=== PATIENT | female | born 1945 | race Caucasian/White ===

== ENCOUNTER → 2017-03-04 | Outpatient (CLI) | payer MEDICARE ==
--- NOTE | 2017-03-05 10:55 | MM ---
Reason for exam: screening (asymptomatic). Last mammogram was performed 15 years and 6 months ago. History: Patient is postmenopausal and history of endometrial cancer. Excisional biopsy of the left breast. Took estrogen for 20 years. Physical Findings: A clinical breast exam by your physician is recommended on an annual basis and results should be correlated with mammographic findings. MG 3D Screening Mammo W/Cad Bilateral CC and MLO view(s) were taken. Prior study comparison: February 03, 2015, mammogram, performed at [facility]. May 26, 2013, mammogram, performed at [facility]. The breast tissue is heterogeneously dense. This may lower the sensitivity of mammography. There is chronic nodularity bilaterally. There is no dominant lesion. No significant changes when compared with prior studies. ASSESSMENT: Benign, BI-RAD 2 RECOMMENDATION: Routine screening mammogram of both breasts in 1 year.
--- NOTE | 2017-03-05 13:28 | BD ---
EXAMINATION TYPE: MG DEXA axial skeleton. DATE OF EXAM: 03/04/2017 COMPARISON: NONE CLINICAL HISTORY: 71-year-old female osteoporosis Height: 60 IN Weight: 147 LBS FRAX RISK QUESTIONS: Alcohol (3 or more units per day): NO Family History (Parent hip fracture): NO Glucocorticoids (More than 3mos): NO (Ex: prednisone, prednisolone, methylprednisolone, dexamethasone, and hydrocortisone). History of Fracture in Adulthood: NO Secondary Osteoporosis: 1. Type 1 Diabetes: NO 2. Hyperthyroidism: NO 3. Menopause before 45: YES AGE 36 4. Malnutrition: NO 5. Chronic liver disease: NO Rheumatoid Arthritis: NO Current Tobacco Use: NO RISK FACTORS HISTORY OF: Active: YES Diet low in dairy products/other sources of calcium: YES Postmenopausal woman: AGE 36 Take estrogen and/or progesterone medications: NOT NOW How long: AGE 35 - 40 MEDICATIONS: Osteoporosis Medications: YES Which medication: Fosamax How Lon YEARS Additional Medications: FOSAMAX, VIT D, HCTZ, AMLODIPINE, ASPIRIN 81MG, MULTI VIT, Additional History: CERVICAL CANCER EXAM MEASUREMENTS: Bone mineral densitometry was performed using the [employer] System. Bone mineral density as measured about the Lumbar spine is: ----- L1-L4(G/cm2): 1.176 T Score Values are as follows: ----- L2: -1.3 ----- L3: 0.0 ----- L4: 1.3 ----- L1-L4: 0.0 Bone mineral density BASELINE Bone mineral density about the R hip (g/cm2): 0.735 Bone mineral density about the L hip (g/cm2): 0.807 T Score values are as follows: -----R Neck: -2.2 -----L Neck: -1.7 -----R Total: -1.5 -----L Total: -0.8 Bone mineral density BASELINE IMPRESSION: Osteopenia (T Score between -2.5 and -1 as noted by T score values There is slightly increased risk of fracture and the patient may be considered for treatment. Re-Screen 2-5 years. NOTE: T-SCORE=SD OF THE YOUNG ADULT MEAN.
== END ==
LOC: RADMAMWWP 12:20
PROVIDERS: ATTEND Family Medicine
DX: Z12.31 Encounter for screening mammogram for malignant neoplasm of breast (principal); M85.80 Other specified disorders of bone density and structure, unspecified site
CPT/HCPCS: 77080; 77063; G0202

== ENCOUNTER 2017-07-08 13:41 | Inpatient (IN) | payer MEDICARE ==
[2017-07-08] MEDS ORDERED: SODIUM CHLORIDE 0.9% 1,000 ML IV STA (14:04)
[2017-07-08] MEDS ORDERED: SODIUM CHLORIDE 0.9% 500 ML IV STA (14:04)
[2017-07-08] MEDS ORDERED: RX INFO: IV CONTRAST WAS GIVEN 1 EACH MISC MISCELLANE PRN (14:04)
--- NOTE | 2017-07-08 14:10 | ED ---
General Adult HPI - General Chief complaint: Shortness of Breath Stated complaint: Swollen leg,SOB,rash Time Seen by Provider: 07/08/17 13:58 Source: patient, RN notes reviewed, old records reviewed Mode of arrival: wheelchair Limitations: no limitations - History of Present Illness Initial comments: This is a 71-year-old female the ER for evaluation of shortness of breath, lower Shorty edema. Patient history positive CA. Patient sent in by family doctor for evaluation regarding possible PE versus DVT. Patient has no chest pain or shortness of breath, - Related Data Home Medications Medication Instructions Recorded Confirmed Aspirin 81 mg PO HS 09/07/13 07/08/17 Lisinopril-Hctz 10-12.5 mg 1 tab PO BID 09/07/13 07/08/17 [Zestoretic 10-12.5] amLODIPine [Norvasc] 10 mg PO HS 09/07/13 07/08/17 Cholecalciferol [Vitamin D3] 5,000 unit PO DAILY 07/08/17 07/08/17 Multivitamins, Thera [Multivitamin 1 tab PO DAILY 07/08/17 07/08/17 (formulary)] Allergies Allergy/AdvReac Type Severity Reaction Status Date / Time adhesive Allergy Rash/Hives Verified 07/08/17 14:31 amoxicillin trihydrate Allergy Rash/Hives Verified 07/08/17 14:31 [From Trimox] triamcinolone Allergy Swelling Verified 07/08/17 14:31 Review of Systems ROS Statement: Those systems with pertinent positive or pertinent negative responses have been documented in the HPI. ROS Other: All systems not noted in ROS Statement are negative. Past Medical History Past Medical History: Hypertension, Skin Disorder, Thyroid Disorder Additional Past Medical History / Comment(s): posy menopausal, thyroid nodule, History of Any Multi-Drug Resistant Organisms: None Reported Past Surgical History: Breast Surgery, Hysterectomy Additional Past Surgical History / Comment(s): Thyroid biopsy,exploratory abdominal surgery to remove ovarian pre-cancerous mass. berry procedure Past Anesthesia/Blood Transfusion Reactions: No Reported Reaction Past Psychological History: No Psychological Hx Reported Smoking Status: Never smoker Past Alcohol Use History: None Reported Past Drug Use History: None Reported - Past Family History Father Family Medical History: Cancer Additional Family Medical History / Comment(s): kidney ca General Exam Limitations: no limitations General appearance: alert, in no apparent distress Head exam: Present: atraumatic, normocephalic, normal inspection Eye exam: Present: normal appearance, PERRL, EOMI. Absent: scleral icterus, conjunctival injection, periorbital swelling ENT exam: Present: normal exam, mucous membranes moist Neck exam: Present: normal inspection. Absent: tenderness, meningismus, lymphadenopathy Respiratory exam: Present: normal lung sounds bilaterally. Absent: respiratory distress, wheezes, rales, rhonchi, stridor Cardiovascular Exam: Present: regular rate, normal rhythm, normal heart sounds. Absent: systolic murmur, diastolic murmur, rubs, gallop, clicks GI/Abdominal exam: Present: soft, normal bowel sounds. Absent: distended, tenderness, guarding, rebound, rigid Extremities exam: Present: normal inspection, full ROM, normal capillary refill. Absent: tenderness, pedal edema, joint swelling, calf tenderness Back exam: Present: normal inspection Neurological exam: Present: alert, oriented X3, CN II-XII intact Psychiatric exam: Present: normal affect, normal mood Skin exam: Present: warm, dry, intact, normal color. Absent: rash Course Vital Signs 07/08/17 07/08/17 13:45 15:05 Temperature 98.0 F Pulse Rate 120 H 122 H Respiratory 18 20 Rate Blood Pressure 136/74 124/76 O2 Sat by Pulse 96 97 Oximetry - Reevaluation(s) Reevaluation #1: 07/08/17 16:02 Patient was tachycardia, positive troponin secondary to PE EKG Findings - EKG Comments: EKG Findings:: EKG shows sinus tachycardia rate 105, HI 160, QRS 80, QTC 459 Medical Decision Making - Medical Decision Making 71 female the ER for evaluation, positive occasional shortness of breath or chest pain, positive PE, patient positive troponin. Patient will be admitted for further evaluation and monitoring, anticoagulation - Lab Data Result diagrams: 07/08/17 14:00 07/08/17 14:00 Lab Results 07/08/17 07/08/17 07/08/17 Range/Units 14:00 14:00 14:00 WBC 15.5 H (3.8-10.6) k/uL RBC 4.72 (3.80-5.40) m/uL Hgb 13.8 (11.4-16.0) gm/dL Hct 41.4 (34.0-46.0) % MCV 87.6 (80.0-100.0) fL MCH 29.3 (25.0-35.0) pg MCHC 33.4 (31.0-37.0) g/dL RDW 12.8 (11.5-15.5) % Plt Count 325 (150-450) k/uL Neutrophils % 83 % Lymphocytes % 13 % Monocytes % 2 % Eosinophils % 0 % Basophils % 0 % Neutrophils # 12.8 H (1.3-7.7) k/uL Lymphocytes # 2.1 (1.0-4.8) k/uL Monocytes # 0.4 (0-1.0) k/uL Eosinophils # 0.1 (0-0.7) k/uL Basophils # 0.1 (0-0.2) k/uL PT (9.0-12.0) sec INR (<1.2) APTT (22.0-30.0) sec D-Dimer (<0.60) mg/L FEU Sodium 140 (137-145) mmol/L Potassium 3.8 (3.5-5.1) mmol/L Chloride 101 (98-107) mmol/L Carbon Dioxide 25 (22-30) mmol/L Anion Gap 14 mmol/L BUN 19 H (7-17) mg/dL Creatinine 0.92 (0.52-1.04) mg/dL Est GFR (CKD-EPI)AfAm 73 (>60 ml/min/1.73 sqM) Est GFR (CKD-EPI)NonAf 64 (>60 ml/min/1.73 sqM) Glucose 124 H (74-99) mg/dL Calcium 10.7 H (8.4-10.2) mg/dL Magnesium 1.7 (1.6-2.3) mg/dL Total Bilirubin 0.4 (0.2-1.3) mg/dL AST 22 (14-36) U/L ALT 29 (9-52) U/L Alkaline Phosphatase 97 (38-126) U/L Total Creatine Kinase 60 (30-135) U/L CK-MB (CK-2) 2.9 H* (0.0-2.4) ng/mL CK-MB (CK-2) Rel Index 4.8 Troponin I 0.357 H* (0.000-0.034) ng/mL Total Protein 7.9 (6.3-8.2) g/dL Albumin 4.5 (3.5-5.0) g/dL 07/08/17 Range/Units 14:00 WBC (3.8-10.6) k/uL RBC (3.80-5.40) m/uL Hgb (11.4-16.0) gm/dL Hct (34.0-46.0) % MCV (80.0-100.0) fL MCH (25.0-35.0) pg MCHC (31.0-37.0) g/dL RDW (11.5-15.5) % Plt Count (150-450) k/uL Neutrophils % % Lymphocytes % % Monocytes % % Eosinophils % % Basophils % % Neutrophils # (1.3-7.7) k/uL Lymphocytes # (1.0-4.8) k/uL Monocytes # (0-1.0) k/uL Eosinophils # (0-0.7) k/uL Basophils # (0-0.2) k/uL PT 10.1 (9.0-12.0) sec INR 1.0 (<1.2) APTT 24.3 (22.0-30.0) sec D-Dimer 3.84 H (<0.60) mg/L FEU Sodium (137-145) mmol/L Potassium (3.5-5.1) mmol/L Chloride (98-107) mmol/L Carbon Dioxide (22-30) mmol/L Anion Gap mmol/L BUN (7-17) mg/dL Creatinine (0.52-1.04) mg/dL Est GFR (CKD-EPI)AfAm (>60 ml/min/1.73 sqM) Est GFR (CKD-EPI)NonAf (>60 ml/min/1.73 sqM) Glucose (74-99) mg/dL Calcium (8.4-10.2) mg/dL Magnesium (1.6-2.3) mg/dL Total Bilirubin (0.2-1.3) mg/dL AST (14-36) U/L ALT (9-52) U/L Alkaline Phosphatase (38-126) U/L Total Creatine Kinase (30-135) U/L CK-MB (CK-2) (0.0-2.4) ng/mL CK-MB (CK-2) Rel Index Troponin I (0.000-0.034) ng/mL Total Protein (6.3-8.2) g/dL Albumin (3.5-5.0) g/dL - Radiology Data Radiology results: report reviewed (Of some negative for DVT, CT positive for PE ), image reviewed Disposition Clinical Impression: Pulmonary embolism Disposition: ADMITTED IP TO THIS [facility] Condition: Serious Referrals: Davi Ricardo DO [Primary Care Provider] - 1-2 days
[2017-07-08 14:28] LABS: Basophils # (A) 0.1 k/uL (0-0.2); Basophils % (A) 0 %; Eosinophils # (A) 0.1 k/uL (0-0.7); Eosinophils % (A) 0 %; HCT 41.4 % (34.0-46.0); HGB 13.8 gm/dL (11.4-16.0); Lymphocytes # (A) 2.1 k/uL (1.0-4.8); Lymphocytes % (A) 13 %; MCH 29.3 pg (25.0-35.0); MCHC 33.4 g/dL (31.0-37.0); MCV 87.6 fL (80.0-100.0); Mean Platelet Volume 7.4; Monocytes # (A) 0.4 k/uL (0-1.0); Monocytes % (A) 2 %; Neutrophils # (A) 12.8 k/uL (1.3-7.7); Neutrophils % (A) 83 %; Platelet Count 325 k/uL (150-450); RBC 4.72 m/uL (3.80-5.40); RDW 12.8 % (11.5-15.5); WBC 15.5 k/uL (3.8-10.6)
[2017-07-08 14:39] LABS: Albumin 4.5 g/dL (3.5-5.0); Calcium 10.7 mg/dL (8.4-10.2); Magnesium 1.7 mg/dL (1.6-2.3); Potassium 3.8 mmol/L (3.5-5.1); Total Bilirubin 0.4 mg/dL (0.2-1.3); Total Protein 7.9 g/dL (6.3-8.2)
[2017-07-08 14:45] LABS: D-Dimer 3.84 mg/L FEU (<0.60); Partial Thromboplastin Time 24.3 sec (22.0-30.0); Prothrombin Time 10.1 sec (9.0-12.0)
[2017-07-08 15:16] LABS: Creatine Kinase MB 2.9 ng/mL (0.0-2.4); Troponin I 0.357 ng/mL (0.000-0.034)
--- NOTE | 2017-07-08 15:20 | US ---
EXAMINATION TYPE: US venous doppler duplex LE BI DATE OF EXAM: 07/08/2017 2:55 PM COMPARISON: NONE CLINICAL HISTORY: 71-year-old female with Pain. SIDE PERFORMED: bilateral TECHNIQUE: The lower extremity deep venous system is examined utilizing real time linear array sonog joss with graded compression, doppler sonography and color-flow sonography. FINDINGS: VESSELS IMAGED: External Iliac Vein (EIV) Common Femoral Vein Deep Femoral Vein Greater Saphenous Vein * Femoral Vein Popliteal Vein Small Saphenous Vein * Proximal Calf Veins (* superficial vessels) Right Leg: Negative for DVT Left Leg: Negative for DVT IMPRESSION: No evidence for DVT within the bilateral lower extremities imaged from the groin to the upper calves.
--- NOTE | 2017-07-08 15:49 | CT ---
EXAMINATION TYPE: CT angio chest DATE OF EXAM: 07/08/2017 3:35 PM COMPARISON: NONE HISTORY: Swelling right leg and shortness of breath CT DLP: 241.3 mGycm Automated exposure control for dose reduction was used. CONTRAST: CTA scan of the thorax is performed with IV Contrast, patient injected with 100 mL of Isovue 370, pul monary embolism protocol. . FINDINGS: LUNGS: There are groundglass changes noted bilaterally which may been the basis of alveolitis. No siz able pneumothorax. No pleural effusion. At the right lung base axial image 82 there is a 2 mm subpleu ral nodule which is too small to characterize. MEDIASTINUM: There are bilateral acute pulmonary embolism involving the distal main right and left pu lmonary arteries as well as secondary and tertiary branches compatible sizable bilateral pulmonary em bolism. Heart is enlarged and there is mild prominence of the right ventricle. No pericardial effusio n. Correlate for right ventricular strain. Aorta of normal caliber. Report called to emergency room physician. OTHER: Hypertrophic and degenerative change of the spine. Small hiatal hernia noted. Chronic appeari ng deformity of the lateral margin of a single right-sided rib suggest remote trauma. Heterogeneous p attern of the lower margin of the left thyroid. This likely represents a lower pole left thyroid nodu le which is been reported by previous ultrasound. IMPRESSION: 1. Bilateral distal main pulmonary arterial acute pulmonary embolism with involvement of the secondar y and tertiary branches bilaterally. 2. Nonspecific groundglass changes bilaterally could been the basis of an alveolitis or pneumonitis. No large area of consolidation identified.
[2017-07-08] MEDS ORDERED: HEPARIN SODIUM,PORCINE 10,000 UNIT/ML 1 ML VIAL IV ONE (15:55)
[2017-07-08] MEDS ORDERED: HEPARIN SODIUM,PORCINE 5,000 UNIT/ML 1 ML VIAL IV PRN (15:55)
[2017-07-08] MEDS ORDERED: NITROGLYCERIN SL TABS 0.4 MG TAB SUBLINGUAL PRN (16:13)
[2017-07-08] MEDS ORDERED: MORPHINE SULF 5MG/10ML VL IV PRN (16:13)
[2017-07-08] MEDS: HEPARIN SOD,PORK IN 0.45% NACL 25,000 UNIT in 0.45% NACL 1 500ML.BAG IV SCH (16:27)
[2017-07-08] MEDS ORDERED: MAGNESIUM HYDROXIDE 2,400 MG/10 ML CUP PO PRN (18:24)
[2017-07-08] MEDS ORDERED: LACTULOSE 20 GM/30 ML CUP PO PRN (18:24)
[2017-07-08] MEDS ORDERED: MELATONIN 3 MG TABLET PO PRN (18:24)
[2017-07-08] MEDS ORDERED: LORazepam 0.5 MG TAB PO PRN (18:24)
[2017-07-08] MEDS ORDERED: NALOXONE 0.4 MG/ML 1 ML VIAL IV PRN (18:24)
[2017-07-08] MEDS ORDERED: CALCIUM CARBONATE 500 MG CHEWABLE PO PRN (18:24)
[2017-07-08] MEDS ORDERED: ONDANSETRON 4 MG/2 ML VIAL IVP PRN (18:24)
[2017-07-08 22:10] LABS: Creatine Kinase MB 2.5 ng/mL (0.0-2.4); Troponin I 0.325 ng/mL (0.000-0.034)
[2017-07-08] MEDS: SODIUM CHLORIDE 0.9% 1,000 ML IV SCH (23:36)
[2017-07-08] MEDS: ASPIRIN 81 MG PO SCH (23:36)
[2017-07-08] MEDS: LISINOPRIL-HCTZ 10-12.5 MG 1 EACH TAB PO SCH (23:36)
[2017-07-08] MEDS: amLODIPine 10 MG TAB PO SCH (23:37)
[2017-07-09 02:51] LABS: Creatine Kinase MB 1.9 ng/mL (0.0-2.4)
[2017-07-09 02:54] LABS: Troponin I 0.239 ng/mL (0.000-0.034)
[2017-07-09] MEDS: SODIUM CHLORIDE 0.9% 1,000 ML IV SCH ×2 (06:05→11:48)
[2017-07-09 06:36] LABS: Basophils % (A) 0 %; Eosinophils # (A) 0.3 k/uL (0-0.7); Eosinophils % (A) 3 %; HCT 35.3 % (34.0-46.0); HGB 11.8 gm/dL (11.4-16.0); Lymphocytes # (A) 2.4 k/uL (1.0-4.8); Lymphocytes % (A) 24 %; MCH 29.8 pg (25.0-35.0); MCHC 33.4 g/dL (31.0-37.0); MCV 89.1 fL (80.0-100.0); Mean Platelet Volume 7.4; Monocytes # (A) 0.3 k/uL (0-1.0); Monocytes % (A) 3 %; Neutrophils % (A) 70 %; Platelet Count 275 k/uL (150-450); RBC 3.97 m/uL (3.80-5.40); RDW 12.8 % (11.5-15.5); WBC 10.1 k/uL (3.8-10.6)
[2017-07-09 06:50] LABS: Potassium 3.7 mmol/L (3.5-5.1)
[2017-07-09] MEDS: LISINOPRIL-HCTZ 10-12.5 MG 1 EACH TAB PO SCH ×2 (07:57→19:48)
[2017-07-09] MEDS ORDERED: ASPIRIN 325 MG TAB PO SCH (09:00)
--- NOTE | 2017-07-09 11:34 | ECHOF ---
Referral Reason:pe MEASUREMENTS -------- HEIGHT: 154.9 cm WEIGHT: 66.2 kg BP: 124/76 RVIDd: 3.6 cm (< 3.3) IVSd: 1.0 cm (0.6 - 1.1) LVIDd: 3.7 cm (3.9 - 5.3) LVPWd: 1.1 cm (0.6 - 1.1) IVSs: 1.4 cm LVIDs: 2.7 cm LVPWs: 1.4 cm LAESV Index (A-L): 11.16 ml/m Ao Diam: 3.1 cm (2.0 - 3.7) AV Cusp: 1.5 cm (1.5 - 2.6) LA Diam: 2.8 cm (2.7 - 3.8) EPSS: 0.5 cm RAP: 10.00 mmHg RVSP: 56.16 mmHg MV EF SLOPE: 70.91 mm/s (70 - 150) MV EXCURSION: 1.53 cm (> 18.000) FINDINGS -------- Resting tachycardia (HR>100bpm). This was a technically adequate study. The left ventricular size is normal. Left ventricular wall thickness is normal. Overall left vent ricular systolic function is normal with, an EF between 55 - 60 %. The right ventricle is mild to moderately enlarged. The right ventricular septal wall is flattened in systole which is consistent with right ventricular pressure overload. Normal LA size by volume 22+/-6 ml/m2. RA appears enlarged. Aortic valve is trileaflet and is mildly thickened. There is no evidence of aortic regurgitation. There is no evidence of aortic stenosis. The mitral valve leaflets are mildly thickened. Mild mitral annular calcification present. There is trace to mild mitral regurgitation. Mild tricuspid regurgitation present. There is moderate pulmonary hypertension. The right ventric ular systolic pressure, as measured by Doppler, is 56.16mmHg. The pulmonic valve was not well visualized. The aortic root size is normal. Normal inferior vena cava with less than 50% inspiratory collapse consistent with estimated right atr ial pressure of 15 mmHg. There is no pericardial effusion. CONCLUSIONS -------- 1. Resting tachycardia (HR>100bpm). 2. This was a technically adequate study. 3. The left ventricular size is normal. 4. Left ventricular wall thickness is normal. 5. Overall left ventricular systolic function is normal with, an EF between 55 - 60 %. 6. The right ventricle is mild to moderately enlarged. 7. The right ventricular septal wall is flattened in systole which is consistent with right ventricu lar pressure overload. 8. Normal LA size by volume 22+/-6 ml/m2. 9. RA appears enlarged. 10. Aortic valve is trileaflet and is mildly thickened. 11. The mitral valve leaflets are mildly thickened. 12. Mild mitral annular calcification present. 13. There is trace to mild mitral regurgitation. 14. Mild tricuspid regurgitation present. 15. There is moderate pulmonary hypertension. 16. The right ventricular systolic pressure, as measured by Doppler, is 56.16mmHg. 17. The pulmonic valve was not well visualized. 18. The aortic root size is normal. 19. Normal inferior vena cava with less than 50% inspiratory collapse consistent with estimated right atrial pressure of 15 mmHg. 20. There is no pericardial effusion. [employer] ASSOCIATE: Roshan Madrigal RDCS
[2017-07-09] MEDS: MULTIVITAMINS, THERA 1 EACH TAB PO SCH (11:48)
[2017-07-09] MEDS ORDERED: MORPHINE ORAL SOLN 10 MG/5 ML CUP PO PRN (12:54)
--- NOTE | 2017-07-09 14:38 | HP ---
HISTORY AND PHYSICAL DATE OF ADMISSION: 07/08/17. PRESENT COMPLAINT: Short of breath. HISTORY OF PRESENTING COMPLAINT: This is a very pleasant, 71-year-old patient of Dr. Ricardo. Chronic stable medical conditions include GERD, hypertension, thyroid nodule, diverticulitis, osteoarthritis, gout. The patient has had some swelling right lower extremity for about 2 months and for 1 week the swelling increased. The patient has also had a rash on the right lower extremity. The patient also noticed for a week she was become increasingly short of breath. No cough. No phlegm. No fever. Patient decided to come in to come in. The patient has some pain in the joints. The patient also had a troponin leak. Denies any precordial pressure, chest CTA ruled out PE. The patient denies any cardiac history. REVIEW OF SYSTEMS: CONSTITUTIONAL: Tired. HEENT: None. RESPIRATORY: As above. CARDIOVASCULAR: No chest pain. GASTROINTESTINAL: Heartburn. GENITOURINARY: None. MUSCULOSKELETAL: Pain in different joints. DERMATOLOGICAL: The patient has a rash on the lower extremities. PSYCHIATRY: None. PAST MEDICAL HISTORY: GERD, hypertension, thyroid nodule, diverticulitis, osteoarthritis, gout. PAST SURGICAL HISTORY: Breast surgery, hysterectomy, thyroid surgery. Patient had ovarian precancer that was removed by Mohs procedure. SOCIAL HISTORY: No smoking. No alcohol. . FAMILY HISTORY: Kidney cancer. HOME MEDICATIONS: 1. Norvasc 10 mg p.o. q.h.s. 2. Multivitamin 1 tab p.o. daily. 3. Zestoretic 01/17.5 one tab p.o. b.i.d. 4. Vitamin D3 5000 units p.o. daily. 5. Aspirin 81 mg p.o. q.h.s. ALLERGIES: ADHESIVES, AMOXICILLIN, . EXAMINATION: Temperature 98.2, pulse 91, respiratory 18, blood pressure 108/59, pulse 95% on 2 L. GENERAL APPEARANCE: Sitting up, comfortable. EYES: Pupils equal. Conjunctivae normal. HEENT: External nose and ears normal. Oral cavity normal. NECK: JVD not raised. Mass not palpable. RESPIRATORY: Effort normal, lungs fair entry. CARDIOVASCULAR: First and second sounds normal. No edema. ABDOMEN: Soft, nontender. Liver and spleen not palpable. LYMPHATIC: No lymph nodes palpable in neck or axillae. PSYCHIATRY: Alert and oriented x3. Mood and affect normal. NEUROLOGICAL: Pupils equal. Cranial nerves grossly intact. Power and sensation grossly intact. DERMATOLOGICAL: Patient has got a rash, somewhat macular, slightly crusty. Minimal tenderness located to the anterior laws. INVESTIGATIONS: White count 15.5, hemoglobin 13.8, increased neutrophils. Potassium 3.8, BUN 19, creatinine 0.92, troponin 0.35, 0.032, 0.239. LDL 66. ProBNP 285. EKG shows poor R- wave progression. Nonspecific T-wave changes in V1 to V5. Chest CTA shows bilateral acute pulmonary embolism involving the distal main right and left pulmonary artery. 2D echo shows right ventricle [id number] enlarged, including right ventricular pressure overload. ASSESSMENT: 1. Acute bilateral pulmonary embolism with right ventricular pressure overload. 2. Gastroesophageal reflux disease. 3. Essential hypertension. 4. Primary osteoarthritis of multiple joints, bilateral. 5. IV heparin monitoring. 6. Troponin leak from right ventricular strain. PLAN: Patient's home medications were resumed. Consultation to Cardiology and Pulmonary was made. Also consultation made to Pulmonary. Care was discussed with the patient. MMODL / BUCKN: [id number] /
[2017-07-09] MEDS: HEPARIN SOD,PORK IN 0.45% NACL 25,000 UNIT in 0.45% NACL 1 500ML.BAG IV SCH (15:56)
--- NOTE | 2017-07-09 16:52 | P.CNPUL ---
History of Present Illness Consult date: 07/09/17 Reason for consult: pulmonary embolism Chief complaint: Shortness of breath History of present illness: This is a 71-year-old female with history of hypertension, remote history of possible ovarian cancer, previous surgery. Also had previous history of thyroid nodule with negative thyroid biopsy. Patient came into the hospital with 1 week history of shortness of breath. No cough, no wheezing, no chest pain, no fever, no chills, no hemoptysis. CT angiogram of the chest showed bilateral pulmonary emboli. Patient was also noted to have elevated d-dimer, negative venous Doppler of lower extremities. Admitted, started on heparin, and this consult was initiated. Patient denies any previous history of thromboembolic disease, no family history of hypercoagulable state or thromboembolic disease. Denies any headaches, no blurred vision no dizziness no chest pain no nausea no vomiting no abdominal pain no melena no hematemesis no dysuria and no frequency no urgency. Review of Systems 14 point review of systems were obtained, please refer to pertinent positives as per HPI otherwise remaining systems are negative. Past Medical History Past Medical History: Cancer, GERD/Reflux, Hypertension, Pneumonia, Skin Disorder, Thyroid Disorder Additional Past Medical History / Comment(s): post menopausal, thyroid nodule, recieved the shingeles vaccine 2014.skin cancer, diverticulosis, arthiritsfeet/ lt ankle, rt knee.gouit, past migaraines, upper bridge, rash rt lower ext. History of Any Multi-Drug Resistant Organisms: None Reported Past Surgical History: Breast Surgery, Hysterectomy Additional Past Surgical History / Comment(s): Thyroid biopsy,exploratory abdominal surgery to remove ovarian pre-cancerous mass. "mohs procedure", colonsocpy, breast bx 1987 Past Anesthesia/Blood Transfusion Reactions: Motion Sickness Additional Past Anesthesia/Blood Transfusion Reaction / Comment(s): clausterphobia Smoking Status: Never smoker - Past Family History Mother Additional Family Medical History / Comment(s): scleraderma Father Family Medical History: Cancer Additional Family Medical History / Comment(s): kidney ca Medications and Allergies Home Medications Medication Instructions Recorded Confirmed Type Aspirin 81 mg PO HS 09/07/13 07/08/17 History Lisinopril-Hctz 10-12.5 mg 1 tab PO BID 09/07/13 07/08/17 History [Zestoretic 10-12.5] amLODIPine [Norvasc] 10 mg PO HS 09/07/13 07/08/17 History Cholecalciferol [Vitamin D3] 5,000 unit PO DAILY 07/08/17 07/08/17 History Multivitamins, Thera [Multivitamin 1 tab PO DAILY 07/08/17 07/08/17 History (formulary)] Allergies Allergy/AdvReac Type Severity Reaction Status Date / Time adhesive Allergy Rash/Hives Verified 07/08/17 14:31 amoxicillin trihydrate Allergy Rash/Hives Verified 07/08/17 14:31 [From Trimox] triamcinolone Allergy Swelling Verified 07/08/17 14:31 Physical Exam Vitals: Vital Signs Temp Pulse Pulse Resp BP BP Pulse Ox 07/09/17 16:05 94 L 07/09/17 15:58 99.7 F H 90 18 131/64 94 L 07/09/17 11:47 98.2 F 91 18 118/59 95 07/09/17 07:50 98.9 F 85 18 129/59 94 L 07/09/17 04:00 97 F L 86 18 129/70 95 07/09/17 00:00 90 18 130/68 95 07/08/17 20:00 98.6 F 95 14 112/56 93 L 07/08/17 18:00 97.9 F 112 H 18 129/73 95 07/08/17 17:00 115 H 20 130/68 97 Intake and Output 07/09/17 07/09/17 07/09/17 06:59 14:59 22:59 Intake Total 708.964 5218.524 978.993 Output Total 800 Balance -345.287 6671.524 978.993 Intake: IV 21 Heparin Sod,Pork in 0.45% 21 NaCl 25,000 unit In 0.45 % NaCl 1 500ml.bag @ 18 UNITS/KG/HR 23.84 mls/hr IV .[id number] [facility] Rx#: [id number] Intake, IV Titration 166.483 975.524 957.993 Amount Heparin Sod,Pork in 0.45% 166.483 175.524 157.993 NaCl 25,000 unit In 0.45 % NaCl 1 500ml.bag @ 18 UNITS/KG/HR 23.84 mls/hr IV .[id number] [facility] Rx#: [id number] Sodium Chloride 0.9% 1, 800 800 000 ml @ 100 mls/hr IV . Q10H [facility] Rx#:[id number] Oral 480 Output: Urine 800 Other: Voiding Method Bedpan Bedpan # Voids 1 2 3 Weight 68 kg Physical Exam: Revealed a 71-year-old female in no form of respiratory distress. Head: Atraumatic, normocephalic. Eyes: PERRLA, EOMI, no icterus. HEENT: Moist mucous membranes. [Neck is supple.] [No neck masses.] [No thyromegaly.] [No JVD.] Chest: [Clear throughout, no crackles, no rhonchi, no wheezes.] Cardiac Exam: [Normal S1 and S2, no S3 gallop, no murmur.] Abdomen: [Soft, nontender, no megaly, no rebound, no guarding, normal bowel sounds.] Extremities: [No clubbing, no edema, no cyanosis.] Neurological Exam: [No focal neurologic deficit.] Psychiatric: Normal mood affect and mental status examination. Lymphatics: No lymphadenopathy. Musculoskeletal: No deformities, normal range of motion. Results - Laboratory Findings CBC and BMP: 07/09/17 05:23 07/09/17 05:23 PT/INR, D-dimer PT 10.1 sec (9.0-12.0) 07/08/17 14:00 INR 1.0 (<1.2) 07/08/17 14:00 D-Dimer 3.84 mg/L FEU (<0.60) H 07/08/17 14:00 Abnormal lab findings: Abnormal Labs 07/08/17 07/08/17 07/08/17 14:00 14:00 14:00 WBC 15.5 H Neutrophils # 12.8 H APTT D-Dimer BUN 19 H Glucose 124 H Calcium 10.7 H CK-MB (CK-2) 2.9 H* Troponin I 0.357 H* 07/08/17 07/08/17 07/08/17 14:00 21:02 21:02 WBC Neutrophils # APTT 79.5 H D-Dimer 3.84 H BUN Glucose Calcium CK-MB (CK-2) 2.5 H* Troponin I 0.325 H* 07/09/17 07/09/17 02:08 05:23 WBC Neutrophils # APTT 48.5 H D-Dimer BUN Glucose Calcium CK-MB (CK-2) Troponin I 0.239 H* - Diagnostic Findings CT scan - chest: image reviewed (Bilateral pulmonary emboli was noted.) Assessment and Plan Assessment: Impression: 1 Acute pulmonary embolism, unprovoked, quite extensive noted on the CT angiogram of the chest. But no hemodynamic instability. 2 relatively normal echocardiogram except for right ventricular wall flattening in systole consistent with right ventricular pressure overload. However at this point not severe enough to justify thrombolytic therapy. 3 history of benign essential hypertension 4 history of thyroid nodule and history of precancerous ovarian mass. Recommendation: I fully agree with heparin at this point, patient will eventually need workup for hypercoagulable state and that could be done on outpatient basis. Granted, considering the pulmonary embolism is unprovoked, patient will likely need to be on anticoagulation therapy for lifetime. We'll continue to follow. Discussed her condition with her and her family members at bedside. Time with Patient: Greater than 30
[2017-07-09] MEDS: CLOBETASOL PROP 0.05% CR 15GM TOPICAL SCH (17:18)
[2017-07-09] MEDS: amLODIPine 10 MG TAB PO SCH (19:48)
[2017-07-09] MEDS: ASPIRIN 81 MG PO SCH (19:49)
[2017-07-10] MEDS: SODIUM CHLORIDE 0.9% 1,000 ML IV SCH ×3 (02:47→19:12)
[2017-07-10] MEDS: CLOBETASOL PROP 0.05% CR 15GM TOPICAL SCH ×3 (02:47→21:04)
[2017-07-10 06:35] LABS: Basophils # (A) 0.1 k/uL (0-0.2); Basophils % (A) 1 %; Eosinophils # (A) 0.5 k/uL (0-0.7); Eosinophils % (A) 4 %; HGB 11.6 gm/dL (11.4-16.0); Lymphocytes # (A) 2.8 k/uL (1.0-4.8); Lymphocytes % (A) 28 %; MCH 29.7 pg (25.0-35.0); MCV 89.9 fL (80.0-100.0); Mean Platelet Volume 7.7; Monocytes # (A) 0.3 k/uL (0-1.0); Monocytes % (A) 3 %; Neutrophils # (A) 6.5 k/uL (1.3-7.7); Neutrophils % (A) 63 %; Platelet Count 253 k/uL (150-450); RDW 12.9 % (11.5-15.5); WBC 10.3 k/uL (3.8-10.6)
[2017-07-10 06:46] LABS: Calcium 9.1 mg/dL (8.4-10.2); Potassium 3.9 mmol/L (3.5-5.1)
[2017-07-10] MEDS: LISINOPRIL-HCTZ 10-12.5 MG 1 EACH TAB PO SCH ×2 (09:50→21:04)
[2017-07-10] MEDS: MULTIVITAMINS, THERA 1 EACH TAB PO SCH (12:12)
[2017-07-10] MEDS: HEPARIN SOD,PORK IN 0.45% NACL 25,000 UNIT in 0.45% NACL 1 500ML.BAG IV SCH (13:33)
--- NOTE | 2017-07-10 15:50 | P.PN ---
Subjective Progress Note Date: 07/10/17 Principal diagnosis: Bilateral pulmonary emboli. This is a 71-year-old female with history of hypertension, remote history of possible ovarian cancer, previous surgery. Also had previous history of thyroid nodule with negative thyroid biopsy. Patient came into the hospital with 1 week history of shortness of breath. No cough, no wheezing, no chest pain, no fever, no chills, no hemoptysis. CT angiogram of the chest showed bilateral pulmonary emboli. Patient was also noted to have elevated d-dimer, negative venous Doppler of lower extremities. Admitted, started on heparin, and this consult was initiated. Patient denies any previous history of thromboembolic disease, no family history of hypercoagulable state or thromboembolic disease. Denies any headaches, no blurred vision no dizziness no chest pain no nausea no vomiting no abdominal pain no melena no hematemesis no dysuria and no frequency no urgency. The patient is seen again today 07/10/2017 in follow-up on the selective care unit. She is awake and alert in no acute distress. She is resting quite comfortably in bed. She denies any worsening shortness of breath, cough or congestion. No chills or night sweats. No hemoptysis. No chest pain or palpitations. She is maintaining good O2 saturations in the upper 90s on 2 L/m per nasal cannula. She's been afebrile. Hemodynamically stable. White count 10.3. Hemoglobin 11.6. Platelet count 253. Creatinine 0.80. She remains on a heparin drip. Objective - Vital Signs Vital signs: Vital Signs Temp 97.8 F 07/10/17 12:00 Pulse 81 07/10/17 12:00 Resp 14 07/10/17 12:00 BP 130/60 07/10/17 12:00 Pulse Ox 96 07/10/17 12:00 Intake & Output 07/09/17 07/10/17 07/10/17 18:59 06:59 18:59 Intake Total 2674.517 990.4 827.862 Output Total 400 500 Balance 2674.517 590.4 327.862 Weight 67.6 kg Intake: IV 21 190.4 Heparin Sod,Pork in 0.45% 21 190.4 NaCl 25,000 unit In 0.45 % NaCl 1 500ml.bag @ 18 UNITS/KG/HR 23.84 mls/hr IV .[id number] [facility] Rx#: [id number] Intake, IV Titration 1933.517 800 467.862 Amount Heparin Sod,Pork in 0.45% 333.517 467.862 NaCl 25,000 unit In 0.45 % NaCl 1 500ml.bag @ 18 UNITS/KG/HR 23.84 mls/hr IV .[id number] [facility] Rx#: [id number] Sodium Chloride 0.9% 1, 1600 800 000 ml @ 100 mls/hr IV . Q10H [facility] Rx#:[id number] Oral 720 360 Output: Urine 400 500 Other: Voiding Method Bedpan Bedpan Bedpan # Voids 3 2 # Bowel Movements 1 - Exam GENERAL EXAM: Alert, active, comfortable in no apparent distress. HEAD: Normocephalic. EYES: Normal reaction of pupils, equal size. NOSE: Clear with pink turbinates. THROAT: No erythema or exudates. NECK: No masses, no JVD. CHEST: No chest wall deformity. LUNGS: Equal air entry with no crackles, wheeze, rhonchi or dullness. CVS: S1 and S2 normal with no audible murmur, regular rhythm. ABDOMEN: No hepatosplenomegaly, normal bowel sounds, no guarding or rigidity. SPINE: No scoliosis or deformity SKIN: No rashes CENTRAL NERVOUS SYSTEM: No focal deficits, tone is normal in all 4 extremities. EXTREMITIES: There is no peripheral edema. No clubbing, no cyanosis. Peripheral pulses are intact. - Labs CBC & Chem 7: 07/10/17 05:28 07/10/17 05:28 Labs: Abnormal Lab Results - Last 24 Hours (Table) 07/10/17 07/10/17 Range/Units 05:28 05:28 APTT 43.9 H (22.0-30.0) sec Chloride 109 H (98-107) mmol/L Assessment and Plan Assessment: Impression: 1 Acute pulmonary embolism, unprovoked, quite extensive noted on the CT angiogram of the chest. But no hemodynamic instability. 2 relatively normal echocardiogram except for right ventricular wall flattening in systole consistent with right ventricular pressure overload. However at this point not severe enough to justify thrombolytic therapy. 3 history of benign essential hypertension 4 history of thyroid nodule and history of precancerous ovarian mass. Recommendation: The patient was seen and evaluated by Dr. Oconnor. We'll continue the heparin drip for now. Determine which oral anticoagulant her insurance will cover. She would benefit from an outpatient workup regarding a possible hypercoagulable state as the PE appears to be unprovoked. She'll most likely need lifelong anticoagulation. Will increase her activity as tolerated. We'll continue to follow and make further recommendations based on her clinical status. I, the cosigning physician, performed a history & physical examination of the patient. Lungs sounds are clear. Maintaining good O2 saturations in the 90s on 2 L/m per nasal cannula. I discussed the assessment and plan of care with my nurse practitioner, Jo Ahumada. I attest to the above note as dictated by her.
--- NOTE | 2017-07-10 20:18 | PN ---
PROGRESS NOTE DATE OF SERVICE: 07/10/2017. PRESENTING COMPLAINT: Short of breath. INTERVAL HISTORY: This patient presented with bilateral pulmonary embolism, unprovoked; on IV heparin. Breathing is a shade better. Did tolerate some diet. Swelling in the right leg has gone down, she states. REVIEW OF SYSTEMS: Done for constitutional, cardiovascular, GI, pulmonary; relevant findings as above. CURRENT MEDICATIONS: Current medications include IV heparin. PHYSICAL EXAMINATION: Temperature 97.8, pulse 81, respiration 14, blood pressure 130/60, pulse ox 96% on 2 L. GENERAL APPEARANCE: Sitting on bed, more comfortable. EYES: Pupils equal. Conjunctivae normal. HEENT: External appearance of nose and ears normal. Oral cavity normal. NECK: JVD not raised. Mass not palpable. RESPIRATORY: Effort normal. Lungs are clear. CARDIOVASCULAR: First and second sounds normal. No edema. ABDOMEN: Soft, nontender. Liver and spleen not palpable. PSYCHIATRY: Alert and oriented x3. Mood and affect normal. INVESTIGATION: White count 10.3, potassium 3.9. ASSESSMENT: 1. Acute bilateral pulmonary embolism with right ventricular strain. 2. Gastroesophageal reflux disease. 3. Essential hypertension. 4. Primary osteoarthritis in multiple joints, bilateral. 5. IV heparin monitoring. 6. Troponin leak from right ventricular strain. PLAN: Continue with the IV heparin at least until tomorrow morning. Patient does feel a bit better. Did talk with him. Follow with Pulmonary. MMODL / IJN: [id number] /
[2017-07-10] MEDS: amLODIPine 10 MG TAB PO SCH (21:04)
[2017-07-10] MEDS: ASPIRIN 81 MG PO SCH (21:04)
[2017-07-11 03:58] LABS: Basophils % (A) 0 %; Eosinophils # (A) 0.4 k/uL (0-0.7); Eosinophils % (A) 4 %; HCT 35.5 % (34.0-46.0); HGB 11.7 gm/dL (11.4-16.0); Lymphocytes % (A) 27 %; MCH 29.9 pg (25.0-35.0); MCV 90.8 fL (80.0-100.0); Mean Platelet Volume 8.1; Monocytes # (A) 0.4 k/uL (0-1.0); Monocytes % (A) 3 %; Neutrophils # (A) 7.2 k/uL (1.3-7.7); Neutrophils % (A) 65 %; Platelet Count 270 k/uL (150-450); RBC 3.91 m/uL (3.80-5.40); WBC 11.1 k/uL (3.8-10.6)
[2017-07-11] MEDS: SODIUM CHLORIDE 0.9% 1,000 ML IV SCH ×2 (04:51→15:57)
[2017-07-11 05:01] LABS: Calcium 9.5 mg/dL (8.4-10.2)
[2017-07-11 05:08] LABS: Potassium 4.7 mmol/L (3.5-5.1)
[2017-07-11] MEDS: HEPARIN SOD,PORK IN 0.45% NACL 25,000 UNIT in 0.45% NACL 1 500ML.BAG IV SCH (06:29)
[2017-07-11] MEDS: LISINOPRIL-HCTZ 10-12.5 MG 1 EACH TAB PO SCH ×2 (07:49→21:22)
[2017-07-11] MEDS: MULTIVITAMINS, THERA 1 EACH TAB PO SCH (07:49)
[2017-07-11] MEDS: CLOBETASOL PROP 0.05% CR 15GM TOPICAL SCH ×2 (07:49→21:23)
--- NOTE | 2017-07-11 13:40 | P.PN ---
Subjective Progress Note Date: 07/11/17 Principal diagnosis: Bilateral pulmonary emboli. This is a 71-year-old female with history of hypertension, remote history of possible ovarian cancer, previous surgery. Also had previous history of thyroid nodule with negative thyroid biopsy. Patient came into the hospital with 1 week history of shortness of breath. No cough, no wheezing, no chest pain, no fever, no chills, no hemoptysis. CT angiogram of the chest showed bilateral pulmonary emboli. Patient was also noted to have elevated d-dimer, negative venous Doppler of lower extremities. Admitted, started on heparin, and this consult was initiated. Patient denies any previous history of thromboembolic disease, no family history of hypercoagulable state or thromboembolic disease. Denies any headaches, no blurred vision no dizziness no chest pain no nausea no vomiting no abdominal pain no melena no hematemesis no dysuria and no frequency no urgency. The patient is seen again today 07/10/2017 in follow-up on the selective care unit. She is awake and alert in no acute distress. She is resting quite comfortably in bed. She denies any worsening shortness of breath, cough or congestion. No chills or night sweats. No hemoptysis. No chest pain or palpitations. She is maintaining good O2 saturations in the upper 90s on 2 L/m per nasal cannula. She's been afebrile. Hemodynamically stable. White count 10.3. Hemoglobin 11.6. Platelet count 253. Creatinine 0.80. She remains on a heparin drip. The patient is seen again today 07/11/2017 in follow-up on the selective care unit. She is awake and alert in no acute distress. She is breathing easier today as compared to yesterday. No worsening shortness of breath, cough or congestion. No hemoptysis. He is currently maintaining good O2 saturations in the upper 90s on room air. She's been afebrile. Hemodynamically stable. White count 11.1. Hemoglobin 11.7. Creatinine 0.80. She remains on heparin drip. Objective - Vital Signs Vital signs: Vital Signs Temp 97.8 F 07/11/17 12:00 Pulse 73 07/11/17 12:00 Resp 18 07/11/17 12:00 BP 136/65 07/11/17 12:00 Pulse Ox 97 07/11/17 12:00 Intake & Output 07/10/17 07/11/17 07/11/17 18:59 06:59 18:59 Intake Total 1007.862 796.027 240 Output Total 500 Balance 507.862 796.027 240 Weight 67.9 kg Intake: IV 24 Heparin Sod,Pork in 0.45% 24 NaCl 25,000 unit In 0.45 % NaCl 1 500ml.bag @ 18 UNITS/KG/HR 23.84 mls/hr IV .[id number] [facility] Rx#: [id number] Intake, IV Titration 467.862 532.027 Amount Heparin Sod,Pork in 0.45% 467.862 432.027 NaCl 25,000 unit In 0.45 % NaCl 1 500ml.bag @ 18 UNITS/KG/HR 23.84 mls/hr IV .[id number] [facility] Rx#: [id number] Sodium Chloride 0.9% 1, 100 000 ml @ 100 mls/hr IV . Q10H [facility] Rx#:[id number] Oral 540 240 240 Output: Urine 500 Other: Voiding Method Bedpan Bedside Commode Bedside Commode # Voids 4 1 # Bowel Movements 1 1 1 - Exam GENERAL EXAM: Alert, active, comfortable in no apparent distress. HEAD: Normocephalic. EYES: Normal reaction of pupils, equal size. NOSE: Clear with pink turbinates. THROAT: No erythema or exudates. NECK: No masses, no JVD. CHEST: No chest wall deformity. LUNGS: Equal air entry with no crackles, wheeze, rhonchi or dullness. CVS: S1 and S2 normal with no audible murmur, regular rhythm. ABDOMEN: No hepatosplenomegaly, normal bowel sounds, no guarding or rigidity. SPINE: No scoliosis or deformity SKIN: No rashes CENTRAL NERVOUS SYSTEM: No focal deficits, tone is normal in all 4 extremities. EXTREMITIES: There is no peripheral edema. No clubbing, no cyanosis. Peripheral pulses are intact. - Labs CBC & Chem 7: 07/11/17 02:40 07/11/17 02:40 Labs: Abnormal Lab Results - Last 24 Hours (Table) 07/10/17 07/11/17 07/11/17 Range/Units 17:19 02:40 02:40 WBC 11.1 H (3.8-10.6) k/uL APTT 44.1 H (22.0-30.0) sec Chloride 108 H (98-107) mmol/L /08/23 Range/Units 02:40 WBC (3.8-10.6) k/uL APTT 53.7 H (22.0-30.0) sec Chloride (98-107) mmol/L Assessment and Plan Assessment: Impression: 1 Acute pulmonary embolism, unprovoked, quite extensive noted on the CT angiogram of the chest. But no hemodynamic instability. 2 relatively normal echocardiogram except for right ventricular wall flattening in systole consistent with right ventricular pressure overload. However at this point not severe enough to justify thrombolytic therapy. 3 history of benign essential hypertension 4 history of thyroid nodule and history of precancerous ovarian mass. Recommendation: The patient was seen and evaluated by Dr. Oconnor. Still awaiting insurance authorization for oral anticoagulant. Continue heparin drip for now. Increase her activity as tolerated. We'll continue to follow and make further recommendations based on her clinical status. I, the cosigning physician, performed a history & physical examination of the patient. Lungs sounds are clear. Maintaining good O2 saturations in the 90s on 2 L/m per nasal cannula. I discussed the assessment and plan of care with my nurse practitioner, Jo Ahumada. I attest to the above note as dictated by her.
--- NOTE | 2017-07-11 16:49 | PN ---
PROGRESS NOTE DATE OF SERVICE: 07/11/17. PRESENTING COMPLAINT: Short of breath. INTERVAL HISTORY: Patient presented with bilateral pulmonary embolism, unprovoked. Remains on IV heparin. Breathing continues to improve. Did tolerate a diet. No bleeding. REVIEW OF SYSTEMS: Done for constitutional, cardiovascular, GI, pulmonary; relevant findings as above. CURRENT MEDICATIONS: Include IV heparin. PHYSICAL EXAMINATION: Temperature 97.8, pulse 93, respiratory 18, blood pressure 136/65, pulse ox 97% on room air. GENERAL APPEARANCE: Sitting on bed, comfortable. EYES: Pupils equal. Conjunctivae normal. HEENT: External appearance of nose and ears normal. Oral cavity normal. NECK: JVD not raised. Mass not palpable. RESPIRATORY: Effort normal. Lungs, fair entry. CARDIOVASCULAR: 1st and 2nd sounds normal. No edema. ABDOMEN: Soft, nontender. Liver and spleen not palpable. PSYCHIATRY: Alert and oriented x3. Mood and affect normal. INVESTIGATIONS: White count 11.1, potassium 4.7, BUN and creatinine are normal. ASSESSMENT: 1. Acute bilateral pulmonary embolism with right ventricular strain. 2. Gastroesophageal reflux disease. 3. Essential hypertension. 4. Primary osteoarthritis in multiple joints, bilateral. 5. IV heparin monitoring. 6. Troponin leak from right ventricular strain. PLAN: I did talk to the patient. Patient's Eliquis runs around 150 dollars but she can get a 1 month free supply. Did talk to her. At this point she has chosen to proceed with Eliquis. Use the 1 month free supply and then she will talk to her physicians if she can get any rebates on the same or in that case she will have to switch over to Coumadin. This will be started off tonight. In the meantime, patient will continue IV heparin. Encouraged to be out of bed. MMODL / IJN: [id number] /
[2017-07-11] MEDS: amLODIPine 10 MG TAB PO SCH (21:22)
[2017-07-11] MEDS: ASPIRIN 81 MG PO SCH (21:22)
[2017-07-11] MEDS: APIXABAN 5 MG TAB PO SCH (21:23)
[2017-07-11] MEDS: ACETAMINOPHEN TAB 325 MG TAB PO PRN (23:50)
[2017-07-12] MEDS: SODIUM CHLORIDE 0.9% 1,000 ML IV SCH ×2 (01:01→09:19)
[2017-07-12 05:54] LABS: Basophils # (A) 0.1 k/uL (0-0.2); Basophils % (A) 0 %; Eosinophils # (A) 0.2 k/uL (0-0.7); Eosinophils % (A) 2 %; HCT 35.7 % (34.0-46.0); HGB 11.8 gm/dL (11.4-16.0); Lymphocytes % (A) 18 %; MCH 29.5 pg (25.0-35.0); MCV 89.6 fL (80.0-100.0); Mean Platelet Volume 7.6; Monocytes # (A) 0.4 k/uL (0-1.0); Monocytes % (A) 3 %; Neutrophils # (A) 8.7 k/uL (1.3-7.7); Neutrophils % (A) 76 %; Platelet Count 265 k/uL (150-450); RBC 3.99 m/uL (3.80-5.40); RDW 13.1 % (11.5-15.5); WBC 11.5 k/uL (3.8-10.6)
[2017-07-12 06:20] LABS: Calcium 9.8 mg/dL (8.4-10.2); Potassium 4.4 mmol/L (3.5-5.1)
[2017-07-12 09:01] VITALS: RESP 18
[2017-07-12] MEDS: MULTIVITAMINS, THERA 1 EACH TAB PO SCH (09:18)
[2017-07-12] MEDS: LISINOPRIL-HCTZ 10-12.5 MG 1 EACH TAB PO SCH (09:18)
[2017-07-12] MEDS: CLOBETASOL PROP 0.05% CR 15GM TOPICAL SCH (09:19)
[2017-07-12] MEDS: APIXABAN 5 MG TAB PO SCH (09:19)
[2017-07-12] MEDS: ACETAMINOPHEN TAB 325 MG TAB PO PRN (11:57)
--- NOTE | 2017-07-12 12:54 | P.PN ---
Subjective Progress Note Date: 07/12/17 Principal diagnosis: Bilateral pulmonary emboli. This is a 71-year-old female with history of hypertension, remote history of possible ovarian cancer, previous surgery. Also had previous history of thyroid nodule with negative thyroid biopsy. Patient came into the hospital with 1 week history of shortness of breath. No cough, no wheezing, no chest pain, no fever, no chills, no hemoptysis. CT angiogram of the chest showed bilateral pulmonary emboli. Patient was also noted to have elevated d-dimer, negative venous Doppler of lower extremities. Admitted, started on heparin, and this consult was initiated. Patient denies any previous history of thromboembolic disease, no family history of hypercoagulable state or thromboembolic disease. Denies any headaches, no blurred vision no dizziness no chest pain no nausea no vomiting no abdominal pain no melena no hematemesis no dysuria and no frequency no urgency. The patient is seen again today 07/10/2017 in follow-up on the selective care unit. She is awake and alert in no acute distress. She is resting quite comfortably in bed. She denies any worsening shortness of breath, cough or congestion. No chills or night sweats. No hemoptysis. No chest pain or palpitations. She is maintaining good O2 saturations in the upper 90s on 2 L/m per nasal cannula. She's been afebrile. Hemodynamically stable. White count 10.3. Hemoglobin 11.6. Platelet count 253. Creatinine 0.80. She remains on a heparin drip. The patient is seen again today 07/11/2017 in follow-up on the selective care unit. She is awake and alert in no acute distress. She is breathing easier today as compared to yesterday. No worsening shortness of breath, cough or congestion. No hemoptysis. He is currently maintaining good O2 saturations in the upper 90s on room air. She's been afebrile. Hemodynamically stable. White count 11.1. Hemoglobin 11.7. Creatinine 0.80. She remains on heparin drip. The patient was seen again today 07/12/2017 in follow-up on the selective care unit. She is resting comfortably in bed. She denies any worsening shortness of breath, cough or congestion. She's been transitioned to Eliquis 10 mg twice a day. She is maintaining good O2 saturations in the 90s on room air. No cough or congestion. No hemoptysis. White count 11.5. Hemoglobin 11.8. Creatinine 0.80. Objective - Vital Signs Vital signs: Vital Signs Temp 97.9 F 07/12/17 08:00 Pulse 84 07/12/17 08:00 Resp 18 07/12/17 08:00 BP 129/59 07/12/17 08:00 Pulse Ox 94 L 07/12/17 08:00 Intake & Output 07/11/17 07/12/17 07/12/17 18:59 06:59 18:59 Intake Total 680 840 300 Output Total 1000 Balance -320 840 300 Weight 69 kg Intake: Intake, IV Titration 600 Amount Sodium Chloride 0.9% 1, 600 000 ml @ 100 mls/hr IV . Q10H BASILIO Rx#:[id number] Oral 680 240 300 Output: Urine 1000 Other: Voiding Method Bedside Commode Bedside Commode Bedside Commode # Voids 4 3 # Bowel Movements 2 - Exam GENERAL EXAM: Alert, active, comfortable in no apparent distress. HEAD: Normocephalic. EYES: Normal reaction of pupils, equal size. NOSE: Clear with pink turbinates. THROAT: No erythema or exudates. NECK: No masses, no JVD. CHEST: No chest wall deformity. LUNGS: Equal air entry with no crackles, wheeze, rhonchi or dullness. CVS: S1 and S2 normal with no audible murmur, regular rhythm. ABDOMEN: No hepatosplenomegaly, normal bowel sounds, no guarding or rigidity. SPINE: No scoliosis or deformity SKIN: No rashes CENTRAL NERVOUS SYSTEM: No focal deficits, tone is normal in all 4 extremities. EXTREMITIES: There is no peripheral edema. No clubbing, no cyanosis. Peripheral pulses are intact. - Labs CBC & Chem 7: 07/12/17 05:29 07/12/17 05:29 Labs: Abnormal Lab Results - Last 24 Hours (Table) 07/12/17 Range/Units 05:29 WBC 11.5 H (3.8-10.6) k/uL Neutrophils # 8.7 H (1.3-7.7) k/uL Assessment and Plan Assessment: Impression: 1 Acute pulmonary embolism, unprovoked, quite extensive noted on the CT angiogram of the chest. But no hemodynamic instability. Initiated on Eliquis. 2 relatively normal echocardiogram except for right ventricular wall flattening in systole consistent with right ventricular pressure overload. However at this point not severe enough to justify thrombolytic therapy. 3 history of benign essential hypertension 4 history of thyroid nodule and history of precancerous ovarian mass. Recommendation: The patient was seen and evaluated by Dr. Oconnor. The patient is cleared for discharge from the pulmonary standpoint. Should would benefit from a follow-up in our office in 1-2 weeks' time. She'll continue on Eliquis for now. She is encouraged to call sooner with any recurrence of symptoms or other questions or concerns. I, the cosigning physician, performed a history & physical examination of the patient. Lungs sounds are clear. Maintaining good O2 saturations in the 90s on 2 L/m per nasal cannula. I discussed the assessment and plan of care with my nurse practitioner, Jo Ahumada. I attest to the above note as dictated by her.
[2017-07-12 16:16] VITALS: BP 118/59; PULSE 75; TEMP 97.9
--- NOTE | 2017-07-12 20:05 | DS ---
DISCHARGE SUMMARY DATE OF ADMISSION: 07/08/2017. DATE OF DISCHARGE: 07/12/2017 FINAL DIAGNOSES: 1. Acute bilateral pulmonary embolism with right ventricular strain. 2. Gastroesophageal reflux disease. 3. Essential hypertension. 4. Primary osteoarthritis in multiple joints, bilateral. 5. IV heparin monitoring. 6. Troponin leak from right ventricular strain. HOSPITAL COURSE: This patient presented with unprovoked pulmonary embolism. Initially she was put on IV heparin, then switched over to Eliquis. Patient's symptoms were greatly improved. Patient's pulse ox was 96% on room air. On examination, lungs revealed fair air entry. CARDIOVASCULAR: First and second sounds normal. Care was discussed in detail with the patient. Patient was reluctant going to Coumadin, as she had coverage that was very expensive for Eliquis. She wants to use a one-month free supply of Eliquis. In the meantime, she will see if she can find Eliquis samples. This is what she wants to do right now. CONSULTATION: Dr. Oconnor from Pulmonary. DISCHARGE MEDICATIONS: 1. Aspirin 81 mg p.o. at bedtime. 2. Zestoretic 01/17.5 one tablet p.o. b.i.d. 3. Norvasc 10 mg p.o. at bedtime. 4. Vitamin D3 5000 units p.o. daily. 5. Multivitamin 1 tablet p.o. daily. 6. Eliquis 10 mg twice a day for 7 days, then 5 mg p.o. b.i.d. 7. Temovate 0.05% topically b.i.d. Follow up with Dr. Oconnor in 10 days. Follow up with Dr. Ricardo in 3 days. Labs CBC in 3 days. Duration of anticoagulation at least for 6 months. MMODL / IJN: [id number] /
== END 2017-07-12 17:30 | disposition home or self-care (01) | DRG 176 ==
LOC: EC 13:41 → 6SEL 16:13
PROVIDERS: ADMIT Hospitalist; ATTEND Hospitalist
DX: I26.99 Other pulmonary embolism without acute cor pulmonale (principal); I11.9 Hypertensive heart disease without heart failure; E04.1 Nontoxic single thyroid nodule; K21.9 Gastro-esophageal reflux disease without esophagitis; M10.9 Gout, unspecified; M15.9 Polyosteoarthritis, unspecified; K57.90 Diverticulosis of intestine, part unspecified, without perforation or abscess without bleeding; R21 Rash and other nonspecific skin eruption; R12 Heartburn; Z79.82 Long term (current) use of aspirin; Z79.899 Other long term (current) drug therapy; Z90.710 Acquired absence of both cervix and uterus; Z85.828 Personal history of other malignant neoplasm of skin; Z88.1 Allergy status to other antibiotic agents; Z88.0 Allergy status to penicillin; Z91.048 Other nonmedicinal substance allergy status; Z80.51 Family history of malignant neoplasm of kidney
CPT/HCPCS: 36415; 71275; 80048; 80053; 80061; 82550; 82553; 83735; 83880; 84484; 85025; 85379; 85610; 85730; 93005; 93306; 93970; 94760; 96361; 96365; 96366; 96376; 99285

== ENCOUNTER → 2018-03-20 | Outpatient (CLI) | payer MEDICARE ==
--- NOTE | 2018-03-20 11:12 | US ---
EXAMINATION TYPE: US thyroid st tissue head/neck DATE OF EXAM: 03/20/2018 COMPARISON: Thyroid ultrasound March 11, 2017 CLINICAL HISTORY: E04.1 Nontoxic single thyroid nodule. GLAND SIZE: Right Lobe: 4.2 x 1.5 x 1.6 cm Overall Parenchyma: heterogenous Left Lobe: 4.4 x 1.6 x 1.2 cm Overall Parenchyma: heterogeneous Isthmus Thickness: 0.5 cm NODULES RIGHT: # of nodules measured on right: 2 largest of multiple small nodules 1. 0.2 X 0.3 x 0.2 cm hypoechoic cystic nodule at the upper pole with well-defined margins. This n odule is wider than tall and shows no intranodular vascularity. Prior size: none seen 2. 0.4 X 0.3 x 0.3 cm hypoechoic mixed nodule at the lower pole with well-defined margins. This nod ule is wider as is tall and shows no intranodular vascularity. Prior size: none seen LEFT: # of nodules measured on left: 2 largest of multiple 1. 0.5 X 0.5 x 0.4 cm hypoechoic mixed nodule at the upper pole with well-defined margins. This no dule is wider than tall and shows no intranodular vascularity. Prior size: 0.5 x 0.5 x 0.5 cm 2. 0.8 X 0.9 x 0.5 cm hypoechoic mixed nodule at the lower pole with well-defined margins. This nod ule is wider than tall and shows no intranodular vascularity. Prior size: 0.4 x 0.5 x 0.6 cm ISTHMUS: # of nodules measured in the isthmus: none seen after multiple assessments; nodular bord er Bilateral neck scanned: no evidence of lymphadenopathy. Heterogeneous multinodular normal-sized thyroid is redemonstrated without change from prior. IMPRESSION: As above, overall stable findings.
== END | disposition home or self-care (01) ==
LOC: RADUSWWP 09:54
PROVIDERS: ATTEND Family Medicine
DX: E04.2 Nontoxic multinodular goiter (principal)
CPT/HCPCS: 76536

== ENCOUNTER → 2018-09-29 | Outpatient (CLI) | payer MEDICARE ==
[2018-09-29 15:38] LABS: Basophils # (A) 0.1 k/uL (0-0.2); Basophils % (A) 1 %; Eosinophils # (A) 0.1 k/uL (0-0.7); Eosinophils % (A) 1 %; HCT 39.5 % (34.0-46.0); HGB 13.1 gm/dL (11.4-16.0); Lymphocytes # (A) 2.4 k/uL (1.0-4.8); Lymphocytes % (A) 21 %; MCH 30.8 pg (25.0-35.0); MCHC 33.2 g/dL (31.0-37.0); MCV 92.5 fL (80.0-100.0); Mean Platelet Volume 7.8; Monocytes # (A) 0.4 k/uL (0-1.0); Monocytes % (A) 4 %; Neutrophils # (A) 8.1 k/uL (1.3-7.7); Neutrophils % (A) 72 %; Platelet Count 290 k/uL (150-450); RBC 4.27 m/uL (3.80-5.40); RDW 13.7 % (11.5-15.5); WBC 11.1 k/uL (3.8-10.6)
[2018-09-29 15:44] LABS: Calcium 9.9 mg/dL (8.4-10.2); Potassium 4.8 mmol/L (3.5-5.1)
--- NOTE | 2018-09-29 16:11 | US ---
EXAMINATION TYPE: US thyroid st tissue head/neck DATE OF EXAM: 09/29/2018 COMPARISON: 03/11/2017 and 02/09/2015 thyroid ultrasound CLINICAL HISTORY: E04.1 Goiter. GLAND SIZE: Right Lobe: 3.8 x 1.5 x 1.5 cm Overall Parenchyma: heterogenous Left Lobe: 3.9 x 1.3 x 1.7 cm Overall Parenchyma: heterogeneous Isthmus Thickness: 0.2 cm NODULES RIGHT: # of nodules measured on right: 2 1. 0.2 x 0.2 x 0.2 hypoechoic cystic nodule at the upper pole with well- defined margins. This nodule is wider than tall and shows no intranodular vascularity. Prior size: 0.2 x 0.3 x 0.2cm 2. 0.3 x 0.2 x 0.3 cm hypoechoic mixed nodule at the lower pole with well- defined margins. This nod ule is wider as is tall and shows no intranodular vascularity. Prior size: 0.4 X 0.3 x 0.3cm LEFT: # of nodules measured on left: 2 1. 0.3 x 0.2 x 0.3cm hypoechoic mixed nodule at the upper pole with well- defined margins. This nodu le is wider than tall and shows no intranodular vascularity. Prior size: 0.5 x 0.5 x 0.4 cm 2. 0.3 x 0.2 x 0.5cm hypoechoic mixed nodule at the lower pole with well- defined margins. This nodu le is wider than tall and shows no intranodular vascularity. Prior size: 0.8 X 0.9 x 0.5 cm ISTHMUS: # of nodules measured in the isthmus: 0 Bilateral neck scanned, no evidence of lymphadenopathy. IMPRESSION: Similar size of the multiple subcentimeter thyroid nodules with some of the thyroid nodules appearing smaller than on the prior. Findings are again compatible with a multinodular goiter.
--- NOTE | 2018-09-29 17:46 | CT ---
EXAMINATION TYPE: CT angio chest DATE OF EXAM: 09/29/2018 COMPARISON: 02/20/2018 HISTORY: 72-year-old female on a embolism, goiter, Follow up scan per patient. TECHNIQUE: Contiguous axial scanning of the chest performed with IV Contrast, patient injected with 1 00 mL of Isovue 370. Coronal/sagittal MIP reconstructions performed. CT DLP: 468 mGycm Automated exposure control for dose reduction was used. FINDINGS: Heart upper limits of normal in size without pericardial effusion. Prominent epicardial fat pad. No f lattening of the interventricular septum reflux of contrast into the hepatic veins. Aorta normal caliber conventional arch vessel branching anatomy. While there is satisfactory opacification of the pulmonary arterial system, there is excessive breath ing motion. This significantly limits the segmental and subsegmental branches of the lower lobes no l arge central or lobar pulmonary embolus is seen. No thoracic lymphadenopathy by CT size criteria. Calcified granuloma peripheral left upper lobe. Scattered dependent atelectasis is present characteri zed by hazy posterior densities. No consolidation or pleural effusion. Small hernia. Visualized upper abdomen shows no gross abnormality. Occasional colonic diverticula at the splenic flexure. Bones: Endplate spondylosis mid to lower thoracic spine. IMPRESSION: 1. EXCESSIVE BREATHING MOTION DEGRADING ASSESSMENT IN THE LOWER LUNGS. MANY OF THESE SEGMENTAL AND COTTRELL BSEGMENTAL BRANCHES ARE NONDIAGNOSTIC FOR THIS REASON. NO LARGE CENTRAL OR LOBAR PULMONARY EMBOLUS. 2. LOW LUNG VOLUMES WITH PROMINENT AREAS OF DEPENDENT ATELECTASIS. 3. SMALL HIATAL HERNIA.
== END | disposition home or self-care (01) ==
LOC: RADUSWWP 15:16
PROVIDERS: ATTEND Family Medicine
DX: E04.2 Nontoxic multinodular goiter (principal); K44.9 Diaphragmatic hernia without obstruction or gangrene; J98.11 Atelectasis; R94.4 Abnormal results of kidney function studies; D72.829 Elevated white blood cell count, unspecified
CPT/HCPCS: 80048; 85025; 76536; 71275; 36415; Q9967

== ENCOUNTER → 2020-07-06 | Outpatient (CLI) | payer MEDICARE ==
--- NOTE | 2020-07-06 13:17 | US ---
EXAMINATION TYPE: US thyroid st tissue head/neck DATE OF EXAM: 07/06/2020 COMPARISON: CLINICAL HISTORY: E04.1 Thyroid Nodule. Follow up. On thyroid meds. GLAND SIZE: Right Lobe: 4.3 x 1.6 x 1.8 cm Overall Parenchyma: heterogenous Left Lobe: 4.3 x 1.4 x 1.7 cm Overall Parenchyma: heterogeneous Isthmus Thickness: 0.4 cm NODULES RIGHT: # of nodules measured on right: 1 1. 0.3 X 0.3 x 0.2 cm, lower mid, solid or almost completely solid, hypoechoic nodule, which is wid er than tall, with ill-defined margins, without echogenic foci. Prior size: 0.3 x 0.2 x 0.3 cm LEFT: # of nodules measured on left: 1 1. 0.5 X 0.4 x 0.3 cm, upper lateral, mixed cystic and solid, hypoechoic nodule, which is wider nasra n tall, with smooth margins, without echogenic foci. Prior size: 0.3 x 0.2 x 0.3 cm ISTHMUS: # of nodules measured in the isthmus: 0 Bilateral neck scanned, no evidence of lymphadenopathy. IMPRESSION: 1. Bilateral subcentimeter nodules.
== END | disposition home or self-care (01) ==
LOC: RADUSWWP 10:01
PROVIDERS: ATTEND Family Medicine
DX: E04.2 Nontoxic multinodular goiter (principal)
CPT/HCPCS: 76536

== ENCOUNTER → 2022-12-21 | Day surgery (SDC) | payer MEDICARE ==
[2022-12-19 09:01] VITALS: BMI 26.8
[~2022-12-21] MED LIST: LACTATED RINGERS 1,000 ML IV SCH; LIDOCAINE 1% (10MG/ML) FOR IV START INTRADERMA PRN; PROPOFOL 10 MG/ML 20 ML VIAL IV ONE
--- NOTE | 2022-12-21 11:54 | P.PCN ---
Date of Procedure: 12/21/22 Procedure(s) Performed: BRIEF HISTORY: Patient is a 76-year-old pleasant white female scheduled for an elective colonoscopy as a part of evaluation change in bowel habits. PROCEDURE PERFORMED: Colonoscopy. PREOPERATIVE DIAGNOSIS: Change in bowel habits. IV sedation per Anesthesia. PROCEDURE: After informed consent was obtained, the patient, was brought into the endoscopy unit. IV sedation was administered by Anesthesia under continuous monitoring. Digital rectal examination was normal. Initially the Olympus CF-160 flexible video colonoscope was then inserted in the rectum, gradually advanced into the sigmoid and further advancement wasn't possible because of acute ventilation this area. Hence the pediatric colonoscopy was then introduced into the rectum and gradually advanced into the sigmoid colon despite multiple attempts I was not able to advance the scope any further. At this time for an upper endoscopy was used and once again scope could not be advanced beyond the sigmoid colon and hence at this time the procedure was terminated. Scattered sigmoid diverticulosis seen. Patient tolerated the procedure well. IMPRESSION: Incomplete colonoscopy up to the sigmoid colon and scope could not be advanced further because of acute angulation of the sigmoid colon. Moderate sigmoid diverticulosis. RECOMMENDATIONS: Findings of this examination were discussed with the patient as well as a family.. She will be scheduled for a single contrast barium enema today to evaluate the rest of the colon.
--- NOTE | 2022-12-21 15:20 | XR ---
EXAMINATION TYPE: XR abdomen 1V DATE OF EXAM: 12/21/2022 Comparison: None Clinical History: 76-year-old female incomplete colonoscopy, assess air Findings: Prominent colonic air, partially visualized on the left by extensive within the transverse colon and descending colon. There is reflux of air into the small bowel loops which are distended up to 3.9 cm. In the sigmoid colon and rectum has been evacuated. Impression: Extensive residual air throughout the abdomen following incomplete colonoscopy. There is extensive ai r refluxed into small bowel as well. Patient will need to be rescheduled for barium enema.
[2022-12-21 15:26] VITALS: BP 135/65; PULSE 92; RESP 16; TEMP 97.2
== END ==
LOC: ORWHC2ENDO 09:54
PROVIDERS: ATTEND Internal Medicine Gastroenterology
DX: K57.30 Diverticulosis of large intestine without perforation or abscess without bleeding (principal); I10 Essential (primary) hypertension; K21.9 Gastro-esophageal reflux disease without esophagitis; Z86.73 Personal history of transient ischemic attack (TIA), and cerebral infarction without residual deficits; Z79.01 Long term (current) use of anticoagulants; Z79.899 Other long term (current) drug therapy; Z88.0 Allergy status to penicillin
CPT/HCPCS: 74018; 45330; J2704

== ENCOUNTER 2023-01-12 23:28 | Inpatient (IN) | payer MEDICARE ==
[2023-01-13] MEDS ORDERED: SODIUM CHLORIDE 0.9% 500 ML 500 ML IV STA (00:24)
[2023-01-13] MEDS ORDERED: SODIUM CHLORIDE 0.9% 1,000 ML IV STA (00:24)
--- NOTE | 2023-01-13 01:12 | ED ---
Nausea/Vomiting/Diarrhea HPI - General Chief complaint: Nausea/Vomiting/Diarrhea Stated complaint: N/V Time Seen by Provider: 01/12/23 23:58 Source: family, RN notes reviewed, old records reviewed Mode of arrival: wheelchair Limitations: no limitations - History of Present Illness Initial comments: This is a 77-year-old female to the emergency department for evaluation. Patient presents today for evaluation of abdominal pain with nausea vomiting. Patient has significant abdominal pain distention swelling nausea vomiting. Recent colonoscopy which was unable to be finish secondary to Dr. Sheppard on being unable to pass the scope. Patient has had issues with abdominal problems for some time now. Patient feels very lightheaded dizzy and weak like she may pass out. Patient denies fevers MD complaint: nausea, vomiting, abdominal pain -: days(s) Description of Vomiting: food contents, watery, bilious Radiation: none Severity: severe Severity scale (1-10): 10 Quality: stabbing Consistency: constant Improves with: none Worsens with: none Context: recent surgery/procedure Associated Symptoms: loss of appetite, nausea/vomiting, weakness - Related Data Home Medications Medication Instructions Recorded Confirmed amLODIPine [Norvasc] 10 mg PO HS 09/07/13 01/13/23 Multivitamins, Thera [Multivitamin 1 tab PO DAILY 07/08/17 01/13/23 (formulary)] Apixaban [Eliquis] 5 mg PO BID 12/19/22 01/13/23 Ascorbic Acid [Vitamin C] 1,000 mg PO DAILY 12/19/22 01/13/23 Zinc Gluconate [Zinc] 50 mg PO DAILY 12/19/22 01/13/23 lisinopriL [Zestril] 10 mg PO DAILY 12/19/22 01/13/23 Cholecalciferol [Vitamin D3 (125 125 mcg PO DAILY 01/13/23 01/13/23 Mcg = 5000 Iu)] Allergies Allergy/AdvReac Type Severity Reaction Status Date / Time adhesive Allergy Rash/Hives Verified 01/13/23 12:26 amoxicillin trihydrate Allergy Rash/Hives Verified 01/13/23 12:26 [From Trimox] triamcinolone Allergy Swelling Verified 01/13/23 12:26 Review of Systems ROS Statement: Those systems with pertinent positive or pertinent negative responses have been documented in the HPI. ROS Other: All systems not noted in ROS Statement are negative. Past Medical History Past Medical History: Cancer, GERD/Reflux, Hypertension, Pulmonary Embolus (PE), Thyroid Disorder Additional Past Medical History / Comment(s): thyroid nodule, .skin cancer, diverticulosis, arthirits feet/lt ankle, rt knee.gout, past migaraines-RARE, History of Any Multi-Drug Resistant Organisms: None Reported Past Surgical History: Breast Surgery, Hysterectomy Additional Past Surgical History / Comment(s): Thyroid biopsy,exploratory abdominal surgery to remove ovarian pre-cancerous mass. "mohs procedure", colonsocpy, breast bx 1987 Past Anesthesia/Blood Transfusion Reactions: Motion Sickness Additional Past Anesthesia/Blood Transfusion Reaction / Comment(s): clausTRphobia Past Psychological History: No Psychological Hx Reported Smoking Status: Never smoker Past Alcohol Use History: None Reported Past Drug Use History: None Reported - Past Family History Mother Additional Family Medical History / Comment(s): scleraderma Father Family Medical History: Cancer Additional Family Medical History / Comment(s): kidney ca General Exam Limitations: no limitations General appearance: alert, in no apparent distress, anxious Head exam: Present: atraumatic, normocephalic, normal inspection Eye exam: Present: normal appearance, PERRL, EOMI. Absent: scleral icterus, conjunctival injection, periorbital swelling ENT exam: Present: normal exam, mucous membranes moist Neck exam: Present: normal inspection. Absent: tenderness, meningismus, lymphadenopathy Respiratory exam: Present: normal lung sounds bilaterally. Absent: respiratory distress, wheezes, rales, rhonchi, stridor Cardiovascular Exam: Present: regular rate, normal rhythm, normal heart sounds. Absent: systolic murmur, diastolic murmur, rubs, gallop, clicks GI/Abdominal exam: Present: soft, distended, tenderness, guarding, normal bowel sounds. Absent: rebound, rigid Extremities exam: Present: normal inspection, full ROM, normal capillary refill. Absent: tenderness, pedal edema, joint swelling, calf tenderness Back exam: Present: normal inspection Neurological exam: Present: alert, oriented X3, CN II-XII intact Psychiatric exam: Present: normal affect, normal mood Skin exam: Present: warm, dry, intact, normal color. Absent: rash Course Vital Signs 01/12/23 01/13/23 01/13/23 23:52 00:55 01:30 Temperature 97.6 F Pulse Rate 97 90 92 Respiratory 18 14 25 H Rate Blood Pressure 78/52 119/47 98/56 O2 Sat by Pulse 95 94 L 93 L Oximetry 01/13/23 01/13/23 01/13/23 02:00 02:30 03:00 Temperature Pulse Rate 90 89 95 Respiratory 24 26 H 18 Rate Blood Pressure 123/59 106/48 123/55 O2 Sat by Pulse 93 L 90 L Oximetry 01/13/23 01/13/23 01/13/23 04:00 05:00 06:00 Temperature Pulse Rate 93 96 93 Respiratory 20 18 24 Rate Blood Pressure 107/58 117/52 105/51 O2 Sat by Pulse 90 L 95 95 Oximetry 01/13/23 01/13/23 01/13/23 07:59 09:00 09:25 Temperature 96.8 F L 97 F L Pulse Rate 99 96 97 Respiratory 20 16 20 Rate Blood Pressure 105/57 105/67 100/60 O2 Sat by Pulse 95 96 95 Oximetry - Reevaluation(s) Reevaluation #1: 01/13/23 04:22 Medical records reviewed Reevaluation #2: 01/13/23 04:22 Patient symptoms improving Reevaluation #3: 01/13/23 04:22 Patient informed results questions answered Reevaluation #4: 01/13/23 04:22 Was pt. sent in by a medical professional or institution (, PA, DIRECTOR OF OUTREACH, urgent care, hospital, or fci...) When possible be specific @ -no Did you speak to anyone other than the patient for history (EMS, parent, family, police, friend...)? What history was obtained from this source @ -no Did you review nursing and triage notes (agree or disagree)? Why? @ -agree Are old charts reviewed (outside hosp., previous admission, EMS record, old EKG, old radiological studies, urgent care reports/EKG's, fci records)? Report findings @ -yes Differential Diagnosis (chest pain, altered mental status, abdominal pain women, abdominal pain men, vaginal bleeding, weakness, fever, dyspnea, syncope, headache, dizziness, GI bleed, back pain, seizure, CVA, palpatations, mental health, musculoskeletal)? @ -prior EKG interpreted by me (3pts min.). @ -yes X-rays interpreted by me (1pt min.). @ -no CT interpreted by me (1pt min.). @ -yes U/S interpreted by me (1pt. min.). @ -no What testing was considered but not performed or refused? (CT, X-rays, U/S, labs)? Why? @ -none What meds were considered but not given or refused? Why? @ -none Did you discuss the management of the patient with other professionals (professionals i.e. , PA, DIRECTOR OF OUTREACH, lab, RT, psych nurse, social service manager, paint trimmer pipe bowls, teacher, court security officer, case reviewer)? Give summary @ -no Was smoking cessation discussed for >3mins.? @ -no Was critical care preformed (if so, how long)? @ -no Were there social determinants of health that impacted care today? How? (Homelessness, low income, unemployed, alcoholism, drug addiction, transportation, low edu. Level, literacy, decrease access to med. care, fdc, rehab)? @ -none Was there de-escalation of care discussed even if they declined (Discuss DNR or withdrawal of care, Hospice)? DNR status @ -no What co-morbidities impacted this encounter? (DM, HTN, Smoking, COPD, CAD, Cancer, CVA, ARF, Chemo, Hep., AIDS, mental health diagnosis, sleep apnea, morbid obesity)? @ -none Was patient admitted / discharged? Hospital course, mention meds given and route, prescriptions, significant lab abnormalities, going to OR and other pertinent info. @ - 77 female to the emergency department was severe abdominal pain with nausea and vomiting. Patient does have colonic obstruction will be admitted for surgical evaluation management Admitted Undiagnosed new problem with uncertain prognosis? @ -no Drug Therapy requiring intensive monitoring for toxicity (Heparin, Nitro, Insulin, Cardizem)? @ -no Were any procedures done? @ -no Diagnosis/symptom? @ -Colonic obstruction, leukocytosis nausea and vomiting Acute, or Chronic, or Acute on Chronic? @ -Acute Uncomplicated (without systemic symptoms) or Complicated (systemic symptoms)? @ -Complicated Side effects of treatment? @ -no Exacerbation, Progression, or Severe Exacerbation? @ -exacerbation Poses a threat to life or bodily function? How? (Chest pain, [place], [place], pneumonia, PE, COPD, DKA, ARF, appy, cholecystitis, CVA, Diverticulitis, Homicidal, Suicidal, threat to staff... and all critical care pts) @ -yes with severe surgical illness Reevaluation #5: 01/13/23 04:22 Differential Abdominal Pain Women: Appendicitis, Cholecystitis, diverticulosis, ischemic bowel, pancreatitis, hepatitis, UTI, gastroenteritis, AAA, incarcerated hernia, bowel obstruction, constipation, inflammatory bowel, hepatitis, peptic ulcer disease, splenic infarction, perforated viscus, vulvitis, ovarian torsion, PID, kidney stone, placenta abruption, this is not meant to be an all-inclusive list - Consultations Consultation #1: Spoke with Dr. Pagan will see the patient in the ER will admit the ICU Consultation #2: Soap with ICU who accepts patient for admission Medical Decision Making - Medical Decision Making 77 female to the emergency department was severe abdominal pain with nausea and vomiting. Patient does have colonic obstruction will be admitted for surgical evaluation management - Lab Data Result diagrams: 01/18/23 09:59 01/17/23 05:14 Lab Results 01/13/23 01/13/23 01/13/23 Range/Units 00:32 00:32 00:32 WBC 34.8 H (3.8-10.6) k/uL RBC 4.53 (3.80-5.40) m/uL Hgb 13.7 (11.4-16.0) gm/dL Hct 42.4 (34.0-46.0) % MCV 93.5 (80.0-100.0) fL MCH 30.3 (25.0-35.0) pg MCHC 32.4 (31.0-37.0) g/dL RDW 13.8 (11.5-15.5) % Plt Count 488 H (150-450) k/uL MPV 9.0 Neutrophils % (Manual) 71 % Band Neuts % (Manual) 24 % Lymphocytes % (Manual) 3 % Monocytes % (Manual) 4 % Neutrophils # (Manual) 33.00 H (1.3-7.7) k/uL Lymphocytes # (Manual) 1.04 (1.0-4.8) k/uL Monocytes # (Manual) 1.39 H (0-1.0) k/uL Nucleated RBCs 0 (0-0) /100 WBC Manual Slide Review Performed Hypochromasia Slight PT 11.4 (9.0-12.0) sec INR 1.1 (<1.2) APTT 26.4 (22.0-30.0) sec Sodium 135 L (137-145) mmol/L Potassium 5.3 H (3.5-5.1) mmol/L Chloride 101 (98-107) mmol/L Carbon Dioxide 15 L (22-30) mmol/L Anion Gap 19 mmol/L BUN 50 H (7-17) mg/dL Creatinine 1.29 H (0.52-1.04) mg/dL Est GFR (CKD-EPI)AfAm 47 (>60 ml/min/1.73 sqM) Est GFR (CKD-EPI)NonAf 40 (>60 ml/min/1.73 sqM) Glucose 237 H (74-99) mg/dL Lactic Ac Sepsis Rflx Plasma Lactic Acid Ivan (0.7-2.0) mmol/L Calcium 9.2 (8.4-10.2) mg/dL Phosphorus 5.9 H (2.5-4.5) mg/dL Magnesium 2.8 H (1.6-2.3) mg/dL Total Bilirubin 0.7 (0.2-1.3) mg/dL AST 43 H (14-36) U/L ALT 40 H (4-34) U/L Alkaline Phosphatase 204 H (38-126) U/L Troponin I (0.000-0.034) ng/mL NT-Pro-B Natriuret Pep 815 pg/mL Total Protein 6.8 (6.3-8.2) g/dL Albumin 3.9 (3.5-5.0) g/dL Lipase 39 (23-300) U/L 01/13/23 01/13/23 01/13/23 Range/Units 00:32 00:32 02:03 WBC (3.8-10.6) k/uL RBC (3.80-5.40) m/uL Hgb (11.4-16.0) gm/dL Hct (34.0-46.0) % MCV (80.0-100.0) fL MCH (25.0-35.0) pg MCHC (31.0-37.0) g/dL RDW (11.5-15.5) % Plt Count (150-450) k/uL MPV Neutrophils % (Manual) % Band Neuts % (Manual) % Lymphocytes % (Manual) % Monocytes % (Manual) % Neutrophils # (Manual) (1.3-7.7) k/uL Lymphocytes # (Manual) (1.0-4.8) k/uL Monocytes # (Manual) (0-1.0) k/uL Nucleated RBCs (0-0) /100 WBC Manual Slide Review Hypochromasia PT (9.0-12.0) sec INR (<1.2) APTT (22.0-30.0) sec Sodium (137-145) mmol/L Potassium (3.5-5.1) mmol/L Chloride (98-107) mmol/L Carbon Dioxide (22-30) mmol/L Anion Gap mmol/L BUN (7-17) mg/dL Creatinine (0.52-1.04) mg/dL Est GFR (CKD-EPI)AfAm (>60 ml/min/1.73 sqM) Est GFR (CKD-EPI)NonAf (>60 ml/min/1.73 sqM) Glucose (74-99) mg/dL Lactic Ac Sepsis Rflx Y Plasma Lactic Acid Ivan 5.7 H* (0.7-2.0) mmol/L Calcium (8.4-10.2) mg/dL Phosphorus (2.5-4.5) mg/dL Magnesium (1.6-2.3) mg/dL Total Bilirubin (0.2-1.3) mg/dL AST (14-36) U/L ALT (4-34) U/L Alkaline Phosphatase (38-126) U/L Troponin I <0.012 (0.000-0.034) ng/mL NT-Pro-B Natriuret Pep pg/mL Total Protein (6.3-8.2) g/dL Albumin (3.5-5.0) g/dL Lipase (23-300) U/L 01/13/23 Range/Units 07:06 WBC (3.8-10.6) k/uL RBC (3.80-5.40) m/uL Hgb (11.4-16.0) gm/dL Hct (34.0-46.0) % MCV (80.0-100.0) fL MCH (25.0-35.0) pg MCHC (31.0-37.0) g/dL RDW (11.5-15.5) % Plt Count (150-450) k/uL MPV Neutrophils % (Manual) % Band Neuts % (Manual) % Lymphocytes % (Manual) % Monocytes % (Manual) % Neutrophils # (Manual) (1.3-7.7) k/uL Lymphocytes # (Manual) (1.0-4.8) k/uL Monocytes # (Manual) (0-1.0) k/uL Nucleated RBCs (0-0) /100 WBC Manual Slide Review Hypochromasia PT (9.0-12.0) sec INR (<1.2) APTT (22.0-30.0) sec Sodium (137-145) mmol/L Potassium (3.5-5.1) mmol/L Chloride (98-107) mmol/L Carbon Dioxide (22-30) mmol/L Anion Gap mmol/L BUN (7-17) mg/dL Creatinine (0.52-1.04) mg/dL Est GFR (CKD-EPI)AfAm (>60 ml/min/1.73 sqM) Est GFR (CKD-EPI)NonAf (>60 ml/min/1.73 sqM) Glucose (74-99) mg/dL Lactic Ac Sepsis Rflx Plasma Lactic Acid Ivan 2.4 H* (0.7-2.0) mmol/L Calcium (8.4-10.2) mg/dL Phosphorus (2.5-4.5) mg/dL Magnesium (1.6-2.3) mg/dL Total Bilirubin (0.2-1.3) mg/dL AST (14-36) U/L ALT (4-34) U/L Alkaline Phosphatase (38-126) U/L Troponin I (0.000-0.034) ng/mL NT-Pro-B Natriuret Pep pg/mL Total Protein (6.3-8.2) g/dL Albumin (3.5-5.0) g/dL Lipase (23-300) U/L - EKG Data -: EKG Interpreted by Me (EKG is sinus 99 KS 122 QRS 78 QTc 397) - Radiology Data Radiology results: report reviewed (CT of the abdomen and pelvis is positive for colonic obstruction), image reviewed Critical Care Time Critical Care Time: Yes Total Critical Care Time: 31 Disposition Clinical Impression: Nausea and vomiting, Colonic obstruction, Leukocytosis, Abdominal pain, Dehydration Disposition: ADMITTED IP TO THIS [facility] Condition: Fair Is patient prescribed a controlled substance at d/c from ED?: No Time of Disposition: 08:00
[2023-01-13 01:13] LABS: HCT 42.4 % (34.0-46.0); HGB 13.7 gm/dL (11.4-16.0); Hypochromasia Slight; MCH 30.3 pg (25.0-35.0); MCHC 32.4 g/dL (31.0-37.0); MCV 93.5 fL (80.0-100.0); Platelet Count 488 k/uL (150-450); RBC 4.53 m/uL (3.80-5.40); RDW 13.8 % (11.5-15.5); WBC 34.8 k/uL (3.8-10.6)
[2023-01-13 01:14] LABS: INR 1.1 (<1.2); Partial Thromboplastin Time 26.4 sec (22.0-30.0); Prothrombin Time 11.4 sec (9.0-12.0)
[2023-01-13 02:08] LABS: ALT 40 U/L (4-34); African American GFR (CKD) 47 (>60 ml/min/1.73 sqM); Anion Gap 19 mmol/L; Blood Urea Nitrogen 50 mg/dL (7-17); Calcium 9.2 mg/dL (8.4-10.2); Carbon Dioxide 15 mmol/L (22-30); Chloride 101 mmol/L (98-107); Glucose 237 mg/dL (74-99); Lipase 39 U/L (23-300); Non-African American GFR(CKD) 40 (>60 ml/min/1.73 sqM); Sodium 135 mmol/L (137-145)
[2023-01-13 02:10] LABS: Potassium 5.3 mmol/L (3.5-5.1)
[2023-01-13 02:11] LABS: AST 43 U/L (14-36); Albumin 3.9 g/dL (3.5-5.0); Alkaline Phosphatase 204 U/L (38-126); Magnesium 2.8 mg/dL (1.6-2.3); Phosphorus 5.9 mg/dL (2.5-4.5); Total Bilirubin 0.7 mg/dL (0.2-1.3); Total Protein 6.8 g/dL (6.3-8.2)
[2023-01-13 02:15] LABS: NT-Pro-B-Type Natriuretic Pept 815 pg/mL
[2023-01-13 02:25] LABS: Band Neutrophils % 24 %; Lymphocytes # (M) 1.04 k/uL (1.0-4.8); Monocytes # (M) 1.39 k/uL (0-1.0); Neutrophils % (M) 71 %; Nucleated Red Blood Cells 0 /100 WBC (0-0); Total Cells Counted 200
[2023-01-13] MEDS ORDERED: ONDANSETRON 4 MG/2 ML VIAL IVP STA (02:29)
[2023-01-13] MEDS ORDERED: PANTOPRAZOLE 40 MG/10 ML VIAL IV STA (02:29)
[2023-01-13] MEDS ORDERED: metroNIDAZOLE-NS PMX 500 MG in SALINE 1 100ML.BAG IVPB STA (02:30)
--- NOTE | 2023-01-13 08:12 | CT ---
EXAMINATION TYPE: CT abdomen pelvis w con CT DLP: 902.1 mGycm, Automated exposure control for dose reduction was used. DATE OF EXAM: 01/13/2023 3:08 AM COMPARISON: None. CLINICAL INDICATION:Female, 77 years old with history of pain; nausea and vomiting, history of hyster ectomy removal of ovarian mass TECHNIQUE: Axial CT of the abdomen and pelvis. Sagittal and coronal reformats were created on a [employer] workstation. Contrast used: 80 mL of Isovue 300 , (none if empty) Oral contrast used: (none if empty) FINDINGS: LOWER CHEST: Mild cardiomegaly. Moderate size hiatal hernia. Bibasilar subsegmental atelectasis. ABDOMEN LIVER: Tiny hypodensity right lobe is to small characterize, likely cyst or hemangioma. GALLBLADDER AND BILE DUCTS: Unremarkable. PANCREAS: Mild fatty infiltration, no acute abnormality SPLEEN: Unremarkable. ADRENAL GLANDS: Mildly thickened without evidence of mass. KIDNEYS AND URETERS: No evidence of hydronephrosis or renal calculus. The ureters are unremarkable. Probable small cyst lower pole right kidney. PELVIS BLADDER: Unremarkable REPRODUCTIVE: The uterus is surgically absent. ABDOMEN & PELVIS STOMACH AND BOWEL: Stomach mildly prominent and fluid-filled. Duodenum and proximal jejunum do not ap pear significantly dilated. Distal small bowel dilated up to 3.1 cm diameter with some air-fluid leve ls noted. Gas and stool throughout the colon. The ascending colon dilated up to 7.1 cm. Early colonic wall pneumatosis cannot be excluded. In the distal colon, there appears to be a transition point in the left lower quadrant around image 70, where the colonic lumen appears decompressed/thickened with multiple sigmoid region diverticula noted. No extraluminal gas is seen. Appendix is not clearly iden tified. PERITONEUM/RETROPERITONEUM: No evidence of pneumoperitoneum or significant volume free fluid. Small a mount of fluid tracking in the right abdomen. VASCULATURE: Mild atherosclerotic calcifications are present throughout the abdominal aorta and its b ranches. No evidence of aortic aneurysm. MUSCULOSKELETAL: No acute osseous abnormalities. Moderate disc degeneration changes are present throu ghout the thoracolumbar spine. Small sclerotic density left pubic bone likely bone island. LYMPH NODES: No gross evidence for lymphadenopathy. SOFT TISSUE/ABDOMINAL WALL: Unremarkable IMPRESSION: 1. Findings suggest obstructing or partially obstructing process in the region of the sigmoid colon. Underlying neoplasm remains to be excluded. 2. Upstream dilatation of the colon and distal small bowel, as described. Early colonic wall pneumat osis cannot be excluded. Surgical consultation recommended. 3. Other chronic and likely incidental findings, as described above.
[2023-01-13] MEDS ORDERED: NALOXONE 0.4 MG/ML 1 ML VIAL IV PRN (08:17)
[2023-01-13] MEDS: ONDANSETRON 4 MG/2 ML VIAL IVP PRN ×2 (08:20→16:59)
[2023-01-13 08:56] LABS: Appearance,Urine Clear (Clear); Bilirubin,Urine Negative (Negative); Blood,Urine Negative (Negative); Color,Urine Yellow; Glucose,Urine (UA) Negative (Negative); Ketones,Urine Negative (Negative); Leukocyte Esterase,Urine Trace (Negative); Mucus,Urine Rare /hpf; Nitrite,Urine Negative (Negative); PH, Urine 5.5 (5.0-8.0); Protein,Urine Trace (Negative); RBC,Urine 1 /hpf (0-5); Squamous Epithelial Cell,Urine 1 /hpf (0-4); WBC,Urine 1 /hpf (0-5)
[2023-01-13 09:01] LABS: Specific Gravity,Urine >1.050 (1.001-1.035)
--- NOTE | 2023-01-13 09:11 | P.GSHP ---
History of Present Illness H&P Date: 01/13/23 Chief Complaint: , Pain, nausea This a 77-year-old female who's had a progressive course of intermittent nausea vomiting abdominal pain. Patient presents emergency room last night. She had significant abdominal distention. With nausea. Patient's CAT scan was performed early this morning. Patient is evidence of a partial colonic obstruction of the sigmoid colon. It is unclear as due to diverticular changes or tumor. Patient was hypotensive and had lactic acidosis on presentation to the ER. She took a dose L [place] was yesterday. Past Medical History Past Medical History: Cancer, GERD/Reflux, Hypertension, Pulmonary Embolus (PE), Thyroid Disorder Additional Past Medical History / Comment(s): thyroid nodule, .skin cancer, diverticulosis, arthirits feet/lt ankle, rt knee.gout, past migaraines-RARE, History of Any Multi-Drug Resistant Organisms: None Reported Past Surgical History: Breast Surgery, Hysterectomy Additional Past Surgical History / Comment(s): Thyroid biopsy,exploratory abdominal surgery to remove ovarian pre-cancerous mass. "mohs procedure", colonsocpy, breast bx 1987 Past Anesthesia/Blood Transfusion Reactions: Motion Sickness Additional Past Anesthesia/Blood Transfusion Reaction / Comment(s): clausTRphobia Past Psychological History: No Psychological Hx Reported Smoking Status: Never smoker Past Alcohol Use History: None Reported Past Drug Use History: None Reported - Past Family History Mother Additional Family Medical History / Comment(s): scleraderma Father Family Medical History: Cancer Additional Family Medical History / Comment(s): kidney ca Medications and Allergies Home Medications Medication Instructions Recorded Confirmed Type amLODIPine [Norvasc] 10 mg PO HS 09/07/13 12/21/22 History Cholecalciferol [Vitamin D3 (25 5,000 unit PO DAILY 07/08/17 12/19/22 History Mcg = 1000 Iu)] Multivitamins, Thera [Multivitamin 1 tab PO DAILY 07/08/17 12/19/22 History (formulary)] Apixaban [Eliquis] 5 mg PO BID 12/19/22 12/19/22 History Ascorbic Acid [Vitamin C] 1,000 mg PO DAILY 12/19/22 12/19/22 History Zinc Gluconate [Zinc] 50 mg PO DAILY 12/19/22 12/19/22 History lisinopriL [Zestril] 10 mg PO BID 12/19/22 12/21/22 History Allergies Allergy/AdvReac Type Severity Reaction Status Date / Time adhesive Allergy Rash/Hives Verified 01/12/23 23:56 amoxicillin trihydrate Allergy Rash/Hives Verified 01/12/23 23:56 [From Trimox] triamcinolone Allergy Swelling Verified 01/12/23 23:56 Surgical - Exam Vital Signs Temp Pulse Resp BP Pulse Ox 97.6 F 97 18 78/52 95 01/12/23 23:52 01/12/23 23:52 01/12/23 23:52 01/12/23 23:52 01/12/23 23:52 - General Patient's systolic blood pressures 105-110 range comment patient's tachycardic with pulse of 100 moderate distress - Eyes PERRL - ENT normal pinna - Neck no masses - Respiratory normal expansion - Cardiovascular Rhythm: regular - Abdomen Abdomen is minimally tender throughout. There is significant distention. There is no rebound or guarding. Results - Labs 01/13/23 00:32 01/13/23 00:32 Abnormal Lab Results - Last 24 Hours (Table) 01/13/23 01/13/23 01/13/23 Range/Units 00:32 00:32 00:32 WBC 34.8 H (3.8-10.6) k/uL Plt Count 488 H (150-450) k/uL Neutrophils # (Manual) 33.00 H (1.3-7.7) k/uL Monocytes # (Manual) 1.39 H (0-1.0) k/uL Sodium 135 L (137-145) mmol/L Potassium 5.3 H (3.5-5.1) mmol/L Carbon Dioxide 15 L (22-30) mmol/L BUN 50 H (7-17) mg/dL Creatinine 1.29 H (0.52-1.04) mg/dL Glucose 237 H (74-99) mg/dL Plasma Lactic Acid Ivan 5.7 H* (0.7-2.0) mmol/L Phosphorus 5.9 H (2.5-4.5) mg/dL Magnesium 2.8 H (1.6-2.3) mg/dL AST 43 H (14-36) U/L ALT 40 H (4-34) U/L Alkaline Phosphatase 204 H (38-126) U/L Ur Specific Secor (1.001-1.035) Urine Protein (Negative) Ur Leukocyte Esterase (Negative) Urine Mucus (None) /hpf 01/13/23 01/13/23 Range/Units 07:06 08:18 WBC (3.8-10.6) k/uL Plt Count (150-450) k/uL Neutrophils # (Manual) (1.3-7.7) k/uL Monocytes # (Manual) (0-1.0) k/uL Sodium (137-145) mmol/L Potassium (3.5-5.1) mmol/L Carbon Dioxide (22-30) mmol/L BUN (7-17) mg/dL Creatinine (0.52-1.04) mg/dL Glucose (74-99) mg/dL Plasma Lactic Acid Ivan 2.4 H* (0.7-2.0) mmol/L Phosphorus (2.5-4.5) mg/dL Magnesium (1.6-2.3) mg/dL AST (14-36) U/L ALT (4-34) U/L Alkaline Phosphatase (38-126) U/L Ur Specific Secor >1.050 H (1.001-1.035) Urine Protein Trace H (Negative) Ur Leukocyte Esterase Trace H (Negative) Urine Mucus Rare H (None) /hpf Diabetes panel 01/13/23 Range/Units 00:32 Sodium 135 L (137-145) mmol/L Potassium 5.3 H (3.5-5.1) mmol/L Chloride 101 (98-107) mmol/L Carbon Dioxide 15 L (22-30) mmol/L BUN 50 H (7-17) mg/dL Creatinine 1.29 H (0.52-1.04) mg/dL Glucose 237 H (74-99) mg/dL Calcium 9.2 (8.4-10.2) mg/dL AST 43 H (14-36) U/L ALT 40 H (4-34) U/L Alkaline Phosphatase 204 H (38-126) U/L Total Protein 6.8 (6.3-8.2) g/dL Albumin 3.9 (3.5-5.0) g/dL Calcium panel 01/13/23 Range/Units 00:32 Calcium 9.2 (8.4-10.2) mg/dL Phosphorus 5.9 H (2.5-4.5) mg/dL Albumin 3.9 (3.5-5.0) g/dL Pituitary panel 01/13/23 Range/Units 00:32 Sodium 135 L (137-145) mmol/L Potassium 5.3 H (3.5-5.1) mmol/L Chloride 101 (98-107) mmol/L Carbon Dioxide 15 L (22-30) mmol/L BUN 50 H (7-17) mg/dL Creatinine 1.29 H (0.52-1.04) mg/dL Glucose 237 H (74-99) mg/dL Calcium 9.2 (8.4-10.2) mg/dL Adrenal panel 01/13/23 Range/Units 00:32 Sodium 135 L (137-145) mmol/L Potassium 5.3 H (3.5-5.1) mmol/L Chloride 101 (98-107) mmol/L Carbon Dioxide 15 L (22-30) mmol/L BUN 50 H (7-17) mg/dL Creatinine 1.29 H (0.52-1.04) mg/dL Glucose 237 H (74-99) mg/dL Calcium 9.2 (8.4-10.2) mg/dL Total Bilirubin 0.7 (0.2-1.3) mg/dL AST 43 H (14-36) U/L ALT 40 H (4-34) U/L Alkaline Phosphatase 204 H (38-126) U/L Total Protein 6.8 (6.3-8.2) g/dL Albumin 3.9 (3.5-5.0) g/dL - Imaging CT scan - chest: report reviewed (Computed tomography scan is reviewed. There is significant colonic distention. There is most likely an obstruction at the sigmoid colon.) Assessment and Plan Assessment: I had a lengthy discussion with the patient and her family. The patient will need to be medically optimized prior to surgery. Patient will receive IV fluid. She'll have a nasogastric tube placed for the current compression. Also a Fo gianfranco catheter placed. Patient's recent use of eloquis will require reversal. Patient will be placed in the ICU. We will plan for surgery either later tonight or tomorrow morning. The patient will need a exploratory laparotomy with possible colostomy
[2023-01-13] MEDS ORDERED: SODIUM CHLORIDE 0.9% 1,000 ML IV ONE (09:17)
[2023-01-13] MEDS: SODIUM CHLORIDE 0.9% 1,000 ML IV SCH ×2 (09:17→18:03)
[2023-01-13] MEDS: PANTOPRAZOLE 40 MG/10 ML VIAL IV SCH (09:20)
[2023-01-13] MEDS ORDERED: Kcentra PER PHARMACY 1 EACH MISC MISCELLANE PRN (09:38)
[2023-01-13 09:58] LABS: Glucose,Whole Blood 173 mg/dL (70-110)
[2023-01-13] MEDS ORDERED: HUMAN PROTHROMBIN COMPLX 500 UNIT/16 ML VIAL IV ONE (10:07)
--- NOTE | 2023-01-13 10:23 | XR ---
EXAMINATION TYPE: XR chest 1V portable DATE OF EXAM: 01/13/2023 10:17 AM CLINICAL INDICATION:Female, 77 years old with history of NGT placement; [facility] COMPARISON: Chest radiographs from 01/13/2023 CT TECHNIQUE: XR chest 1V portable Frontal view of the chest. FINDINGS: Lungs/Pleura: There is no evidence of pleural effusion, focal consolidation, or pneumothorax. Pulmonary vascularity: Unremarkable. Heart/mediastinum: Cardiomediastinal silhouette is enlarged and stable. Musculoskeletal: No acute osseous pathology. Other findings: Dilated loop of bowel in the abdomen Lines/Tubes: Nasogastric tube with its distal tip and side-port projecting under the diaphragm and projecting over the gastric lumen. IMPRESSION: Nasogastric tube in appropriate position.
[2023-01-13] MEDS ORDERED: HUMAN PROTHROMBIN COMPLX IV ONE (10:30)
[2023-01-13] MEDS: metroNIDAZOLE-NS PMX 500 MG in SALINE 1 100ML.BAG IVPB SCH ×2 (12:03→21:54)
[2023-01-13] MEDS ORDERED: DEXTROSE 50% SYRINGE 50 ML IVP ONE (12:15)
--- NOTE | 2023-01-13 12:17 | US ---
EXAMINATION TYPE: US gallbladder DATE OF EXAM: 01/13/2023 COMPARISON: CT abdomen pelvis same day. CLINICAL INDICATION: Female, 77 years old with history of pain; Pain. Portable ICU patient. TECHNIQUE: Multiple sonographic images of the right upper quadrant are obtained. FINDINGS: EXAM MEASUREMENTS: Liver Length: 13.9 cm Gallbladder Wall: 0.2 cm CBD: 0.3 cm Right Kidney: 9.2 x 3.9 x 4.7 cm COOK'S ASSISTANT NOTES:Extremely limited due to bowel gas Pancreas: Head and tail obscured by overlying bowel gas, Echogenic in appearance. Liver: Limited visualization. Scanned through ribs due to bowel gas. Gallbladder: Supine images only. No prominent masses or lesions seen. No wall thickening. Evidence for sonographic Salas's sign: neg CBD: wnl Right Kidney: Lower pole obscured by overlying bowel gas IMPRESSION: Limited exam due to bowel gas. No evidence for acute process.
--- NOTE | 2023-01-13 12:20 | P.HPIM ---
History of Present Illness H&P Date: 01/13/23 Chief Complaint: Abdominal pain * 77-year-old lady with past medical history significant for hypertension, history of pulmonary embolism, history of hysterectomy secondary to tumor approximately 30 years ago presents to the emergency department with complains of progressively worsening abdominal distention, nausea, vomiting. Patient states she has been dealing with this for 3 months and her symptoms are progressively getting worse to the point she decided to come to emergency * While in ER CT abdomen and pelvis was obtained which showed colonic obstruction. Patient was noted to be hypotensive and had elevated lactate levels with significant leukocytosis in ER * Hematology showed WBC 34k, hemoglobin 13.7 platelet 488. Serum chemistry shows sodium 135 potassium 5.3 carbon dioxide 15 BU and 50 1.29 lactate of 2.4 * Patient states she took her Eliquis on 01/12 nighttime dose REVIEW OF SYSTEMS: Abdominal pain, nausea, vomiting CONSTITUTIONAL: No fever, no malaise, no fatigue. HEENT: No recent visual problems or hearing problems. Denied any sore throat. CARDIOVASCULAR: No chest pain, orthopnea, PND, no palpitations, no syncope. PULMONARY: No shortness of breath, no cough, no hemoptysis. GASTROINTESTINAL: Abdominal pain, nausea, vomiting NEUROLOGICAL: No headaches, no weakness, no numbness. HEMATOLOGICAL: Denies any bleeding or petechiae. GENITOURINARY: Denies any burning micturition, frequency, or urgency. MUSCULOSKELETAL/RHEUMATOLOGICAL: Denies any joint pain, swelling, or any muscle pain. ENDOCRINE: Denies any polyuria or polydipsia. The rest of the 14-point review of systems is negative. PHYSICAL EXAMINATION: GENERAL: The patient is alert and oriented x3, nasogastric tube in place, ill appearance HEENT: Pupils are round and equally reacting to light. EOMI. CARDIOVASCULAR: S1 and S2 present. No murmurs, rubs, or gallops. PULMONARY: Chest is clear to auscultation, no wheezing or crackles. ABDOMEN: Distended, hypoactive bowel sounds MUSCULOSKELETAL: No joint swelling or deformity. EXTREMITIES: No cyanosis, clubbing, or pedal edema. NEUROLOGICAL: Gross neurological examination did not reveal any focal deficits. SKIN: No rashes. Past Medical History Past Medical History: Cancer, GERD/Reflux, Hypertension, Pulmonary Embolus (PE), Thyroid Disorder Additional Past Medical History / Comment(s): thyroid nodule, skin cancer, diverticulosis, arthirits feet/lt ankle, rt knee gout, past migaraines-RARE History of Any Multi-Drug Resistant Organisms: None Reported Past Surgical History: Breast Surgery, Hysterectomy Additional Past Surgical History / Comment(s): Thyroid biopsy, exploratory abdominal surgery to remove ovarian pre-cancerous mass, "mohs procedure" for skin CA, colonsocpy, breast bx 1987 Past Anesthesia/Blood Transfusion Reactions: Motion Sickness Additional Past Anesthesia/Blood Transfusion Reaction / Comment(s): claustrphobia Past Psychological History: No Psychological Hx Reported Smoking Status: Never smoker Past Alcohol Use History: None Reported Past Drug Use History: None Reported - Past Family History Mother Additional Family Medical History / Comment(s): scleraderma Father Family Medical History: Cancer Additional Family Medical History / Comment(s): kidney ca Medications and Allergies Home Medications Medication Instructions Recorded Confirmed Type amLODIPine [Norvasc] 10 mg PO HS 09/07/13 12/21/22 History Cholecalciferol [Vitamin D3 (25 5,000 unit PO DAILY 07/08/17 12/19/22 History Mcg = 1000 Iu)] Multivitamins, Thera [Multivitamin 1 tab PO DAILY 07/08/17 12/19/22 History (formulary)] Apixaban [Eliquis] 5 mg PO BID 12/19/22 12/19/22 History Ascorbic Acid [Vitamin C] 1,000 mg PO DAILY 12/19/22 12/19/22 History Zinc Gluconate [Zinc] 50 mg PO DAILY 12/19/22 12/19/22 History lisinopriL [Zestril] 10 mg PO BID 12/19/22 12/21/22 History Allergies Allergy/AdvReac Type Severity Reaction Status Date / Time adhesive Allergy Rash/Hives Verified 01/12/23 23:56 amoxicillin trihydrate Allergy Rash/Hives Verified 01/12/23 23:56 [From Trimox] triamcinolone Allergy Swelling Verified 01/12/23 23:56 Physical Exam Vitals: Vital Signs Temp Pulse Resp BP Pulse Ox 01/13/23 11:15 92 26 H 115/49 95 01/13/23 11:00 94 24 121/83 94 L 01/13/23 10:45 95 22 121/83 95 01/13/23 10:30 97.7 F 95 21 108/55 94 L 01/13/23 10:24 94 L 01/13/23 09:25 97 F L 97 20 100/60 95 01/13/23 09:00 96 16 105/67 96 01/13/23 07:59 96.8 F L 99 20 105/57 95 01/13/23 06:00 93 24 105/51 95 01/13/23 05:00 96 18 117/52 95 01/13/23 04:00 93 20 107/58 90 L 01/13/23 03:00 95 18 123/55 90 L 01/13/23 02:30 89 26 H 106/48 01/13/23 02:00 90 24 123/59 93 L 01/13/23 01:30 92 25 H 98/56 93 L 01/13/23 00:55 90 14 119/47 94 L 01/12/23 23:52 97.6 F 97 18 78/52 95 Intake and Output 01/12/23 01/13/23 01/13/23 22:59 06:59 14:59 Intake Total 410 Output Total 250 Balance 160 Intake: IV 410 Empty Bag 1 bag @ 3 UNIT/ 50 KG/MIN 360.553 mls/hr IV .Q12M ONE with Human Prothrombin Complx 2,210 unit Rx#:[id number] Sodium Chloride 0.9% 1, 260 000 ml @ 130 mls/hr IV . Q7H42M [facility] Rx#:[id number] metroNIDAZOLE-NS PMX 500 100 mg In Saline 1 100ml.bag @ 100 mls/hr IVPB Q8H [facility] Rx#:[id number] Output: Urine 250 Other: Weight 62.596 kg 67.1 kg Results CBC & Chem 7: 01/13/23 00:32 01/13/23 00:32 Labs: Abnormal Lab Results - Last 24 Hours (Table) 01/13/23 01/13/23 01/13/23 Range/Units 00:32 00:32 00:32 WBC 34.8 H (3.8-10.6) k/uL Plt Count 488 H (150-450) k/uL Neutrophils # (Manual) 33.00 H (1.3-7.7) k/uL Monocytes # (Manual) 1.39 H (0-1.0) k/uL Sodium 135 L (137-145) mmol/L Potassium 5.3 H (3.5-5.1) mmol/L Carbon Dioxide 15 L (22-30) mmol/L BUN 50 H (7-17) mg/dL Creatinine 1.29 H (0.52-1.04) mg/dL Glucose 237 H (74-99) mg/dL POC Glucose (mg/dL) (70-110) mg/dL Plasma Lactic Acid Ivan 5.7 H* (0.7-2.0) mmol/L Phosphorus 5.9 H (2.5-4.5) mg/dL Magnesium 2.8 H (1.6-2.3) mg/dL AST 43 H (14-36) U/L ALT 40 H (4-34) U/L Alkaline Phosphatase 204 H (38-126) U/L Ur Specific [place] (1.001-1.035) Urine Protein (Negative) Ur Leukocyte Esterase (Negative) Urine Mucus (None) /hpf 01/13/23 01/13/23 01/13/23 Range/Units 07:06 08:18 09:56 WBC (3.8-10.6) k/uL Plt Count (150-450) k/uL Neutrophils # (Manual) (1.3-7.7) k/uL Monocytes # (Manual) (0-1.0) k/uL Sodium (137-145) mmol/L Potassium (3.5-5.1) mmol/L Carbon Dioxide (22-30) mmol/L BUN (7-17) mg/dL Creatinine (0.52-1.04) mg/dL Glucose (74-99) mg/dL POC Glucose (mg/dL) 173 H (70-110) mg/dL Plasma Lactic Acid Ivan 2.4 H* (0.7-2.0) mmol/L Phosphorus (2.5-4.5) mg/dL Magnesium (1.6-2.3) mg/dL AST (14-36) U/L ALT (4-34) U/L Alkaline Phosphatase (38-126) U/L Ur Specific [place] >1.050 H (1.001-1.035) Urine Protein Trace H (Negative) Ur Leukocyte Esterase Trace H (Negative) Urine Mucus Rare H (None) /hpf Assessment and Plan Assessment: Assessment and plan * Status post bowel obstruction involving sigmoid colon * History of pulmonary embolism on Eliquis * Hyperkalemia * Sepsis likely intra-abdominal source * Acute kidney injury * Gen. surgery team primary, planning or 01/16, continue nothing by mouth NG tube in place * In regards to history of pulmonary embolism patient on Eliquis, adnexa given since urgent surgery planned * In regards to hyponatremia, patient given calcium gluconate insulin and dextrose follow-up blood work ordered * In regards to sepsis blood cultures ordered, continue patient on Rocephin and Flagyl follow-up lactate levels ordered * Regards to acute kidney injury continue patient on IV fluid resuscitation * CODE STATUS is full code
[2023-01-13] MEDS ORDERED: CALCIUM GLUCONATE IN NACL 1 GM in SALINE 1 100ML.BAG IVPB ONE (12:30)
[2023-01-13] MEDS ORDERED: INSULIN REGULAR 100 UNIT/ML VIAL (IV) IV ONE (12:30)
[2023-01-13] MEDS: MORPHINE SULFATE 4 MG/ML SYRINGE IV PRN ×2 (16:54→21:52)
--- NOTE | 2023-01-13 17:55 | P.CNPUL ---
History of Present Illness Consult date: 01/13/23 Chief complaint: Abdominal pain History of present illness: This is a 77-year-old female patient was currently being admitted to the intensive care unit. The patient presented to the hospital because of nausea or vomiting or abdominal pain. The pain started last night. The patient also had significant abdominal distention. As such, she came into the emergency department and the patient was found to have a white cell count of 34.8, hemogl obin 15.7, BUN of 50 with a creatinine of 1.29 and his sodium level of 135 and a potassium level of 5.3. Initial lactic acid level was 5.7. She was given IV fluids 2 L bolus and repeat a lactic acid level is down to 2.4. AST is 43, ALTs 40, alkaline phosphatase 204, UA is negative, troponins are negative, proBNP level is at 8:15. The patient's EKG showing normal sinus rhythm. Nevertheless, she has history of PE and she has been maintained on anticoagulation with Eliquis. CAT scan of the abdomen and pelvis was done on 01/13/2023 7:00 in the morning and it showed mildly prominent fluid-filled stomach, duodenum and proximal jejunum do not appear significantly dilated. There is a distal small bowel dilation up to 3.1 cm in diameter with some air-fluid levels. Gas and stool throughout the colon. Ascending colon is dilated up to 7.1 cm in size. There are signs of early colonic wall pneumatosis. In the distal colon, there appears to be a transition point in the lower quadrant where colonic lumen appears decompressed and thickened with multiple sigmoid region diverticuli noted. As such, findings are suggestive of bowel obstruction in the region of the sigmoid colon. Underlying neoplasm needs to be considered. There is up stream dilation of the colon and distal small bowel as described. Surgical consultation has been obtained. The patient was seen by general surgery. The patient will be brought up-to-date intensive care unit optimize medically receive NG tube for gastric decompression and the patient will obviously need antibiotics and surgical intervention within next few hours. Currently, the patient is on IV fluids with normal saline at the rate of 130s is an hour. The patient is ALLERGIC to amoxicillin. The patient will be placed on a combination of Rocephin and Flagyl. She is afebrile. Her pulse ox is 95% on room air oxygen. The patient had a colonoscopy done on 12/21/2022. This was an incomplete colonoscopy as the scope could not be advanced because of acute angulation of the sigmoid colon. There is evidence of moderate colonic diverticulosis. Review of Systems Constitutional: Reports as per HPI Eyes: denies as per HPI, denies blurred vision, denies bulging eye, denies decre ased vision, denies diplopia, denies discharge, denies dry eye, denies irritation, denies itching, denies pain, denies photophobia, denies loss of peripheral vision, denies loss of vision, denies tunnel vision/blind spots Ears: deny: decreased hearing, ear discharge, earache, tinnitus Breasts: absent: as per HPI, change in shape, gynecomastia, masses, nipple discharge, pain, skin changes, swelling Cardiovascular: Reports as per HPI Respiratory: Reports as per HPI Gastrointestinal: Reports abdominal pain, Reports nausea, Reports vomiting Genitourinary: Reports as per HPI Menstruation: Reports as per HPI Musculoskeletal: Reports as per HPI Musculoskeletal: absent: ankle pain, ankle stiffness, ankle swelling Integumentary: Reports as per HPI Neurological: Reports as per HPI Psychiatric: Reports as per HPI Endocrine: Reports as per HPI Hematologic/Lymphatic: Reports as per HPI Allergic/Immunologic: Reports as per HPI Past Medical History Past Medical History: Cancer, GERD/Reflux, Hypertension, Pulmonary Embolus (PE), Thyroid Disorder Additional Past Medical History / Comment(s): thyroid nodule, .skin cancer, diverticulosis, arthirits feet/lt ankle, rt knee.gout, past migaraines-RARE, History of Any Multi-Drug Resistant Organisms: None Reported Past Surgical History: Breast Surgery, Hysterectomy Additional Past Surgical History / Comment(s): Thyroid biopsy,exploratory abdominal surgery to remove ovarian pre-cancerous mass. "mohs procedure", colonsocpy, breast bx 1987 Past Anesthesia/Blood Transfusion Reactions: Motion Sickness Additional Past Anesthesia/Blood Transfusion Reaction / Comment(s): clausTRphobia Past Psychological History: No Psychological Hx Reported Smoking Status: Never smoker Past Alcohol Use History: None Reported Past Drug Use History: None Reported - Past Family History Mother Additional Family Medical History / Comment(s): scleraderma Father Family Medical History: Cancer Additional Family Medical History / Comment(s): kidney ca Medications and Allergies Home Medications Medication Instructions Recorded Confirmed Type amLODIPine [Norvasc] 10 mg PO HS 09/07/13 12/21/22 History Cholecalciferol [Vitamin D3 (25 5,000 unit PO DAILY 07/08/17 12/19/22 History Mcg = 1000 Iu)] Multivitamins, Thera [Multivitamin 1 tab PO DAILY 07/08/17 12/19/22 History (formulary)] Apixaban [Eliquis] 5 mg PO BID 12/19/22 12/19/22 History Ascorbic Acid [Vitamin C] 1,000 mg PO DAILY 12/19/22 12/19/22 History Zinc Gluconate [Zinc] 50 mg PO DAILY 12/19/22 12/19/22 History lisinopriL [Zestril] 10 mg PO BID 12/19/22 12/21/22 History Allergies Allergy/AdvReac Type Severity Reaction Status Date / Time adhesive Allergy Rash/Hives Verified 01/12/23 23:56 amoxicillin trihydrate Allergy Rash/Hives Verified 01/12/23 23:56 [From Trimox] triamcinolone Allergy Swelling Verified 01/12/23 23:56 Physical Exam Vitals: Vital Signs Temp Pulse Resp BP Pulse Ox 01/13/23 09:25 97 F L 97 20 100/60 95 01/13/23 09:00 96 16 105/67 96 01/13/23 07:59 96.8 F L 99 20 105/57 95 01/13/23 06:00 93 24 105/51 95 01/13/23 05:00 96 18 117/52 95 01/13/23 04:00 93 20 107/58 90 L 01/13/23 03:00 95 18 123/55 90 L 01/13/23 02:30 89 26 H 106/48 01/13/23 02:00 90 24 123/59 93 L 01/13/23 01:30 92 25 H 98/56 93 L 01/13/23 00:55 90 14 119/47 94 L 01/12/23 23:52 97.6 F 97 18 78/52 95 Intake and Output 01/12/23 01/13/23 01/13/23 22:59 06:59 14:59 Other: Weight 62.596 kg Gen. appearance the patient is currently on room air oxygen. No signs of any respiratory distress Head exam was generally normal. There was no scleral icterus or corneal arcus. Mucous membranes were moist. Neck was supple and without jugular venous distension, thyromegaly, or carotid bruits. Carotids were easily palpable bilaterally. There was no adenopathy. Lungs were clear to auscultation and percussion, and with normal diaphragmatic excursion. No wheezes or rales were noted. Cardiac exam revealed the PMI to be normally situated and sized. The rhythm was regular and no extrasystoles were noted during several minutes of auscultation. The first and second heart sounds were normal and physiologic splitting of the second heart sound was noted. There were no murmurs, rubs, clicks, or gallops. Abdomen is distended, there is direct tenderness, no rebound tenderness or guarding. Bowel sounds are hypoactive. No organomegaly. Examination of the extremities revealed easily palpable radial, femoral and pedal pulses. There was no cyanosis, clubbing or edema. Examination of the skin revealed no evidence of significant rashes, suspicious appearing nevi or other concerning lesions. Neurologically, the patient is awake and alert and the patient does not have any focal neurological deficit. Cranial nerves are essentially intact. Results - Laboratory Findings CBC and BMP: 01/13/23 00:32 01/13/23 00:32 PT/INR, D-dimer PT 11.4 sec (9.0-12.0) 01/13/23 00:32 INR 1.1 (<1.2) 01/13/23 00:32 Abnormal lab findings: Abnormal Labs 01/13/23 01/13/23 01/13/23 00:32 00:32 00:32 WBC 34.8 H Plt Count 488 H Neutrophils # (Manual) 33.00 H Monocytes # (Manual) 1.39 H Sodium 135 L Potassium 5.3 H Carbon Dioxide 15 L BUN 50 H Creatinine 1.29 H Glucose 237 H Plasma Lactic Acid Ivan 5.7 H* Phosphorus 5.9 H Magnesium 2.8 H AST 43 H ALT 40 H Alkaline Phosphatase 204 H Ur Specific [place] Urine Protein Ur Leukocyte Esterase Urine Mucus 01/13/23 01/13/23 07:06 08:18 WBC Plt Count Neutrophils # (Manual) Monocytes # (Manual) Sodium Potassium Carbon Dioxide BUN Creatinine Glucose Plasma Lactic Acid Ivan 2.4 H* Phosphorus Magnesium AST ALT Alkaline Phosphatase Ur Specific [place] >1.050 H Urine Protein Trace H Ur Leukocyte Esterase Trace H Urine Mucus Rare H Assessment and Plan Plan: Acute bowel obstruction. 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 The patient has obstruction in the region of sigmoid colon, underlying mass cannot be completely excluded. Colonoscopy from 12/21/2022 was incomplete due to angulation and inability to pass the scope past the sigmoid colon. This such, underlying anatomic obstruction cannot be completely ruled out Abdominal pain secondary to above Acute abdomen with findings of pneumatosis, the patient will likely need surgical intervention, exploratory laparoscopy and colectomy Acute lactic acidosis, improving Acute leukocytosis Acute kidney injury History of pulmonary embolism and anticoagulation with Eliquis which is currently on hold, pulmonary embolism occurred back in 2018 Hypertension History of thyroid nodules History of moderate degree of diverticulosis History of migraines Previous history of abdominal surgery and removal of an ovarian precancerous mass,Mohs procedure Plan Keep NG tube in place for gastric decompression Bowel rest IV fluids with normal saline at the rate of 130 mL an hour Will start The patient IV Rocephin and Flagyl, the patient will be given 2 g of IV Rocephin and Flagyl 500 mg every 8 hours Keep the patient nothing by mouth Monitor the lactic acid level Monitor the white cell count Monitor renal function Incentive Damian catheter Heart Eliquis High likelihood that the patient will require surgical exploration. The patient will be given Kcentra to reverse underlying effects of Eliquis Compression devices to lower extremities IV Protonix General surgery consultation has been obtained We'll continue to follow Condition is critical at this point in time and the patient will be brought up-to-date intensive care unit.
[2023-01-14] MEDS: SODIUM CHLORIDE 0.9% 1,000 ML IV SCH ×3 (01:44→15:42)
[2023-01-14] MEDS: MORPHINE SULFATE 4 MG/ML SYRINGE IV PRN ×3 (02:06→14:16)
[2023-01-14] MEDS: metroNIDAZOLE-NS PMX 500 MG in SALINE 1 100ML.BAG IVPB SCH ×3 (04:34→19:51)
[2023-01-14 06:08] LABS: ALT 13 U/L (4-34); AST 18 U/L (14-36); African American GFR (CKD) 58 (>60 ml/min/1.73 sqM); Albumin 2.4 g/dL (3.5-5.0); Alkaline Phosphatase 126 U/L (38-126); Anion Gap 9 mmol/L; Blood Urea Nitrogen 51 mg/dL (7-17); Calcium 8.1 mg/dL (8.4-10.2); Carbon Dioxide 21 mmol/L (22-30); Chloride 110 mmol/L (98-107); Glucose 104 mg/dL (74-99); Magnesium 2.6 mg/dL (1.6-2.3); Non-African American GFR(CKD) 50 (>60 ml/min/1.73 sqM); Phosphorus 3.7 mg/dL (2.5-4.5); Sodium 140 mmol/L (137-145); Total Bilirubin 0.2 mg/dL (0.2-1.3); Total Protein 4.5 g/dL (6.3-8.2)
[2023-01-14 06:20] LABS: HCT 36.3 % (34.0-46.0); HGB 11.5 gm/dL (11.4-16.0); Hypochromasia Slight; MCHC 31.8 g/dL (31.0-37.0); MCV 94.4 fL (80.0-100.0); Mean Platelet Volume 9.8; Platelet Count 355 k/uL (150-450); RBC 3.85 m/uL (3.80-5.40); WBC 16.3 k/uL (3.8-10.6)
[2023-01-14 06:54] LABS: Band Neutrophils % 14 %; Hypochromasia (M) Present; Lymphocytes # (M) 0.33 k/uL (1.0-4.8); Monocytes # (M) 0.98 k/uL (0-1.0); Neutrophils % (M) 78 %; Nucleated Red Blood Cells 0 /100 WBC (0-0); Polychromasia Present; Total Cells Counted 100
[2023-01-14] MEDS: PANTOPRAZOLE 40 MG/10 ML VIAL IV SCH (08:01)
[2023-01-14] MEDS: ONDANSETRON 4 MG/2 ML VIAL IVP PRN (09:33)
[2023-01-14] MEDS ORDERED: GLYCOPYRROLATE 0.2 MG/ML 2 ML VIAL ONE (10:00)
[2023-01-14] MEDS ORDERED: fentaNYL (PF) 50 MCG/ML 2 ML AMP ONE (10:00)
[2023-01-14] MEDS ORDERED: ROCURONIUM 10 MG/ML (5 ML VIAL) IV ONE (10:00)
[2023-01-14] MEDS ORDERED: PROPOFOL 10 MG/ML 20 ML VIAL IV ONE (10:00)
[2023-01-14] MEDS ORDERED: SUCCINYLCHOLINE CHLORIDE 200 MG/10 ML VIAL IV ONE (10:00)
[2023-01-14] MEDS ORDERED: PHENYLEPHRINE-0.9% NACL SYG 1,000 MCG/10 ML SYRINGE ONE (10:00)
[2023-01-14] MEDS ORDERED: NEOSTIGMINE 1 MG/ML 10 ML VIAL ONE (10:00)
[2023-01-14] MEDS ORDERED: MIDAZOLAM 2 MG/2 ML VIAL ONE (10:00)
[2023-01-14] MEDS ORDERED: HYDROmorphone (PF) 1 MG/ML ONE (10:00)
[2023-01-14] MEDS ORDERED: SODIUM CHLORIDE 0.9% 1,000 ML IV ONE ×2 (10:11→22:46)
[2023-01-14] MEDS ORDERED: SODIUM CHLORIDE 0.9% 100 ML with ceFAZolin 2,000 MG IV ONE ×2 (10:27)
[2023-01-14] MEDS ORDERED: LACTATED RINGERS 1,000 ML IV ONE (10:40)
[2023-01-14] MEDS ORDERED: ONDANSETRON 4 MG/2 ML VIAL IVP PRN (12:38)
[2023-01-14] MEDS: LACTATED RINGERS 1,000 ML IV SCH ×5 (13:24→16:47)
--- NOTE | 2023-01-14 13:26 | P.PN ---
Subjective Progress Note Date: 01/14/23 Principal diagnosis: Acute bowel obstruction and megacolon This is a 77-year-old female patient was currently being admitted to the intensive care unit. The patient presented to the hospital because of nausea or vomiting or abdominal pain. The pain started last night. The patient also had significant abdominal distention. As such, she came into the emergency department and the patient was found to have a white cell count of 34.8, hemoglobin 15.7, BUN of 50 with a creatinine of 1.29 and his sodium level of 135 and a potassium level of 5.3. Initial lactic acid level was 5.7. She was given IV fluids 2 L bolus and repeat a lactic acid level is down to 2.4. AST is 43, ALTs 40, alkaline phosphatase 204, UA is negative, troponins are negative, proBNP level is at 8:15. The patient's EKG showing normal sinus rhythm. Nevertheless, she has history of PE and she has been maintained on anticoagulation with Eliquis. CAT scan of the abdomen and pelvis was done on 01/13/2023 7:00 in the morning and it showed mildly prominent fluid-filled stomach, duodenum and proximal jejunum do not appear significantly dilated. There is a distal small bowel dilation up to 3.1 cm in diameter with some air- fluid levels. Gas and stool throughout the colon. Ascending colon is dilated up to 7.1 cm in size. There are signs of early colonic wall pneumatosis. In the distal colon, there appears to be a transition point in the lower quadrant where colonic lumen appears decompressed and thickened with multiple sigmoid region diverticuli noted. As such, findings are suggestive of bowel obstruction in the region of the sigmoid colon. Underlying neoplasm needs to be considered. There is up stream dilation of the colon and distal small bowel as described. Surgical consultation has been obtained. The patient was seen by general surgery. The patient will be brought up-to-date intensive care unit optimize medically receive NG tube for gastric decompression and the patient will obviously need antibiotics and surgical intervention within next few hours. Currently, the patient is on IV fluids with normal saline at the rate of 130s is an hour. The patient is ALLERGIC to amoxicillin. The patient will be placed on a combination of Rocephin and Flagyl. She is afebrile. Her pulse ox is 95% on room air oxygen. The patient had a colonoscopy done on 12/21/2022. This was an incomplete colonoscopy as the scope could not be advanced because of acute angulation of the sigmoid colon. There is evidence of moderate colonic diverticulosis. Patient was reevaluated today on 01/14/2023, patient is scheduled to undergo exploratory laparotomy and bowel resection, possible colostomy, this should be done sometime later today by Dr. Santos. In the meantime the patient is f eeling better, continues to have nasogastric tube in place, her eliquis was reversed using Kcentra. Patient is hemodynamically stable. Blood pressure is normal. WBC count of 16.3 hemoglobin 11.5 electrolytes are normal BUN is 51 creatinine 1.08. Pulmonary-davis the patient does not seem to be in distress, even her abdominal pain seems to be much better now compared to yesterday Objective - Vital Signs Vital signs: Vital Signs Temp 97.7 F 01/14/23 12:45 Pulse 123 H 01/14/23 12:45 Resp 18 01/14/23 12:45 BP 97/78 01/14/23 12:45 Pulse Ox 93 L 01/14/23 12:45 FiO2 Intake & Output 01/13/23 01/14/23 01/14/23 18:59 06:59 18:59 Intake Total 1290 1690 1989 Output Total 653 1260 265 Balance 536 048 3700 Weight 67.1 kg 69.9 kg Intake: IV 1290 1690 1989 Calcium Gluconate in NaCl 100 1 gm In Saline 1 100ml. bag @ 400 mls/hr IVPB ONCE ONE Rx#:[id number] Empty Bag 1 bag @ 3 UNIT/ 50 KG/MIN 360.553 mls/hr IV .Q12M ONE with Human Prothrombin Complx 2,210 unit Rx#:[id number] Sodium Chloride 0.9% 1, 1040 1690 390 000 ml @ 130 mls/hr IV . Q7H42M [facility] Rx#:[id number] metroNIDAZOLE-NS PMX 500 100 mg In Saline 1 100ml.bag @ 100 mls/hr IVPB Q8H [facility] Rx#:[id number] Output: Gastric Drainage 600 Urine 653 660 215 Estimated Blood Loss 50 Other: Voiding Method Indwelling Catheter Indwelling Catheter Indwelling Catheter # Bowel Movements 1 - Exam Physical Exam: Revealed 77-year-old female pleasant in no distress Head: Atraumatic, normocephalic. Nasogastric tube seems to be intact. HEENT:[Neck is supple.] [No neck masses.] [No thyromegaly.] [No JVD.] Chest: [Distended abdomen. There is tenderness, minimal guarding, no rebound, bowel sounds are hypoactive. Cardiac Exam: [Normal S1 and S2, no S3 gallop, no murmur.] Abdomen: [Soft, nontender, no megaly, no rebound, no guarding, normal bowel sounds.] Extremities: [No clubbing, no edema, no cyanosis.] Neurological Exam: [No focal neurologic deficit.] Alert oriented 3 Psychiatric: Normal mood affect and normal mental status examination. Skin: No rashes - Labs CBC & Chem 7: 01/14/23 04:11 01/14/23 04:11 Labs: Abnormal Lab Results - Last 24 Hours (Table) 01/14/23 01/14/23 Range/Units 04:11 04:11 WBC 16.3 H (3.8-10.6) k/uL Neutrophils # (Manual) 14.90 H (1.3-7.7) k/uL Lymphocytes # (Manual) 0.33 L (1.0-4.8) k/uL Chloride 110 H (98-107) mmol/L Carbon Dioxide 21 L (22-30) mmol/L BUN 51 H (7-17) mg/dL Creatinine 1.08 H (0.52-1.04) mg/dL Glucose 104 H (74-99) mg/dL Calcium 8.1 L (8.4-10.2) mg/dL Magnesium 2.6 H (1.6-2.3) mg/dL Total Protein 4.5 L (6.3-8.2) g/dL Albumin 2.4 L (3.5-5.0) g/dL Microbiology - Last 24 Hours (Table) 01/13/23 02:30 Blood Culture - Preliminary Blood 01/13/23 02:15 Blood Culture - Preliminary Blood Assessment and Plan Assessment: Impression: Acute bowel obstruction, patient has what seems to be obstruction in the region of the sigmoid colon, colonic mass is not entirely excluded. Patient is scheduled for surgery today. Acute abdominal pain secondary to above Acute surgical abdomen Acute lactic acidosis secondary to above Acute leukocytosis secondary to above Acute kidney injury/acute tubular necrosis Benign essential hypertension History of pulmonary embolism, patient is maintained on eliquis since 2018 History of thyroid nodules History of migraine cephalgia History of previous abdominal surgery and removal of ovarian precancerous mass. Recommendation: Continue present supportive care measures Continue nasogastric tube to suction continue IV fluid at 130 mL per hour Continue empiric antibiotics patient has been on Rocephin and Flagyl Keep patient nothing by mouth Agree with surgery, scheduled to be done today GI and DVT prophylaxis Reevaluate in the ICU post surgery. We'll continue to Time with Patient: Less than 30
[2023-01-14] MEDS: D5-0.45% NACL WITH KCL 20MEQ/L 1,000 ML IV SCH ×2 (13:31→21:34)
[2023-01-14 14:55] LABS: Basophils % (A) 0 %; Eosinophils % (A) 0 %; HCT 33.9 % (34.0-46.0); HGB 10.8 gm/dL (11.4-16.0); Hypochromasia Marked; Lymphocytes # (A) 0.6 k/uL (1.0-4.8); Lymphocytes % (A) 4 %; MCH 30.3 pg (25.0-35.0); MCHC 31.7 g/dL (31.0-37.0); MCV 95.7 fL (80.0-100.0); Mean Platelet Volume 9.2; Monocytes # (A) 0.3 k/uL (0-1.0); Monocytes % (A) 2 %; Neutrophils # (A) 12.2 k/uL (1.3-7.7); Neutrophils % (A) 93 %; Platelet Count 368 k/uL (150-450); RBC 3.55 m/uL (3.80-5.40); WBC 13.2 k/uL (3.8-10.6)
[2023-01-14 15:07] LABS: African American GFR (CKD) 68 (>60 ml/min/1.73 sqM); Anion Gap 9 mmol/L; Blood Urea Nitrogen 46 mg/dL (7-17); Calcium 7.8 mg/dL (8.4-10.2); Carbon Dioxide 17 mmol/L (22-30); Chloride 115 mmol/L (98-107); Glucose 144 mg/dL (74-99); Non-African American GFR(CKD) 59 (>60 ml/min/1.73 sqM); Potassium 4.3 mmol/L (3.5-5.1); Sodium 141 mmol/L (137-145)
[2023-01-14 15:48] LABS: Poikilocytosis (M) Present
[2023-01-14] MEDS: HEPARIN SODIUM,PORCINE 5,000 UNIT/ML 1 ML VIAL SQ SCH (15:49)
[2023-01-14] MEDS: NOREPINEPHRINE 4 MG in SODIUM CHLORIDE 0.9% 250 ML IV SCH (16:46)
[2023-01-14] MEDS: HYDROmorphone 1 MG/ML 1 ML SYRINGE IVP PRN (17:13)
--- NOTE | 2023-01-14 17:21 | P.OP ---
Date of Procedure: 01/14/23 Preoperative Diagnosis: Colon obstruction Postoperative Diagnosis: Colon obstruction due to obstructing mass at sigmoid colon Procedure(s) Performed: Exploratory laparotomy Sigmoid colectomy with end colostomy Small bowel resection Partial omentectomy Anesthesia: JP Surgeon: Jose Juan Santos Estimated Blood Loss (ml): 100 Pathology: other (Sigmoid colon, small bowel) Condition: stable Disposition: ICU Operative Findings: Obstructing sigmoid colon mass with loop of small bowel adherent to the mass Description of Procedure: The patient's placed on the operative table in the supine position. She received general endotracheal tube anesthesia. Her abdomen was prepped and draped in usual sterile fashion. The abdomen was entered through midline incision. The Bookwalter tract with wound. The colon appeared to be dilated. At the level of the mid sigmoid colon there was a mass seen. This was obstructing the colon. There was a loop of small bowel densely adhered to the mass. The small bowel was partially dissected off the mass however due to the dense adhesions sided to resect the small bowel with the specimen. The small bowel was then transected proximally and distally by the GI stapler in the loop that was adherent to the mass. Then using the Enseal device the mesentery the bowel was divided. Next the sigmoid colon was dissected. The white line of Toldt was divided on the left colon. In the sigmoid colon attachments the la teral abdominal wall were dissected meticulously. The sigmoid colon was then brought up into the wound. And then the rectum was transected with the contour stapler. And then the distal descending colon was transected with a GI stapler. Using the Enseal device the mesentery the; was divided. Care was taken to stay away from the course of the ureter during the dissection. The specimen was sent to pathology. Due to the inflammatory changes the colon was decided not to perform an anastomosis. A suitable spot for the colostomy then brought up into the left upper quadrant. The omentum was visualized. A portion of the omentum appeared to be partially ischemic after dissection. This was transected with the Enseal device sent to pathology. The abdomen was then irrigated. There is no bleeding seen. The fascia was then closed loop #1 PDS suture. Skin was closed dolores. The colostomy then matured with 3-0 Vicryl suture. Patient tolerated procedure well she was sent back to the ICU in stable condition. The patient was noted to have low urine output during the case. This was thought to be due to her low volume status. The patient had been given fluid during her operative course.
--- NOTE | 2023-01-14 21:00 | P.PN ---
Progress Note - Text Progress Note Date: 01/14/23 Chief Complaint: Abdominal pain * 77-year-old lady with past medical history significant for hypertension, history of pulmonary embolism, history of hysterectomy secondary to tumor approximately 30 years ago presents to the emergency department with complains of progressively worsening abdominal distention, nausea, vomiting. Patient states she has been dealing with this for 3 months and her symptoms are progressively getting worse to the point she decided to come to emergency * While in ER CT abdomen and pelvis was obtained which showed colonic obstruction. Patient was noted to be hypotensive and had elevated lactate levels with significant leukocytosis in ER * Hematology showed WBC 34k, hemoglobin 13.7 platelet 488. Serum chemistry shows sodium 135 potassium 5.3 carbon dioxide 15 BU and 50 1.29 lactate of 2.4 * Patient states she took her Eliquis on 01/12 nighttime dose January 14: I assumed care of the patient today. Postoperative period ICU. IV levo fed. Nasal cannula. Some abdominal pain. Damian catheter. Surgery: Sigmoid colectomy with end colostomy. Small bowel resection. Partial omentectomy. Due to obstructing mass of the sigmoid colon. Active Medications Heparin Sodium (Porcine) (Heparin Sodium,Porcine 5,000 Unit/Ml 1 Ml Vial) 5,000 unit SQ Q8HR [facility] Last Admin: 01/14/23 15:49 Dose: 5,000 unit Hydromorphone HCl (Hydromorphone 1 Mg/Ml 1 Ml Syringe) 1 mg IVP Q3H PRN PRN Reason: Pain Last Admin: 01/14/23 17:13 Dose: 1 mg Sodium Chloride (Saline 0.9%) 1,000 mls @ 130 mls/hr IV .Q7H42M [facility] Last Admin: 01/14/23 15:42 Dose: Not Given Ceftriaxone Sodium 2 gm/ (Sodium Chloride) 50 mls @ 100 mls/hr IVPB HS [facility]; Protocol Last Admin: 01/14/23 00:18 Dose: 100 mls/hr Metronidazole 500 mg/ IV (Solution) 100 mls @ 100 mls/hr IVPB Q8H [facility]; Protocol Last Admin: 01/14/23 19:51 Dose: 100 mls/hr Potassium Chloride/Dextrose/Sod Cl (D5%-1/2ns-Kcl 20 Meq/L Iv Solution) 1,000 mls @ 150 mls/hr IV .Q6H40M [facility] Last Admin: 01/14/23 13:31 Dose: 125 mls/hr Norepinephrine Bitartrate 4 mg (/ Sodium Chloride) 254 mls @ 7.99 mls/hr IV .Q24H [facility]; Protocol Last Titration: 01/14/23 20:41 Dose: 0.05 mcg/kg/min, 13.316 mls/hr Morphine Sulfate (Morphine Sulfate 4 Mg/Ml Syringe) 4 mg IV Q4HR PRN PRN Reason: Severe Pain (Scale 7 to 10) Last Admin: 01/14/23 14:16 Dose: 4 mg Naloxone HCl (Naloxone 0.4 Mg/Ml 1 Ml Vial) 0.2 mg IV Q2M PRN PRN Reason: Opioid Reversal Ondansetron HCl (Ondansetron 4 Mg/2 Ml Vial) 4 mg IVP Q8HR PRN PRN Reason: Nausea And Vomiting Last Admin: 01/14/23 09:33 Dose: 4 mg Ondansetron HCl (Ondansetron 4 Mg/2 Ml Vial) 4 mg IVP Q8HR PRN PRN Reason: Nausea And Vomiting Pantoprazole Sodium (Pantoprazole 40 Mg/10 Ml Vial) 40 mg IV DAILY [facility] Last Admin: 01/14/23 08:01 Dose: 40 mg Physical examination: VITAL SIGNS: 120, 23, 97/42, 93% on 4 L GENERAL: Laying in bed, tired EYES: Pupils equal. Conjunctiva normal. HEENT: External appearance of nose and ears normal, oral cavity grossly normal. NG tube to suction NECK: JVD unable to assess; masses not palpable. HEART: Heart sounds muffled, edema. LUNGS: Respiratory rate normal decreased breath sound. EXTREMITY: Area. of Redness above the ankle both lower legs. Edema. ABDOMEN: Soft, tender, incision , liver spleen not palpable. PSYCH: Alert and oriented x3; mood and affect normal. INVESTIGATIONS, reviewed in the clinical context: January 14: White count 13.2 hemoglobin 10.8 platelets 368 potassium 4.3 BUN [address] abdomen pelvis: Obstructing a partially obstructing process region of the sigmoid colon.: dilatation above. Sigmoid diverticula. Assessment and plan: -Sigmoid mass: Causing obstruction. Sigmoid colectomy with end colostomy. Small bowel resection. Partial omentectomy. January [address] Santos NG tube to suction. -Postop hypotensive shock On IV levo fed -Sigmoid diverticulosis -GERD -Essential hypertension, currently blood pressure low Blood pressure medications held -Chronic pulmonary embolism On eliquis-currently held -Primary osteoarthritis -Acute postprocedure blood loss anemia, expected from surgery Follow H&H Discussed with patient. IV levo fed. NG tube to suction. Nothing by mouth. IV ceftriaxone. Past Medical History Past Medical History: Cancer, GERD/Reflux, Hypertension, Pulmonary Embolus (PE), Thyroid Disorder Additional Past Medical History / Comment(s): thyroid nodule, skin cancer, diverticulosis, arthirits feet/lt ankle, rt knee gout, past migaraines-RARE History of Any Multi-Drug Resistant Organisms: None Reported Past Surgical History: Breast Surgery, Hysterectomy Additional Past Surgical History / Comment(s): Thyroid biopsy, exploratory ab dominal surgery to remove ovarian pre-cancerous mass, "mohs procedure" for skin CA, colonsocpy, breast bx 1987 Past Anesthesia/Blood Transfusion Reactions: Motion Sickness Additional Past Anesthesia/Blood Transfusion Reaction / Comment(s): claustrphobia Past Psychological History: No Psychological Hx Reported Smoking Status: Never smoker Past Alcohol Use History: None Reported Past Drug Use History: None Reported - Past Family History Mother Additional Family Medical History / Comment(s): scleraderma Father Family Medical History: Cancer Additional Family Medical History / Comment(s): kidney ca Assessment and plan * Status post bowel obstruction involving sigmoid colon * History of pulmonary embolism on Eliquis * Hyperkalemia * Sepsis likely intra-abdominal source * Acute kidney injury * Gen. surgery team primary, planning or 01/16, continue nothing by mouth NG tube in place * In regards to history of pulmonary embolism patient on Eliquis, adnexa given since urgent surgery planned * In regards to hyponatremia, patient given calcium gluconate insulin and dextrose follow-up blood work ordered * In regards to sepsis blood cultures ordered, continue patient on Rocephin and Flagyl follow-up lactate levels ordered * Regards to acute kidney injury continue patient on IV fluid resuscitation * CODE STATUS is full code
[2023-01-15] MEDS: SODIUM CHLORIDE 0.9% 1,000 ML IV SCH (00:24)
[2023-01-15] MEDS: HYDROmorphone 1 MG/ML 1 ML SYRINGE IVP PRN ×4 (00:25→21:18)
[2023-01-15] MEDS: HEPARIN SODIUM,PORCINE 5,000 UNIT/ML 1 ML VIAL SQ SCH ×2 (00:26→08:57)
[2023-01-15 05:14] LABS: Basophils % (A) 0 %; Eosinophils % (A) 0 %; HCT 30.5 % (34.0-46.0); HGB 9.6 gm/dL (11.4-16.0); Hypochromasia Moderate; Lymphocytes # (A) 1.5 k/uL (1.0-4.8); Lymphocytes % (A) 7 %; MCH 29.7 pg (25.0-35.0); MCHC 31.4 g/dL (31.0-37.0); MCV 94.6 fL (80.0-100.0); Mean Platelet Volume 8.3; Monocytes # (A) 0.5 k/uL (0-1.0); Monocytes % (A) 2 %; Neutrophils # (A) 18.1 k/uL (1.3-7.7); Neutrophils % (A) 90 %; Platelet Count 349 k/uL (150-450); RBC 3.22 m/uL (3.80-5.40); RDW 13.9 % (11.5-15.5); WBC 20.2 k/uL (3.8-10.6)
[2023-01-15 05:17] LABS: African American GFR (CKD) 54 (>60 ml/min/1.73 sqM); Anion Gap 5 mmol/L; Blood Urea Nitrogen 38 mg/dL (7-17); Calcium 7.5 mg/dL (8.4-10.2); Carbon Dioxide 18 mmol/L (22-30); Chloride 114 mmol/L (98-107); Glucose 179 mg/dL (74-99); Non-African American GFR(CKD) 46 (>60 ml/min/1.73 sqM); Potassium 4.4 mmol/L (3.5-5.1); Sodium 137 mmol/L (137-145)
[2023-01-15] MEDS: D5-0.45% NACL WITH KCL 20MEQ/L 1,000 ML IV SCH ×2 (05:58→09:10)
[2023-01-15] MEDS: metroNIDAZOLE-NS PMX 500 MG in SALINE 1 100ML.BAG IVPB SCH ×3 (06:07→20:10)
[2023-01-15] MEDS: PANTOPRAZOLE 40 MG/10 ML VIAL IV SCH (08:57)
--- NOTE | 2023-01-15 12:38 | P.PN ---
Subjective Progress Note Date: 01/15/23 CHIEF COMPLAINT: Colon obstruction HISTORY OF PRESENT ILLNESS: Patient is postop day #1 status post exploratory laparotomy, sigmoid colectomy with end colostomy, small bowel resection and partial omentectomy for a colon obstruction due to obstructing mass at the sigmoid colon. Patient remains in the ICU. She reports her pain is controlled. Afebrile. NG tube with a heart of 50 mL dark output. Afebrile. Mildly tachycardic. WBC is up from 13.2-20.2 PHYSICAL EXAM: VITAL SIGNS: Reviewed. GENERAL: Well-developed in no acute distress. ABDOMEN: Soft. mildly distended. Tenderness at incision site. Incisional dressing with 2 areas of saturation. Ostomy with stool present. NEUROLOGIC: Alert and oriented. Cranial nerves II through XII grossly intact. ASSESSMENT: 1. Colon obstruction due to obstructing mass at the sigmoid colon status post exploratory laparotomy, sigmoid colectomy with end colostomy, small bowel resection and partial omentectomy PLAN: -Continue ICU management -Continue supportive care -Continue NG tube decompression -Keep patient nothing by mouth -Continue IV fluids -Continue pain management -Encouraged patient to use incentive spirometer -GI prophylaxis Protonix and DVT prophylaxis subcu heparin Physician Fishing Hand note has been reviewed by physician. Signing provider agrees with the documented findings, assessment, and plan of care. Objective - Vital Signs Vital signs: Vital Signs Temp 97.9 F 01/15/23 08:00 Pulse 102 H 01/15/23 09:00 Resp 30 H 01/15/23 09:00 BP 112/60 01/15/23 09:00 Pulse Ox 89 L 01/15/23 09:00 FiO2 Intake & Output 01/14/23 01/15/23 01/15/23 18:59 06:59 18:59 Intake Total 6651.674 3176.812 458.167 Output Total 325 750 555 Balance 6326.674 2426.812 -96.833 Weight 78.2 kg Intake: IV 2090 2849 450 D5-0.45% NaCl with KCl 1650 450 20Meq/l 1,000 ml @ 150 mls/hr IV .Q6H40M [facility] Rx# :[id number] Sodium Chloride 0.9% 1, 390 000 ml @ 130 mls/hr IV . Q7H42M [facility] Rx#:[id number] Sodium Chloride 0.9% 1, 999 000 ml @ 999 mls/hr IV . Q1H1M [facility] Rx#:[id number] cefTRIAXone 2 gm In 100 Sodium Chloride 0.9% 50 ml @ 100 mls/hr IVPB HS [facility] Rx#:[id number] metroNIDAZOLE-NS PMX 500 100 100 mg In Saline 1 100ml.bag @ 100 mls/hr IVPB Q8H [facility] Rx#:[id number] Intake, IV Titration 4561.674 327.812 8.167 Amount D5-0.45% NaCl with KCl 550 150 20Meq/l 1,000 ml @ 150 mls/hr IV .Q6H40M [facility] Rx# :[id number] Lactated Ringers 1,000 ml 4000 @ 999 mls/hr IV .Q1H1M [facility] Rx#:[id number] Norepinephrine 4 mg In 11.674 177.812 8.167 Sodium Chloride 0.9% 250 ml @ 0.03 MCG/KG/MIN 7.99 mls/hr IV .Q24H [facility] Rx#: [id number] Output: Gastric Drainage 350 450 Urine 275 300 105 Stool 100 Estimated Blood Loss 50 Other: Voiding Method Indwelling Catheter Indwelling Catheter Indwelling Catheter - Labs CBC & Chem 7: 01/15/23 04:41 01/15/23 04:41 Labs: Abnormal Lab Results - Last 24 Hours (Table) 01/14/23 01/14/23 01/15/23 Range/Units 14:07 14:07 04:41 WBC 13.2 H 20.2 H (3.8-10.6) k/uL RBC 3.55 L 3.22 L (3.80-5.40) m/uL Hgb 10.8 L 9.6 L (11.4-16.0) gm/dL Hct 33.9 L 30.5 L (34.0-46.0) % Neutrophils # 12.2 H 18.1 H (1.3-7.7) k/uL Lymphocytes # 0.6 L (1.0-4.8) k/uL Chloride 115 H (98-107) mmol/L Carbon Dioxide 17 L (22-30) mmol/L BUN 46 H (7-17) mg/dL Creatinine (0.52-1.04) mg/dL Glucose 144 H (74-99) mg/dL Calcium 7.8 L (8.4-10.2) mg/dL 01/15/23 Range/Units 04:41 WBC (3.8-10.6) k/uL RBC (3.80-5.40) m/uL Hgb (11.4-16.0) gm/dL Hct (34.0-46.0) % Neutrophils # (1.3-7.7) k/uL Lymphocytes # (1.0-4.8) k/uL Chloride 114 H (98-107) mmol/L Carbon Dioxide 18 L (22-30) mmol/L BUN 38 H (7-17) mg/dL Creatinine 1.15 H (0.52-1.04) mg/dL Glucose 179 H (74-99) mg/dL Calcium 7.5 L (8.4-10.2) mg/dL Microbiology - Last 24 Hours (Table) 01/13/23 02:30 Blood Culture - Preliminary Blood 01/13/23 02:15 Blood Culture - Preliminary Blood
--- NOTE | 2023-01-15 12:51 | P.PN ---
Subjective Progress Note Date: 01/15/23 Principal diagnosis: Acute bowel obstruction and megacolon This is a 77-year-old female patient was currently being admitted to the intensive care unit. The patient presented to the hospital because of nausea or vomiting or abdominal pain. The pain started last night. The patient also had significant abdominal distention. As such, she came into the emergency department and the patient was found to have a white cell count of 34.8, hemoglobin 15.7, BUN of 50 with a creatinine of 1.29 and his sodium level of 135 and a potassium level of 5.3. Initial lactic acid level was 5.7. She was given IV fluids 2 L bolus and repeat a lactic acid level is down to 2.4. AST is 43, ALTs 40, alkaline phosphatase 204, UA is negative, troponins are negative, proBNP level is at 8:15. The patient's EKG showing normal sinus rhythm. Nevertheless, she has history of PE and she has been maintained on anticoagulation with Eliquis. CAT scan of the abdomen and pelvis was done on 01/13/2023 7:00 in the morning and it showed mildly prominent fluid-filled stomach, duodenum and proximal jejunum do not appear significantly dilated. There is a distal small bowel dilation up to 3.1 cm in diameter with some air- fluid levels. Gas and stool throughout the colon. Ascending colon is dilated up to 7.1 cm in size. There are signs of early colonic wall pneumatosis. In the distal colon, there appears to be a transition point in the lower quadrant where colonic lumen appears decompressed and thickened with multiple sigmoid region diverticuli noted. As such, findings are suggestive of bowel obstruction in the region of the sigmoid colon. Underlying neoplasm needs to be considered. There is up stream dilation of the colon and distal small bowel as described. Surgical consultation has been obtained. The patient was seen by general surgery. The patient will be brought up-to-date intensive care unit optimize medically receive NG tube for gastric decompression and the patient will obviously need antibiotics and surgical intervention within next few hours. Currently, the patient is on IV fluids with normal saline at the rate of 130s is an hour. The patient is ALLERGIC to amoxicillin. The patient will be placed on a combination of Rocephin and Flagyl. She is afebrile. Her pulse ox is 95% on room air oxygen. The patient had a colonoscopy done on 12/21/2022. This was an incomplete colonoscopy as the scope could not be advanced because of acute angulation of the sigmoid colon. There is evidence of moderate colonic diverticulosis. Patient was reevaluated today on 01/14/2023, patient is scheduled to undergo exploratory laparotomy and bowel resection, possible colostomy, this should be done sometime later today by Dr. Santos. In the meantime the patient is f eeling better, continues to have nasogastric tube in place, her eliquis was reversed using Kcentra. Patient is hemodynamically stable. Blood pressure is normal. WBC count of 16.3 hemoglobin 11.5 electrolytes are normal BUN is 51 creatinine 1.08. Pulmonary-davis the patient does not seem to be in distress, even her abdominal pain seems to be much better now compared to yesterday Reevaluated today on 01/15/2023, patient remains in the ICU, patient is status post sigmoid colectomy and end colostomy, small bowel resection, patient was found to have obstructing sigmoid mass with loop of small bowel adherent to the mass. Patient is now postoperative day #1. Yesterday she came out of the car and she was relatively tachycardic, hypotensive, and significant amount of fluids were given. Today she seems to be doing better and she is hemodynamically stable. In the meantime remains on antibiotics in the form of Rocephin and Flagyl. Continues to have nasogastric tube in place, continues on D5 45 at 1 50 mL per hour. Patient is doing well overall considering her overall picture. WBC count is 20.2 hemoglobin is 9.6 electrolytes are normal, renal profile is borderline with a BUN of 38 creatinine 1.15, it was 0.95 yesterday. Objective - Vital Signs Vital signs: Vital Signs Temp 98.2 F 01/15/23 12:00 Pulse 98 01/15/23 12:00 Resp 15 01/15/23 12:00 BP 105/46 01/15/23 12:00 Pulse Ox 94 L 01/15/23 12:00 FiO2 Intake & Output 01/14/23 01/15/23 01/15/23 18:59 06:59 18:59 Intake Total 6651.674 3176.812 908.167 Output Total 334 638 8755 Balance 6326.674 2426.812 -236.833 Weight 78.2 kg Intake: IV 2090 2849 900 D5-0.45% NaCl with KCl 1650 900 20Meq/l 1,000 ml @ 150 mls/hr IV .Q6H40M [facility] Rx# :[id number] Sodium Chloride 0.9% 1, 390 000 ml @ 130 mls/hr IV . Q7H42M [facility] Rx#:[id number] Sodium Chloride 0.9% 1, 999 000 ml @ 999 mls/hr IV . Q1H1M ONE Rx#:[id number] cefTRIAXone 2 gm In 100 Sodium Chloride 0.9% 50 ml @ 100 mls/hr IVPB HS [facility] Rx#:[id number] metroNIDAZOLE-NS PMX 500 100 100 mg In Saline 1 100ml.bag @ 100 mls/hr IVPB Q8H [facility] Rx#:[id number] Intake, IV Titration 4561.674 327.812 8.167 Amount D5-0.45% NaCl with KCl 550 150 20Meq/l 1,000 ml @ 150 mls/hr IV .Q6H40M [facility] Rx# :[id number] Lactated Ringers 1,000 ml 4000 @ 999 mls/hr IV .Q1H1M [facility] Rx#:[id number] Norepinephrine 4 mg In 11.674 177.812 8.167 Sodium Chloride 0.9% 250 ml @ 0.03 MCG/KG/MIN 7.99 mls/hr IV .Q24H ON LICENSE OF [facility] Rx#: [id number] Output: Gastric Drainage 350 900 Urine 275 300 245 Stool 100 Estimated Blood Loss 50 Other: Voiding Method Indwelling Catheter Indwelling Catheter Indwelling Catheter - Exam Physical Exam: Revealed 77-year-old female pleasant in no distress, on 4 L nasal cannula Head: Atraumatic, normocephalic. Nasogastric tube seems to be intact. HEENT:[Neck is supple.] [No neck masses.] [No thyromegaly.] [No JVD.] Chest: Postsurgical, nontender, colostomy is functional Cardiac Exam: [Normal S1 and S2, no S3 gallop, no murmur.] Abdomen: [Soft, nontender, no megaly, no rebound, no guarding, normal bowel sounds.] Extremities: [No clubbing, no edema, no cyanosis.] Neurological Exam: [No focal neurologic deficit.] Alert oriented 3 Psychiatric: Normal mood affect and normal mental status examination. Skin: No rashes - Labs CBC & Chem 7: 01/15/23 04:41 01/15/23 04:41 Labs: Abnormal Lab Results - Last 24 Hours (Table) 01/14/23 01/14/23 01/15/23 Range/Units 14:07 14:07 04:41 WBC 13.2 H 20.2 H (3.8-10.6) k/uL RBC 3.55 L 3.22 L (3.80-5.40) m/uL Hgb 10.8 L 9.6 L (11.4-16.0) gm/dL Hct 33.9 L 30.5 L (34.0-46.0) % Neutrophils # 12.2 H 18.1 H (1.3-7.7) k/uL Lymphocytes # 0.6 L (1.0-4.8) k/uL Chloride 115 H (98-107) mmol/L Carbon Dioxide 17 L (22-30) mmol/L BUN 46 H (7-17) mg/dL Creatinine (0.52-1.04) mg/dL Glucose 144 H (74-99) mg/dL Calcium 7.8 L (8.4-10.2) mg/dL 01/15/23 Range/Units 04:41 WBC (3.8-10.6) k/uL RBC (3.80-5.40) m/uL Hgb (11.4-16.0) gm/dL Hct (34.0-46.0) % Neutrophils # (1.3-7.7) k/uL Lymphocytes # (1.0-4.8) k/uL Chloride 114 H (98-107) mmol/L Carbon Dioxide 18 L (22-30) mmol/L BUN 38 H (7-17) mg/dL Creatinine 1.15 H (0.52-1.04) mg/dL Glucose 179 H (74-99) mg/dL Calcium 7.5 L (8.4-10.2) mg/dL Microbiology - Last 24 Hours (Table) 01/13/23 02:30 Blood Culture - Preliminary Blood 01/13/23 02:15 Blood Culture - Preliminary Blood Assessment and Plan Assessment: Impression: Status post exploratory laparotomy, sigmoid colostomy, and small bowel resection, postoperative day #1 Sigmoid mass, pathology is pending Acute kidney injury/acute tubular necrosis, improving Benign essential hypertension History of pulmonary embolism, patient is maintained on eliquis since 2018 History of thyroid nodules History of migraine cephalgia History of previous abdominal surgery and removal of ovarian precancerous mass. Recommendation: Continue present supportive care measures Incentive spirometry Antibiotics Awaiting the final pathology report from the sigmoid mass GI and DVT prophylaxis continue to monitor in the ICU for the next 24 hours We'll continue to follow-up Time with Patient: Less than 30
--- NOTE | 2023-01-15 13:31 | CDI ---
Documentation Clarification Form Date: 01/15/2023 01:19:05 PM From: Ree Blank RN CCDS Phone: [phone] Admit Date: 01/13/2023 08:17:00 AM Patient Name: Nuvia Ridley Visit Number: [id number] Discharge Date: ATTENTION: The Clinical Documentation Specialists (CDI) and [facility] Coding Staff appreciate your assistance in clarifying documentation. Please respond to the clarification below the line at the bottom and electronically sign. The CDI & [facility] Coding staff will review the response and follow-up if needed. Please note: Queries are made part of the Legal Health Record. If you have any questions, please contact the author of this message via ITS. Dr. Jose Juan Santos Sepsis is documented 01/13 and 01/14 in Medicine H&P and Note. Based on this information and the findings below, is the diagnosis of Sepsis clinically appropriate for this patient? History/Risk Factors: 77-year-old female presented to the ED for intermittent nausea, vomiting and abdominal pain with distention. Medical History: HTN, PE and skin cancer. Clinical Indicators: Medicine H&P, 01/13: Sepsis likely intra-abdominal source. WBC, 01/13: Wbc 34.8 Lactic acid, 01/13: 5.7 Blood cultures, 01/13: No growth after 48 hours Vitals signs, 01/13: B/P 78/52; HR 97.6; RR 18; SpO2 95% Treatment: Antibiotics: 01/13 Ceftriaxone IVPB x 1; 01/13 Metronidazole IVPB x 1; IV Bolus: 01/13 0.9ns 2.5L IVPB boluses Is there an additional diagnosis that is clinically appropriate for this patient? [ xx] Sepsis, present on admission [ ] Sepsis ruled out [ ] Other, please specify [ ] Unable to determine SIRS Criteria: 2 or more of the following may indicate SIRS Temperature < 96.8F (36C) or > 101.0F (38.3C) Heart Rate > 90 bpm Respiratory Rate > 20 breaths/min or PaCO2 < 32 mmHg White Blood Cell Count > 12,000 or < 4,000 cells/mm3 or > 10% bands (Template Last Reviewed: April 2022Charity YIP
--- NOTE | 2023-01-15 14:00 | P.PN ---
Progress Note - Text Progress Note Date: 01/15/23 Chief Complaint: Abdominal pain * 77-year-old lady with past medical history significant for hypertension, history of pulmonary embolism, history of hysterectomy secondary to tumor approximately 30 years ago presents to the emergency department with complains of progressively worsening abdominal distention, nausea, vomiting. Patient states she has been dealing with this for 3 months and her symptoms are progressively getting worse to the point she decided to come to emergency * While in ER CT abdomen and pelvis was obtained which showed colonic obstruction. Patient was noted to be hypotensive and had elevated lactate levels with significant leukocytosis in ER * Hematology showed WBC 34k, hemoglobin 13.7 platelet 488. Serum chemistry shows sodium 135 potassium 5.3 carbon dioxide 15 BU and 50 1.29 lactate of 2.4 * Patient states she took her Eliquis on 01/12 nighttime dose January 14: I assumed care of the patient today. Postoperative period ICU. IV levo fed. Nasal cannula. Some abdominal pain. Damian catheter. Surgery: Sigmoid colectomy with end colostomy. Small bowel resection. Partial omentectomy. Due to obstructing mass of the sigmoid colon. January 15: ICU. Patient in bed. NG tube to intermittent suction. Colostomy is started putting out stool. Damian catheter. Remains nothing by mouth. Patient is brother and [id number] visiting from [place] with the bedside. Discussed. Will change IV fluids to sodium bicarbonate drip at 1 25 mL an hour. Active Medications Heparin Sodium (Porcine) (Heparin Sodium,Porcine 5,000 Unit/Ml 1 Ml Vial) 5,000 unit SQ Q8HR [facility] Last Admin: 01/15/23 08:57 Dose: 5,000 unit Hydromorphone HCl (Hydromorphone 1 Mg/Ml 1 Ml Syringe) 1 mg IVP Q3H PRN PRN Reason: Pain Last Admin: 01/15/23 08:57 Dose: 1 mg Ceftriaxone Sodium 2 gm/ (Sodium Chloride) 50 mls @ 100 mls/hr IVPB HS [facility]; Protocol Last Admin: 01/14/23 21:34 Dose: 100 mls/hr Metronidazole 500 mg/ IV (Solution) 100 mls @ 100 mls/hr IVPB Q8H [facility]; Protocol Last Admin: 01/15/23 12:21 Dose: 100 mls/hr Potassium Chloride/Dextrose/Sod Cl (D5%-1/2ns-Kcl 20 Meq/L Iv Solution) 1,000 mls @ 150 mls/hr IV .Q6H40M [facility] Last Admin: 01/15/23 09:10 Dose: Not Given Norepinephrine Bitartrate 4 mg (/ Sodium Chloride) 254 mls @ 7.99 mls/hr IV .Q24H [facility]; Protocol Last Titration: 01/15/23 09:17 Dose: 0.02 mcg/kg/min, 5.326 mls/hr Morphine Sulfate (Morphine Sulfate 4 Mg/Ml Syringe) 4 mg IV Q4HR PRN PRN Reason: Severe Pain (Scale 7 to 10) Last Admin: 01/14/23 14:16 Dose: 4 mg Naloxone HCl (Naloxone 0.4 Mg/Ml 1 Ml Vial) 0.2 mg IV Q2M PRN PRN Reason: Opioid Reversal Ondansetron HCl (Ondansetron 4 Mg/2 Ml Vial) 4 mg IVP Q8HR PRN PRN Reason: Nausea And Vomiting Last Admin: 01/14/23 09:33 Dose: 4 mg Ondansetron HCl (Ondansetron 4 Mg/2 Ml Vial) 4 mg IVP Q8HR PRN PRN Reason: Nausea And Vomiting Pantoprazole Sodium (Pantoprazole 40 Mg/10 Ml Vial) 40 mg IV DAILY [facility] Last Admin: 01/15/23 08:57 Dose: 40 mg Physical examination: VITAL SIGNS: 98.2, 98, 15, 105/46, 94% on 2 L GENERAL: Laying in bed, tired EYES: Pupils equal. Conjunctiva normal. HEENT: External appearance of nose and ears normal, oral cavity grossly normal. NG tube to suction NECK: JVD unable to assess; masses not palpable. HEART: Heart sounds muffled, edema. LUNGS: Respiratory rate normal decreased breath sound. EXTREMITY: Area. of Redness above the ankle both lower legs. Edema. ABDOMEN: Soft, tender, incision with dressing. Colostomy bag with liquid stool , liver spleen not palpable. PSYCH: Alert and oriented x3; mood and affect normal. INVESTIGATIONS, reviewed in the clinical context: January 15: White count 20.2 hemoglobin 9.6 platelets 349 potassium 4.4 bicarb 18 BUN 38 creatinine 1.15 January 14: White count 13.2 hemoglobin 10.8 platelets 368 potassium 4.3 BUN [address] abdomen pelvis: Obstructing a partially obstructing process region of the sigmoid colon.: dilatation above. Sigmoid diverticula. Assessment and plan: -Sigmoid mass: Causing obstruction. Sigmoid colectomy with end colostomy. Small bowel resection. Partial omentectomy. January [address] Santos NG tube to suction. Nothing by mouth. Colostomy bag is started putting out stool. -Postop hypotensive shock: Better On IV levo fed discontinued -Sigmoid diverticulosis -GERD PPI -Essential hypertension, currently blood pressure low: Slow to respond Blood pressure medications held -Chronic pulmonary embolism On eliquis-currently held. Resume when okay with surgery -Primary osteoarthritis -Acute postprocedure blood loss anemia, expected from surgery Follow H&H IV Ferrlecit. Discussed with patient and family at bedside. IV ceftriaxone. NG tube suction. IV Ferrlecit. Past Medical History Past Medical History: Cancer, GERD/Reflux, Hypertension, Pulmonary Embolus (PE), Thyroid Disorder Additional Past Medical History / Comment(s): thyroid nodule, skin cancer, diverticulosis, arthirits feet/lt ankle, rt knee gout, past migaraines-RARE History of Any Multi-Drug Resistant Organisms: None Reported Past Surgical History: Breast Surgery, Hysterectomy Additional Past Surgical History / Comment(s): Thyroid biopsy, exploratory abdominal surgery to remove ovarian pre-cancerous mass, "mohs procedure" for skin CA, colonsocpy, breast bx 1987 Past Anesthesia/Blood Transfusion Reactions: Motion Sickness Additional Past Anesthesia/Blood Transfusion Reaction / Comment(s): claustrphobia Past Psychological History: No Psychological Hx Reported Smoking Status: Never smoker Past Alcohol Use History: None Reported Past Drug Use History: None Reported - Past Family History Mother Additional Family Medical History / Comment(s): scleraderma Father Family Medical History: Cancer Additional Family Medical History / Comment(s): kidney ca Assessment and plan * Status post bowel obstruction involving sigmoid colon * History of pulmonary embolism on Eliquis * Hyperkalemia * Sepsis likely intra-abdominal source * Acute kidney injury * Gen. surgery team primary, planning or 01/16, continue nothing by mouth NG tube in place * In regards to history of pulmonary embolism patient on Eliquis, adnexa given since urgent surgery planned * In regards to hyponatremia, patient given calcium gluconate insulin and dextrose follow-up blood work ordered * In regards to sepsis blood cultures ordered, continue patient on Rocephin and Flagyl follow-up lactate levels ordered * Regards to acute kidney injury continue patient on IV fluid resuscitation * CODE STATUS is full code
[2023-01-15] MEDS: ENOXAPARIN 40 MG/0.4 ML SYRINGE SQ SCH (15:00)
[2023-01-15] MEDS: DEXTROSE 5% IN WATER 1,000 ML with SODIUM BICARB (1 MEQ/ML) 100 ML IV SCH (15:46)
[2023-01-15] MEDS: NOREPINEPHRINE 4 MG in SODIUM CHLORIDE 0.9% 250 ML IV SCH (16:51)
[2023-01-16] MEDS: DEXTROSE 5% IN WATER 1,000 ML with SODIUM BICARB (1 MEQ/ML) 100 ML IV SCH ×2 (02:49→08:59)
[2023-01-16] MEDS: metroNIDAZOLE-NS PMX 500 MG in SALINE 1 100ML.BAG IVPB SCH ×3 (04:37→20:31)
[2023-01-16 06:23] LABS: African American GFR (CKD) >90 (>60 ml/min/1.73 sqM); Anion Gap 3 mmol/L; Blood Urea Nitrogen 23 mg/dL (7-17); Calcium 7.9 mg/dL (8.4-10.2); Carbon Dioxide 23 mmol/L (22-30); Chloride 111 mmol/L (98-107); Glucose 104 mg/dL (74-99); Non-African American GFR(CKD) 89 (>60 ml/min/1.73 sqM); Potassium 4.2 mmol/L (3.5-5.1); Sodium 137 mmol/L (137-145)
[2023-01-16] MEDS: HYDROmorphone 1 MG/ML 1 ML SYRINGE IVP PRN ×4 (06:27→20:50)
[2023-01-16 08:12] LABS: Basophils % (A) 0 %; Eosinophils # (A) 0.1 k/uL (0-0.7); Eosinophils % (A) 0 %; HCT 28.7 % (34.0-46.0); HGB 9.1 gm/dL (11.4-16.0); Hypochromasia Slight; Lymphocytes % (A) 8 %; MCH 29.3 pg (25.0-35.0); MCHC 31.6 g/dL (31.0-37.0); MCV 92.8 fL (80.0-100.0); Mean Platelet Volume 7.9; Monocytes # (A) 0.8 k/uL (0-1.0); Monocytes % (A) 3 %; Neutrophils # (A) 21.6 k/uL (1.3-7.7); Neutrophils % (A) 88 %; Platelet Count 305 k/uL (150-450); RDW 13.9 % (11.5-15.5); WBC 24.6 k/uL (3.8-10.6)
[2023-01-16] MEDS: SODIUM FERRIC GLUCONAT-SUCROSE 125 MG in SODIUM CHLORIDE 0.9% 100 ML IVPB SCH (08:51)
[2023-01-16] MEDS: PANTOPRAZOLE 40 MG/10 ML VIAL IV SCH (08:51)
[2023-01-16] MEDS: ENOXAPARIN 40 MG/0.4 ML SYRINGE SQ SCH (08:52)
[2023-01-16] MEDS ORDERED: BENZOCAINE SPRAY 1 CAN MUCOUS MEM PRN (11:00)
--- NOTE | 2023-01-16 11:38 | P.PN ---
Subjective Progress Note Date: 01/16/23 Principal diagnosis: Acute bowel obstruction and megacolon This is a 77-year-old female patient was currently being admitted to the intensive care unit. The patient presented to the hospital because of nausea or vomiting or abdominal pain. The pain started last night. The patient also had significant abdominal distention. As such, she came into the emergency department and the patient was found to have a white cell count of 34.8, hemoglobin 15.7, BUN of 50 with a creatinine of 1.29 and his sodium level of 135 and a potassium level of 5.3. Initial lactic acid level was 5.7. She was given IV fluids 2 L bolus and repeat a lactic acid level is down to 2.4. AST is 43, ALTs 40, alkaline phosphatase 204, UA is negative, troponins are negative, proBNP level is at 8:15. The patient's EKG showing normal sinus rhythm. Nevertheless, she has history of PE and she has been maintained on anticoagulation with Eliquis. CAT scan of the abdomen and pelvis was done on 01/13/2023 7:00 in the morning and it showed mildly prominent fluid-filled stomach, duodenum and proximal jejunum do not appear significantly dilated. There is a distal small bowel dilation up to 3.1 cm in diameter with some air- fluid levels. Gas and stool throughout the colon. Ascending colon is dilated up to 7.1 cm in size. There are signs of early colonic wall pneumatosis. In the distal colon, there appears to be a transition point in the lower quadrant where colonic lumen appears decompressed and thickened with multiple sigmoid region diverticuli noted. As such, findings are suggestive of bowel obstruction in the region of the sigmoid colon. Underlying neoplasm needs to be considered. There is up stream dilation of the colon and distal small bowel as described. Surgical consultation has been obtained. The patient was seen by general surgery. The patient will be brought up-to-date intensive care unit optimize medically receive NG tube for gastric decompression and the patient will obviously need antibiotics and surgical intervention within next few hours. Currently, the patient is on IV fluids with normal saline at the rate of 130s is an hour. The patient is ALLERGIC to amoxicillin. The patient will be placed on a combination of Rocephin and Flagyl. She is afebrile. Her pulse ox is 95% on room air oxygen. The patient had a colonoscopy done on 12/21/2022. This was an incomplete colonoscopy as the scope could not be advanced because of acute angulation of the sigmoid colon. There is evidence of moderate colonic diverticulosis. Patient was reevaluated today on 01/14/2023, patient is scheduled to undergo exploratory laparotomy and bowel resection, possible colostomy, this should be done sometime later today by Dr. Santos. In the meantime the patient is f eeling better, continues to have nasogastric tube in place, her eliquis was reversed using K[employer]. Patient is hemodynamically stable. Blood pressure is normal. WBC count of 16.3 hemoglobin 11.5 electrolytes are normal BUN is 51 creatinine 1.08. Pulmonary-davis the patient does not seem to be in distress, even her abdominal pain seems to be much better now compared to yesterday Reevaluated today on 01/15/2023, patient remains in the ICU, patient is status post sigmoid colectomy and end colostomy, small bowel resection, patient was found to have obstructing sigmoid mass with loop of small bowel adherent to the mass. Patient is now postoperative day #1. Yesterday she came out of the car and she was relatively tachycardic, hypotensive, and significant amount of fluids were given. Today she seems to be doing better and she is hemodynamically stable. In the meantime remains on antibiotics in the form of Rocephin and Flagyl. Continues to have nasogastric tube in place, continues on D5 45 at 1 50 mL per hour. Patient is doing well overall considering her overall picture. WBC count is 20.2 hemoglobin is 9.6 electrolytes are normal, renal profile is borderline with a BUN of 38 creatinine 1.15, it was 0.95 yesterday. Reevaluated today on 01/16/2023, patient remains in the ICU, she is status post sigmoid colectomy and end colostomy and small bowel resection, postoperative day #2. Patient is doing well, she is relatively asymptomatic, her ostomy seems to be functional, patient is hemodynamically stable and not requiring any pressors. Remains on antibiotics empirically. WBC count is 24.6 hemoglobin is 9.1. Basic metabolic profile is normal bicarb is normal renal profile is normal. Patient continues to have nasogastric tube in place, I plan to transfer the patient out of the ICU to a medical surgical floor today. Objective - Vital Signs Vital signs: Vital Signs Temp 97.8 F 10/11/23 08:00 Pulse 89 01/16/23 11:00 Resp 13 01/16/23 11:00 BP 135/53 01/16/23 11:00 Pulse Ox 95 01/16/23 11:00 FiO2 Intake & Output 01/15/23 01/16/23 01/16/23 18:59 06:59 18:59 Intake Total 0204.064 5017 600 Output Total 1910 850 515 Balance -167.036 900 85 Weight 80 kg Intake: IV 1200 1625 600 D5-0.45% NaCl with KCl 1200 20Meq/l 1,000 ml @ 150 mls/hr IV .Q6H40M [facility] Rx# :[id number] Dextrose 5% in Water 1, 1375 500 000 ml @ 125 mls/hr IV . Q8H48M [facility] with Sodium Bicarb (1 Meq/ml) 100 ml Rx#:[id number] Sodium Ferric Gluconat- 100 Sucrose 125 mg In Sodium Chloride 0.9% 100 ml @ 100 mls/hr IVPB DAILY [facility] Rx#:[id number] cefTRIAXone 2 gm In 50 Sodium Chloride 0.9% 50 ml @ 100 mls/hr IVPB HS [facility] Rx#:[id number] metroNIDAZOLE-NS PMX 500 200 mg In Saline 1 100ml.bag @ 100 mls/hr IVPB Q8H [facility] Rx#:[id number] Intake, IV Titration 542.964 125 Amount Dextrose 5% in Water 1, 500 125 000 ml @ 125 mls/hr IV . Q8H48M [facility] with Sodium Bicarb (1 Meq/ml) 100 ml Rx#:[id number] Norepinephrine 4 mg In 42.964 Sodium Chloride 0.9% 250 ml @ 0.03 MCG/KG/MIN 7.99 mls/hr IV .Q24H [facility] Rx#: [id number] Output: Gastric Drainage 900 200 Urine 510 850 215 Stool 200 100 Other 300 Other: Voiding Method Indwelling Catheter Indwelling Catheter Indwelling Catheter - Exam Physical Exam: Revealed 77-year-old female pleasant in no distress, on 2 L nasal cannula Head: Atraumatic, normocephalic. Nasogastric tube remains in place HEENT:[Neck is supple.] [No neck masses.] [No thyromegaly.] [No JVD.] Chest: Diminished breath sound bilaterally no rhonchi and no wheezes Cardiac Exam: [Normal S1 and S2, no S3 gallop, no murmur.] Abdomen: [Soft slightly tender, colostomy is functional. Extremities: [No clubbing, no edema, no cyanosis.] Neurological Exam: [No focal neurologic deficit.] Alert oriented 3 Psychiatric: Normal mood affect and normal mental status examination. Skin: No rashes - Labs CBC & Chem 7: 01/16/23 07:40 01/16/23 05:15 Labs: Abnormal Lab Results - Last 24 Hours (Table) 01/16/23 01/16/23 Range/Units 05:15 07:40 WBC 24.6 H (3.8-10.6) k/uL RBC 3.10 L (3.80-5.40) m/uL Hgb 9.1 L (11.4-16.0) gm/dL Hct 28.7 L (34.0-46.0) % Neutrophils # 21.6 H (1.3-7.7) k/uL Chloride 111 H (98-107) mmol/L BUN 23 H (7-17) mg/dL Glucose 104 H (74-99) mg/dL Calcium 7.9 L (8.4-10.2) mg/dL Microbiology - Last 24 Hours (Table) 01/13/23 02:30 Blood Culture - Preliminary Blood 01/13/23 02:15 Blood Culture - Preliminary Blood Assessment and Plan Assessment: Impression: Status post exploratory laparotomy, sigmoid colostomy, and small bowel resection, postoperative day #2 Sigmoid mass, pathology is pending Acute kidney injury/acute tubular necrosis, resolved Benign essential hypertension History of pulmonary embolism, patient is maintained on eliquis since 2018 patient to resume eliquis once cleared by surgery to go back on eliquis in the meantime continue Lovenox History of thyroid nodules History of migraine cephalgia History of previous abdominal surgery and removal of ovarian precancerous mass. Recommendation: Transfer patient out of the ICU to a regular medical floor/medical surgical Incentive spirometry Continue Antibiotics Awaiting the final pathology report from the sigmoid mass GI and DVT prophylaxis We'll continue to follow-up Time with Patient: Less than 30
--- NOTE | 2023-01-16 13:29 | P.PN ---
Progress Note - Text Progress Note Date: 01/16/23 Chief Complaint: Abdominal pain * 77-year-old lady with past medical history significant for hypertension, history of pulmonary embolism, history of hysterectomy secondary to tumor approximately 30 years ago presents to the emergency department with complains of progressively worsening abdominal distention, nausea, vomiting. Patient states she has been dealing with this for 3 months and her symptoms are progressively getting worse to the point she decided to come to emergency * While in ER CT abdomen and pelvis was obtained which showed colonic obstruction. Patient was noted to be hypotensive and had elevated lactate levels with significant leukocytosis in ER * Hematology showed WBC 34k, hemoglobin 13.7 platelet 488. Serum chemistry shows sodium 135 potassium 5.3 carbon dioxide 15 BU and 50 1.29 lactate of 2.4 * Patient states she took her Eliquis on 01/12 nighttime dose January 14: I assumed care of the patient today. Postoperative period ICU. IV levo fed. Nasal cannula. Some abdominal pain. Damian catheter. Surgery: Sigmoid colectomy with end colostomy. Small bowel resection. Partial omentectomy. Due to obstructing mass of the sigmoid colon. January 15: ICU. Patient in bed. NG tube to intermittent suction. Colostomy is started putting out stool. Damian catheter. Remains nothing by mouth. Patient is brother and [id number] visiting from [place] with the bedside. Discussed. Will change IV fluids to sodium bicarbonate drip at 1 25 mL an hour. January 16: ICU. Colostomy bag is working. Damian catheter. NG tube to intermittent suction. Change IV fluids to D5 0.45. Spoke to the patient and the family at the bedside. Patient tired. Active Medications Benzocaine (Benzocaine [place] 1 Can) 1 spray MUCOUS MEM QID PRN; Protocol PRN Reason: Mouth Irritation Enoxaparin Sodium (Enoxaparin 40 Mg/0.4 Ml Syringe) 40 mg SQ DAILY [facility] Last Admin: 01/16/23 08:52 Dose: 40 mg Hydromorphone HCl (Hydromorphone 1 Mg/Ml 1 Ml Syringe) 1 mg IVP Q3H PRN PRN Reason: Pain Last Admin: 01/16/23 11:28 Dose: 1 mg Ceftriaxone Sodium 2 gm/ (Sodium Chloride) 50 mls @ 100 mls/hr IVPB HS [facility]; Protocol Last Admin: 01/15/23 21:17 Dose: 100 mls/hr Metronidazole 500 mg/ IV (Solution) 100 mls @ 100 mls/hr IVPB Q8H [facility]; Protocol Last Admin: 01/16/23 11:33 Dose: 100 mls/hr Norepinephrine Bitartrate 4 mg (/ Sodium Chloride) 254 mls @ 7.99 mls/hr IV .Q24H [facility]; Protocol Last Admin: 01/15/23 16:51 Dose: Not Given Ferric Sodium Gluconate 125 mg (/ Sodium Chloride) 110 mls @ 100 mls/hr IVPB DAILY [facility] Stop: 01/18/23 10:05 Last Admin: 01/16/23 08:51 Dose: 100 mls/hr Dextrose/Sodium Chloride (Dextrose 5%-1/2ns Iv Soln) 1,000 mls @ 125 mls/hr IV .Q8H [facility] Morphine Sulfate (Morphine Sulfate 4 Mg/Ml Syringe) 4 mg IV Q4HR PRN PRN Reason: Severe Pain (Scale 7 to 10) Last Admin: 01/14/23 14:16 Dose: 4 mg Naloxone HCl (Naloxone 0.4 Mg/Ml 1 Ml Vial) 0.2 mg IV Q2M PRN PRN Reason: Opioid Reversal Ondansetron HCl (Ondansetron 4 Mg/2 Ml Vial) 4 mg IVP Q8HR PRN PRN Reason: Nausea And Vomiting Last Admin: 01/14/23 09:33 Dose: 4 mg Ondansetron HCl (Ondansetron 4 Mg/2 Ml Vial) 4 mg IVP Q8HR PRN PRN Reason: Nausea And Vomiting Pantoprazole Sodium (Pantoprazole 40 Mg/10 Ml Vial) 40 mg IV DAILY [facility] Last Admin: 01/16/23 08:51 Dose: 40 mg Physical examination: VITAL SIGNS: 97.8, 93, 23, 131/54, 93% on 2 L GENERAL: In a recliner, tired EYES: Pupils equal. Conjunctiva normal. HEENT: External appearance of nose and ears normal, oral cavity grossly normal. NG tube to suction NECK: JVD unable to assess; masses not palpable. HEART: Heart sounds muffled, edema. LUNGS: Respiratory rate increased decreased breath sound. EXTREMITY: Area. of Redness above the ankle both lower legs. Edema. ABDOMEN: Soft, tender, incision with dressing. Colostomy bag with liquid stool , liver spleen not palpable. PSYCH: Alert and oriented x3; mood and affect normal. INVESTIGATIONS, reviewed in the clinical context: January 16: White count 24.6 hemoglobin 9.1 platelets 305 potassium 4.2 creatinine 0.59 January 15: White count 20.2 hemoglobin 9.6 platelets 349 potassium 4.4 bicarb 18 BUN 38 creatinine 1.15 January 14: White count 13.2 hemoglobin 10.8 platelets 368 potassium 4.3 BUN [address] abdomen pelvis: Obstructing a partially obstructing process region of the sigmoid colon.: dilatation above. Sigmoid diverticula. Assessment and plan: -Sigmoid mass: Causing obstruction. Sigmoid colectomy with end colostomy. Small bowel resection. Partial omentectomy. January [address] Santos NG tube to suction. Nothing by mouth. Colostomy bag -output -Possibly secondary peritonitis IV ceftriaxone. IV Flagyl. -Postop hypotensive shock: Better On IV levo fed discontinued -Sigmoid diverticulosis -GERD PPI -Essential hypertension, currently blood pressure low: Slow to respond Blood pressure medications held -Chronic pulmonary embolism On eliquis-currently held. Resume when okay with surgery -Primary osteoarthritis -Acute postprocedure blood loss anemia, expected from surgery Follow H&H IV Ferrlecit. Discussed with patient and family .. IV ceftriaxone. IV Flagyl NG tube suction. IV Ferrlecit. Past Medical History Past Medical History: Cancer, GERD/Reflux, Hypertension, Pulmonary Embolus (PE), Thyroid Disorder Additional Past Medical History / Comment(s): thyroid nodule, skin cancer, diverticulosis, arthirits feet/lt ankle, rt knee gout, past migaraines-RARE History of Any Multi-Drug Resistant Organisms: None Reported Past Surgical History: Breast Surgery, Hysterectomy Additional Past Surgical History / Comment(s): Thyroid biopsy, exploratory abdominal surgery to remove ovarian pre-cancerous mass, "mohs procedure" for skin CA, colonsocpy, breast bx 1987 Past Anesthesia/Blood Transfusion Reactions: Motion Sickness Additional Past Anesthesia/Blood Transfusion Reaction / Comment(s): claustrphobia Past Psychological History: No Psychological Hx Reported Smoking Status: Never smoker Past Alcohol Use History: None Reported Past Drug Use History: None Reported - Past Family History Mother Additional Family Medical History / Comment(s): scleraderma Father Family Medical History: Cancer Additional Family Medical History / Comment(s): kidney ca Assessment and plan * Status post bowel obstruction involving sigmoid colon * History of pulmonary embolism on Eliquis * Hyperkalemia * Sepsis likely intra-abdominal source * Acute kidney injury * Gen. surgery team primary, planning or 01/16, continue nothing by mouth NG tube in place * In regards to history of pulmonary embolism patient on Eliquis, adnexa given s milana urgent surgery planned * In regards to hyponatremia, patient given calcium gluconate insulin and dextrose follow-up blood work ordered * In regards to sepsis blood cultures ordered, continue patient on Rocephin and Flagyl follow-up lactate levels ordered * Regards to acute kidney injury continue patient on IV fluid resuscitation * CODE STATUS is full code
[2023-01-16] MEDS: DEXTROSE 5%-0.45% NACL 1,000 ML IV SCH (13:43)
--- NOTE | 2023-01-16 16:07 | P.PN ---
Subjective Progress Note Date: 01/16/23 CHIEF COMPLAINT: Colon obstruction HISTORY OF PRESENT ILLNESS: Patient is postop day #2 status post exploratory laparotomy, sigmoid colectomy with end colostomy, small bowel resection and partial omentectomy for a colon obstruction due to obstructing mass at the sigmoid colon. Patient remains in the ICU. She has NG tube in place with about 200 mL of dark output. Ostomy with minimal stool. She reports her pain is controlled. Afebrile. WBC up at 24.6 Hgb 9.1 PHYSICAL EXAM: VITAL SIGNS: Reviewed. GENERAL: Well-developed in no acute distress. ABDOMEN: Soft. mildly distended. Tenderness at incision site. Incisional dressing with 2 areas of saturation. Ostomy with stool present. NEUROLOGIC: Alert and oriented. Cranial nerves II through XII grossly intact. ASSESSMENT: 1. Colon obstruction due to obstructing mass at the sigmoid colon status post exploratory laparotomy, sigmoid colectomy with end colostomy, small bowel resection and partial omentectomy PLAN: -Continue ICU management -Continue supportive care -Continue NG tube decompression -Keep patient nothing by mouth except ice chips -Change surgical dressing -Continue IV fluids -Continue pain management -Encouraged patient to use incentive spirometer -GI prophylaxis Protonix and DVT prophylaxis subcu lovenox Physician Patient Transportation Driver note has been reviewed by physician. Signing provider agrees with the documented findings, assessment, and plan of care. Objective - Vital Signs Vital signs: Vital Signs Temp 97.8 F 01/16/23 08:00 Pulse 96 01/16/23 13:00 Resp 27 H 01/16/23 13:00 BP 131/58 01/16/23 13:00 Pulse Ox 92 L 01/16/23 13:00 FiO2 Intake & Output 01/15/23 01/16/23 01/16/23 18:59 06:59 18:59 Intake Total 3800.482 2469 1075 Output Total 1910 850 730 Balance -167.036 900 345 Weight 80 kg Intake: IV 1200 1625 1075 D5-0.45% NaCl with KCl 1200 20Meq/l 1,000 ml @ 150 mls/hr IV .Q6H40M [facility] Rx# :[id number] Dextrose 5% in Water 1, 1375 875 000 ml @ 125 mls/hr IV . Q8H48M [facility] with Sodium Bicarb (1 Meq/ml) 100 ml Rx#:[id number] Sodium Ferric Gluconat- 100 Sucrose 125 mg In Sodium Chloride 0.9% 100 ml @ 100 mls/hr IVPB DAILY [facility] Rx#:[id number] cefTRIAXone 2 gm In 50 Sodium Chloride 0.9% 50 ml @ 100 mls/hr IVPB HS [facility] Rx#:[id number] metroNIDAZOLE-NS PMX 500 200 100 mg In Saline 1 100ml.bag @ 100 mls/hr IVPB Q8H [facility] Rx#:[id number] Intake, IV Titration 542.964 125 Amount Dextrose 5% in Water 1, 500 125 000 ml @ 125 mls/hr IV . Q8H48M [facility] with Sodium Bicarb (1 Meq/ml) 100 ml Rx#:[id number] Norepinephrine 4 mg In 42.964 Sodium Chloride 0.9% 250 ml @ 0.03 MCG/KG/MIN 7.99 mls/hr IV .Q24H [facility] Rx#: [id number] Output: Gastric Drainage 900 200 Urine 510 850 330 Stool 200 200 Other 300 Other: Voiding Method Indwelling Catheter Indwelling Catheter Indwelling Catheter - Labs CBC & Chem 7: 01/16/23 07:40 01/16/23 05:15 Labs: Abnormal Lab Results - Last 24 Hours (Table) 01/16/23 01/16/23 Range/Units 05:15 07:40 WBC 24.6 H (3.8-10.6) k/uL RBC 3.10 L (3.80-5.40) m/uL Hgb 9.1 L (11.4-16.0) gm/dL Hct 28.7 L (34.0-46.0) % Neutrophils # 21.6 H (1.3-7.7) k/uL Chloride 111 H (98-107) mmol/L BUN 23 H (7-17) mg/dL Glucose 104 H (74-99) mg/dL Calcium 7.9 L (8.4-10.2) mg/dL Microbiology - Last 24 Hours (Table) 01/13/23 02:30 Blood Culture - Preliminary Blood 01/13/23 02:15 Blood Culture - Preliminary Blood
[2023-01-17] MEDS: HYDROmorphone 1 MG/ML 1 ML SYRINGE IVP PRN ×3 (02:43→21:37)
[2023-01-17] MEDS: DEXTROSE 5%-0.45% NACL 1,000 ML IV SCH ×4 (02:43→21:30)
[2023-01-17] MEDS: metroNIDAZOLE-NS PMX 500 MG in SALINE 1 100ML.BAG IVPB SCH ×3 (04:53→21:34)
[2023-01-17 06:10] LABS: Basophils % (A) 0 %; Eosinophils # (A) 0.1 k/uL (0-0.7); Eosinophils % (A) 1 %; HCT 25.5 % (34.0-46.0); HGB 8.1 gm/dL (11.4-16.0); Hypochromasia Slight; Lymphocytes # (A) 1.9 k/uL (1.0-4.8); Lymphocytes % (A) 11 %; MCHC 31.7 g/dL (31.0-37.0); MCV 91.4 fL (80.0-100.0); Mean Platelet Volume 8.1; Monocytes # (A) 0.7 k/uL (0-1.0); Monocytes % (A) 4 %; Neutrophils # (A) 14.7 k/uL (1.3-7.7); Neutrophils % (A) 84 %; Platelet Count 321 k/uL (150-450); RBC 2.79 m/uL (3.80-5.40); RDW 13.9 % (11.5-15.5); WBC 17.5 k/uL (3.8-10.6)
[2023-01-17 06:42] LABS: African American GFR (CKD) >90 (>60 ml/min/1.73 sqM); Anion Gap 3 mmol/L; Blood Urea Nitrogen 13 mg/dL (7-17); Calcium 7.9 mg/dL (8.4-10.2); Carbon Dioxide 26 mmol/L (22-30); Chloride 106 mmol/L (98-107); Glucose 91 mg/dL (74-99); Non-African American GFR(CKD) >90 (>60 ml/min/1.73 sqM); Potassium 3.4 mmol/L (3.5-5.1); Sodium 135 mmol/L (137-145)
[2023-01-17] MEDS: SODIUM FERRIC GLUCONAT-SUCROSE 125 MG in SODIUM CHLORIDE 0.9% 100 ML IVPB SCH (10:36)
[2023-01-17] MEDS: PANTOPRAZOLE 40 MG/10 ML VIAL IV SCH (10:36)
[2023-01-17] MEDS: ENOXAPARIN 40 MG/0.4 ML SYRINGE SQ SCH (10:36)
--- NOTE | 2023-01-17 11:57 | P.PN ---
Progress Note - Text Progress Note Date: 01/17/23 The patient remains the ICU. She is postoperative day 2 from sigmoid resection for colonic obstruction. Patient has had some minimal gas output through colostomy. There is been no significant stool. Patient states her incisional pain is being well managed. On exam vital signs appear stable. Pulse is 80, respirations 15, pressure is 141/58. Patient has had good urinary output. Abdomen is soft incision is clean dry intact, colostomy is pink Patient will have her nasogastric tube removed. She'll start on clear liquid diet.
--- NOTE | 2023-01-17 12:12 | P.PN ---
Subjective Progress Note Date: 01/17/23 Principal diagnosis: Acute bowel obstruction and megacolon This is a 77-year-old female patient was currently being admitted to the intensive care unit. The patient presented to the hospital because of nausea or vomiting or abdominal pain. The pain started last night. The patient also had significant abdominal distention. As such, she came into the emergency department and the patient was found to have a white cell count of 34.8, hemoglobin 15.7, BUN of 50 with a creatinine of 1.29 and his sodium level of 135 and a potassium level of 5.3. Initial lactic acid level was 5.7. She was given IV fluids 2 L bolus and repeat a lactic acid level is down to 2.4. AST is 43, ALTs 40, alkaline phosphatase 204, UA is negative, troponins are negative, proBNP level is at 8:15. The patient's EKG showing normal sinus rhythm. Nevertheless, she has history of PE and she has been maintained on anticoagulation with Eliquis. CAT scan of the abdomen and pelvis was done on 01/13/2023 7:00 in the morning and it showed mildly prominent fluid-filled stomach, duodenum and proximal jejunum do not appear significantly dilated. There is a distal small bowel dilation up to 3.1 cm in diameter with some air- fluid levels. Gas and stool throughout the colon. Ascending colon is dilated up to 7.1 cm in size. There are signs of early colonic wall pneumatosis. In the distal colon, there appears to be a transition point in the lower quadrant where colonic lumen appears decompressed and thickened with multiple sigmoid region diverticuli noted. As such, findings are suggestive of bowel obstruction in the region of the sigmoid colon. Underlying neoplasm needs to be considered. There is up stream dilation of the colon and distal small bowel as described. Surgical consultation has been obtained. The patient was seen by general surgery. The patient will be brought up-to-date intensive care unit optimize medically receive NG tube for gastric decompression and the patient will obviously need antibiotics and surgical intervention within next few hours. Currently, the patient is on IV fluids with normal saline at the rate of 130s is an hour. The patient is ALLERGIC to amoxicillin. The patient will be placed on a combination of Rocephin and Flagyl. She is afebrile. Her pulse ox is 95% on room air oxygen. The patient had a colonoscopy done on 12/21/2022. This was an incomplete colonoscopy as the scope could not be advanced because of acute angulation of the sigmoid colon. There is evidence of moderate colonic diverticulosis. Patient was reevaluated today on 01/14/2023, patient is scheduled to undergo exploratory laparotomy and bowel resection, possible colostomy, this should be done sometime later today by Dr. Santos. In the meantime the patient is f eeling better, continues to have nasogastric tube in place, her eliquis was reversed using [employer]. Patient is hemodynamically stable. Blood pressure is normal. WBC count of 16.3 hemoglobin 11.5 electrolytes are normal BUN is 51 creatinine 1.08. Pulmonary-davis the patient does not seem to be in distress, even her abdominal pain seems to be much better now compared to yesterday Reevaluated today on 01/15/2023, patient remains in the ICU, patient is status post sigmoid colectomy and end colostomy, small bowel resection, patient was found to have obstructing sigmoid mass with loop of small bowel adherent to the mass. Patient is now postoperative day #1. Yesterday she came out of the car and she was relatively tachycardic, hypotensive, and significant amount of fluids were given. Today she seems to be doing better and she is hemodynamically stable. In the meantime remains on antibiotics in the form of Rocephin and Flagyl. Continues to have nasogastric tube in place, continues on D5 45 at 1 50 mL per hour. Patient is doing well overall considering her overall picture. WBC count is 20.2 hemoglobin is 9.6 electrolytes are normal, renal profile is borderline with a BUN of 38 creatinine 1.15, it was 0.95 yesterday. Reevaluated today on 01/16/2023, patient remains in the ICU, she is status post sigmoid colectomy and end colostomy and small bowel resection, postoperative day #2. Patient is doing well, she is relatively asymptomatic, her ostomy seems to be functional, patient is hemodynamically stable and not requiring any pressors. Remains on antibiotics empirically. WBC count is 24.6 hemoglobin is 9.1. Basic metabolic profile is normal bicarb is normal renal profile is normal. Patient continues to have nasogastric tube in place, I plan to transfer the patient out of the ICU to a medical surgical floor today. Reevaluated today on 01/17/2023, patient is doing great, remains in the ICU as an overflow. No major issues overnight. Continues to have nasogastric tube in place, however her colostomy is functional, and a nasogastric tube will likely be discontinued today. Patient remains hemodynamically stable, she has good urine output, she is not in any distress, pain is seems to be fairly well controlled, her colostomy is pink and functional. WBC count is down to 17.5 hemoglobin is 8.1 electrolytes are normal renal profile normal potassium 3.4 being treated accordingly Objective - Vital Signs Vital signs: Vital Signs Temp 97.8 F 01/16/23 20:00 Pulse 80 01/17/23 07:00 Resp 15 01/17/23 07:00 BP 141/58 01/17/23 07:00 Pulse Ox 98 01/17/23 08:13 FiO2 Intake & Output 01/16/23 01/17/23 01/17/23 18:59 06:59 18:59 Intake Total 1700 1750 125 Output Total 1157 860 45 Balance 543 890 80 Weight 78.2 kg Intake: IV 1700 1750 125 Dextrose 5% in Water 1, 1125 000 ml @ 125 mls/hr IV . Q8H48M [facility] with Sodium Bicarb (1 Meq/ml) 100 ml Rx#:[id number] Dextrose 5%-0.45% NaCl 1, 375 1500 125 000 ml @ 125 mls/hr IV . Q8H [facility] Rx#:[id number] Sodium Ferric Gluconat- 100 Sucrose 125 mg In Sodium Chloride 0.9% 100 ml @ 100 mls/hr IVPB DAILY [facility] Rx#:[id number] cefTRIAXone 2 gm In 50 Sodium Chloride 0.9% 50 ml @ 100 mls/hr IVPB HS [facility] Rx#:[id number] metroNIDAZOLE-NS PMX 500 100 200 mg In Saline 1 100ml.bag @ 100 mls/hr IVPB Q8H [facility] Rx#:[id number] Output: Gastric Drainage 320 300 Urine 537 460 45 Stool 300 100 Other: Voiding Method Indwelling Catheter Indwelling Catheter - Exam Physical Exam: Revealed 77-year-old female pleasant in no distress, on 2 L nasal cannula Head: Atraumatic, normocephalic. Nasogastric tube remains in place HEENT:[Neck is supple.] [No neck masses.] [No thyromegaly.] [No JVD.] Chest: Diminished breath sound bilaterally no rhonchi and no wheezes Cardiac Exam: [Normal S1 and S2, no S3 gallop, no murmur.] Abdomen: [Soft slightly tender, colostomy is functional. Extremities: [No clubbing, no edema, no cyanosis.] Neurological Exam: [No focal neurologic deficit.] Alert oriented 3 Psychiatric: Normal mood affect and normal mental status examination. Skin: No rashes - Labs CBC & Chem 7: 01/17/23 05:14 01/17/23 05:14 Labs: Abnormal Lab Results - Last 24 Hours (Table) 01/17/23 01/17/23 Range/Units 05:14 05:14 WBC 17.5 H (3.8-10.6) k/uL RBC 2.79 L (3.80-5.40) m/uL Hgb 8.1 L (11.4-16.0) gm/dL Hct 25.5 L (34.0-46.0) % Neutrophils # 14.7 H (1.3-7.7) k/uL Sodium 135 L (137-145) mmol/L Potassium 3.4 L (3.5-5.1) mmol/L Calcium 7.9 L (8.4-10.2) mg/dL Microbiology - Last 24 Hours (Table) 01/13/23 02:30 Blood Culture - Preliminary Blood 01/13/23 02:15 Blood Culture - Preliminary Blood Assessment and Plan Assessment: Impression: Status post exploratory laparotomy, sigmoid colostomy, and small bowel resection, postoperative day #3 Sigmoid mass, pathology is pending Acute kidney injury/acute tubular necrosis, resolved Benign essential hypertension History of pulmonary embolism, patient is maintained on eliquis since 2018 patient to resume eliquis once cleared by surgery to go back on eliquis in the meantime continue Lovenox History of thyroid nodules History of migraine cephalgia History of previous abdominal surgery and removal of ovarian precancerous mass. Recommendation: Incentive spirometry Continue Antibiotics Awaiting the final pathology report from the sigmoid mass GI and DVT prophylaxis, patient to go back on eliquis when cleared by surgery in the meantime continue Lovenox We'll continue to follow-up Time with Patient: Less than 30
[2023-01-17 12:33] VITALS: BMI 32.5
--- NOTE | 2023-01-17 13:34 | P.PN ---
Progress Note - Text Progress Note Date: 01/17/23 Chief Complaint: Abdominal pain * 77-year-old lady with past medical history significant for hypertension, history of pulmonary embolism, history of hysterectomy secondary to tumor approximately 30 years ago presents to the emergency department with complains of progressively worsening abdominal distention, nausea, vomiting. Patient states she has been dealing with this for 3 months and her symptoms are progressively getting worse to the point she decided to come to emergency * While in ER CT abdomen and pelvis was obtained which showed colonic obstruction. Patient was noted to be hypotensive and had elevated lactate levels with significant leukocytosis in ER * Hematology showed WBC 34k, hemoglobin 13.7 platelet 488. Serum chemistry shows sodium 135 potassium 5.3 carbon dioxide 15 BU and 50 1.29 lactate of 2.4 * Patient states she took her Eliquis on 01/12 nighttime dose January 14: I assumed care of the patient today. Postoperative period ICU. IV levo fed. Nasal cannula. Some abdominal pain. Damian catheter. Surgery: Sigmoid colectomy with end colostomy. Small bowel resection. Partial omentectomy. Due to obstructing mass of the sigmoid colon. January 15: ICU. Patient in bed. NG tube to intermittent suction. Colostomy is started putting out stool. Damian catheter. Remains nothing by mouth. Patient is brother and [id number] visiting from [place] with the bedside. Discussed. Will change IV fluids to sodium bicarbonate drip at 1 25 mL an hour. January 16: ICU. Colostomy bag is working. Damian catheter. NG tube to intermittent suction. Change IV fluids to D5 0.45. Spoke to the patient and the family at the bedside. Patient tired. January 17: ICU. Colostomy bag is putting out but he like stool. NG tube to intermittent suction. Damian catheter. Remains on IV fluids. Some abdominal pain. Will be moved out of the ICU. Ice chips. Active Medications Benzocaine (Benzocaine [place] 1 Can) 1 spray MUCOUS MEM QID PRN; Protocol PRN Reason: Mouth Irritation Last Admin: 01/16/23 16:57 Dose: 1 spray Enoxaparin Sodium (Enoxaparin 40 Mg/0.4 Ml Syringe) 40 mg SQ DAILY [facility] Last Admin: 01/17/23 10:36 Dose: 40 mg Hydromorphone HCl (Hydromorphone 1 Mg/Ml 1 Ml Syringe) 1 mg IVP Q3H PRN PRN Reason: Pain Last Admin: 01/17/23 12:44 Dose: 1 mg Ceftriaxone Sodium 2 gm/ (Sodium Chloride) 50 mls @ 100 mls/hr IVPB HS [facility]; Protocol Last Admin: 01/16/23 21:45 Dose: 100 mls/hr Metronidazole 500 mg/ IV (Solution) 100 mls @ 100 mls/hr IVPB Q8H [facility]; Protocol Last Admin: 01/17/23 13:08 Dose: 100 mls/hr Ferric Sodium Gluconate 125 mg (/ Sodium Chloride) 110 mls @ 100 mls/hr IVPB DAILY [facility] Stop: 01/18/23 10:05 Last Admin: 01/17/23 10:36 Dose: 100 mls/hr Dextrose/Sodium Chloride (Dextrose 5%-1/2ns Iv Soln) 1,000 mls @ 125 mls/hr IV .Q8H [facility] Last Admin: 01/17/23 12:47 Dose: 125 mls/hr Morphine Sulfate (Morphine Sulfate 4 Mg/Ml Syringe) 4 mg IV Q4HR PRN PRN Reason: Severe Pain (Scale 7 to 10) Last Admin: 01/14/23 14:16 Dose: 4 mg Naloxone HCl (Naloxone 0.4 Mg/Ml 1 Ml Vial) 0.2 mg IV Q2M PRN PRN Reason: Opioid Reversal Ondansetron HCl (Ondansetron 4 Mg/2 Ml Vial) 4 mg IVP Q8HR PRN PRN Reason: Nausea And Vomiting Last Admin: 01/14/23 09:33 Dose: 4 mg Ondansetron HCl (Ondansetron 4 Mg/2 Ml Vial) 4 mg IVP Q8HR PRN PRN Reason: Nausea And Vomiting Pantoprazole Sodium (Pantoprazole 40 Mg/10 Ml Vial) 40 mg IV DAILY [facility] Last Admin: 01/17/23 10:36 Dose: 40 mg Physical examination: VITAL SIGNS: Afebrile, 80, 15, 141/58, 97% room air GENERAL: In bed, tired EYES: Pupils equal. Conjunctiva normal. HEENT: External appearance of nose and ears normal, oral cavity grossly normal. NG tube to suction NECK: JVD unable to assess; masses not palpable. HEART: Heart sounds muffled, edema. LUNGS: Respiratory rate increased decreased breath sound. EXTREMITY: Area. of Redness above the ankle both lower legs. Edema. ABDOMEN: Soft, tender, incision with dressing. Colostomy bag with putty like stool , liver spleen not palpable. PSYCH: Alert and oriented x3; mood and affect normal. INVESTIGATIONS, reviewed in the clinical context: January 17: White count 7.5 hemoglobin 8.1 potassium 3.4 creatinine 0.5 for January 16: White count 24.6 hemoglobin 9.1 platelets 305 potassium 4.2 creatinine 0.59 January 15: White count 20.2 hemoglobin 9.6 platelets 349 potassium 4.4 bicarb 18 BUN 38 creatinine 1.15 January 14: White count 13.2 hemoglobin 10.8 platelets 368 potassium 4.3 BUN [address] abdomen pelvis: Obstructing a partially obstructing process region of the sigmoid colon.: dilatation above. Sigmoid diverticula. Assessment and plan: -Sigmoid mass: Causing obstruction. Sigmoid colectomy with end colostomy. Small bowel resection. Partial omentectomy. January [address] Santos Pending pathology NG tube to suction. ice chips Colostomy bag -putty like stool -Probable secondary peritonitis IV ceftriaxone. IV Flagyl. -Postop hypotensive shock: Better IV levo fed discontinued -Sigmoid diverticulosis -GERD PPI -Essential hypertension, currently blood pressure low: Improved Blood pressure medications held -Chronic pulmonary embolism On eliquis-currently held. Resume when okay with surgery -Primary osteoarthritis -Acute postprocedure blood loss anemia, expected from surgery Follow H&H IV Ferrlecit. -Full code Discussed with patient . IV ceftriaxone. IV Flagyl NG tube suction. IV Ferrlecit. Moved patient out of the ICU. Past Medical History Past Medical History: Cancer, GERD/Reflux, Hypertension, Pulmonary Embolus (PE), Thyroid Disorder Additional Past Medical History / Comment(s): thyroid nodule, skin cancer, diverticulosis, arthirits feet/lt ankle, rt knee gout, past migaraines-RARE History of Any Multi-Drug Resistant Organisms: None Reported Past Surgical History: Breast Surgery, Hysterectomy Additional Past Surgical History / Comment(s): Thyroid biopsy, exploratory abdominal surgery to remove ovarian pre-cancerous mass, "mohs procedure" for skin CA, colonsocpy, breast bx 1987 Past Anesthesia/Blood Transfusion Reactions: Motion Sickness Additional Past Anesthesia/Blood Transfusion Reaction / Comment(s): claustrphobia Past Psychological History: No Psychological Hx Reported Smoking Status: Never smoker Past Alcohol Use History: None Reported Past Drug Use History: None Reported - Past Family History Mother Additional Family Medical History / Comment(s): scleraderma Father Family Medical History: Cancer Additional Family Medical History / Comment(s): kidney ca Assessment and plan * Status post bowel obstruction involving sigmoid colon * History of pulmonary embolism on Eliquis * Hyperkalemia * Sepsis likely intra-abdominal source * Acute kidney injury * Gen. surgery team primary, planning or 01/16, continue nothing by mouth NG tube in place * In regards to history of pulmonary embolism patient on Eliquis, adnexa given since urgent surgery planned * In regards to hyponatremia, patient given calcium gluconate insulin and dextrose follow-up blood work ordered * In regards to sepsis blood cultures ordered, continue patient on Rocephin and Flagyl follow-up lactate levels ordered * Regards to acute kidney injury continue patient on IV fluid resuscitation * CODE STATUS is full code
[2023-01-17] MEDS: APIXABAN 5 MG TAB PO SCH (21:34)
[2023-01-18] MEDS: HYDROmorphone 1 MG/ML 1 ML SYRINGE IVP PRN ×3 (02:08→22:47)
[2023-01-18] MEDS: metroNIDAZOLE-NS PMX 500 MG in SALINE 1 100ML.BAG IVPB SCH ×3 (04:35→20:29)
[2023-01-18] MEDS: DEXTROSE 5%-0.45% NACL 1,000 ML IV SCH ×3 (04:35→23:03)
[2023-01-18 10:30] LABS: Basophils % (A) 0 %; Eosinophils # (A) 0.1 k/uL (0-0.7); Eosinophils % (A) 1 %; HCT 26.1 % (34.0-46.0); HGB 8.4 gm/dL (11.4-16.0); Lymphocytes # (A) 1.3 k/uL (1.0-4.8); Lymphocytes % (A) 9 %; MCH 29.1 pg (25.0-35.0); MCHC 32.2 g/dL (31.0-37.0); MCV 90.6 fL (80.0-100.0); Mean Platelet Volume 7.6; Monocytes # (A) 0.6 k/uL (0-1.0); Monocytes % (A) 4 %; Neutrophils # (A) 12.6 k/uL (1.3-7.7); Neutrophils % (A) 86 %; Platelet Count 361 k/uL (150-450); RBC 2.88 m/uL (3.80-5.40); WBC 14.6 k/uL (3.8-10.6)
[2023-01-18] MEDS: DOCUSATE 100 MG CAP PO SCH (10:57)
[2023-01-18] MEDS: APIXABAN 5 MG TAB PO SCH ×2 (10:57→22:46)
[2023-01-18] MEDS: PANTOPRAZOLE 40 MG/10 ML VIAL IV SCH (10:58)
--- NOTE | 2023-01-18 12:54 | P.PN ---
Subjective Progress Note Date: 01/18/23 CHIEF COMPLAINT: Colon obstruction HISTORY OF PRESENT ILLNESS: Patient is postop day #4 status post exploratory laparotomy, sigmoid colectomy with end colostomy, small bowel resection and partial omentectomy for colon obstruction due to obstructing mass in the sigmoid colon. She has been transferred to the medical floor. NG tube has been discontinued. She is having soft brown output from colostomy. Pain is being well managed. No nausea or vomiting. She has been tolerating clear liquid diet she is afebrile. WBC 14.6 hemoglobin 8.4 platelet count 361 PHYSICAL EXAM: VITAL SIGNS: Reviewed. GENERAL: Well-developed in no acute distress. HEENT: No sclera icterus. Extraocular movements grossly intact. Moist buccal mucosa. Head is atraumatic, normocephalic. ABDOMEN: Soft. Nondistended. Surgical tenderness, ostomy with soft brown stool. NEUROLOGIC: Alert and oriented. Cranial nerves II through XII grossly intact. ASSESSMENT: 1. Colon obstruction due to obstructing mass status post exploratory laparotomy, sigmoid colectomy with end colostomy, small bowel resection and partial omentectomy PLAN: -Advanced to full liquid diet -Continue supportive care -Daily surgical dressing as necessary -Continue pain management -Encourage ambulation -Encourage in this sentence spirometer use -GI prophylaxis Protonix and DVT prophylaxis subcu Lovenox The impression and plan of care has been dictated as directed. I performed a history and examination of this patient, discussed the same with the dictator. I agree with the dictator's note ,documented as a scribe. Any additional findings or plans will be noted. Objective - Vital Signs Vital signs: Vital Signs Temp 97.8 F 01/18/23 07:18 Pulse 73 01/18/23 07:18 Resp 18 01/18/23 07:18 BP 133/68 01/18/23 07:18 Pulse Ox 95 01/18/23 00:10 FiO2 Intake & Output 01/17/23 01/18/23 01/18/23 18:59 06:59 18:59 Intake Total 1250 1750 Output Total 1090 300 500 Balance 160 1450 -500 Weight 78.2 kg Intake: IV 1250 1750 Dextrose 5%-0.45% NaCl 1, 1250 1500 000 ml @ 125 mls/hr IV . Q8H [facility] Rx#:[id number] cefTRIAXone 2 gm In 50 Sodium Chloride 0.9% 50 ml @ 100 mls/hr IVPB HS [facility] Rx#:[id number] metroNIDAZOLE-NS PMX 500 200 mg In Saline 1 100ml.bag @ 100 mls/hr IVPB Q8H [facility] Rx#:[id number] Output: Urine 590 300 500 Urine/Stool Mix 500 Other: Voiding Method Indwelling Catheter Bedside Commode External Catheter # Bowel Movements 2 - Labs CBC & Chem 7: 01/18/23 09:59 01/17/23 05:14 Labs: Abnormal Lab Results - Last 24 Hours (Table) 01/18/23 Range/Units 09:59 WBC 14.6 H (3.8-10.6) k/uL RBC 2.88 L (3.80-5.40) m/uL Hgb 8.4 L (11.4-16.0) gm/dL Hct 26.1 L (34.0-46.0) % Neutrophils # 12.6 H (1.3-7.7) k/uL
[2023-01-18] MEDS: SODIUM FERRIC GLUCONAT-SUCROSE 125 MG in SODIUM CHLORIDE 0.9% 100 ML IVPB SCH (12:59)
--- NOTE | 2023-01-18 16:07 | P.PN ---
Subjective Progress Note Date: 01/18/23 This is a 77-year-old female patient was currently being admitted to the intensive care unit. The patient presented to the hospital because of nausea or vomiting or abdominal pain. The pain started last night. The patient also had significant abdominal distention. As such, she came into the emergency department and the patient was found to have a white cell count of 34.8, hemoglobin 15.7, BUN of 50 with a creatinine of 1.29 and his sodium level of 135 and a potassium level of 5.3. Initial lactic acid level was 5.7. She was given IV fluids 2 L bolus and repeat a lactic acid level is down to 2.4. AST is 43, ALTs 40, alkaline phosphatase 204, UA is negative, troponins are negative, proBNP level is at 8:15. The patient's EKG showing normal sinus rhythm. Nevertheless, she has history of PE and she has been maintained on anticoagulation with Eliquis. CAT scan of the abdomen and pelvis was done on 01/13/2023 7:00 in the morning and it showed mildly prominent fluid-filled stomach, duodenum and proximal jejunum do not appear significantly dilated. There is a distal small bowel dilation up to 3.1 cm in diameter with some air- fluid levels. Gas and stool throughout the colon. Ascending colon is dilated up to 7.1 cm in size. There are signs of early colonic wall pneumatosis. In the distal colon, there appears to be a transition point in the lower quadrant where colonic lumen appears decompressed and thickened with multiple sigmoid region diverticuli noted. As such, findings are suggestive of bowel obstruction in the region of the sigmoid colon. Underlying neoplasm needs to be considered. There is up stream dilation of the colon and distal small bowel as described. Surgical consultation has been obtained. The patient was seen by general surgery. The patient will be brought up-to-date intensive care unit optimize medically receive NG tube for gastric decompression and the patient will obviously need antibiotics and surgical intervention within next few hours. Currently, the patient is on IV fluids with normal saline at the rate of 130s is an hour. The patient is ALLERGIC to amoxicillin. The patient will be placed on a combination of Rocephin and Flagyl. She is afebrile. Her pulse ox is 95% on room air oxygen. The patient had a colonoscopy done on 12/21/2022. This was an incomplete colonoscopy as the scope could not be advanced because of acute angulation of the sigmoid colon. There is evidence of moderate colonic diverticulosis. Patient was reevaluated today on 01/14/2023, patient is scheduled to undergo exploratory laparotomy and bowel resection, possible colostomy, this should be done sometime later today by Dr. Santos. In the meantime the patient is feeling better, continues to have nasogastric tube in place, her eliquis was reversed using [employer]. Patient is hemodynamically stable. Blood pressure is normal. WBC count of 16.3 hemoglobin 11.5 electrolytes are normal BUN is 51 creatinine 1.08. Pulmonary-davis the patient does not seem to be in distress, even her abdominal pain seems to be much better now compared to yesterday Reevaluated today on 01/15/2023, patient remains in the ICU, patient is status post sigmoid colectomy and end colostomy, small bowel resection, patient was found to have obstructing sigmoid mass with loop of small bowel adherent to the mass. Patient is now postoperative day #1. Yesterday she came out of the car and she was relatively tachycardic, hypotensive, and significant amount of fluids were given. Today she seems to be doing better and she is hemodynamically stable. In the meantime remains on antibiotics in the form of Rocephin and Flagyl. Continues to have nasogastric tube in place, continues on D5 45 at 1 50 mL per hour. Patient is doing well overall considering her overall picture. WBC count is 20.2 hemoglobin is 9.6 electrolytes are normal, renal profile is borderline with a BUN of 38 creatinine 1.15, it was 0.95 yesterday. Reevaluated today on 01/16/2023, patient remains in the ICU, she is status post sigmoid colectomy and end colostomy and small bowel resection, postoperative day #2. Patient is doing well, she is relatively asymptomatic, her ostomy seems to be functional, patient is hemodynamically stable and not requiring any pressors. Remains on antibiotics empirically. WBC count is 24.6 hemoglobin is 9.1. Basic metabolic profile is normal bicarb is normal renal profile is normal. Patient continues to have nasogastric tube in place, I plan to transfer the patient out of the ICU to a medical surgical floor today. Reevaluated today on 01/17/2023, patient is doing great, remains in the ICU as an overflow. No major issues overnight. Continues to have nasogastric tube in place, however her colostomy is functional, and a nasogastric tube will likely be discontinued today. Patient remains hemodynamically stable, she has good urine output, she is not in any distress, pain is seems to be fairly well controlled, her colostomy is pink and functional. WBC count is down to 17.5 hemoglobin is 8.1 electrolytes are normal renal profile normal potassium 3.4 being treated accordingly The patient is seen today 01/18/2023 in follow-up on the regular medical floor. Postoperative day #4. She is currently sitting up in a chair at the bedside. Awake and alert in no acute distress. She is working well with her incentive spirometer. Pulling approximately 1 L. She is maintaining good O2 saturations in the 90s on 2 L/m per nasal cannula. Afebrile. Hemodynamically stable. Tolerating clear liquids. Blood cultures revealed no growth. White count 14.6. Hemoglobin 8.4. She is continued on ceftriaxone and Flagyl. Objective - Vital Signs Vital signs: Vital Signs Temp 97.8 F 01/18/23 07:18 Pulse 73 01/18/23 07:18 Resp 16 01/18/23 14:07 BP 133/68 01/18/23 07:18 Pulse Ox 95 01/18/23 00:10 FiO2 Intake & Output 01/17/23 01/18/23 01/18/23 18:59 06:59 18:59 Intake Total 1250 1750 Output Total 1090 300 500 Balance 160 1450 -500 Weight 78.2 kg Intake: IV 1250 1750 Dextrose 5%-0.45% NaCl 1, 1250 1500 000 ml @ 125 mls/hr IV . Q8H [facility] Rx#:[id number] cefTRIAXone 2 gm In 50 Sodium Chloride 0.9% 50 ml @ 100 mls/hr IVPB HS [facility] Rx#:[id number] metroNIDAZOLE-NS PMX 500 200 mg In Saline 1 100ml.bag @ 100 mls/hr IVPB Q8H [facility] Rx#:[id number] Output: Urine 590 300 500 Urine/Stool Mix 500 Other: Voiding Method Indwelling Catheter Bedside Commode Diaper External Catheter External Catheter # Bowel Movements 2 - Exam GENERAL EXAM: Alert, pleasant 77-year-old female, up in a chair, on 2 L nasal cannula, fairly comfortable in no apparent distress. HEAD: Normocephalic. EYES: Normal reaction of pupils, equal size. NOSE: Clear with pink turbinates. THROAT: No erythema or exudates. NECK: No masses, no JVD. CHEST: No chest wall deformity. LUNGS: Equal air entry with no crackles, wheeze, rhonchi or dullness. CVS: S1 and S2 normal with no audible murmur, regular rhythm. ABDOMEN: Surgical site clean and dry. Ostomy patent with pink stoma. No hepatosplenomegaly, normal bowel sounds, no guarding or rigidity. SPINE: No scoliosis or deformity SKIN: No rashes CENTRAL NERVOUS SYSTEM: No focal deficits, tone is normal in all 4 extremities. EXTREMITIES: There is no peripheral edema. No clubbing, no cyanosis. Peripheral pulses are intact. - Labs CBC & Chem 7: 01/18/23 09:59 01/17/23 05:14 Labs: Abnormal Lab Results - Last 24 Hours (Table) 01/18/23 Range/Units 09:59 WBC 14.6 H (3.8-10.6) k/uL RBC 2.88 L (3.80-5.40) m/uL Hgb 8.4 L (11.4-16.0) gm/dL Hct 26.1 L (34.0-46.0) % Neutrophils # 12.6 H (1.3-7.7) k/uL Microbiology - Last 24 Hours (Table) 01/13/23 02:30 Blood Culture - Final Blood 01/13/23 02:15 Blood Culture - Final Blood Assessment and Plan Assessment: Status post exploratory laparotomy, sigmoid colostomy, and small bowel resection, postoperative day #4 Sigmoid mass, pathology is negative for malignancy Acute kidney injury/acute tubular necrosis, resolved Benign essential hypertension History of pulmonary embolism, patient is maintained on eliquis since 2018 cecil ent to resume eliquis once cleared by surgery to go back on eliquis in the meantime continue Lovenox History of thyroid nodules History of migraine cephalgia History of previous abdominal surgery and removal of ovarian precancerous mass Plan: The patient was seen and evaluated Labs and medications reviewed Currently stable and on 2 L nasal cannula Working well with the incentive spirometer Tolerated clear liquid diet Titrate down the FiO2 as tolerated Increase activity as tolerated We will continue to follow I have personally seen and examined the patient, performed the documentation and the assessment and plan as written. Number of minutes spent on the visit: 10.
--- NOTE | 2023-01-18 17:47 | P.PN ---
Progress Note - Text Progress Note Date: 01/18/23 Chief Complaint: Abdominal pain * 77-year-old lady with past medical history significant for hypertension, history of pulmonary embolism, history of hysterectomy secondary to tumor approximately 30 years ago presents to the emergency department with complains of progressively worsening abdominal distention, nausea, vomiting. Patient states she has been dealing with this for 3 months and her symptoms are progressively getting worse to the point she decided to come to emergency * While in ER CT abdomen and pelvis was obtained which showed colonic obstruction. Patient was noted to be hypotensive and had elevated lactate levels with significant leukocytosis in ER * Hematology showed WBC 34k, hemoglobin 13.7 platelet 488. Serum chemistry shows sodium 135 potassium 5.3 carbon dioxide 15 BU and 50 1.29 lactate of 2.4 * Patient states she took her Eliquis on 01/12 nighttime dose January 14: I assumed care of the patient today. Postoperative period ICU. IV levo fed. Nasal cannula. Some abdominal pain. Damian catheter. Surgery: Sigmoid colectomy with end colostomy. Small bowel resection. Partial omentectomy. Due to obstructing mass of the sigmoid colon. January 15: ICU. Patient in bed. NG tube to intermittent suction. Colostomy is started putting out stool. Damian catheter. Remains nothing by mouth. Patient is brother and [id number] visiting from [place] with the bedside. Discussed. Will change IV fluids to sodium bicarbonate drip at 1 25 mL an hour. January 16: ICU. Colostomy bag is working. Damian catheter. NG tube to intermittent suction. Change IV fluids to D5 0.45. Spoke to the patient and the family at the bedside. Patient tired. January 17: ICU. Colostomy bag is putting out putty like stool. NG tube to intermittent suction. Damian catheter. Remains on IV fluids. Some abdominal pain. Will be moved out of the ICU. Ice chips. January 18: Medical floor. Remains on IV Flagyl IV ceftriaxone. clear liquids. Advance to full liquid -lunch by surgery. Some pain present. No nausea vomiting. Pathology is come back showing diverticulitis with some mucosal abscess and necrotizing submucosal granuloma margins viable. Acute ischemic enteritis in the small bowel. Active Medications Apixaban (Apixaban 5 Mg Tab) 5 mg PO BID [facility]; Protocol Last Admin: 01/18/23 10:57 Dose: 5 mg Benzocaine (Benzocaine [place] 1 Can) 1 spray MUCOUS MEM QID PRN; Protocol PRN Reason: Mouth Irritation Last Admin: 01/16/23 16:57 Dose: 1 spray Docusate Sodium (Docusate 100 Mg Cap) 100 mg PO DAILY [facility] Last Admin: 01/18/23 10:57 Dose: 100 mg Hydromorphone HCl (Hydromorphone 1 Mg/Ml 1 Ml Syringe) 1 mg IVP Q3H PRN PRN Reason: Pain Last Admin: 01/18/23 10:47 Dose: 1 mg Ceftriaxone Sodium 2 gm/ (Sodium Chloride) 50 mls @ 100 mls/hr IVPB HS [facility]; Protocol Last Admin: 01/17/23 22:45 Dose: 100 mls/hr Metronidazole 500 mg/ IV (Solution) 100 mls @ 100 mls/hr IVPB Q8H [facility]; Protocol Last Admin: 01/18/23 15:17 Dose: 100 mls/hr Dextrose/Sodium Chloride (Dextrose 5%-1/2ns Iv Soln) 1,000 mls @ 125 mls/hr IV .Q8H [facility] Last Admin: 01/18/23 15:22 Dose: Not Given Morphine Sulfate (Morphine Sulfate 4 Mg/Ml Syringe) 4 mg IV Q4HR PRN PRN Reason: Severe Pain (Scale 7 to 10) Last Admin: 01/14/23 14:16 Dose: 4 mg Naloxone HCl (Naloxone 0.4 Mg/Ml 1 Ml Vial) 0.2 mg IV Q2M PRN PRN Reason: Opioid Reversal Ondansetron HCl (Ondansetron 4 Mg/2 Ml Vial) 4 mg IVP Q8HR PRN PRN Reason: Nausea And Vomiting Last Admin: 01/14/23 09:33 Dose: 4 mg Ondansetron HCl (Ondansetron 4 Mg/2 Ml Vial) 4 mg IVP Q8HR PRN PRN Reason: Nausea And Vomiting Pantoprazole Sodium (Pantoprazole 40 Mg/10 Ml Vial) 40 mg IV DAILY [facility] Last Admin: 01/18/23 10:58 Dose: 40 mg Physical examination: VITAL SIGNS: 97.8, 73, 18, 133 x 68, 95% on 3 L GENERAL: Up in a chair. EYES: Pupils equal. Conjunctiva normal. HEENT: External appearance of nose and ears normal, oral cavity grossly normal. NG tube to suction NECK: JVD unable to assess; masses not palpable. HEART: Heart sounds muffled, edema. LUNGS: Respiratory rate increased decreased breath sound. EXTREMITY: Area. of Redness above the ankle both lower legs. Edema. ABDOMEN: Soft, tender, incision with dressing. Colostomy bag with stool , live r spleen not palpable. PSYCH: Alert and oriented x3; mood and affect normal. INVESTIGATIONS, reviewed in the clinical context: January 18: White count 14.6 hemoglobin 8.4 January 17: White count 7.5 hemoglobin 8.1 potassium 3.4 creatinine 0.5 for January 16: White count 24.6 hemoglobin 9.1 platelets 305 potassium 4.2 creatinine 0.59 January 15: White count 20.2 hemoglobin 9.6 platelets 349 potassium 4.4 bicarb 18 BUN 38 creatinine 1.15 January 14: White count 13.2 hemoglobin 10.8 platelets 368 potassium 4.3 BUN [address] abdomen pelvis: Obstructing a partially obstructing process region of the sigmoid colon.: dilatation above. Sigmoid diverticula. Assessment and plan: -Sigmoid mass: Causing obstruction.<Pathology is come back showing dive rticulitis with some mucosal abscess and necrotizing submucosal granuloma margins viable. Acute ischemic enteritis in the small bowel.] Sigmoid colectomy with end colostomy. Small bowel resection. Partial omentectomy. January 14-Dr. Santos Pending pathology NG tube to suction. ice chips Colostomy bag -putty like stool -Probable secondary peritonitis IV ceftriaxone. IV Flagyl. -Postop hypotensive shock: Better IV levo fed discontinued -Sigmoid diverticulosis -GERD PPI -Essential hypertension, currently blood pressure low: Improved Blood pressure medications held -Chronic pulmonary embolism On eliquis-currently held. Resume when okay with surgery -Primary osteoarthritis -Acute postprocedure blood loss anemia, expected from surgery Follow H&H IV Ferrlecit. -Full code IV ceftriaxone. IV Flagyl placed on full liquid diet by surgery. Activity as tolerated. Past Medical History Past Medical History: Cancer, GERD/Reflux, Hypertension, Pulmonary Embolus (PE), Thyroid Disorder Additional Past Medical History / Comment(s): thyroid nodule, skin cancer, diverticulosis, arthirits feet/lt ankle, rt knee gout, past migaraines-RARE History of Any Multi-Drug Resistant Organisms: None Reported Past Surgical History: Breast Surgery, Hysterectomy Additional Past Surgical History / Comment(s): Thyroid biopsy, exploratory abdominal surgery to remove ovarian pre-cancerous mass, "mohs procedure" for skin CA, colonsocpy, breast bx 1987 Past Anesthesia/Blood Transfusion Reactions: Motion Sickness Additional Past Anesthesia/Blood Transfusion Reaction / Comment(s): claustrphobia Past Psychological History: No Psychological Hx Reported Smoking Status: Never smoker Past Alcohol Use History: None Reported Past Drug Use History: None Reported - Past Family History Mother Additional Family Medical History / Comment(s): scleraderma Father Family Medical History: Cancer Additional Family Medical History / Comment(s): kidney ca Assessment and plan * Status post bowel obstruction involving sigmoid colon * History of pulmonary embolism on Eliquis * Hyperkalemia * Sepsis likely intra-abdominal source * Acute kidney injury * Gen. surgery team primary, planning or 01/16, continue nothing by mouth NG tube in place * In regards to history of pulmonary embolism patient on Eliquis, adnexa given since urgent surgery planned * In regards to hyponatremia, patient given calcium gluconate insulin and dextrose follow-up blood work ordered * In regards to sepsis blood cultures ordered, continue patient on Rocephin and Flagyl follow-up lactate levels ordered * Regards to acute kidney injury continue patient on IV fluid resuscitation * CODE STATUS is full code
[2023-01-19] MEDS: HYDROmorphone 1 MG/ML 1 ML SYRINGE IVP PRN ×2 (03:03→21:41)
[2023-01-19] MEDS: metroNIDAZOLE-NS PMX 500 MG in SALINE 1 100ML.BAG IVPB SCH ×3 (03:04→20:15)
[2023-01-19] MEDS: DEXTROSE 5%-0.45% NACL 1,000 ML IV SCH ×3 (04:13→20:16)
[2023-01-19] MEDS: DOCUSATE 100 MG CAP PO SCH (07:47)
[2023-01-19] MEDS: APIXABAN 5 MG TAB PO SCH ×2 (07:52→21:42)
[2023-01-19] MEDS: PANTOPRAZOLE 40 MG/10 ML VIAL IV SCH (07:53)
--- NOTE | 2023-01-19 13:06 | P.PN ---
Subjective Progress Note Date: 01/19/23 CHIEF COMPLAINT: Obstructing colon mass HISTORY OF PRESENT ILLNESS: The patient is a 77-year-old female presents with obstructing colon mass. She is status post colectomy. She is tolerating full liquid diet. She reports stool and gas in her ostomy. She is ambulating. ROS: No reports of nausea and vomiting. No fevers or chills. No new chest pain. No productive sputum PHYSICAL EXAM: VITAL SIGNS: Reviewed CONSTITUTIONAL: Well developed and in no acute distress. EYES: Conjuctivae without sclera icterus. Extraocular movements grossly intact. HEAD, EARS, NOSE, THROAT: Moist buccal mucosa. Head is atraumatic, normocephalic. Hears conversational speech. No nasal drainage. RESPIRATORY: Non-labored respirations and equal bilateral excursions. CARDIOVASCULAR: Palpable 2+ radial pulses. ABDOMEN: Descending ostomy MUSCULOSKELETAL: No gross deformity of the lower extremities noted. No c lubbing. No cyanosis. SKIN: Good skin turgor. Well perfused. NEUROLOGIC: Cranial nerves II through XII grossly intact. No focal or lateralizing signs. PSYCH: Appropriate affect. Alert and oriented to person, place and time. CLINICAL LABS: Reviewed. WBC trending down 24,000-14,000, leukocytosis. Hemoglobin anemia, 8.4 up from 8.1 PATHOLOGY: Obstructing colon mass consistent with diverticulitis ASSESSMENT: 1. Obstructing colon mass due to diverticulitis 2. Anemia PLAN: 1. Increase to low fiber diet. Objective - Vital Signs Vital signs: Vital Signs Temp 98.3 F 01/19/23 02:45 Pulse 70 01/19/23 02:45 Resp 17 01/19/23 02:45 BP 115/63 01/19/23 02:45 Pulse Ox 98 01/19/23 02:45 FiO2 Intake & Output 01/18/23 01/19/23 01/19/23 18:59 06:59 18:59 Output Total 1225 Balance -1225 Output: Urine 1225 Other: Voiding Method Diaper External Catheter # Voids 3 # Bowel Movements 225 - Labs CBC & Chem 7: 01/18/23 09:59 01/17/23 05:14 Labs: Microbiology - Last 24 Hours (Table) 01/13/23 02:30 Blood Culture - Final Blood 01/13/23 02:15 Blood Culture - Final Blood
--- NOTE | 2023-01-19 14:19 | P.PN ---
Subjective Progress Note Date: 01/19/23 This is a 77-year-old female patient was currently being admitted to the intensive care unit. The patient presented to the hospital because of nausea or vomiting or abdominal pain. The pain started last night. The patient also had significant abdominal distention. As such, she came into the emergency department and the patient was found to have a white cell count of 34.8, hemoglobin 15.7, BUN of 50 with a creatinine of 1.29 and his sodium level of 135 and a potassium level of 5.3. Initial lactic acid level was 5.7. She was given IV fluids 2 L bolus and repeat a lactic acid level is down to 2.4. AST is 43, ALTs 40, alkaline phosphatase 204, UA is negative, troponins are negative, proBNP level is at 8:15. The patient's EKG showing normal sinus rhythm. Nevertheless, she has history of PE and she has been maintained on anticoagulation with Eliquis. CAT scan of the abdomen and pelvis was done on 01/13/2023 7:00 in the morning and it showed mildly prominent fluid-filled stomach, duodenum and proximal jejunum do not appear significantly dilated. There is a distal small bowel dilation up to 3.1 cm in diameter with some air- fluid levels. Gas and stool throughout the colon. Ascending colon is dilated up to 7.1 cm in size. There are signs of early colonic wall pneumatosis. In the distal colon, there appears to be a transition point in the lower quadrant where colonic lumen appears decompressed and thickened with multiple sigmoid region diverticuli noted. As such, findings are suggestive of bowel obstruction in the region of the sigmoid colon. Underlying neoplasm needs to be considered. There is up stream dilation of the colon and distal small bowel as described. Surgical consultation has been obtained. The patient was seen by general surgery. The patient will be brought up-to-date intensive care unit optimize medically receive NG tube for gastric decompression and the patient will obviously need antibiotics and surgical intervention within next few hours. Currently, the patient is on IV fluids with normal saline at the rate of 130s is an hour. The patient is ALLERGIC to amoxicillin. The patient will be placed on a combination of Rocephin and Flagyl. She is afebrile. Her pulse ox is 95% on room air oxygen. The patient had a colonoscopy done on 12/21/2022. This was an incomplete colonoscopy as the scope could not be advanced because of acute angulation of the sigmoid colon. There is evidence of moderate colonic diverticulosis. Patient was reevaluated today on 01/14/2023, patient is scheduled to undergo exploratory laparotomy and bowel resection, possible colostomy, this should be done sometime later today by Dr. Santos. In the meantime the patient is feeling better, continues to have nasogastric tube in place, her eliquis was reversed using [employer]. Patient is hemodynamically stable. Blood pressure is normal. WBC count of 16.3 hemoglobin 11.5 electrolytes are normal BUN is 51 creatinine 1.08. Pulmonary-davis the patient does not seem to be in distress, even her abdominal pain seems to be much better now compared to yesterday Reevaluated today on 01/15/2023, patient remains in the ICU, patient is status post sigmoid colectomy and end colostomy, small bowel resection, patient was found to have obstructing sigmoid mass with loop of small bowel adherent to the mass. Patient is now postoperative day #1. Yesterday she came out of the car and she was relatively tachycardic, hypotensive, and significant amount of fluids were given. Today she seems to be doing better and she is hemodynamically stable. In the meantime remains on antibiotics in the form of Rocephin and Flagyl. Continues to have nasogastric tube in place, continues on D5 45 at 1 50 mL per hour. Patient is doing well overall considering her overall picture. WBC count is 20.2 hemoglobin is 9.6 electrolytes are normal, renal profile is borderline with a BUN of 38 creatinine 1.15, it was 0.95 yesterday. Reevaluated today on 01/16/2023, patient remains in the ICU, she is status post sigmoid colectomy and end colostomy and small bowel resection, postoperative day #2. Patient is doing well, she is relatively asymptomatic, her ostomy seems to be functional, patient is hemodynamically stable and not requiring any pressors. Remains on antibiotics empirically. WBC count is 24.6 hemoglobin is 9.1. Basic metabolic profile is normal bicarb is normal renal profile is normal. Patient continues to have nasogastric tube in place, I plan to transfer the patient out of the ICU to a medical surgical floor today. Reevaluated today on 01/17/2023, patient is doing great, remains in the ICU as an overflow. No major issues overnight. Continues to have nasogastric tube in place, however her colostomy is functional, and a nasogastric tube will likely be discontinued today. Patient remains hemodynamically stable, she has good urine output, she is not in any distress, pain is seems to be fairly well controlled, her colostomy is pink and functional. WBC count is down to 17.5 hemoglobin is 8.1 electrolytes are normal renal profile normal potassium 3.4 being treated accordingly The patient is seen today 01/18/2023 in follow-up on the regular medical floor. Postoperative day #4. She is currently sitting up in a chair at the bedside. Awake and alert in no acute distress. She is working well with her incentive spirometer. Pulling approximately 1 L. She is maintaining good O2 saturations in the 90s on 2 L/m per nasal cannula. Afebrile. Hemodynamically stable. Tolerating clear liquids. Blood cultures revealed no growth. White count 14.6. Hemoglobin 8.4. She is continued on ceftriaxone and Flagyl. The patient is seen today 01/19/2023 in follow-up on the regular medical floor. Postoperative day #5. She is resting comfortably in bed. Awake and alert in no acute distress. Maintaining O2 saturation in the 90s on 3 L/m nasal cannula. She is pulling approximately one thousand ML's on her incentive spirometer. She is tolerating a full liquid diet. She remains on ceftriaxone and Flagyl. Anticoagulated with Eliquis. She is continued on D5 and half-normal saline at 125 ML's per hour. Objective - Vital Signs Vital signs: Vital Signs Temp 98.3 F 01/19/23 02:45 Pulse 70 01/19/23 02:45 Resp 17 01/19/23 02:45 BP 115/63 01/19/23 02:45 Pulse Ox 98 01/19/23 02:45 FiO2 Intake & Output 01/18/23 01/19/23 01/19/23 18:59 06:59 18:59 Output Total 1225 Balance -1225 Output: Urine 1225 Other: Voiding Method Diaper External Catheter # Voids 3 # Bowel Movements 225 - Exam GENERAL EXAM: Alert, pleasant 77-year-old female, on 3 L nasal cannula, comfortable in no apparent distress. HEAD: Normocephalic. EYES: Normal reaction of pupils, equal size. NOSE: Clear with pink turbinates. THROAT: No erythema or exudates. NECK: No masses, no JVD. CHEST: No chest wall deformity. LUNGS: Equal air entry with no crackles, wheeze, rhonchi or dullness. CVS: S1 and S2 normal with no audible murmur, regular rhythm. ABDOMEN: Surgical site clean and dry. Ostomy patent with pink stoma. No hepatosplenomegaly, normal bowel sounds, no guarding or rigidity. SPINE: No scoliosis or deformity SKIN: No rashes CENTRAL NERVOUS SYSTEM: No focal deficits, tone is normal in all 4 extremities. EXTREMITIES: There is no peripheral edema. No clubbing, no cyanosis. Peripheral pulses are intact. - Labs CBC & Chem 7: 01/18/23 09:59 01/17/23 05:14 Labs: Microbiology - Last 24 Hours (Table) 01/13/23 02:30 Blood Culture - Final Blood 01/13/23 02:15 Blood Culture - Final Blood Assessment and Plan Assessment: Status post exploratory laparotomy, sigmoid colostomy, and small bowel resection, postoperative day #5 Sigmoid mass, pathology is negative for malignancy Acute kidney injury/acute tubular necrosis, resolved Benign essential hypertension History of pulmonary embolism, patient is maintained on eliquis since 2018 patient to resume eliquis once cleared by surgery to go back on eliquis in the meantime continue Lovenox History of thyroid nodules History of migraine cephalgia History of previous abdominal surgery and removal of ovarian precancerous mass Plan: The patient was seen and evaluated Medications reviewed Working well with the incentive spirometer Tolerated a full liquid diet Increase her activity as tolerated Plan is for subacute rehab at [facility] upon discharge I have personally seen and examined the patient, performed the documentation and the assessment and plan as written. Number of minutes spent on the visit: 10.
--- NOTE | 2023-01-19 19:38 | P.PN ---
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 Patient states she has been dealing with this for 3 months and her symptoms are progressively getting worse to the point she decided to come to emergency * While in ER CT abdomen and pelvis was obtained which showed colonic obstruction. Patient was noted to be hypotensive and had elevated lactate levels with significant leukocytosis in ER * Hematology showed WBC 34k, hemoglobin 13.7 platelet 488. Serum chemistry shows sodium 135 potassium 5.3 carbon dioxide 15 BU and 50 1.29 lactate of 2.4 * Patient states she took her Eliquis on 01/12 nighttime dose January 14: I assumed care of the patient today. Postoperative period ICU. IV levo fed. Nasal cannula. Some abdominal pain. Damian catheter. Surgery: Sigmoid colectomy with end colostomy. Small bowel resection. Partial omentectomy. Due to obstructing mass of the sigmoid colon. January 15: ICU. Patient in bed. NG tube to intermittent suction. Colostomy is started putting out stool. Damian catheter. Remains nothing by mouth. Patient is brother and [id number] visiting from [place] with the bedside. Discussed. Will change IV fluids to sodium bicarbonate drip at 1 25 mL an hour. January 16: ICU. Colostomy bag is working. Damian catheter. NG tube to intermittent suction. Change IV fluids to D5 0.45. Spoke to the patient and the family at the bedside. Patient tired. January 17: ICU. Colostomy bag is putting out putty like stool. NG tube to intermittent suction. Damian catheter. Remains on IV fluids. Some abdominal pain. Will be moved out of the ICU. Ice chips. January 18: Medical floor. Remains on IV Flagyl IV ceftriaxone. clear liquids. Advance to full liquid -lunch by surgery. Some pain present. No nausea vomiting. Pathology is come back showing diverticulitis with some mucosal abscess and necrotizing submucosal granuloma margins viable. Acute ischemic enteritis in the small bowel. January 19: Up in a chair. Full liquid diet. Colostomy working. Some abdominal pain. No nausea vomiting. IV ceftriaxone, IV Flagyl. Active Medications Apixaban (Apixaban 5 Mg Tab) 5 mg PO BID [facility]; Protocol Last Admin: 01/19/23 07:52 Dose: 5 mg Benzocaine (Benzocaine [place] 1 Can) 1 spray MUCOUS MEM QID PRN; Protocol PRN Reason: Mouth Irritation Last Admin: 01/16/23 16:57 Dose: 1 spray Docusate Sodium (Docusate 100 Mg Cap) 100 mg PO DAILY [facility] Last Admin: 01/19/23 07:47 Dose: Not Given Hydromorphone HCl (Hydromorphone 1 Mg/Ml 1 Ml Syringe) 1 mg IVP Q3H PRN PRN Reason: Pain Last Admin: 01/19/23 03:03 Dose: 1 mg Ceftriaxone Sodium 2 gm/ (Sodium Chloride) 50 mls @ 100 mls/hr IVPB HS [facility]; Protocol Last Admin: 01/18/23 22:46 Dose: 100 mls/hr Metronidazole 500 mg/ IV (Solution) 100 mls @ 100 mls/hr IVPB Q8H [facility]; Protocol Last Admin: 01/19/23 11:44 Dose: 100 mls/hr Dextrose/Sodium Chloride (Dextrose 5%-1/2ns Iv Soln) 1,000 mls @ 125 mls/hr IV .Q8H [facility] Last Admin: 01/19/23 11:44 Dose: 125 mls/hr Morphine Sulfate (Morphine Sulfate 4 Mg/Ml Syringe) 4 mg IV Q4HR PRN PRN Reason: Severe Pain (Scale 7 to 10) Last Admin: 01/14/23 14:16 Dose: 4 mg Naloxone HCl (Naloxone 0.4 Mg/Ml 1 Ml Vial) 0.2 mg IV Q2M PRN PRN Reason: Opioid Reversal Ondansetron HCl (Ondansetron 4 Mg/2 Ml Vial) 4 mg IVP Q8HR PRN PRN Reason: Nausea And Vomiting Last Admin: 01/14/23 09:33 Dose: 4 mg Ondansetron HCl (Ondansetron 4 Mg/2 Ml Vial) 4 mg IVP Q8HR PRN PRN Reason: Nausea And Vomiting Pantoprazole Sodium (Pantoprazole 40 Mg/10 Ml Vial) 40 mg IV DAILY [facility] Last Admin: 01/19/23 07:53 Dose: 40 mg Physical examination: VITAL SIGNS: 98.2, 82, 17, 136/59, 98% on 2 L GENERAL: Up in a chair. EYES: Pupils equal. Conjunctiva normal. HEENT: External appearance of nose and ears normal, oral cavity grossly normal. NG tube to suction NECK: JVD unable to assess; masses not palpable. HEART: Heart sounds muffled, edema. LUNGS: Respiratory rate increased decreased breath sound. EXTREMITY: Area. of Redness above the ankle both lower legs. Edema. ABDOMEN: Soft, tender, incision with dressing. Colostomy bag with stool , liver spleen not palpable. PSYCH: Alert and oriented x3; mood and affect normal. INVESTIGATIONS, reviewed in the clinical context: January 18: White count 14.6 hemoglobin 8.4 January 17: White count 7.5 hemoglobin 8.1 potassium 3.4 creatinine 0.5 for January 16: White count 24.6 hemoglobin 9.1 platelets 305 potassium 4.2 creatinine 0.59 January 15: White count 20.2 hemoglobin 9.6 platelets 349 potassium 4.4 bicarb 18 BUN 38 creatinine 1.15 January 14: White count 13.2 hemoglobin 10.8 platelets 368 potassium 4.3 BUN [address] abdomen pelvis: Obstructing a partially obstructing process region of the sigmoid colon.: dilatation above. Sigmoid diverticula. Assessment and plan: -Sigmoid mass: Causing obstruction.<Pathology is come back showing diverticulitis with some mucosal abscess and necrotizing submucosal granuloma margins viable. Acute ischemic enteritis in the small bowel.] Sigmoid colectomy with end colostomy. Small bowel resection. Partial omentectomy. January 14-Dr. Santos Full liquid diet NG tube to suction.-Discontinued Colostomy bag -still present -Probable secondary peritonitis IV ceftriaxone. IV Flagyl. -Postop hypotensive shock: Better IV levo fed discontinued -Sigmoid diverticulosis -GERD PPI -Essential hypertension, currently blood pressure low: Improved Blood pressure medications held -Chronic pulmonary embolism Eliquis resumed -Primary osteoarthritis -Acute postprocedure blood loss anemia, expected from surgery Follow H&H IV Ferrlecit. -Full code IV ceftriaxone. IV Flagyl . Full liquid diet. Diet being advanced per surgery.
[2023-01-20] MEDS: DEXTROSE 5%-0.45% NACL 1,000 ML IV SCH ×2 (03:52→17:38)
[2023-01-20] MEDS: metroNIDAZOLE-NS PMX 500 MG in SALINE 1 100ML.BAG IVPB SCH ×2 (03:53→11:39)
[2023-01-20] MEDS: APIXABAN 5 MG TAB PO SCH ×2 (07:44→20:39)
--- NOTE | 2023-01-20 12:29 | P.PN ---
Subjective Progress Note Date: 01/20/23 CHIEF COMPLAINT: Obstructing colon mass HISTORY OF PRESENT ILLNESS: The patient is a 77-year-old female presents with obstructing colon mass. She is status post colectomy. She is tolerating low fiber diet. ROS: No reports of nausea and vomiting. No fevers or chills. No new chest pain. No productive sputum PHYSICAL EXAM: VITAL SIGNS: Reviewed CONSTITUTIONAL: Well developed and in no acute distress. EYES: Conjuctivae without sclera icterus. Extraocular movements grossly intact. HEAD, EARS, NOSE, THROAT: Moist buccal mucosa. Head is atraumatic, normocephalic. Hears conversational speech. No nasal drainage. RESPIRATORY: Non-labored respirations and equal bilateral excursions. CARDIOVASCULAR: Palpable 2+ radial pulses. ABDOMEN: Descending ostomy. Incisions intact. MUSCULOSKELETAL: No gross deformity of the lower extremities noted. No clubbing. No cyanosis. SKIN: Good skin turgor. Well perfused. NEUROLOGIC: Cranial nerves II through XII grossly intact. No focal or lateraliz ing signs. PSYCH: Appropriate affect. Alert and oriented to person, place and time. CLINICAL LABS: Reviewed. Pending new labs ASSESSMENT: 1. Obstructing colon mass due to diverticulitis 2. Anemia PLAN: 1. Saline lock 2. She is doing well. 3. Disposition/discharge in 24 to 48 hrs pending clinical course. 4. CBC and BMP ordered Objective - Vital Signs Vital signs: Vital Signs Temp 97.9 F 01/20/23 07:28 Pulse 86 01/20/23 07:28 Resp 16 01/20/23 07:28 BP 146/61 01/20/23 07:28 Pulse Ox 96 01/20/23 07:28 FiO2 Intake & Output 01/19/23 01/20/23 01/20/23 18:59 06:59 18:59 Output Total 1100 Balance -1100 Output: Urine 1100 Other: Voiding Method Diaper External Catheter - Labs CBC & Chem 7: 01/18/23 09:59 01/17/23 05:14 Labs: Abnormal Lab Results - Last 24 Hours (Table) 01/20/23 Range/Units 04:10 Procalcitonin 0.33 H (0.02-0.09) ng/mL
--- NOTE | 2023-01-20 14:37 | P.PN ---
Subjective Progress Note Date: 01/20/23 This is a 77-year-old female patient was currently being admitted to the intensive care unit. The patient presented to the hospital because of nausea or vomiting or abdominal pain. The pain started last night. The patient also had significant abdominal distention. As such, she came into the emergency department and the patient was found to have a white cell count of 34.8, hemoglobin 15.7, BUN of 50 with a creatinine of 1.29 and his sodium level of 135 and a potassium level of 5.3. Initial lactic acid level was 5.7. She was given IV fluids 2 L bolus and repeat a lactic acid level is down to 2.4. AST is 43, ALTs 40, alkaline phosphatase 204, UA is negative, troponins are negative, proBNP level is at 8:15. The patient's EKG showing normal sinus rhythm. Nevertheless, she has history of PE and she has been maintained on anticoagulation with Eliquis. CAT scan of the abdomen and pelvis was done on 01/13/2023 7:00 in the morning and it showed mildly prominent fluid-filled stomach, duodenum and proximal jejunum do not appear significantly dilated. There is a distal small bowel dilation up to 3.1 cm in diameter with some air- fluid levels. Gas and stool throughout the colon. Ascending colon is dilated up to 7.1 cm in size. There are signs of early colonic wall pneumatosis. In the distal colon, there appears to be a transition point in the lower quadrant where colonic lumen appears decompressed and thickened with multiple sigmoid region diverticuli noted. As such, findings are suggestive of bowel obstruction in the region of the sigmoid colon. Underlying neoplasm needs to be considered. There is up stream dilation of the colon and distal small bowel as described. Surgical consultation has been obtained. The patient was seen by general surgery. The patient will be brought up-to-date intensive care unit optimize medically receive NG tube for gastric decompression and the patient will obviously need antibiotics and surgical intervention within next few hours. Currently, the patient is on IV fluids with normal saline at the rate of 130s is an hour. The patient is ALLERGIC to amoxicillin. The patient will be placed on a combination of Rocephin and Flagyl. She is afebrile. Her pulse ox is 95% on room air oxygen. The patient had a colonoscopy done on 12/21/2022. This was an incomplete colonoscopy as the scope could not be advanced because of acute angulation of the sigmoid colon. There is evidence of moderate colonic diverticulosis. Patient was reevaluated today on 01/14/2023, patient is scheduled to undergo exploratory laparotomy and bowel resection, possible colostomy, this should be done sometime later today by Dr. Santos. In the meantime the patient is feeling better, continues to have nasogastric tube in place, her eliquis was reversed using [employer]. Patient is hemodynamically stable. Blood pressure is normal. WBC count of 16.3 hemoglobin 11.5 electrolytes are normal BUN is 51 creatinine 1.08. Pulmonary-davis the patient does not seem to be in distress, even her abdominal pain seems to be much better now compared to yesterday Reevaluated today on 01/15/2023, patient remains in the ICU, patient is status post sigmoid colectomy and end colostomy, small bowel resection, patient was found to have obstructing sigmoid mass with loop of small bowel adherent to the mass. Patient is now postoperative day #1. Yesterday she came out of the car and she was relatively tachycardic, hypotensive, and significant amount of fluids were given. Today she seems to be doing better and she is hemodynamically stable. In the meantime remains on antibiotics in the form of Rocephin and Flagyl. Continues to have nasogastric tube in place, continues on D5 45 at 1 50 mL per hour. Patient is doing well overall considering her overall picture. WBC count is 20.2 hemoglobin is 9.6 electrolytes are normal, renal profile is borderline with a BUN of 38 creatinine 1.15, it was 0.95 yesterday. Reevaluated today on 01/16/2023, patient remains in the ICU, she is status post sigmoid colectomy and end colostomy and small bowel resection, postoperative day #2. Patient is doing well, she is relatively asymptomatic, her ostomy seems to be functional, patient is hemodynamically stable and not requiring any pressors. Remains on antibiotics empirically. WBC count is 24.6 hemoglobin is 9.1. Basic metabolic profile is normal bicarb is normal renal profile is normal. Patient continues to have nasogastric tube in place, I plan to transfer the patient out of the ICU to a medical surgical floor today. Reevaluated today on 01/17/2023, patient is doing great, remains in the ICU as an overflow. No major issues overnight. Continues to have nasogastric tube in place, however her colostomy is functional, and a nasogastric tube will likely be discontinued today. Patient remains hemodynamically stable, she has good urine output, she is not in any distress, pain is seems to be fairly well controlled, her colostomy is pink and functional. WBC count is down to 17.5 hemoglobin is 8.1 electrolytes are normal renal profile normal potassium 3.4 being treated accordingly The patient is seen today 01/18/2023 in follow-up on the regular medical floor. Postoperative day #4. She is currently sitting up in a chair at the bedside. Awake and alert in no acute distress. She is working well with her incentive spirometer. Pulling approximately 1 L. She is maintaining good O2 saturations in the 90s on 2 L/m per nasal cannula. Afebrile. Hemodynamically stable. Tolerating clear liquids. Blood cultures revealed no growth. White count 14.6. Hemoglobin 8.4. She is continued on ceftriaxone and Flagyl. The patient is seen today 01/19/2023 in follow-up on the regular medical floor. Postoperative day #5. She is resting comfortably in bed. Awake and alert in no acute distress. Maintaining O2 saturation in the 90s on 3 L/m nasal cannula. She is pulling approximately one thousand ML's on her incentive spirometer. She is tolerating a full liquid diet. She remains on ceftriaxone and Flagyl. Anticoagulated with Eliquis. She is continued on D5 and half-normal saline at 125 ML's per hour. The patient is seen today 01/20/2023 in follow-up on the regular medical floor. Postoperative day #6. She is currently sitting up in bed. Awake and alert in no acute distress. Denies any worsening shortness of breath, cough or con gestion. Denies any significant surgical site pain. She remains on antibiotics in the form of ceftriaxone. Anticoagulated with Eliquis. She is tolerating a low fiber diet. Ostomy is functioning. Objective - Vital Signs Vital signs: Vital Signs Temp 98.4 F 01/20/23 13:47 Pulse 80 01/20/23 13:47 Resp 18 01/20/23 13:47 BP 146/66 01/20/23 13:47 Pulse Ox 98 01/20/23 13:47 FiO2 Intake & Output 01/19/23 01/20/23 01/20/23 18:59 06:59 18:59 Output Total 1100 1100 Balance -1100 -1100 Output: Urine 1100 800 Urine/Stool Mix 300 Other: Voiding Method Diaper External Catheter - Exam GENERAL EXAM: Alert, 77-year-old female, on 2 L nasal cannula, comfortable in no apparent distress. HEAD: Normocephalic. EYES: Normal reaction of pupils, equal size. NOSE: Clear with pink turbinates. THROAT: No erythema or exudates. NECK: No masses, no JVD. CHEST: No chest wall deformity. LUNGS: Equal air entry with no crackles, wheeze, rhonchi or dullness. CVS: S1 and S2 normal with no audible murmur, regular rhythm. ABDOMEN: Surgical site clean and dry. Ostomy patent with pink stoma. No hepatosplenomegaly, normal bowel sounds, no guarding or rigidity. SPINE: No scoliosis or deformity SKIN: No rashes CENTRAL NERVOUS SYSTEM: No focal deficits, tone is normal in all 4 extremities. EXTREMITIES: There is no peripheral edema. No clubbing, no cyanosis. Peripheral pulses are intact. - Labs CBC & Chem 7: 01/18/23 09:59 01/17/23 05:14 Labs: Abnormal Lab Results - Last 24 Hours (Table) 01/20/23 Range/Units 04:10 Procalcitonin 0.33 H (0.02-0.09) ng/mL Assessment and Plan Assessment: Status post exploratory laparotomy, sigmoid colostomy, and small bowel resection, postoperative day #6 Sigmoid mass, pathology is negative for malignancy Acute kidney injury/acute tubular necrosis, resolved Benign essential hypertension History of pulmonary embolism, patient is maintained on eliquis since 2018 patie nt to resume eliquis once cleared by surgery to go back on eliquis in the meantime continue Lovenox History of thyroid nodules History of migraine cephalgia History of previous abdominal surgery and removal of ovarian precancerous mass Plan: The patient was seen and evaluated Labs and medications reviewed Discontinue ceftriaxone Titrate down the FiO2 as tolerated Working well with the incentive spirometer Tolerating a low fiber diet Increase her activity as tolerated Plan is for rehab at [facility] upon discharge I have personally seen and examined the patient, performed the documentation and the assessment and plan as written. Number of minutes spent on the visit: 10.
--- NOTE | 2023-01-20 18:51 | P.PN ---
Progress Note - Text Progress Note Date: 01/20/23 Chief Complaint: Abdominal pain * 77-year-old lady with past medical history significant for hypertension, history of pulmonary embolism, history of hysterectomy secondary to tumor approximately 30 years ago presents to the emergency department with complains of progressively worsening abdominal distention, nausea, vomiting. Patient states she has been dealing with this for 3 months and her symptoms are progressively getting worse to the point she decided to come to emergency * While in ER CT abdomen and pelvis was obtained which showed colonic obstruction. Patient was noted to be hypotensive and had elevated lactate levels with significant leukocytosis in ER * Hematology showed WBC 34k, hemoglobin 13.7 platelet 488. Serum chemistry shows sodium 135 potassium 5.3 carbon dioxide 15 BU and 50 1.29 lactate of 2.4 * Patient states she took her Eliquis on 01/12 nighttime dose January 14: I assumed care of the patient today. Postoperative period ICU. IV levo fed. Nasal cannula. Some abdominal pain. Damian catheter. Surgery: Sigmoid colectomy with end colostomy. Small bowel resection. Partial omentectomy. Due to obstructing mass of the sigmoid colon. January 15: ICU. Patient in bed. NG tube to intermittent suction. Colostomy is started putting out stool. Damian catheter. Remains nothing by mouth. Patient is brother and [id number] visiting from [place] with the bedside. Discussed. Will change IV fluids to sodium bicarbonate drip at 1 25 mL an hour. January 16: ICU. Colostomy bag is working. Damian catheter. NG tube to intermittent suction. Change IV fluids to D5 0.45. Spoke to the patient and the family at the bedside. Patient tired. January 17: ICU. Colostomy bag is putting out putty like stool. NG tube to intermittent suction. Damian catheter. Remains on IV fluids. Some abdominal pain. Will be moved out of the ICU. Ice chips. January 18: Medical floor. Remains on IV Flagyl IV ceftriaxone. clear liquids. Advance to full liquid -lunch by surgery. Some pain present. No nausea vomiting. Pathology is come back showing diverticulitis with some mucosal abscess and necrotizing submucosal granuloma margins viable. Acute ischemic enteritis in the small bowel. January 19: Up in a chair. Full liquid diet. Colostomy working. Some abdominal pain. No nausea vomiting. IV ceftriaxone, IV Flagyl. January 20: In a recliner. Low fiber diet. Colostomy bag working. Active Medications Apixaban (Apixaban 5 Mg Tab) 5 mg PO BID [facility]; Protocol Last Admin: 01/20/23 07:44 Dose: 5 mg Benzocaine (Benzocaine [place] 1 Can) 1 spray MUCOUS MEM QID PRN; Protocol PRN Reason: Mouth Irritation Last Admin: 01/16/23 16:57 Dose: 1 spray Hydromorphone HCl (Hydromorphone 1 Mg/Ml 1 Ml Syringe) 1 mg IVP Q3H PRN PRN Reason: Pain Last Admin: 01/19/23 21:41 Dose: 1 mg Morphine Sulfate (Morphine Sulfate 4 Mg/Ml Syringe) 4 mg IV Q4HR PRN PRN Reason: Severe Pain (Scale 7 to 10) Last Admin: 01/14/23 14:16 Dose: 4 mg Naloxone HCl (Naloxone 0.4 Mg/Ml 1 Ml Vial) 0.2 mg IV Q2M PRN PRN Reason: Opioid Reversal Ondansetron HCl (Ondansetron 4 Mg/2 Ml Vial) 4 mg IVP Q8HR PRN PRN Reason: Nausea And Vomiting Last Admin: 01/14/23 09:33 Dose: 4 mg Ondansetron HCl (Ondansetron 4 Mg/2 Ml Vial) 4 mg IVP Q8HR PRN PRN Reason: Nausea And Vomiting Physical examination: VITAL SIGNS: 98.4, 80, 18, 146/66, 98% on 2 L GENERAL: Up in a chair. EYES: Pupils equal. Conjunctiva normal. HEENT: External appearance of nose and ears normal, oral cavity grossly normal. NG tube to suction NECK: JVD unable to assess; masses not palpable. HEART: Heart sounds muffled, edema. LUNGS: Respiratory rate increased decreased breath sound. EXTREMITY: Area. of Redness above the ankle both lower legs. Edema. ABDOMEN: Soft, tender, incision with dressing. Colostomy bag with stool , liver spleen not palpable. PSYCH: Alert and oriented x3; mood and affect normal. INVESTIGATIONS, reviewed in the clinical context: January 18: White count 14.6 hemoglobin 8.4 January 17: White count 7.5 hemoglobin 8.1 potassium 3.4 creatinine 0.5 for January 16: White count 24.6 hemoglobin 9.1 platelets 305 potassium 4.2 creatinine 0.59 January 15: White count 20.2 hemoglobin 9.6 platelets 349 potassium 4.4 bicarb 18 BUN 38 creatinine 1.15 January 14: White count 13.2 hemoglobin 10.8 platelets 368 potassium 4.3 BUN [address] abdomen pelvis: Obstructing a partially obstructing process region of the sigmoid colon.: dilatation above. Sigmoid diverticula. Assessment and plan: -Sigmoid mass: Causing obstruction.<Pathology is come back showing diverticulitis with some mucosal abscess and necrotizing submucosal granuloma margins viable. Acute ischemic enteritis in the small bowel.] Sigmoid colectomy with end colostomy. Small bowel resection. Partial omente ctomy. January 14-Dr. Santos Low fiber diet Colostomy bag -stool output present -Probable secondary peritonitis IV ceftriaxone. IV Flagyl. -Postop hypotensive shock: Improved IV levo fed discontinued -Sigmoid diverticulosis -GERD PPI -Essential hypertension, currently blood pressure low: Resume Zestril 10 mg hs -Chronic pulmonary embolism Eliquis resumed -Primary osteoarthritis -Acute postprocedure blood loss anemia, expected from surgery Follow H&H IV Ferrlecit given. -Full code IV ceftriaxone. IV Flagyl . Low fiber diet. Resume Zestril 10 mg daily at bedtime. Repeat labs
[2023-01-20] MEDS: lisinopriL 10 MG TAB PO SCH (20:39)
[2023-01-20] MEDS: HYDROmorphone 1 MG/ML 1 ML SYRINGE IVP PRN (22:13)
[2023-01-21 06:55] LABS: Basophils # (A) 0.1 k/uL (0-0.2); Basophils % (A) 0 %; Eosinophils # (A) 0.1 k/uL (0-0.7); Eosinophils % (A) 1 %; HCT 25.2 % (34.0-46.0); HGB 7.8 gm/dL (11.4-16.0); Hypochromasia Marked; Lymphocytes % (A) 8 %; MCH 29.5 pg (25.0-35.0); MCHC 30.9 g/dL (31.0-37.0); MCV 95.5 fL (80.0-100.0); Mean Platelet Volume 9.1; Monocytes # (A) 0.4 k/uL (0-1.0); Monocytes % (A) 3 %; Neutrophils % (A) 86 %; Platelet Count 295 k/uL (150-450); RBC 2.64 m/uL (3.80-5.40); RDW 14.6 % (11.5-15.5); WBC 12.7 k/uL (3.8-10.6)
[2023-01-21 07:08] LABS: ALT 38 U/L (4-34); AST 59 U/L (14-36); African American GFR (CKD) >90 (>60 ml/min/1.73 sqM); Alkaline Phosphatase 65 U/L (38-126); Anion Gap 4 mmol/L; Blood Urea Nitrogen 5 mg/dL (7-17); Calcium 7.8 mg/dL (8.4-10.2); Carbon Dioxide 28 mmol/L (22-30); Chloride 104 mmol/L (98-107); Globulin 2.1 g/dL; Glucose 87 mg/dL (74-99); Non-African American GFR(CKD) >90 (>60 ml/min/1.73 sqM); Potassium 3.3 mmol/L (3.5-5.1); Sodium 136 mmol/L (137-145); Total Bilirubin 0.3 mg/dL (0.2-1.3); Total Protein 4.1 g/dL (6.3-8.2)
[2023-01-21] MEDS: APIXABAN 5 MG TAB PO SCH ×2 (08:03→21:50)
--- NOTE | 2023-01-21 11:14 | CDI ---
Documentation Clarification Form Date: 01/21/2023 10:20:26 AM From: Ree Blank RN CCDS Phone: [phone] Admit Date: 01/13/2023 08:17:00 AM Patient Name: Nuvia Ridley Visit Number: [id number] Discharge Date: ATTENTION: The Clinical Documentation Specialists (CDI) and [facility] Coding Staff appreciate your assistance in clarifying documentation. Please respond to the clarification below the line at the bottom and electronically sign. The CDI & [facility] Coding staff will review the response and follow-up if needed. Please note: Queries are made part of the Legal Health Record. If you have any questions, please contact the author of this message via ITS. Dr. Jose Juan Santos Postop hypotensive shock is documented 01/14, Medicine note, and patient had Sigmoid colectomy with end colostomy, small bowel resection and partial omenectomy. Additional clarification is requested regarding the relationship, if any, that exists between the diagnosis and the procedure. Patients Admitting Diagnosis: Colon Obstrcution Post-Operative Diagnosis: Colon Obstruction due to obstructing mass at sigmoid colon Procedure performed: Exploratory laparotomy, Sigmoid colectomy with end colostomy, Small bowel resection and partial omenectomy History/Risk Factors: 77-year-old female presented to the ED progressively worsening abdominal distention, nausea and vomiting started three months prior. Medical History: HTN, Diverticulosis and a history of hysterectomy secondary to tumor approximately 30 years ago. 01/13, Medicine H&P Clinical Indicators: 01/12 23:52, VSS: B/P 78/52; HR 97; Temp 97.6 F Oral; RR 18; SpO2 95% room air 01/13, Labs: Wbc 34.8, Neutrophils 33.0; Plasma Lactic Acid 5.7 01/13, Surgical H&P: Patient was hypotensive and had lactic acidosis on presentation to the ER . 01/13, Medicine note: Sepsis likely intra-abdominal source. 01/14 14:40, VSS B/P 89/51; HR 117; RR 21 SpO2 93% 4L nc 01/14 18:00, VSS B/P 95/57; HR 116; RR 23 SpO2 93% 4L nc Treatment IV Fluids: 01/13 0.9NS 1L IV Bolus; 01/13 0.9NS 500cc IV bolus; 01/13 0.9NS IV 130cc/hr; 01/13 0.9NS 1L IV bolus; 01/14 0.9ns 1L IV bolus x 1 Medications: 01/13 Ceftriaxone IVPB x 1; Flagyl IVPB x 1; 01/13 01/20 Flagyl IVPB Q8H; 01/13 01/19 Ceftriaxone IVPB HS BASILIO; 01/14 Potassium Chloride destrose Sod Cl IV 150cc/hr Q6H40M; 01/14 01/15 Norepinephrine Bitartrate IV; 01/15 01/16 Dextrose / Water with Sodium Bicarbonate 125cc/hr Q8H48M; What relationship, if any, exists between the diagnosis of postoperative hypotension and the procedure: [ ] Hypotensive shock is a complication of surgical procedure [ ] Hypotensive shock is an expected outcome of the surgical procedure [ xx] Hypotensive shock is related to patients co-morbid condition(s) of hypotension preoperatively & not a complication of the procedure [ ] Other please specify ____ [ ] Unable to determine (Template Last Revised: June 2020) MTDD
[2023-01-21] MEDS ORDERED: POTASSIUM CHLORIDE ER 20 MEQ TAB.ER PO STA ×2 (14:05→21:04)
--- NOTE | 2023-01-21 15:18 | P.PN ---
Subjective Progress Note Date: 01/21/23 This is a 77-year-old female patient was currently being admitted to the intensive care unit. The patient presented to the hospital because of nausea or vomiting or abdominal pain. The pain started last night. The patient also had significant abdominal distention. As such, she came into the emergency department and the patient was found to have a white cell count of 34.8, hemoglobin 15.7, BUN of 50 with a creatinine of 1.29 and his sodium level of 135 and a potassium level of 5.3. Initial lactic acid level was 5.7. She was given IV fluids 2 L bolus and repeat a lactic acid level is down to 2.4. AST is 43, ALTs 40, alkaline phosphatase 204, UA is negative, troponins are negative, proBNP level is at 8:15. The patient's EKG showing normal sinus rhythm. Nevertheless, she has history of PE and she has been maintained on anticoagulation with Eliquis. CAT scan of the abdomen and pelvis was done on 01/13/2023 7:00 in the morning and it showed mildly prominent fluid-filled stomach, duodenum and proximal jejunum do not appear significantly dilated. There is a distal small bowel dilation up to 3.1 cm in diameter with some air- fluid levels. Gas and stool throughout the colon. Ascending colon is dilated up to 7.1 cm in size. There are signs of early colonic wall pneumatosis. In the distal colon, there appears to be a transition point in the lower quadrant where colonic lumen appears decompressed and thickened with multiple sigmoid region diverticuli noted. As such, findings are suggestive of bowel obstruction in the region of the sigmoid colon. Underlying neoplasm needs to be considered. There is up stream dilation of the colon and distal small bowel as described. Surgical consultation has been obtained. The patient was seen by general surgery. The patient will be brought up-to-date intensive care unit optimize medically receive NG tube for gastric decompression and the patient will obviously need antibiotics and surgical intervention within next few hours. Currently, the patient is on IV fluids with normal saline at the rate of 130s is an hour. The patient is ALLERGIC to amoxicillin. The patient will be placed on a combination of Rocephin and Flagyl. She is afebrile. Her pulse ox is 95% on room air oxygen. The patient had a colonoscopy done on 12/21/2022. This was an incomplete colonoscopy as the scope could not be advanced because of acute angulation of the sigmoid colon. There is evidence of moderate colonic diverticulosis. Patient was reevaluated today on 01/14/2023, patient is scheduled to undergo exploratory laparotomy and bowel resection, possible colostomy, this should be done sometime later today by Dr. Santos. In the meantime the patient is feeling better, continues to have nasogastric tube in place, her eliquis was reversed using Kcent[employer]. Patient is hemodynamically stable. Blood pressure is normal. WBC count of 16.3 hemoglobin 11.5 electrolytes are normal BUN is 51 creatinine 1.08. Pulmonary-davis the patient does not seem to be in distress, even her abdominal pain seems to be much better now compared to yesterday Reevaluated today on 01/15/2023, patient remains in the ICU, patient is status post sigmoid colectomy and end colostomy, small bowel resection, patient was found to have obstructing sigmoid mass with loop of small bowel adherent to the mass. Patient is now postoperative day #1. Yesterday she came out of the car and she was relatively tachycardic, hypotensive, and significant amount of fluids were given. Today she seems to be doing better and she is hemodynamically stable. In the meantime remains on antibiotics in the form of Rocephin and Flagyl. Continues to have nasogastric tube in place, continues on D5 45 at 1 50 mL per hour. Patient is doing well overall considering her overall picture. WBC count is 20.2 hemoglobin is 9.6 electrolytes are normal, renal profile is borderline with a BUN of 38 creatinine 1.15, it was 0.95 yesterday. Reevaluated today on 01/16/2023, patient remains in the ICU, she is status post sigmoid colectomy and end colostomy and small bowel resection, postoperative day #2. Patient is doing well, she is relatively asymptomatic, her ostomy seems to be functional, patient is hemodynamically stable and not requiring any pressors. Remains on antibiotics empirically. WBC count is 24.6 hemoglobin is 9.1. Basic metabolic profile is normal bicarb is normal renal profile is normal. Patient continues to have nasogastric tube in place, I plan to transfer the patient out of the ICU to a medical surgical floor today. Reevaluated today on 01/17/2023, patient is doing great, remains in the ICU as an overflow. No major issues overnight. Continues to have nasogastric tube in place, however her colostomy is functional, and a nasogastric tube will likely be discontinued today. Patient remains hemodynamically stable, she has good urine output, she is not in any distress, pain is seems to be fairly well controlled, her colostomy is pink and functional. WBC count is down to 17.5 hemoglobin is 8.1 electrolytes are normal renal profile normal potassium 3.4 being treated accordingly The patient is seen today 01/18/2023 in follow-up on the regular medical floor. Postoperative day #4. She is currently sitting up in a chair at the bedside. Awake and alert in no acute distress. She is working well with her incentive spirometer. Pulling approximately 1 L. She is maintaining good O2 saturations in the 90s on 2 L/m per nasal cannula. Afebrile. Hemodynamically stable. Tolerating clear liquids. Blood cultures revealed no growth. White count 14.6. Hemoglobin 8.4. She is continued on ceftriaxone and Flagyl. The patient is seen today 01/19/2023 in follow-up on the regular medical floor. Postoperative day #5. She is resting comfortably in bed. Awake and alert in no acute distress. Maintaining O2 saturation in the 90s on 3 L/m nasal cannula. She is pulling approximately one thousand ML's on her incentive spirometer. She is tolerating a full liquid diet. She remains on ceftriaxone and Flagyl. Anticoagulated with Eliquis. She is continued on D5 and half-normal saline at 125 ML's per hour. The patient is seen today 01/20/2023 in follow-up on the regular medical floor. Postoperative day #6. She is currently sitting up in bed. Awake and alert in no acute distress. Denies any worsening shortness of breath, cough or con gestion. Denies any significant surgical site pain. She remains on antibiotics in the form of ceftriaxone. Anticoagulated with Eliquis. She is tolerating a low fiber diet. Ostomy is functioning. The patient is seen today 01/21/2023 in follow-up on the regular medical floor. Postoperative day #7. She is resting comfortably in bed. She is feeling a little weak and tired today. No worsening shortness of breath, cough or congestion. Taking good O2 saturations in the 90s on room air. She's afebrile. Hemodynamically stable. White count 12.7. Hemoglobin 7.8. Sodium 136. Potassium 3.3. Bicarb 28. BUN 5. Creatinine 0.44. AST 59. ALT 38. Her calcitonin 0.33. He is anticoagulated with Eliquis. She completed ceftriaxone and Flagyl. Objective - Vital Signs Vital signs: Vital Signs Temp 99.2 F 01/21/23 14:00 Pulse 79 01/21/23 14:00 Resp 16 01/21/23 14:00 BP 130/71 01/21/23 14:00 Pulse Ox 97 01/21/23 14:00 FiO2 Intake & Output 01/20/23 01/21/23 01/21/23 18:59 06:59 18:59 Output Total 1100 600 700 Balance -1100 -600 -700 Weight 78.2 kg Output: Urine 800 600 400 Stool 300 Urine/Stool Mix 300 Other: Voiding Method Diaper Diaper External Catheter External Catheter - Exam GENERAL EXAM: Alert, pleasant, weak 77-year-old female, on room air, comfortable in no apparent distress. HEAD: Normocephalic. EYES: Normal reaction of pupils, equal size. NOSE: Clear with pink turbinates. THROAT: No erythema or exudates. NECK: No masses, no JVD. CHEST: No chest wall deformity. LUNGS: Equal air entry with no crackles, wheeze, rhonchi or dullness. CVS: S1 and S2 normal with no audible murmur, regular rhythm. ABDOMEN: Surgical site clean and dry. Ostomy patent with pink stoma. No hepatosplenomegaly, normal bowel sounds, no guarding or rigidity. SPINE: No scoliosis or deformity SKIN: No rashes CENTRAL NERVOUS SYSTEM: No focal deficits, tone is normal in all 4 extremities. EXTREMITIES: There is no peripheral edema. No clubbing, no cyanosis. Peripheral pulses are intact. - Labs CBC & Chem 7: 01/21/23 06:01 01/21/23 06:01 Labs: Abnormal Lab Results - Last 24 Hours (Table) 01/21/23 01/21/23 Range/Units 06:01 06:01 WBC 12.7 H (3.8-10.6) k/uL RBC 2.64 L (3.80-5.40) m/uL Hgb 7.8 L (11.4-16.0) gm/dL Hct 25.2 L (34.0-46.0) % MCHC 30.9 L (31.0-37.0) g/dL Neutrophils # 11.0 H (1.3-7.7) k/uL Sodium 136 L (137-145) mmol/L Potassium 3.3 L (3.5-5.1) mmol/L BUN 5 L (7-17) mg/dL Creatinine 0.44 L (0.52-1.04) mg/dL Calcium 7.8 L (8.4-10.2) mg/dL AST 59 H (14-36) U/L ALT 38 H (4-34) U/L Total Protein 4.1 L (6.3-8.2) g/dL Albumin 2.0 L (3.5-5.0) g/dL Assessment and Plan Assessment: Status post exploratory laparotomy, sigmoid colostomy, and small bowel resection, postoperative day #7 Sigmoid mass, pathology is negative for malignancy Acute kidney injury/acute tubular necrosis, resolved Benign essential hypertension History of pulmonary embolism, patient is maintained on eliquis since 2018 patient to resume eliquis once cleared by surgery to go back on eliquis in the meantime continue Lovenox History of thyroid nodules History of migraine cephalgia History of previous abdominal surgery and removal of ovarian precancerous mass Plan: The patient was seen and evaluated Labs and medications reviewed Working well with the incentive spirometer Tolerating a low fiber diet Increase her activity as tolerated Plan is for rehab at [facility] upon discharge I have personally seen and examined the patient, performed the documentation and the assessment and plan as written. Number of minutes spent on the visit: 10.
--- NOTE | 2023-01-21 15:53 | P.PN ---
Subjective Progress Note Date: 01/21/23 CHIEF COMPLAINT: Colon obstruction HISTORY OF PRESENT ILLNESS: Patient is status post exploratory laparotomy, sigmoid colectomy with end colostomy, small bowel resection and partial omentectomy for a colon obstruction due to obstructing mass at the sigmoid colon on 01/14/23. Patient's ostomy is functioning. She does report pain at the incision site. Otherwise pain is controlled. Afebrile. WBC is down from 14.6- 12.7 Hgb 7.8 potassium 3.3 PHYSICAL EXAM: VITAL SIGNS: Reviewed. GENERAL: Well-developed in no acute distress. ABDOMEN: Soft. Nondistended. Incisional dressing with area of saturation distally. Dressing pullback incision is clean dry and intact. Stool noted in ostomy. Mild tenderness with palpation of the incision. NEUROLOGIC: Alert and oriented. Cranial nerves II through XII grossly intact. ASSESSMENT: 1. Colon obstruction due to obstructing mass at the sigmoid colon status post exploratory laparotomy, sigmoid colectomy with end colostomy, small bowel resection and partial omentectomy PLAN: -Possible discharge to [facility] tomorrow -Continue low fiber diet -Continue pain management -Encouraged patient to use incentive spirometer -Encouraged patient to increase activity level -Replace potassium -GI prophylaxis Protonix and DVT prophylaxis subcu lovenox Physician Financial Analyst note has been reviewed by physician. Signing provider agrees with the documented findings, assessment, and plan of care. Objective - Vital Signs Vital signs: Vital Signs Temp 99.2 F 01/21/23 06:58 Pulse 74 01/21/23 06:58 Resp 15 01/21/23 06:58 BP 109/58 01/21/23 06:58 Pulse Ox 96 01/21/23 06:58 FiO2 Intake & Output 01/20/23 01/21/23 01/21/23 18:59 06:59 18:59 Output Total 1100 600 Balance -1100 -600 Output: Urine 800 600 Urine/Stool Mix 300 Other: Voiding Method Diaper Diaper External Catheter External Catheter - Labs CBC & Chem 7: 01/21/23 06:01 01/21/23 06:01 Labs: Abnormal Lab Results - Last 24 Hours (Table) 01/21/23 01/21/23 Range/Units 06:01 06:01 WBC 12.7 H (3.8-10.6) k/uL RBC 2.64 L (3.80-5.40) m/uL Hgb 7.8 L (11.4-16.0) gm/dL Hct 25.2 L (34.0-46.0) % MCHC 30.9 L (31.0-37.0) g/dL Neutrophils # 11.0 H (1.3-7.7) k/uL Sodium 136 L (137-145) mmol/L Potassium 3.3 L (3.5-5.1) mmol/L BUN 5 L (7-17) mg/dL Creatinine 0.44 L (0.52-1.04) mg/dL Calcium 7.8 L (8.4-10.2) mg/dL AST 59 H (14-36) U/L ALT 38 H (4-34) U/L Total Protein 4.1 L (6.3-8.2) g/dL Albumin 2.0 L (3.5-5.0) g/dL
--- NOTE | 2023-01-21 21:06 | P.PN ---
Progress Note - Text Progress Note Date: 01/21/23 Chief Complaint: Abdominal pain * 77-year-old lady with past medical history significant for hypertension, history of pulmonary embolism, history of hysterectomy secondary to tumor approximately 30 years ago presents to the emergency department with complains of progressively worsening abdominal distention, nausea, vomiting. Patient states she has been dealing with this for 3 months and her symptoms are progressively getting worse to the point she decided to come to emergency * While in ER CT abdomen and pelvis was obtained which showed colonic obstruction. Patient was noted to be hypotensive and had elevated lactate levels with significant leukocytosis in ER * Hematology showed WBC 34k, hemoglobin 13.7 platelet 488. Serum chemistry shows sodium 135 potassium 5.3 carbon dioxide 15 BU and 50 1.29 lactate of 2.4 * Patient states she took her Eliquis on 01/12 nighttime dose January 14: I assumed care of the patient today. Postoperative period ICU. IV levo fed. Nasal cannula. Some abdominal pain. Damian catheter. Surgery: Sigmoid colectomy with end colostomy. Small bowel resection. Partial omentectomy. Due to obstructing mass of the sigmoid colon. January 15: ICU. Patient in bed. NG tube to intermittent suction. Colostomy is started putting out stool. Damian catheter. Remains nothing by mouth. Patient is brother and [id number] visiting from [place] with the bedside. Discussed. Will change IV fluids to sodium bicarbonate drip at 1 25 mL an hour. January 16: ICU. Colostomy bag is working. Damian catheter. NG tube to intermittent suction. Change IV fluids to D5 0.45. Spoke to the patient and the family at the bedside. Patient tired. January 17: ICU. Colostomy bag is putting out putty like stool. NG tube to intermittent suction. Damian catheter. Remains on IV fluids. Some abdominal pain. Will be moved out of the ICU. Ice chips. January 18: Medical floor. Remains on IV Flagyl IV ceftriaxone. clear liquids. Advance to full liquid -lunch by surgery. Some pain present. No nausea vomiting. Pathology is come back showing diverticulitis with some mucosal abscess and necrotizing submucosal granuloma margins viable. Acute ischemic enteritis in the small bowel. January 19: Up in a chair. Full liquid diet. Colostomy working. Some abdominal pain. No nausea vomiting. IV ceftriaxone, IV Flagyl. January 20: In a recliner. Low fiber diet. Colostomy bag working. January 21: Walk with some help from bed to the chair. Colostomy output good. Low fiber diet. Went for discharged to [facility] tomorrow. Active Medications Apixaban (Apixaban 5 Mg Tab) 5 mg PO BID BASILIO; Protocol Last Admin: 01/21/23 08:03 Dose: 5 mg Benzocaine (Benzocaine [place] 1 Can) 1 spray MUCOUS MEM QID PRN; Protocol PRN Reason: Mouth Irritation Last Admin: 01/16/23 16:57 Dose: 1 spray Hydromorphone HCl (Hydromorphone 1 Mg/Ml 1 Ml Syringe) 1 mg IVP Q3H PRN PRN Reason: Pain Last Admin: 01/20/23 22:13 Dose: 1 mg Lisinopril (Lisinopril 10 Mg Tab) 10 mg PO HS BASILIO Last Admin: 01/20/23 20:39 Dose: 10 mg Morphine Sulfate (Morphine Sulfate 4 Mg/Ml Syringe) 4 mg IV Q4HR PRN PRN Reason: Severe Pain (Scale 7 to 10) Last Admin: 01/14/23 14:16 Dose: 4 mg Naloxone HCl (Naloxone 0.4 Mg/Ml 1 Ml Vial) 0.2 mg IV Q2M PRN PRN Reason: Opioid Reversal Ondansetron HCl (Ondansetron 4 Mg/2 Ml Vial) 4 mg IVP Q8HR PRN PRN Reason: Nausea And Vomiting Last Admin: 01/14/23 09:33 Dose: 4 mg Ondansetron HCl (Ondansetron 4 Mg/2 Ml Vial) 4 mg IVP Q8HR PRN PRN Reason: Nausea And Vomiting Physical examination: VITAL SIGNS: 99.2, 79, 16, 1:30/71, 97% on 2 L GENERAL: Up in a recliner EYES: Pupils equal. Conjunctiva normal. HEENT: External appearance of nose and ears normal, oral cavity grossly normal. NG tube to suction NECK: JVD unable to assess; masses not palpable. HEART: Heart sounds muffled, edema. LUNGS: Respiratory rate increased decreased breath sound. EXTREMITY: Area. of Redness above the ankle both lower legs. Edema. ABDOMEN: Soft, tender, incision with dressing. Colostomy bag with stool , liver spleen not palpable. PSYCH: Alert and oriented x3; mood and affect normal. INVESTIGATIONS, reviewed in the clinical context: January 21: White count 12.7 hemoglobin 7.8 potassium 3.3 creatinine 0.44 January 18: White count 14.6 hemoglobin 8.4 January 17: White count 7.5 hemoglobin 8.1 potassium 3.4 creatinine 0.5 for January 16: White count 24.6 hemoglobin 9.1 platelets 305 potassium 4.2 creatinine 0.59 January 15: White count 20.2 hemoglobin 9.6 platelets 349 potassium 4.4 bicarb 18 BUN 38 creatinine 1.15 January 14: White count 13.2 hemoglobin 10.8 platelets 368 potassium 4.3 BUN [address] abdomen pelvis: Obstructing a partially obstructing process region of the sigmoid colon.: dilatation above. Sigmoid diverticula. Assessment and plan: -Sigmoid mass: Causing obstruction.<Pathology is come back showing diverticulitis with some mucosal abscess and necrotizing submucosal granuloma margins viable. Acute ischemic enteritis in the small bowel.] Sigmoid colectomy with end colostomy. Small bowel resection. Partial omentectomy. January 14-Dr. Santos Low fiber diet Colostomy bag -stool output present -Probable secondary peritonitis IV ceftriaxone. IV Flagyl.: Discontinued by surgery -Postop hypotensive shock: Improved IV levo fed discontinued -Sigmoid diverticulosis -GERD PPI -Essential hypertension, currently blood pressure low: Resume Zestril 10 mg hs -Fluid overload from IV fluids 1 dose of IV Lasix 20 mg. -Chronic pulmonary embolism Eliquis resumed -Primary osteoarthritis -Acute postprocedure blood loss anemia, expected from surgery Follow H&H IV Ferrlecit given. -Full code 1 dose of IV Lasix 20 mg for fluid overload. Plan for rehab tomorrow.
[2023-01-21] MEDS ORDERED: FUROSEMIDE 10 MG/ML 2 ML VIAL IV ONE (21:30)
[2023-01-21] MEDS: lisinopriL 10 MG TAB PO SCH (21:50)
[2023-01-21] MEDS: HYDROmorphone 1 MG/ML 1 ML SYRINGE IVP PRN (22:41)
[2023-01-22] MEDS: APIXABAN 5 MG TAB PO SCH (09:13)
[2023-01-22 11:02] LABS: Basophils # (A) 0.06 X 10*3/uL (0.00-0.10); Basophils % (A) 0.4 %; Eosinophils % (A) 1.3 %; HCT 22.7 % (37.2-46.3); HGB 7.3 d/dL (12.0-15.0); Lymphocytes # (A) 1.72 X 10*3/uL (0.90-5.00); Lymphocytes % (A) 10.8 %; MCH 28.9 pg (27.0-32.0); MCHC 32.2 d/dL (32.0-37.0); MCV 89.7 FL (80.0-97.0); Mean Platelet Volume 9.9 FL (9.5-12.2); Monocytes # (A) 0.73 X 10*3/uL (0.20-1.00); Monocytes % (A) 4.6 %; NRBC Per 100 WBC 0 X 10*3/uL (0.00-0.01); Neutrophils # (A) 13.18 X 10*3/uL (1.80-7.70); Neutrophils % (A) 82.3 %; Platelet Count 507 X 10*3/uL (140-440); RBC 2.53 X 10*6/uL (4.10-5.20); WBC 15.99 X 10*3/uL (4.50-10.00)
[2023-01-22 11:03] LABS: Blood Urea Nitrogen 5.4 mg/dL (9.0-27.0); Calcium 7.5 mg/dL (8.7-10.3); Carbon Dioxide 29.6 mmol/L (21.6-31.8); Chloride 104 mmol/L (96-109); Glucose 91 mg/dL (70-110); Potassium 3.8 mmol/L (3.5-5.5); Sodium 140 mmol/L (135-145)
--- NOTE | 2023-01-22 11:53 | P.PN ---
Subjective Progress Note Date: 01/22/23 This is a 77-year-old female patient was currently being admitted to the intensive care unit. The patient presented to the hospital because of nausea or vomiting or abdominal pain. The pain started last night. The patient also had significant abdominal distention. As such, she came into the emergency department and the patient was found to have a white cell count of 34.8, hemoglobin 15.7, BUN of 50 with a creatinine of 1.29 and his sodium level of 135 and a potassium level of 5.3. Initial lactic acid level was 5.7. She was given IV fluids 2 L bolus and repeat a lactic acid level is down to 2.4. AST is 43, ALTs 40, alkaline phosphatase 204, UA is negative, troponins are negative, proBNP level is at 8:15. The patient's EKG showing normal sinus rhythm. Nevertheless, she has history of PE and she has been maintained on anticoagulation with Eliquis. CAT scan of the abdomen and pelvis was done on 01/13/2023 7:00 in the morning and it showed mildly prominent fluid-filled stomach, duodenum and proximal jejunum do not appear significantly dilated. There is a distal small bowel dilation up to 3.1 cm in diameter with some air- fluid levels. Gas and stool throughout the colon. Ascending colon is dilated up to 7.1 cm in size. There are signs of early colonic wall pneumatosis. In the distal colon, there appears to be a transition point in the lower quadrant where colonic lumen appears decompressed and thickened with multiple sigmoid region diverticuli noted. As such, findings are suggestive of bowel obstruction in the region of the sigmoid colon. Underlying neoplasm needs to be considered. There is up stream dilation of the colon and distal small bowel as described. Surgical consultation has been obtained. The patient was seen by general surgery. The patient will be brought up-to-date intensive care unit optimize medically receive NG tube for gastric decompression and the patient will obviously need antibiotics and surgical intervention within next few hours. Currently, the patient is on IV fluids with normal saline at the rate of 130s is an hour. The patient is ALLERGIC to amoxicillin. The patient will be placed on a combination of Rocephin and Flagyl. She is afebrile. Her pulse ox is 95% on room air oxygen. The patient had a colonoscopy done on 12/21/2022. This was an incomplete colonoscopy as the scope could not be advanced because of acute angulation of the sigmoid colon. There is evidence of moderate colonic diverticulosis. Patient was reevaluated today on 01/14/2023, patient is scheduled to undergo exploratory laparotomy and bowel resection, possible colostomy, this should be done sometime later today by Dr. Santos. In the meantime the patient is feeling better, continues to have nasogastric tube in place, her eliquis was reversed using [employer]. Patient is hemodynamically stable. Blood pressure is normal. WBC count of 16.3 hemoglobin 11.5 electrolytes are normal BUN is 51 creatinine 1.08. Pulmonary-davis the patient does not seem to be in distress, even her abdominal pain seems to be much better now compared to yesterday Reevaluated today on 01/15/2023, patient remains in the ICU, patient is status post sigmoid colectomy and end colostomy, small bowel resection, patient was found to have obstructing sigmoid mass with loop of small bowel adherent to the mass. Patient is now postoperative day #1. Yesterday she came out of the car and she was relatively tachycardic, hypotensive, and significant amount of fluids were given. Today she seems to be doing better and she is hemodynamically stable. In the meantime remains on antibiotics in the form of Rocephin and Flagyl. Continues to have nasogastric tube in place, continues on D5 45 at 1 50 mL per hour. Patient is doing well overall considering her overall picture. WBC count is 20.2 hemoglobin is 9.6 electrolytes are normal, renal profile is borderline with a BUN of 38 creatinine 1.15, it was 0.95 yesterday. Reevaluated today on 01/16/2023, patient remains in the ICU, she is status post sigmoid colectomy and end colostomy and small bowel resection, postoperative day #2. Patient is doing well, she is relatively asymptomatic, her ostomy seems to be functional, patient is hemodynamically stable and not requiring any pressors. Remains on antibiotics empirically. WBC count is 24.6 hemoglobin is 9.1. Basic metabolic profile is normal bicarb is normal renal profile is normal. Patient continues to have nasogastric tube in place, I plan to transfer the patient out of the ICU to a medical surgical floor today. Reevaluated today on 01/17/2023, patient is doing great, remains in the ICU as an overflow. No major issues overnight. Continues to have nasogastric tube in place, however her colostomy is functional, and a nasogastric tube will likely be discontinued today. Patient remains hemodynamically stable, she has good urine output, she is not in any distress, pain is seems to be fairly well controlled, her colostomy is pink and functional. WBC count is down to 17.5 hemoglobin is 8.1 electrolytes are normal renal profile normal potassium 3.4 being treated accordingly The patient is seen today 01/18/2023 in follow-up on the regular medical floor. Postoperative day #4. She is currently sitting up in a chair at the bedside. Awake and alert in no acute distress. She is working well with her incentive spirometer. Pulling approximately 1 L. She is maintaining good O2 saturations in the 90s on 2 L/m per nasal cannula. Afebrile. Hemodynamically stable. Tolerating clear liquids. Blood cultures revealed no growth. White count 14.6. Hemoglobin 8.4. She is continued on ceftriaxone and Flagyl. The patient is seen today 01/19/2023 in follow-up on the regular medical floor. Postoperative day #5. She is resting comfortably in bed. Awake and alert in no acute distress. Maintaining O2 saturation in the 90s on 3 L/m nasal cannula. She is pulling approximately one thousand ML's on her incentive spirometer. She is tolerating a full liquid diet. She remains on ceftriaxone and Flagyl. Anticoagulated with Eliquis. She is continued on D5 and half-normal saline at 125 ML's per hour. The patient is seen today 01/20/2023 in follow-up on the regular medical floor. Postoperative day #6. She is currently sitting up in bed. Awake and alert in no acute distress. Denies any worsening shortness of breath, cough or con gestion. Denies any significant surgical site pain. She remains on antibiotics in the form of ceftriaxone. Anticoagulated with Eliquis. She is tolerating a low fiber diet. Ostomy is functioning. The patient is seen today 01/21/2023 in follow-up on the regular medical floor. Postoperative day #7. She is resting comfortably in bed. She is feeling a little weak and tired today. No worsening shortness of breath, cough or congestion. Taking good O2 saturations in the 90s on room air. She's afebrile. Hemodynamically stable. White count 12.7. Hemoglobin 7.8. Sodium 136. Potassium 3.3. Bicarb 28. BUN 5. Creatinine 0.44. AST 59. ALT 38. Her calcitonin 0.33. He is anticoagulated with Eliquis. She completed ceftriaxone and Flagyl. The patient is seen today 01/22/2023 in follow-up on the regular medical floor. Postoperative day #8. She is awake and alert in no acute distress. Resting comfortably in bed. Denies any worsening shortness of breath, cough or congestion. No abdominal pain. Maintaining good O2 saturations in the 90s on 3 L/m per nasal cannula. She's afebrile. Hemodynamically stable. Blood cultures revealed no growth. White count 15.9. Hemoglobin 7.3. Sodium 140. Potassium 3.8. Bicarb 30. BUN 5. Creatinine 0.5. She remains on Eliquis for ant icoagulation. Objective - Vital Signs Vital signs: Vital Signs Temp 99.2 F 01/22/23 07:02 Pulse 77 01/22/23 07:02 Resp 20 01/22/23 07:02 BP 129/62 01/22/23 07:02 Pulse Ox 97 01/22/23 09:08 FiO2 Intake & Output 01/21/23 01/22/23 01/22/23 18:59 06:59 18:59 Output Total 1450 900 Balance -1450 -900 Weight 78.2 kg Output: Urine 1150 900 Stool 300 Other: Voiding Method Diaper Diaper External Catheter External Catheter External Catheter # Voids 1 - Exam GENERAL EXAM: Alert, 77-year-old female, on 3 L nasal cannula, comfortable in no apparent distress. HEAD: Normocephalic. EYES: Normal reaction of pupils, equal size. NOSE: Clear with pink turbinates. THROAT: No erythema or exudates. NECK: No masses, no JVD. CHEST: No chest wall deformity. LUNGS: Equal air entry with no crackles, wheeze, rhonchi or dullness. CVS: S1 and S2 normal with no audible murmur, regular rhythm. ABDOMEN: Surgical site clean and dry. Ostomy patent with pink stoma. No hepatosplenomegaly, normal bowel sounds, no guarding or rigidity. SPINE: No scoliosis or deformity SKIN: No rashes CENTRAL NERVOUS SYSTEM: No focal deficits, tone is normal in all 4 extremities. EXTREMITIES: There is no peripheral edema. No clubbing, no cyanosis. Pe ripheral pulses are intact. - Labs CBC & Chem 7: 01/22/23 04:49 01/22/23 04:49 Labs: Abnormal Lab Results - Last 24 Hours (Table) 01/22/23 01/22/23 Range/Units 04:49 04:49 WBC 15.99 H (4.50-10.00) X 10*3/uL RBC 2.53 L (4.10-5.20) X 10*6/uL Hgb 7.3 L (12.0-15.0) d/dL Hct 22.7 L (37.2-46.3) % RDW 15.0 H (11.5-14.5) % Plt Count 507 H (140-440) X 10*3/uL Neutrophils # 13.18 H (1.80-7.70) X 10*3/uL BUN 5.4 L (9.0-27.0) mg/dL Creatinine 0.5 L (0.6-1.5) mg/dL BUN/Creatinine Ratio 10.80 L (12.00-20.00) Ratio Calcium 7.5 L (8.7-10.3) mg/dL Assessment and Plan Assessment: Status post exploratory laparotomy, sigmoid colostomy, and small bowel resection, postoperative day #8 Sigmoid mass, pathology is negative for malignancy Acute kidney injury/acute tubular necrosis, resolved Benign essential hypertension History of pulmonary embolism, patient is maintained on eliquis since 2018 patient to resume eliquis once cleared by surgery to go back on eliquis in the meantime continue Lovenox History of thyroid nodules History of migraine cephalgia History of previous abdominal surgery and removal of ovarian precancerous mass Plan: The patient was seen and evaluated Labs and medications reviewed Working well with the incentive spirometer Tolerating a low fiber diet Increase her activity as tolerated Plan is for rehab at [facility] upon discharge This patient was seen independently by the nurse practitioner I have personally seen and examined the patient, performed the documentation and the assessment and plan as written. Number of minutes spent on the visit: 20.
[2023-01-22] MEDS ORDERED: FUROSEMIDE 10 MG/ML 2 ML VIAL IV ONE (12:11)
--- NOTE | 2023-01-22 12:41 | P.DS ---
Providers Date of admission: 01/13/23 08:17 Expected date of discharge: 01/22/23 Attending physician: Jose Juan Santos Consults: 01/13/23 08:23 Consult Physician Routine Consulting Provider: Jojo Angeles Consult Reason/Comments: obstruction Do you want consulting provider notified?: Yes 01/14/23 09:11 Consult Physician Routine Consulting Provider: Oscar Stratton Consult Reason/Comments: medical Do you want consulting provider notified?: Yes Primary care physician: [facility] Course: Discharge diagnosis 1. Colon obstruction due to obstructing mass at the sigmoid colon status post exploratory laparotomy, sigmoid colectomy with end colostomy, small bowel resection and partial omentectomy Hospital course This a 77-year-old female who's had a progressive course of intermittent nausea vomiting abdominal pain. Patient presents emergency room last night. She had significant abdominal distention. With nausea. Patient's CAT scan was performed early this morning. Patient is evidence of a partial colonic obstruction of the sigmoid colon. It is unclear as due to diverticular changes or tumor. Patient was hypotensive and had lactic acidosis on presentation to the ER. Patient is status post exploratory laparotomy, sigmoid colectomy with end colostomy, small bowel resection and partial omentectomy. Patient tolerated surgery well. Her pain is controlled. She has been up and ambulating. She has worked with physical therapy and the recommending rehab at discharge. Patient's ostomy is functioning. She is tolerating diet. She's afebrile. Incision clean dry and intact. She is stable for discharge. Please refer to chart for any further details. Physician [employer] note has been reviewed by physician. Signing provider agrees with the documented findings, assessment, and plan of care. Patient Condition at Discharge: Stable Plan - Discharge Summary Discharge Rx Participant: No New Discharge Prescriptions: New oxyCODONE HCL [OxyIR] 5 mg PO Q6H PRN 3 Days #12 tab PRN Reason: Pain metroNIDAZOLE [Flagyl] 500 mg PO TID 10 Days #30 tab Acetaminophen Tab [Tylenol Tab] 650 mg PO Q4H PRN #30 tablet PRN Reason: Pain Levofloxacin [Levaquin] 500 mg PO DAILY 10 Days #10 tab Continue Multivitamins, Thera [Multivitamin (formulary)] 1 tab PO DAILY Cholecalciferol [Vitamin D3 (125 Mcg = 5000 Iu)] 125 mcg PO DAILY Apixaban [Eliquis] 5 mg PO BID Ascorbic Acid [Vitamin C] 1,000 mg PO DAILY Changed lisinopriL [Zestril] 10 mg PO HS #0 Discontinued amLODIPine [Norvasc] 10 mg PO HS Zinc Gluconate [Zinc] 50 mg PO DAILY Discharge Medication List Multivitamins, Thera [Multivitamin (formulary)] 1 tab PO DAILY 07/08/17 [History] Apixaban [Eliquis] 5 mg PO BID 12/19/22 [History] Ascorbic Acid [Vitamin C] 1,000 mg PO DAILY 12/19/22 [History] Cholecalciferol [Vitamin D3 (125 Mcg = 5000 Iu)] 125 mcg PO DAILY 01/13/23 [History] Acetaminophen Tab [Tylenol Tab] 650 mg PO Q4H PRN #30 tablet 01/22/23 [Rx] Levofloxacin [Levaquin] 500 mg PO DAILY 10 Days #10 tab 01/22/23 [Rx] lisinopriL [Zestril] 10 mg PO HS #0 01/22/23 [Rx] metroNIDAZOLE [Flagyl] 500 mg PO TID 10 Days #30 tab 01/22/23 [Rx] oxyCODONE HCL [OxyIR] 5 mg PO Q6H PRN 3 Days #12 tab 01/22/23 [Rx] Follow up Appointment(s)/Referral(s): Davi Ricardo DO [Primary Care Provider] - 1-2 days Jose Juan Snatos MD [STAFF PHYSICIAN] - 1 Week Activity/Diet/Wound Care/Special Instructions: No driving while taking OxyIR No lifting over 10 pounds Shower daily. No soaking or tub baths for 2 weeks Very light activity until you are reevaluated at your follow up appointment with your surgeon Discharge Disposition: TRANSFER TO SNF/ECF
[2023-01-22 14:53] VITALS: BP 140/55; PULSE 84; RESP 16; TEMP 98.2
--- NOTE | 2023-01-22 20:01 | P.PN ---
Progress Note - Text Progress Note Date: 01/22/23 Chief Complaint: Abdominal pain * 77-year-old lady with past medical history significant for hypertension, history of pulmonary embolism, history of hysterectomy secondary to tumor approximately 30 years ago presents to the emergency department with complains of progressively worsening abdominal distention, nausea, vomiting. Patient states she has been dealing with this for 3 months and her symptoms are progressively getting worse to the point she decided to come to emergency * While in ER CT abdomen and pelvis was obtained which showed colonic obstruction. Patient was noted to be hypotensive and had elevated lactate levels with significant leukocytosis in ER * Hematology showed WBC 34k, hemoglobin 13.7 platelet 488. Serum chemistry shows sodium 135 potassium 5.3 carbon dioxide 15 BU and 50 1.29 lactate of 2.4 * Patient states she took her Eliquis on 01/12 nighttime dose January 14: I assumed care of the patient today. Postoperative period ICU. IV levo fed. Nasal cannula. Some abdominal pain. Damian catheter. Surgery: Sigmoid colectomy with end colostomy. Small bowel resection. Partial omentectomy. Due to obstructing mass of the sigmoid colon. January 15: ICU. Patient in bed. NG tube to intermittent suction. Colostomy is started putting out stool. Damian catheter. Remains nothing by mouth. Patient is brother and [id number] visiting from [place] with the bedside. Discussed. Will change IV fluids to sodium bicarbonate drip at 1 25 mL an hour. January 16: ICU. Colostomy bag is working. Damian catheter. NG tube to intermittent suction. Change IV fluids to D5 0.45. Spoke to the patient and the family at the bedside. Patient tired. January 17: ICU. Colostomy bag is putting out putty like stool. NG tube to intermittent suction. Damian catheter. Remains on IV fluids. Some abdominal pain. Will be moved out of the ICU. Ice chips. January 18: Medical floor. Remains on IV Flagyl IV ceftriaxone. clear liquids. Advance to full liquid -lunch by surgery. Some pain present. No nausea vomiting. Pathology is come back showing diverticulitis with some mucosal abscess and necrotizing submucosal granuloma margins viable. Acute ischemic enteritis in the small bowel. January 19: Up in a chair. Full liquid diet. Colostomy working. Some abdominal pain. No nausea vomiting. IV ceftriaxone, IV Flagyl. January 20: In a recliner. Low fiber diet. Colostomy bag working. January 21: Walk with some help from bed to the chair. Colostomy output good. Low fiber diet. Went for discharged to [facility] tomorrow. January 22: Tolerating diet. Colostomy bag is working. Pain well controlled. Currently to rehab today. Questions answered. Being discharged on Flagyl and Levaquin per surgery. Edema still present. 1 dose of IV Lasix 20 mg repeated today. Physical examination: VITAL SIGNS: 98.2, 84, 16, 140/55, 99% on 3 L GENERAL: Up in a recliner, eating lunch EYES: Pupils equal. Conjunctiva normal. HEENT: External appearance of nose and ears normal, oral cavity grossly normal. NG tube to suction NECK: JVD unable to assess; masses not palpable. HEART: Heart sounds muffled, edema. LUNGS: Respiratory rate normal decreased breath sound. EXTREMITY: Area. of Redness above the ankle both lower legs. Edema. ABDOMEN: Soft, tender, incision with dressing. Colostomy bag with stool , liver spleen not palpable. PSYCH: Alert and oriented x3; mood and affect normal. INVESTIGATIONS, reviewed in the clinical context: January 22: White count 15.9 hemoglobin 7.3 potassium 3.8 January 16: White count 24.6 hemoglobin 9.1 platelets 305 potassium 4.2 creatinine 0.59 January 15: White count 20.2 hemoglobin 9.6 platelets 349 potassium 4.4 bicarb 18 BUN 38 creatinine 1.15 January 14: White count 13.2 hemoglobin 10.8 platelets 368 potassium 4.3 BUN [address] abdomen pelvis: Obstructing a partially obstructing process region of the sigmoid colon.: dilatation above. Sigmoid diverticula. Assessment and plan: -Sigmoid mass: Causing obstruction.<Pathology is come back showing diverticulitis with some mucosal abscess and necrotizing submucosal granuloma margins viable. Acute ischemic enteritis in the small bowel.] Sigmoid colectomy with end colostomy. Small bowel resection. Partial omentectomy. January 14-Dr. Santos Low fiber diet Colostomy bag -stool output present -Probable secondary peritonitis Being discharged on Levaquin and Flagyl by surgery -Postop hypotensive shock: Improved IV levo fed discontinued -Sigmoid diverticulosis -GERD PPI -Essential hypertension, Zestril 10 mg hs -Fluid overload from IV fluids 1 dose of IV Lasix 20 mg. given yesterday and 1 dose. Today -Chronic pulmonary embolism Eliquis resumed -Primary osteoarthritis -Acute postprocedure blood loss anemia, expected from surgery Follow H&H IV Ferrlecit given. -Full code Patient going to rehab today. Antibiotics per surgery. Discussed with patient.
== END 2023-01-22 15:30 | DRG 853 ==
LOC: EC 23:28 → 3SCARD 01-13 08:17 → 2SICU 01-13 08:24 → 4SSUR 01-17 16:37
PROVIDERS: ADMIT Surgery; ATTEND Surgery
PROC: 0D9670Z Drainage of Stomach with Drainage Device, Via Natural or Artificial Opening (ICD-10-PCS; 2023-01-13)
PROC: 30283B1 Transfusion of Nonautologous 4-Factor Prothrombin Complex Concentrate into Vein, Percutaneous Approach (ICD-10-PCS; 2023-01-13)
PROC: 3E033XZ Introduction of Vasopressor into Peripheral Vein, Percutaneous Approach (ICD-10-PCS; 2023-01-14)
PROC: 0DB80ZZ Excision of Small Intestine, Open Approach (ICD-10-PCS; principal; 2023-01-14 10:00)
PROC: 0DBN0ZZ Excision of Sigmoid Colon, Open Approach (ICD-10-PCS; principal; 2023-01-14 10:00)
PROC: 0D1M0Z4 Bypass Descending Colon to Cutaneous, Open Approach (ICD-10-PCS; principal; 2023-01-14 10:00)
PROC: 0DBU0ZZ Excision of Omentum, Open Approach (ICD-10-PCS; principal; 2023-01-14 10:00)
DX: A41.9 Sepsis, unspecified organism (principal); K55.019 Acute (reversible) ischemia of small intestine, extent unspecified; N17.0 Acute kidney failure with tubular necrosis; K65.9 Peritonitis, unspecified; R57.9 Shock, unspecified; K59.39 Other megacolon; K56.609 Unspecified intestinal obstruction, unspecified as to partial versus complete obstruction; E87.21 Acute metabolic acidosis; I27.82 Chronic pulmonary embolism; K57.20 Diverticulitis of large intestine with perforation and abscess without bleeding; D62 Acute posthemorrhagic anemia; E87.1 Hypo-osmolality and hyponatremia; I10 Essential (primary) hypertension; E86.0 Dehydration; E87.5 Hyperkalemia; E87.70 Fluid overload, unspecified; K21.9 Gastro-esophageal reflux disease without esophagitis; E04.2 Nontoxic multinodular goiter; M19.91 Primary osteoarthritis, unspecified site; Z79.01 Long term (current) use of anticoagulants; Z79.899 Other long term (current) drug therapy; Z85.828 Personal history of other malignant neoplasm of skin; Z88.0 Allergy status to penicillin; Z88.8 Allergy status to other drugs, medicaments and biological substances
CPT/HCPCS: 36415; 51702; 71045; 74177; 76705; 80048; 80053; 81001; 83605; 83690; 83735; 83880; 84100; 84132; 84145; 84484; 85025; 85610; 85730; 87040; 88307; 88312; 93005; 94760; 96361; 96365; 96367; 96375; 96376; 99291

== ENCOUNTER → 2023-05-04 | Outpatient (CLI) | payer MEDICARE ==
[2023-05-04 22:51] LABS: Basophils # (A) 0.07 X 10*3/uL (0.00-0.10); Basophils % (A) 0.6 %; Eosinophils # (A) 0.04 X 10*3/uL (0.04-0.35); Eosinophils % (A) 0.4 %; HCT 41.6 % (37.2-46.3); HGB 13.5 g/dL (12.0-15.0); Lymphocytes # (A) 2.44 X 10*3/uL (0.90-5.00); Lymphocytes % (A) 21.9 %; MCH 29.7 pg (27.0-32.0); MCHC 32.5 g/dL (32.0-37.0); MCV 91.4 FL (80.0-97.0); Mean Platelet Volume 11.1 FL (9.5-12.2); Monocytes # (A) 0.41 X 10*3/uL (0.20-1.00); Monocytes % (A) 3.7 %; NRBC Per 100 WBC 0 X 10*3/uL (0.00-0.01); Neutrophils # (A) 8.13 X 10*3/uL (1.80-7.70); Neutrophils % (A) 73.1 %; Platelet Count 324 X 10*3/uL (140-440); RBC 4.55 X 10*6/uL (4.10-5.20); RDW 14.6 % (11.5-14.5); WBC 11.12 X 10*3/uL (4.50-10.00)
[2023-05-04 23:02] LABS: Anion Gap 12.9 mmol/L (4.00-12.00); Carbon Dioxide 24.1 mmol/L (21.6-31.8); Potassium 4.5 mmol/L (3.5-5.5)
== END | disposition home or self-care (01) ==
LOC: LABPAT 10:43
PROVIDERS: ATTEND Surgery
DX: Z01.818 Encounter for other preprocedural examination (principal); K57.32 Diverticulitis of large intestine without perforation or abscess without bleeding
CPT/HCPCS: 80051; 85025; 86850; 86900; 86901; 93005

== ENCOUNTER 2023-05-16 08:38 | Day surgery (SDC) | payer MEDICARE ==
[~2023-05-16 08:38] MED LIST changes: -LACTATED RINGERS 1,000 ML IV SCH; -PROPOFOL 10 MG/ML 20 ML VIAL IV ONE
[2023-05-16 10:31] VITALS: RESP 16; TEMP 97.8
[2023-05-16] MEDS: LACTATED RINGERS 1,000 ML IV SCH (10:45)
[2023-05-16] MEDS ORDERED: PROPOFOL 10 MG/ML 20 ML VIAL IV ONE (10:46)
--- NOTE | 2023-05-16 10:50 | P.GSHP ---
History of Present Illness H&P Date: 05/16/23 Chief Complaint: History of diverticulitis This is a 77-year-old female who has previous history of diverticulitis with Osmel procedure. Patient today for colonoscopy which patient is undergoing reversal colostomy tomorrow. Past Medical History Past Medical History: Cancer, GERD/Reflux, Hypertension, Osteoarthritis (OA), Pulmonary Embolus (PE), Thyroid Disorder Additional Past Medical History / Comment(s): thyroid nodule 2014, .skin cancer - removed, diverticulosis, arthirits feet/lt ankle, rt knee.gout, past migaraines-RARE, hx UTI History of Any Multi-Drug Resistant Organisms: None Reported Past Surgical History: Bowel Resection, Breast Surgery, Hysterectomy Additional Past Surgical History / Comment(s): Thyroid biopsy,exploratory abdominal surgery to remove ovarian pre-cancerous mass. "mohs procedure", colonsocpy, breast bx 1987, colostomy Past Anesthesia/Blood Transfusion Reactions: Motion Sickness Additional Past Anesthesia/Blood Transfusion Reaction / Comment(s): claustrophobia Smoking Status: Never smoker - Past Family History Mother Additional Family Medical History / Comment(s): scleroderma Father Family Medical History: Cancer Additional Family Medical History / Comment(s): kidney ca Medications and Allergies Home Medications Medication Instructions Recorded Confirmed Type Multivitamins, Thera [Multivitamin 1 tab PO DAILY 07/08/17 05/16/23 History (formulary)] Apixaban [Eliquis] 5 mg PO BID 12/19/22 05/16/23 History Ascorbic Acid [Vitamin C] 1,000 mg PO DAILY 12/19/22 05/16/23 History Cholecalciferol [Vitamin D3 (125 125 mcg PO DAILY 01/13/23 05/16/23 History Mcg = 5000 Iu)] Acetaminophen Tab [Tylenol Tab] 650 mg PO Q4H PRN #30 tablet 01/22/23 05/16/23 Rx Neomycin 100 mg PO 1100,1400,2300 05/13/23 05/16/23 History Zinc Gluconate [Zinc] 50 mg PO DAILY 05/13/23 05/16/23 History amLODIPine [Norvasc] 10 mg PO HS 05/13/23 05/16/23 History lisinopriL [Zestril] 5 mg PO BID 05/13/23 05/16/23 History metroNIDAZOLE [Flagyl] 1,000 mg PO 1300,1400,2300 05/13/23 05/16/23 History Allergies Allergy/AdvReac Type Severity Reaction Status Date / Time adhesive Allergy Rash/Hives Verified 05/16/23 10:21 amoxicillin trihydrate Allergy Rash/Hives Verified 05/16/23 10:21 [From Trimox] triamcinolone Allergy Swelling Verified 05/16/23 10:21 Surgical - Exam Vital Signs Temp Pulse Resp BP Pulse Ox 97.8 F 97 16 168/73 96 05/16/23 10:18 05/16/23 10:18 05/16/23 10:18 05/16/23 10:18 05/16/23 10:18 - General well developed, well nourished, no distress - Eyes PERRL - ENT normal pinna - Neck no masses - Respiratory normal expansion - Abdomen Colostomy left lower quadrant Abdomen: soft, non tender Assessment and Plan Assessment: History of diverticulitis. Patient will undergo colonoscopy in anticipation of reversal of colostomy tomorrow.
--- NOTE | 2023-05-16 11:08 | P.OP ---
Date of Procedure: 05/16/23 Preoperative Diagnosis: Diverticulitis Postoperative Diagnosis: Diverticulosis Procedure(s) Performed: colonoscopy Fecal disimpaction Anesthesia: MAC Surgeon: Jose Juan Santos Pathology: none sent Condition: stable Disposition: PACU Description of Procedure: The patient was placed on the endoscopy table in the lateral position. She received IV sedation. Digital rectal exam was performed. There was a large amount of impacted stool in the rectum. This was disimpacted. After the stool was removed. The colonoscope was placed in the patient's anus and into the rectum. The rectal stump bumper is approximately 12 cm in length. Scope was withdrawn. Next the patient was rotated and then digital exam of the stoma was performed. The flexible scope was then placed patient stoma past throughout the colon. The ileocecal valve was visualized. The cecum, ascending colon appeared normal. In the transverse and remaining descending colon there was mild scattered diverticuli. The scope was then withdrawn.
[2023-05-16 11:32] VITALS: BP 137/76; PULSE 88
== END 2023-05-16 12:10 | disposition home or self-care (01) ==
LOC: ORWHC2ENDO 08:38
PROVIDERS: ATTEND Surgery
DX: K57.30 Diverticulosis of large intestine without perforation or abscess without bleeding (principal); I10 Essential (primary) hypertension; K21.9 Gastro-esophageal reflux disease without esophagitis; M19.90 Unspecified osteoarthritis, unspecified site; Z79.01 Long term (current) use of anticoagulants; Z85.828 Personal history of other malignant neoplasm of skin; Z86.711 Personal history of pulmonary embolism; Z88.0 Allergy status to penicillin; Z93.3 Colostomy status; Z79.899 Other long term (current) drug therapy; Z88.8 Allergy status to other drugs, medicaments and biological substances; Z88.1 Allergy status to other antibiotic agents
CPT/HCPCS: 44388; J2704

== ENCOUNTER 2023-05-17 05:33 | Inpatient (IN) | payer MEDICARE ==
[2023-05-17] MEDS: LACTATED RINGERS 1,000 ML IV ONE ×2 (05:50→08:59)
[2023-05-17] MEDS: ONDANSETRON 4 MG/2 ML VIAL IVP ONE ×2 (06:17→10:19)
[2023-05-17] MEDS: ACETAMINOPHEN TAB 500 MG TAB PO PRN (06:17)
[2023-05-17] MEDS: DEXAMETHASONE SOD PHOSPHATE 4 MG/ML 1 ML VIAL IV ONE (06:17)
[2023-05-17] MEDS: metroNIDAZOLE-NS PMX 500 MG in SALINE 1 100ML.BAG IVPB PRN (06:17)
[2023-05-17] MEDS: HEPARIN SODIUM,PORCINE 5,000 UNIT/ML 1 ML VIAL SQ PRN (06:34)
[2023-05-17] MEDS ORDERED: MIDAZOLAM 2 MG/2 ML VIAL IV PRN (07:00)
[2023-05-17] MEDS ORDERED: fentaNYL (PF) 50 MCG/ML 2 ML AMP ONE (07:05)
[2023-05-17] MEDS ORDERED: ROCURONIUM 10 MG/ML (5 ML VIAL) IV ONE (07:05)
[2023-05-17] MEDS ORDERED: GLYCOPYRROLATE 0.2 MG/ML 2 ML VIAL ONE (07:05)
[2023-05-17] MEDS ORDERED: NEOSTIGMINE 1 MG/ML 10 ML VIAL ONE (07:05)
[2023-05-17] MEDS ORDERED: HYDROmorphone (PF) 1 MG/ML ONE (07:05)
[2023-05-17] MEDS ORDERED: SUCCINYLCHOLINE CHLORIDE 200 MG/10 ML VIAL IV ONE (07:05)
[2023-05-17] MEDS ORDERED: PHENYLEPHRINE 10 MG/ML VIAL ONE (07:05)
[2023-05-17] MEDS ORDERED: PROPOFOL 10 MG/ML 20 ML VIAL IV ONE (07:05)
[2023-05-17] MEDS ORDERED: MIDAZOLAM 2 MG/2 ML VIAL ONE (07:05)
[2023-05-17] MEDS ORDERED: LIDOCAINE 1% INJ 10MG/ML (20 ML MDV) ONE (07:05)
[2023-05-17] MEDS ORDERED: HYDROmorphone 1 MG/ML 1 ML SYRINGE IVP PRN (09:13)
--- NOTE | 2023-05-17 09:21 | P.OP ---
Date of Procedure: 05/17/23 Preoperative Diagnosis: Diverticulitis Postoperative Diagnosis: Diverticulitis Procedure(s) Performed: Reversal of colostomy Takedown splenic flexure Repair of parastomal hernia Lysis of extensive adhesions Anesthesia: JP Surgeon: Jose Juan Santos Estimated Blood Loss (ml): 50 Pathology: other (Colon) Condition: stable Disposition: PACU Operative Findings: Extensive adhesions Description of Procedure: The patient is placed in the op table in the supine position. She received general endotracheal tube anesthesia. She was then placed in dorsal lithotomy position. Her abdomen was prepped and draped in usual sterile fashion. The skin was incised through the midline. The fascia was opened. There was extensive adhesions along the midline scar. Approximately 35 minutes of operative time use lyse adhesions. The Bookwalter tract placed the wound. The rectal stump was visualized. There was evidence of a parastomal hernia. The colon was then transected using a DAKOTA stapler against the fascia. The small bowel was run. Adhesions were lysed between the bowel loops. The small bowel was then opened. The staple line was opened and then the 29 mm EEA anvil was placed into the colon. In the distal segment was closed using a DAKOTA stapler. Specimen sent to pathology. The spike for the st bone was then driven through the staple line. At this point the colon length was checked. The colon appeared to be needed to be mobilized in order to reach the pelvis. The spine flexion was then taken down using the electrocautery. And then the white line of Toldt was divided use electrocautery. There was adequate length of the colon at this point. Next the assistant plant controller placed the anal dilator patient anus. The stapler was then placed into the anus. The EEA stapler was then positioned on the anterior rectal wall. The spike was given to the anterior rectal wall and then the anvil was clamped to the stapler. The stapler was then closed and then fired. The stapler was then withdrawn for the patient. 2 intact tissue rings were withdrawn from the stapler. Using a bowel clamp the bowel was occluded and then the rigid sigmoidoscope was used for air insufflation of the rectum. No extravasation was seen at the staple line. The anastomosis was checked under water. There was no evidence of any air leak. This point the abdomen is irrigated. There is no bleeding seen. The stomal hernia was repaired using #1 strata fix suture. And then the fascia was closed with looped #1 PDS suture. Skin was closed dolores. The colostomy then excised electrocautery. The skeletal dolores. The Prevena wound system was placed over top of the skin. Patient Toller procedure well. She was sent to recovery room in stable condition.
[2023-05-17] MEDS: HYDROmorphone 0.5 MG/0.5 ML SYRINGE IVP PRN (09:57)
[2023-05-17 13:09] LABS: Basophils % (A) 0 %; Eosinophils # (A) 0.1 k/uL (0-0.7); Eosinophils % (A) 0 %; HCT 38.9 % (34.0-46.0); HGB 12.7 gm/dL (11.4-16.0); Lymphocytes # (A) 0.3 k/uL (1.0-4.8); Lymphocytes % (A) 1 %; MCH 30.5 pg (25.0-35.0); MCHC 32.5 g/dL (31.0-37.0); MCV 93.7 fL (80.0-100.0); Mean Platelet Volume 7.9; Monocytes # (A) 0.5 k/uL (0-1.0); Monocytes % (A) 2 %; Neutrophils # (A) 23.5 k/uL (1.3-7.7); Neutrophils % (A) 96 %; Platelet Count 286 k/uL (150-450); RBC 4.15 m/uL (3.80-5.40); RDW 13.9 % (11.5-15.5); WBC 24.5 k/uL (3.8-10.6)
[2023-05-17] MEDS: LACTATED RINGERS 1,000 ML IV SCH (13:14)
[2023-05-17 13:21] LABS: African American GFR (CKD) >90 (>60 ml/min/1.73 sqM); Anion Gap 7 mmol/L; Blood Urea Nitrogen 10 mg/dL (7-17); Calcium 9.2 mg/dL (8.4-10.2); Carbon Dioxide 23 mmol/L (22-30); Chloride 109 mmol/L (98-107); Glucose 216 mg/dL (74-99); Non-African American GFR(CKD) >90 (>60 ml/min/1.73 sqM); Potassium 3.9 mmol/L (3.5-5.1); Sodium 139 mmol/L (137-145)
[2023-05-17] MEDS: D5-0.45% NACL WITH KCL 20MEQ/L 1,000 ML IV SCH (13:24)
[2023-05-17] MEDS: ONDANSETRON 4 MG/2 ML VIAL IVP PRN (13:24)
[2023-05-17] MEDS: KETOROLAC 15 MG/ML 1 ML VIAL IVP PRN (13:26)
[2023-05-17] MEDS: METOCLOPRAMIDE 5 MG/ML 2 ML VIAL IVP PRN (17:26)
[2023-05-17] MEDS: lisinopriL 5 MG TAB PO SCH (20:27)
[2023-05-17] MEDS: amLODIPine 10 MG TAB PO SCH (20:28)
[2023-05-18] MEDS: MULTIVITAMINS, THERA 1 EACH TAB PO SCH (08:58)
[2023-05-18] MEDS: ALVIMOPAN 12 MG CAPSULE PO SCH (08:58)
[2023-05-18] MEDS: ASCORBIC ACID 500 MG TAB PO SCH (08:58)
[2023-05-18] MEDS: ENOXAPARIN 40 MG/0.4 ML SYRINGE SQ SCH (08:58)
--- NOTE | 2023-05-18 18:54 | P.CONS ---
History of Present Illness - Reason for Consult Consult date: 05/17/23 Medical management Requesting physician: Jose Juan Santos - Chief Complaint Reversal of colostomy - History of Present Illness 77-year-old l patient follows with Dr. Ricardo. Chronic stable medical conditions include hypertension, history of pulmonary embolism, history of hysterectomy secondary to tumor January 2023 patient underwent sigmoid colectomy with end colostomy. Patient now presents for reversal of colostomy. Patient on liquid diet. Has some pain at the surgical site. Had some nausea yesterday but this better this morning. No chest pain or shortness of breath. Review of systems: GEN.: Tired EYES: None HEENT: None NECK: None RESPIRATORY: None CARDIOVASCULAR: None GASTROINTESTINAL: Some abdominal discomfort GENITOURINARY: None MUSCULOSKELETAL: None LYMPHATICS: None HEMATOLOGICAL: None PSYCHIATRY: None NEUROLOGICAL: None Physical examination: VITAL SIGNS: 98.2, 71, 16, 123 x 60, 93% room air GENERAL: Reclining in bed, awake EYES: Pupils equal. Conjunctiva normal. HEENT: External appearance of nose and ears normal, oral cavity grossly normal. NG tube to suction NECK: JVD unable to assess; masses not palpable. HEART: Heart sounds muffled, edema. LUNGS: Respiratory rate increased decreased breath sound. EXTREMITY: Area. of Redness above the ankle both lower legs. Edema. ABDOMEN: Soft, mild tender, wound VAC over the colostomy reversal site. l , liver spleen not palpable. PSYCH: Alert and oriented x3; mood and affect normal. INVESTIGATIONS, reviewed in the clinical context: May 17, 2023: White count 24.5 hemoglobin 12.7 sodium 139 potassium 3.9 creatinine 0.56 Assessment and plan: -Reversal of colostomy by Dr. Santos on May 17, 2023. Patient has a wound VAC in place. -Sigmoid diverticulosis -GERD PPI -Essential hypertension, currently blood pressure low: Resume amlodipine. Hold Zestril. -Chronic pulmonary embolism Eliquis -Primary osteoarthritis Pain medication as needed -Leukocytosis. Possibly reactive. Follow clinically. -Full code Patient is set up in a chair. Chewing gum. Medications to continue. On Entereg. Hold Zestril. IV fluids. Past Medical History Past Medical History: Cancer, GERD/Reflux, Hypertension, Osteoarthritis (OA), Pulmonary Embolus (PE), Thyroid Disorder Additional Past Medical History / Comment(s): thyroid nodule 2015, .skin cancer - removed, diverticulosis, arthirits feet/lt ankle, rt knee.gout, past migaraines-RARE, hx UTI History of Any Multi-Drug Resistant Organisms: None Reported Past Surgical History: Bowel Resection, Breast Surgery, Hysterectomy Additional Past Surgical History / Comment(s): Thyroid biopsy,exploratory abdominal surgery to remove ovarian pre-cancerous mass. "mohs procedure", colonsocpy, breast bx 1987, colostomy Past Anesthesia/Blood Transfusion Reactions: Motion Sickness Additional Past Anesthesia/Blood Transfusion Reaction / Comm: claustrophobia Smoking Status: Never smoker - Past Family History Mother Additional Family Medical History / Comment(s): scleroderma Father Family Medical History: Cancer Additional Family Medical History / Comment(s): kidney ca Medications and Allergies Home Medications Medication Instructions Recorded Confirmed Type Multivitamins, Thera [Multivitamin 1 tab PO DAILY 07/08/17 05/17/23 History (formulary)] Apixaban [Eliquis] 5 mg PO BID 12/19/22 05/17/23 History Ascorbic Acid [Vitamin C] 1,000 mg PO DAILY 12/19/22 05/17/23 History Cholecalciferol [Vitamin D3 (125 125 mcg PO DAILY 01/13/23 05/17/23 History Mcg = 5000 Iu)] Acetaminophen Tab [Tylenol Tab] 650 mg PO Q4H PRN #30 tablet 01/22/23 05/17/23 Rx Neomycin 100 mg PO 1100,1400,2300 05/13/23 05/17/23 History Zinc Gluconate [Zinc] 50 mg PO DAILY 05/13/23 05/17/23 History amLODIPine [Norvasc] 10 mg PO HS 05/13/23 05/17/23 History lisinopriL [Zestril] 5 mg PO BID 05/13/23 05/17/23 History metroNIDAZOLE [Flagyl] 1,000 mg PO 1300,1400,2300 05/13/23 05/17/23 History Allergies Allergy/AdvReac Type Severity Reaction Status Date / Time adhesive Allergy Rash/Hives Verified 05/17/23 05:51 amoxicillin trihydrate Allergy Rash/Hives Verified 05/17/23 05:51 [From Trimox] triamcinolone Allergy Swelling Verified 05/17/23 05:51 Physical Exam Vitals: Vital Signs Temp Pulse Resp BP Pulse Ox 05/17/23 11:40 87 16 139/59 94 L 05/17/23 11:10 89 16 137/57 94 L 05/17/23 10:40 80 16 131/57 94 L 05/17/23 10:12 87 16 141/76 95 05/17/23 09:58 78 16 141/60 95 05/17/23 09:43 81 16 153/58 96 05/17/23 09:27 78 16 149/50 97 05/17/23 09:12 82 16 146/63 98 05/17/23 05:50 98 F 85 16 151/67 98 Intake and Output 05/16/23 05/17/23 05/17/23 22:59 06:59 14:59 Intake Total 100 1000 Output Total 550 Balance 100 450 Intake: IV 100 1000 Output: Urine 500 Estimated Blood Loss 50 Other: Weight 64.2 kg Results CBC & Chem 7: 05/17/23 12:48 05/17/23 12:48
[2023-05-18] MEDS ORDERED: MORPHINE SULFATE 4 MG/ML SYRINGE IVP PRN (22:19)
--- NOTE | 2023-05-18 22:23 | P.PN ---
Progress Note - Text Progress Note Date: 05/18/23 POD 1 take down colostomy, repair hernia at stoma site Nausea with dilaudid but has pain Frequent voids Abdomen OK with Provena Check labs in AM Try morphine to see if less nausea
[2023-05-19] MEDS: ZINC OXIDE PASTE (Z-GUARD) 1 APPLIC TOPICAL PRN (03:07)
[2023-05-19] MEDS: ACETAMINOPHEN TAB 500 MG TAB PO PRN (04:53)
[2023-05-19 06:38] LABS: HCT 32.7 % (34.0-46.0); HGB 10.7 gm/dL (11.4-16.0); MCH 30.5 pg (25.0-35.0); MCHC 32.8 g/dL (31.0-37.0); Mean Platelet Volume 7.9; Platelet Count 236 k/uL (150-450); RBC 3.52 m/uL (3.80-5.40); RDW 14.1 % (11.5-15.5); WBC 11.7 k/uL (3.8-10.6)
[2023-05-19 06:50] LABS: African American GFR (CKD) >90 (>60 ml/min/1.73 sqM); Anion Gap 1 mmol/L; Blood Urea Nitrogen 3 mg/dL (7-17); Calcium 8.7 mg/dL (8.4-10.2); Carbon Dioxide 26 mmol/L (22-30); Chloride 111 mmol/L (98-107); Glucose 125 mg/dL (74-99); Non-African American GFR(CKD) >90 (>60 ml/min/1.73 sqM); Potassium 4.2 mmol/L (3.5-5.1); Sodium 138 mmol/L (137-145)
--- NOTE | 2023-05-19 11:32 | P.PN ---
Subjective Progress Note Date: 05/19/23 Kinza patient is status post reversal colostomy. She is doing quite well. She has had minimal complaints of pain. On exam vital signs appear stable. Abdomen soft. Patient will have her diet advanced once her bowel function returns. Objective - Vital Signs Vital signs: Vital Signs Temp 98.8 F 05/19/23 06:55 Pulse 77 05/19/23 06:55 Resp 17 05/19/23 06:55 BP 118/64 05/19/23 06:55 Pulse Ox 91 L 05/19/23 02:00 FiO2 Intake & Output 05/18/23 05/19/23 05/19/23 18:59 06:59 18:59 Output Total 800 Balance -800 Output: Urine 800 Other: Voiding Method Toilet # Voids 3 2 - Labs CBC & Chem 7: 05/19/23 06:06 05/19/23 06:06 Labs: Abnormal Lab Results - Last 24 Hours (Table) 05/19/23 05/19/23 Range/Units 06:06 06:06 WBC 11.7 H (3.8-10.6) k/uL RBC 3.52 L (3.80-5.40) m/uL Hgb 10.7 L (11.4-16.0) gm/dL Hct 32.7 L (34.0-46.0) % Chloride 111 H (98-107) mmol/L BUN 3 L (7-17) mg/dL Glucose 125 H (74-99) mg/dL
--- NOTE | 2023-05-19 16:46 | P.PN ---
Progress Note - Text Progress Note Date: 05/19/23 - Chief Complaint Reversal of colostomy - History of Present Illness 77-year-old l patient follows with Dr. Ricardo. Chronic stable medical conditions include hypertension, history of pulmonary embolism, history of hysterectomy secondary to tumor January 2023 patient underwent sigmoid colectomy with end colostomy. Patient now presents for reversal of colostomy. Patient on liquid diet. Has some pain at the surgical site. Had some nausea yesterday but this better this morning. No chest pain or shortness of breath. May 19: Patient on clear liquid diet. Did pass some flatus. Some abdominal pain. No nausea vomiting. Did sit up in a chair. Active Medications Acetaminophen (Acetaminophen Tab 500 Mg Tab) 500 mg PO Q6HR PRN PRN Reason: Fever and/ or Pain Last Admin: 05/19/23 13:50 Dose: 500 mg Alvimopan (Alvimopan 12 Mg Capsule) 12 mg PO BID [facility] Stop: 05/24/23 21:01 Last Admin: 05/19/23 08:29 Dose: Not Given Amlodipine Besylate (Amlodipine 10 Mg Tab) 10 mg PO HS [facility] Last Admin: 05/18/23 20:52 Dose: 10 mg Ascorbic Acid (Ascorbic Acid 500 Mg Tab) 1,000 mg PO DAILY [facility] Last Admin: 05/19/23 08:28 Dose: 1,000 mg Enoxaparin Sodium (Enoxaparin 40 Mg/0.4 Ml Syringe) 40 mg SQ DAILY [facility] Last Admin: 05/19/23 08:28 Dose: 40 mg Potassium Chloride/Dextrose/Sod Cl (D5%-1/2ns-Kcl 20 Meq/L Iv Solution) 1,000 mls @ 125 mls/hr IV .Q8H [facility] Last Admin: 05/19/23 09:28 Dose: 125 mls/hr Metoclopramide HCl (Metoclopramide 5 Mg/Ml 2 Ml Vial) 10 mg IVP Q6HR PRN PRN Reason: Nausea and Vomiting Last Admin: 05/17/23 17:26 Dose: 10 mg Morphine Sulfate (Morphine Sulfate 4 Mg/Ml Syringe) 4 mg IVP Q4HR PRN PRN Reason: Pain Multivitamins (Multivitamins, Thera 1 Each Tab) 1 each PO DAILY [facility] Last Admin: 05/19/23 08:28 Dose: 1 each Ondansetron HCl (Ondansetron 4 Mg/2 Ml Vial) 4 mg IVP Q8HR PRN PRN Reason: Nausea And Vomiting Last Admin: 05/17/23 13:24 Dose: 4 mg Petrolatum (Zinc Oxide Paste (Z-Guard) 1 Applic) 1 applic TOPICAL DAILY PRN; Protocol PRN Reason: Wound Healing Last Admin: 05/19/23 03:07 Dose: 1 applic Physical examination: VITAL SIGNS: 98.6, 82, 16, 158 x 63, 94% room air GENERAL: Reclining in bed, awake EYES: Pupils equal. Conjunctiva normal. HEENT: External appearance of nose and ears normal, oral cavity grossly normal. NG tube to suction NECK: JVD unable to assess; masses not palpable. HEART: Heart sounds muffled, edema. LUNGS: Respiratory rate increased decreased breath sound. EXTREMITY: Area. of Redness above the ankle both lower legs. Edema. ABDOMEN: Soft, mild tender, wound VAC over the colostomy reversal site. l , l iver spleen not palpable. PSYCH: Alert and oriented x3; mood and affect normal. INVESTIGATIONS, reviewed in the clinical context: May 19: White count 11.7 hemoglobin 10.7 potassium 4.2 creatinine 0.58 May 17, 2023: White count 24.5 hemoglobin 12.7 sodium 139 potassium 3.9 creatinine 0.56 Assessment and plan: -Reversal of colostomy by Dr. Santos on May 17, 2023. Patient has a wound VAC in place. Clear liquid diet. Passed flatus. -Sigmoid diverticulosis -GERD PPI -Essential hypertension, currently blood pressure low: Resume amlodipine. Hold Zestril. -Chronic pulmonary embolism Eliquis -Primary osteoarthritis Pain medication as needed -Leukocytosis. Possibly reactive. Follow clinically. -Full code Clear liquid diet. Activity as tolerated. Up in a chair. Past Medical History Past Medical History: Cancer, GERD/Reflux, Hypertension, Osteoarthritis (OA), Pulmonary Embolus (PE), Thyroid Disorder Additional Past Medical History / Comment(s): thyroid nodule 2014, .skin cancer - removed, diverticulosis, arthirits feet/lt ankle, rt knee.gout, past migaraines-RARE, hx UTI History of Any Multi-Drug Resistant Organisms: None Reported Past Surgical History: Bowel Resection, Breast Surgery, Hysterectomy Additional Past Surgical History / Comment(s): Thyroid biopsy,exploratory abdominal surgery to remove ovarian pre-cancerous mass. "mohs procedure", colonsocpy, breast bx 1987, colostomy Past Anesthesia/Blood Transfusion Reactions: Motion Sickness Additional Past Anesthesia/Blood Transfusion Reaction / Comm: claustrophobia Smoking Status: Never smoker
[2023-05-20] MEDS: diphenhydrAMINE 25 MG CAP PO PRN (11:16)
[2023-05-20] MEDS: HYDROcodone/APAP 5-325MG 1 EACH TAB PO PRN (11:16)
--- NOTE | 2023-05-20 13:39 | P.PN ---
Subjective Progress Note Date: 05/20/23 CHIEF COMPLAINT: Diverticulitis HISTORY OF PRESENT ILLNESS: Postop day #3 status post reversal of colostomy, takedown splenic flexure, repair of parastomal hernia and lysis of extensive fusions. Patient reports having pain with movement. She does complain of a rash on her abdomen. She is having flatus. Did report a small bowel movement a couple days ago. Afebrile. WBC is 11.7 PHYSICAL EXAM: VITAL SIGNS: Reviewed. GENERAL: Well-developed in no acute distress. HEENT: No sclera icterus. Extraocular movements grossly intact. Moist buccal mucosa. Head is atraumatic, normocephalic. ABDOMEN: Soft. Nondistended. Mild tenderness at incision site. small area of rash noted on both sides of the prevana. Prevana wound VAC dressing intact NEUROLOGIC: Alert and oriented. Cranial nerves II through XII grossly intact. ASSESSMENT: 1. Diverticulitis PLAN: -Continue clear liquid diet -Encourage patient increase activity level -Add L[place]y for oral pain medication -Add Benadryl for abdominal rash Physician Sulfide Head Operator note has been reviewed by physician. Signing provider agrees with the documented findings, assessment, and plan of care. Objective - Vital Signs Vital signs: Vital Signs Temp 98.5 F 05/20/23 07:10 Pulse 82 05/20/23 07:10 Resp 17 05/20/23 07:10 BP 123/69 05/20/23 07:10 Pulse Ox 92 L 05/20/23 07:10 FiO2 Intake & Output 05/19/23 05/20/23 05/20/23 18:59 06:59 18:59 Output Total 700 Balance -700 Output: Urine 700 Other: Voiding Method Toilet # Voids 4 2 1 - Labs CBC & Chem 7: 05/19/23 06:06 05/19/23 06:06
--- NOTE | 2023-05-20 19:11 | P.PN ---
Progress Note - Text Progress Note Date: 05/20/23 - Chief Complaint Reversal of colostomy - History of Present Illness 77-year-old l patient follows with Dr. Ricardo. Chronic stable medical conditions include hypertension, history of pulmonary embolism, history of hysterectomy secondary to tumor January 2023 patient underwent sigmoid colectomy with end colostomy. Patient now presents for reversal of colostomy. Patient on liquid diet. Has some pain at the surgical site. Had some nausea yesterday but this better this morning. No chest pain or shortness of breath. May 19: Patient on clear liquid diet. Did pass some flatus. Some abdominal pain. No nausea vomiting. Did sit up in a chair. May 20: Up in a recliner. Did pass some flatus. Very small BM. Very slight abdominal pain. On clear liquids. Diet has been advanced for tomorrow by surgery. Active Medications Acetaminophen (Acetaminophen Tab 500 Mg Tab) 500 mg PO Q6HR PRN PRN Reason: Fever and/ or Pain Last Admin: 05/20/23 03:20 Dose: 500 mg Hydrocodone Bitart/Acetaminophen (Hydrocodone/Apap 5-325mg 1 Each Tab) 1 each PO Q4HR PRN PRN Reason: Pain Last Admin: 05/20/23 11:16 Dose: 1 each Amlodipine Besylate (Amlodipine 10 Mg Tab) 10 mg PO HS [facility] Last Admin: 05/19/23 20:27 Dose: 10 mg Ascorbic Acid (Ascorbic Acid 500 Mg Tab) 1,000 mg PO DAILY [facility] Last Admin: 05/20/23 08:01 Dose: 1,000 mg Diphenhydramine HCl (Diphenhydramine 25 Mg Cap) 25 mg PO Q6HR PRN PRN Reason: Itching Last Admin: 05/20/23 11:16 Dose: 25 mg Enoxaparin Sodium (Enoxaparin 40 Mg/0.4 Ml Syringe) 40 mg SQ DAILY [facility] Last Admin: 05/20/23 08:01 Dose: 40 mg Famotidine (Famotidine 20 Mg Tab) 20 mg PO BID [facility] Potassium Chloride/Dextrose/Sod Cl (D5%-1/2ns-Kcl 20 Meq/L Iv Solution) 1,000 mls @ 75 mls/hr IV .[id number] [facility] Last Admin: 05/20/23 11:33 Dose: 125 mls/hr Metoclopramide HCl (Metoclopramide 5 Mg/Ml 2 Ml Vial) 10 mg IVP Q6HR PRN PRN Reason: Nausea and Vomiting Last Admin: 05/17/23 17:26 Dose: 10 mg Morphine Sulfate (Morphine Sulfate 4 Mg/Ml Syringe) 4 mg IVP Q4HR PRN PRN Reason: Pain Multivitamins (Multivitamins, Thera 1 Each Tab) 1 each PO DAILY [facility] Last Admin: 05/20/23 08:01 Dose: 1 each Ondansetron HCl (Ondansetron 4 Mg/2 Ml Vial) 4 mg IVP Q8HR PRN PRN Reason: Nausea And Vomiting Last Admin: 05/17/23 13:24 Dose: 4 mg Petrolatum (Zinc Oxide Paste (Z-Guard) 1 Applic) 1 applic TOPICAL DAILY PRN; Protocol PRN Reason: Wound Healing Last Admin: 05/20/23 04:47 Dose: 1 applic Physical examination: VITAL SIGNS: 98.6, 83, 20, 124 x 64, 94% room air GENERAL: Up in a recliner, more comfortable EYES: Pupils equal. Conjunctiva normal. HEENT: External appearance of nose and ears normal, oral cavity grossly normal. NG tube to suction NECK: JVD unable to assess; masses not palpable. HEART: Heart sounds muffled, edema. LUNGS: Respiratory rate increased decreased breath sound. EXTREMITY: Area. of Redness above the ankle both lower legs. Edema. ABDOMEN: Soft, mild tender, wound VAC over the colostomy reversal site. l , liver spleen not palpable. PSYCH: Alert and oriented x3; mood and affect normal. INVESTIGATIONS, reviewed in the clinical context: May 19: White count 11.7 hemoglobin 10.7 potassium 4.2 creatinine 0.58 May 17, 2023: White count 24.5 hemoglobin 12.7 sodium 139 potassium 3.9 creatinine 0.56 Assessment and plan: -Reversal of colostomy by Dr. Santos on May 17, 2023. Patient has a wound VAC in place. Clear liquid diet. Passed flatus. -Sigmoid diverticulosis -GERD PPI -Acute postprocedure blood loss anemia expected from surgery -Essential hypertension, currently blood pressure low: Resume amlodipine. Hold Zestril. -Chronic pulmonary embolism Eliquis -Primary osteoarthritis Pain medication as needed -Leukocytosis. Possibly reactive. Follow clinically. -Full code Clear liquid diet. Advance to regular for tomorrow per Ortho. Other medications to continue. Past Medical History Past Medical History: Cancer, GERD/Reflux, Hypertension, Osteoarthritis (OA), Pulmonary Embolus (PE), Thyroid Disorder Additional Past Medical History / Comment(s): thyroid nodule 2014, .skin cancer - removed, diverticulosis, arthirits feet/lt ankle, rt knee.gout, past migaraines-RARE, hx UTI History of Any Multi-Drug Resistant Organisms: None Reported Past Surgical History: Bowel Resection, Breast Surgery, Hysterectomy Additional Past Surgical History / Comment(s): Thyroid biopsy,exploratory abdominal surgery to remove ovarian pre-cancerous mass. "mohs procedure", colonsocpy, breast bx 1987, colostomy Past Anesthesia/Blood Transfusion Reactions: Motion Sickness Additional Past Anesthesia/Blood Transfusion Reaction / Comm: claustrophobia Smoking Status: Never smoker
[2023-05-20] MEDS: FAMOTIDINE 20 MG TAB PO SCH (20:40)
[2023-05-21 06:24] LABS: Basophils % (A) 0 %; Eosinophils # (A) 0.6 k/uL (0-0.7); Eosinophils % (A) 5 %; HCT 34.3 % (34.0-46.0); HGB 11.5 gm/dL (11.4-16.0); Lymphocytes # (A) 2.2 k/uL (1.0-4.8); Lymphocytes % (A) 18 %; MCH 31.3 pg (25.0-35.0); MCHC 33.5 g/dL (31.0-37.0); MCV 93.6 fL (80.0-100.0); Mean Platelet Volume 8.5; Monocytes # (A) 0.5 k/uL (0-1.0); Monocytes % (A) 4 %; Neutrophils # (A) 8.7 k/uL (1.3-7.7); Neutrophils % (A) 72 %; Platelet Count 274 k/uL (150-450); RBC 3.66 m/uL (3.80-5.40); RDW 13.9 % (11.5-15.5)
[2023-05-21 06:32] LABS: African American GFR (CKD) >90 (>60 ml/min/1.73 sqM); Anion Gap 5 mmol/L; Blood Urea Nitrogen 2 mg/dL (7-17); Calcium 8.8 mg/dL (8.4-10.2); Carbon Dioxide 23 mmol/L (22-30); Chloride 108 mmol/L (98-107); Glucose 89 mg/dL (74-99); Non-African American GFR(CKD) 89 (>60 ml/min/1.73 sqM); Potassium 4.6 mmol/L (3.5-5.1); Sodium 136 mmol/L (137-145)
--- NOTE | 2023-05-21 12:30 | P.PN ---
Subjective Progress Note Date: 05/21/23 CHIEF COMPLAINT: Diverticulitis HISTORY OF PRESENT ILLNESS: Postop day #4 status post reversal of colostomy, takedown splenic flexure, repair of parastomal hernia and lysis of extensive fusions. Patient sitting at bedside chair. Her pain is controlled. Pain is not worsening. She did have nausea last night but this has improved. She is having flatus. No bowel movement. She does complaining of itching for the abdominal rash. Afebrile. WBC 11.7-12 PHYSICAL EXAM: VITAL SIGNS: Reviewed. GENERAL: Well-developed in no acute distress. HEENT: No sclera icterus. Extraocular movements grossly intact. Moist buccal mucosa. Head is atraumatic, normocephalic. ABDOMEN: Soft. Nondistended. Mild tenderness at incision site. small area of rash noted on both sides of the prevana. Prevana wound VAC dressing intact NEUROLOGIC: Alert and oriented. Cranial nerves II through XII grossly intact. ASSESSMENT: 1. Diverticulitis PLAN: -Continue regular diet -Discontinue IV fluids -Continue pain management -Continue Benadryl for abdominal rash -Encourage patient to increase activity level -Consult PT OT -Consult social work for possible ECF placement -DVT prophylaxis Lovenox Physician Occupational Health And Safety Adviser note has been reviewed by physician. Signing provider agrees with the documented findings, assessment, and plan of care. Objective - Vital Signs Vital signs: Vital Signs Temp 98.4 F 05/21/23 07:48 Pulse 74 05/21/23 07:48 Resp 18 05/21/23 07:48 BP 117/66 05/21/23 07:48 Pulse Ox 92 L 05/21/23 07:48 FiO2 Intake & Output 05/20/23 05/21/23 05/21/23 18:59 06:59 18:59 Intake Total 900 Output Total 450 400 Balance 450 -400 Intake: Intake, IV Titration 900 Amount D5-0.45% NaCl with KCl 900 20Meq/l 1,000 ml @ 75 mls /hr IV .[id number] [facility] Rx#: [id number] Output: Urine 450 400 Other: Voiding Method Toilet External Catheter # Voids 1 1 1 - Labs CBC & Chem 7: 05/21/23 05:45 05/21/23 05:45 Labs: Abnormal Lab Results - Last 24 Hours (Table) 05/21/23 05/21/23 Range/Units 05:45 05:45 WBC 12.0 H (3.8-10.6) k/uL RBC 3.66 L (3.80-5.40) m/uL Neutrophils # 8.7 H (1.3-7.7) k/uL Sodium 136 L (137-145) mmol/L Chloride 108 H (98-107) mmol/L BUN 2 L (7-17) mg/dL
[2023-05-21] MEDS: diphenhydrAMINE 25 MG CAP PO SCH (13:20)
--- NOTE | 2023-05-21 19:34 | P.PN ---
Progress Note - Text Progress Note Date: 05/21/23 - Chief Complaint Reversal of colostomy - History of Present Illness 77-year-old l patient follows with Dr. Ricardo. Chronic stable medical conditions include hypertension, history of pulmonary embolism, history of hysterectomy secondary to tumor January 2023 patient underwent sigmoid colectomy with end colostomy. Patient now presents for reversal of colostomy. Patient on liquid diet. Has some pain at the surgical site. Had some nausea yesterday but this better this morning. No chest pain or shortness of breath. May 19: Patient on clear liquid diet. Did pass some flatus. Some abdominal pain. No nausea vomiting. Did sit up in a chair. May 20: Up in a recliner. Did pass some flatus. Very small BM. Very slight abdominal pain. On clear liquids. Diet has been advanced for tomorrow by surgery. May 21: In a recliner. Passing flatus. No BM. Abdominal pain is controlled. Patient was advised by surgery to regular diet. Wound VAC in place. Looking for rehab placement. PT OT. Active Medications Acetaminophen (Acetaminophen Tab 500 Mg Tab) 500 mg PO Q6HR PRN PRN Reason: Fever and/ or Pain Last Admin: 05/20/23 03:20 Dose: 500 mg Hydrocodone Bitart/Acetaminophen (Hydrocodone/Apap 5-325mg 1 Each Tab) 1 each PO Q4HR PRN PRN Reason: Pain Last Admin: 05/21/23 09:24 Dose: 1 each Amlodipine Besylate (Amlodipine 10 Mg Tab) 10 mg PO HS [facility] Last Admin: 05/20/23 21:50 Dose: 10 mg Ascorbic Acid (Ascorbic Acid 500 Mg Tab) 1,000 mg PO DAILY [facility] Last Admin: 05/21/23 09:27 Dose: 1,000 mg Diphenhydramine HCl (Diphenhydramine 25 Mg Cap) 25 mg PO Q6HR [facility] Last Admin: 05/21/23 17:31 Dose: 25 mg Enoxaparin Sodium (Enoxaparin 40 Mg/0.4 Ml Syringe) 40 mg SQ DAILY [facility] Last Admin: 05/21/23 09:27 Dose: 40 mg Famotidine (Famotidine 20 Mg Tab) 20 mg PO BID [facility] Last Admin: 05/21/23 09:27 Dose: 20 mg Metoclopramide HCl (Metoclopramide 5 Mg/Ml 2 Ml Vial) 10 mg IVP Q6HR PRN PRN Reason: Nausea and Vomiting Last Admin: 05/17/23 17:26 Dose: 10 mg Morphine Sulfate (Morphine Sulfate 4 Mg/Ml Syringe) 4 mg IVP Q4HR PRN PRN Reason: Pain Multivitamins (Multivitamins, Thera 1 Each Tab) 1 each PO DAILY [facility] Last Admin: 05/21/23 09:27 Dose: 1 each Ondansetron HCl (Ondansetron 4 Mg/2 Ml Vial) 4 mg IVP Q8HR PRN PRN Reason: Nausea And Vomiting Last Admin: 05/20/23 21:10 Dose: 4 mg Petrolatum (Zinc Oxide Paste (Z-Guard) 1 Applic) 1 applic TOPICAL DAILY PRN; Protocol PRN Reason: Wound Healing Last Admin: 05/20/23 04:47 Dose: 1 applic Physical examination: VITAL SIGNS: 98.9, 84, 18, 130/62, 93% room air GENERAL: Up in a recliner, comfortable EYES: Pupils equal. Conjunctiva normal. HEENT: External appearance of nose and ears normal, oral cavity grossly normal. NG tube to suction NECK: JVD unable to assess; masses not palpable. HEART: Heart sounds muffled, edema. LUNGS: Respiratory rate increased decreased breath sound. EXTREMITY: Area. of Redness above the ankle both lower legs. Edema. ABDOMEN: Soft, minimal tender, wound VAC over the colostomy reversal site. l , liver spleen not palpable. PSYCH: Alert and oriented x3; mood and affect normal. INVESTIGATIONS, reviewed in the clinical context: May 21: White count 12 hemoglobin 11.5 potassium 4.6 creatinine 0.59 May 19: White count 11.7 hemoglobin 10.7 potassium 4.2 creatinine 0.58 May 17, 2023: White count 24.5 hemoglobin 12.7 sodium 139 potassium 3.9 creatinine 0.56 Assessment and plan: -Reversal of colostomy by Dr. Santos on May 17, 2023. Patient has a wound VAC in place. Passed flatus. Advance by surgery to regular diet. -Sigmoid diverticulosis -GERD PPI -Acute postprocedure blood loss anemia expected from surgery -Essential hypertension, currently blood pressure low: Resume amlodipine. Hold Zestril. -Chronic pulmonary embolism Eliquis -Primary osteoarthritis Pain medication as needed -Leukocytosis. Possibly reactive. Follow clinically. -Full code Regular diet. PT OT looking into placement. Past Medical History Past Medical History: Cancer, GERD/Reflux, Hypertension, Osteoarthritis (OA), Pulmonary Embolus (PE), Thyroid Disorder Additional Past Medical History / Comment(s): thyroid nodule 2014, .skin cancer - removed, diverticulosis, arthirits feet/lt ankle, rt knee.gout, past migaraines-RARE, hx UTI History of Any Multi-Drug Resistant Organisms: None Reported Past Surgical History: Bowel Resection, Breast Surgery, Hysterectomy Additional Past Surgical History / Comment(s): Thyroid biopsy,exploratory abdominal surgery to remove ovarian pre-cancerous mass. "mohs procedure", colonsocpy, breast bx 1987, colostomy Past Anesthesia/Blood Transfusion Reactions: Motion Sickness Additional Past Anesthesia/Blood Transfusion Reaction / Comm: claustrophobia Smoking Status: Never smoker
[2023-05-21] MEDS: CALAMINE/ZINC OXIDE LOTION 177 ML BTL TOPICAL PRN (21:40)
[2023-05-22 11:06] LABS: Basophils # (A) 0.06 X 10*3/uL (0.00-0.10); Basophils % (A) 0.5 %; Eosinophils # (A) 0.61 X 10*3/uL (0.04-0.35); HCT 35.1 % (37.2-46.3); HGB 11.6 g/dL (12.0-15.0); Lymphocytes # (A) 2.13 X 10*3/uL (0.90-5.00); Lymphocytes % (A) 17.3 %; MCH 30.4 pg (27.0-32.0); MCV 91.9 FL (80.0-97.0); Mean Platelet Volume 10.4 FL (9.5-12.2); Monocytes # (A) 0.65 X 10*3/uL (0.20-1.00); Monocytes % (A) 5.3 %; NRBC Per 100 WBC 0 X 10*3/uL (0.00-0.01); Neutrophils # (A) 8.81 X 10*3/uL (1.80-7.70); Neutrophils % (A) 71.6 %; Platelet Count 335 X 10*3/uL (140-440); RBC 3.82 X 10*6/uL (4.10-5.20)
--- NOTE | 2023-05-22 15:40 | P.PN ---
Subjective Progress Note Date: 05/22/23 CHIEF COMPLAINT: Diverticulitis HISTORY OF PRESENT ILLNESS: Postop day #5 status post reversal of colostomy, takedown splenic flexure, repair of parastomal hernia and lysis of extensive fusions. Patient sitting at bedside chair. Her pain is controlled. She is still not had a bowel movement. She is having flatus. She is to work with PT OT today. Afebrile. WBC is the same at 12.3 PHYSICAL EXAM: VITAL SIGNS: Reviewed. GENERAL: Well-developed in no acute distress. HEENT: No sclera icterus. Extraocular movements grossly intact. Moist buccal mucosa. Head is atraumatic, normocephalic. ABDOMEN: Soft. Nondistended. Mild tenderness at incision site. rash noted on both sides of the prevana. Prevana wound VAC dressing intact NEUROLOGIC: Alert and oriented. Cranial nerves II through XII grossly intact. ASSESSMENT: 1. Diverticulitis PLAN: -Add Levaquin due to leukocytosis -Repeat CBC in a.m. -Continue regular diet -Continue pain management -Continue Benadryl for abdominal rash -Encourage patient to increase activity level -Patient to be discharged home with home care at time of discharge -DVT prophylaxis Lovenox Physician [employer] note has been reviewed by physician. Signing provider agrees with the documented findings, assessment, and plan of care. Objective - Vital Signs Vital signs: Vital Signs Temp 97.9 F 05/22/23 07:19 Pulse 74 05/22/23 07:19 Resp 18 05/22/23 07:19 BP 134/65 05/22/23 07:19 Pulse Ox 93 L 05/22/23 07:19 FiO2 Intake & Output 05/21/23 05/22/23 05/22/23 18:59 06:59 18:59 Intake Total 320 Output Total 400 250 Balance -80 -250 Intake: IV 20 Invasive Line 2 20 Oral 300 Output: Urine 400 250 Other: Voiding Method Toilet Toilet # Voids 1 1 - Labs CBC & Chem 7: 05/22/23 06:56 05/21/23 05:45 Labs: Abnormal Lab Results - Last 24 Hours (Table) 05/22/23 Range/Units 06:56 WBC 12.30 H (4.50-10.00) X 10*3/uL RBC 3.82 L (4.10-5.20) X 10*6/uL Hgb 11.6 L (12.0-15.0) g/dL Hct 35.1 L (37.2-46.3) % Neutrophils # 8.81 H (1.80-7.70) X 10*3/uL Eosinophils # 0.61 H (0.04-0.35) X 10*3/uL
[2023-05-22] MEDS: LEVOFLOXACIN 500MG-D5W PMX 500 MG in DEXTROSE/WATER 1 100ML.BAG IVPB SCH (18:13)
--- NOTE | 2023-05-22 20:48 | P.PN ---
Progress Note - Text Progress Note Date: 05/22/23 - Chief Complaint Reversal of colostomy - History of Present Illness 77-year-old l patient follows with Dr. Ricardo. Chronic stable medical conditions include hypertension, history of pulmonary embolism, history of hysterectomy secondary to tumor January 2023 patient underwent sigmoid colectomy with end colostomy. Patient now presents for reversal of colostomy. Patient on liquid diet. Has some pain at the surgical site. Had some nausea yesterday but this better this morning. No chest pain or shortness of breath. May 19: Patient on clear liquid diet. Did pass some flatus. Some abdominal pain. No nausea vomiting. Did sit up in a chair. May 20: Up in a recliner. Did pass some flatus. Very small BM. Very slight abdominal pain. On clear liquids. Diet has been advanced for tomorrow by surgery. May 21: In a recliner. Passing flatus. No BM. Abdominal pain is controlled. Patient was advised by surgery to regular diet. Wound VAC in place. Looking for rehab placement. PT OT. May 22: Up in the hallway with PT OT. With a walker. Passing flatus. Heart regular diet. Wound VAC in place. Pain well-controlled. Patient had a morbilliform rash on the torso. Has been getting Benadryl. Exact cause unknown. Told to get gone from home. Active Medications Acetaminophen (Acetaminophen Tab 500 Mg Tab) 500 mg PO Q6HR PRN PRN Reason: Fever and/ or Pain Last Admin: 05/20/23 03:20 Dose: 500 mg Hydrocodone Bitart/Acetaminophen (Hydrocodone/Apap 5-325mg 1 Each Tab) 1 each PO Q4HR PRN PRN Reason: Pain Last Admin: 05/22/23 20:40 Dose: 1 each Amlodipine Besylate (Amlodipine 10 Mg Tab) 10 mg PO HS [facility] Last Admin: 05/22/23 20:41 Dose: 10 mg Ascorbic Acid (Ascorbic Acid 500 Mg Tab) 1,000 mg PO DAILY [facility] Last Admin: 05/22/23 09:35 Dose: 1,000 mg Calamine (Calamine/Zinc Oxide Lotion 177 Ml Btl) 1 applic TOPICAL BID PRN; Protocol PRN Reason: Skin Irritation Last Admin: 05/22/23 16:53 Dose: 1 applic Diphenhydramine HCl (Diphenhydramine 25 Mg Cap) 25 mg PO Q6HR [facility] Last Admin: 05/22/23 16:55 Dose: 25 mg Enoxaparin Sodium (Enoxaparin 40 Mg/0.4 Ml Syringe) 40 mg SQ DAILY [facility] Last Admin: 05/22/23 08:48 Dose: 40 mg Famotidine (Famotidine 20 Mg Tab) 20 mg PO BID [facility] Last Admin: 05/22/23 20:40 Dose: 20 mg Levofloxacin 500 mg/ IV (Solution) 100 mls @ 100 mls/hr IVPB Q24HR@1600 [facility]; Protocol Last Admin: 05/22/23 18:13 Dose: 100 mls/hr Metoclopramide HCl (Metoclopramide 5 Mg/Ml 2 Ml Vial) 10 mg IVP Q6HR PRN PRN Reason: Nausea and Vomiting Last Admin: 05/17/23 17:26 Dose: 10 mg Morphine Sulfate (Morphine Sulfate 4 Mg/Ml Syringe) 4 mg IVP Q4HR PRN PRN Reason: Pain Multivitamins (Multivitamins, Thera 1 Each Tab) 1 each PO DAILY [facility] Last Admin: 05/22/23 08:48 Dose: 1 each Ondansetron HCl (Ondansetron 4 Mg/2 Ml Vial) 4 mg IVP Q8HR PRN PRN Reason: Nausea And Vomiting Last Admin: 05/20/23 21:10 Dose: 4 mg Petrolatum (Zinc Oxide Paste (Z-Guard) 1 Applic) 1 applic TOPICAL DAILY PRN; Protocol PRN Reason: Wound Healing Last Admin: 05/20/23 04:47 Dose: 1 applic Physical examination: VITAL SIGNS: 98.7, 73, 18, 120 x 67, 93% room air GENERAL:, comfortable. Scattered morbilliform rash primarily in the torso. Itchy EYES: Pupils equal. Conjunctiva normal. HEENT: External appearance of nose and ears normal, oral cavity grossly normal. NG tube to suction NECK: JVD unable to assess; masses not palpable. HEART: Heart sounds muffled, edema. LUNGS: Respiratory rate increased decreased breath sound. EXTREMITY: Area. of Redness above the ankle both lower legs. Edema. ABDOMEN: Soft, minimal tender, wound VAC over the colostomy reversal site. l , liver spleen not palpable. PSYCH: Alert and oriented x3; mood and affect normal. INVESTIGATIONS, reviewed in the clinical context: May 22: White count 12.3 hemoglobin 11.6 May 21: White count 12 hemoglobin 11.5 potassium 4.6 creatinine 0.59 May 19: White count 11.7 hemoglobin 10.7 potassium 4.2 creatinine 0.58 May 17, 2023: White count 24.5 hemoglobin 12.7 sodium 139 potassium 3.9 creatinine 0.56 Assessment and plan: -Reversal of colostomy by Dr. Santos on May 17, 2023. Patient has a wound VAC in place. Passed flatus. regular diet. -Sigmoid diverticulosis -GERD PPI -Acute postprocedure blood loss anemia expected from surgery -Essential hypertension, amlodipine. Hold Zestril. -Chronic pulmonary embolism Eliquis -Primary osteoarthritis Pain medication as needed -Leukocytosis. Possibly reactive. Follow clinically. -Full code Regular diet. Pending rehab. Walking in the hallway with a walker. Past Medical History Past Medical History: Cancer, GERD/Reflux, Hypertension, Osteoarthritis (OA), Pulmonary Embolus (PE), Thyroid Disorder Additional Past Medical History / Comment(s): thyroid nodule 2014, .skin cancer - removed, diverticulosis, arthirits feet/lt ankle, rt knee.gout, past migarai harley-RARE, hx UTI History of Any Multi-Drug Resistant Organisms: None Reported Past Surgical History: Bowel Resection, Breast Surgery, Hysterectomy Additional Past Surgical History / Comment(s): Thyroid biopsy,exploratory abdominal surgery to remove ovarian pre-cancerous mass. "mohs procedure", colonsocpy, breast bx 1987, colostomy Past Anesthesia/Blood Transfusion Reactions: Motion Sickness Additional Past Anesthesia/Blood Transfusion Reaction / Comm: claustrophobia Smoking Status: Never smoker
[2023-05-23 10:20] LABS: Basophils # (A) 0.05 X 10*3/uL (0.00-0.10); Basophils % (A) 0.4 %; Eosinophils # (A) 0.53 X 10*3/uL (0.04-0.35); Eosinophils % (A) 3.9 %; HCT 35.1 % (37.2-46.3); HGB 11.7 g/dL (12.0-15.0); Lymphocytes # (A) 1.72 X 10*3/uL (0.90-5.00); Lymphocytes % (A) 12.5 %; MCH 30.4 pg (27.0-32.0); MCHC 33.3 g/dL (32.0-37.0); MCV 91.2 FL (80.0-97.0); Mean Platelet Volume 10.8 FL (9.5-12.2); Monocytes # (A) 0.81 X 10*3/uL (0.20-1.00); Monocytes % (A) 5.9 %; NRBC Per 100 WBC 0 X 10*3/uL (0.00-0.01); Neutrophils # (A) 10.56 X 10*3/uL (1.80-7.70); Neutrophils % (A) 76.9 %; Platelet Count 373 X 10*3/uL (140-440); RBC 3.85 X 10*6/uL (4.10-5.20); RDW 14.1 % (11.5-14.5); WBC 13.72 X 10*3/uL (4.50-10.00)
--- NOTE | 2023-05-23 15:42 | P.PN ---
Subjective Progress Note Date: 05/23/23 CHIEF COMPLAINT: Diverticulitis HISTORY OF PRESENT ILLNESS: Postop day #6 status post reversal of colostomy, takedown splenic flexure, repair of parastomal hernia and lysis of extensive fusions. Patient's pain is controlled. She did have a bowel movement. Denies any nausea or vomiting. She did tolerate diet. Afebrile. White count up to 13. She does not feel ready for discharge. PHYSICAL EXAM: VITAL SIGNS: Reviewed. GENERAL: Well-developed in no acute distress. HEENT: No sclera icterus. Extraocular movements grossly intact. Moist buccal mucosa. Head is atraumatic, normocephalic. ABDOMEN: Soft. Nondistended. Mild tenderness at incision site. rash noted on both sides of the prevana. Prevana wound VAC dressing intact NEUROLOGIC: Alert and oriented. Cranial nerves II through XII grossly intact. ASSESSMENT: 1. Diverticulitis PLAN: -Continue regular diet -Continue antibiotics -Repeat CBC in a.m. -Continue pain management -Continue Benadryl for abdominal rash -Encourage patient to increase activity level -Patient to be discharged home with home care at time of discharge -DVT prophylaxis Lovenox Physician Boat Puller note has been reviewed by physician. Signing provider agrees with the documented findings, assessment, and plan of care. Objective - Vital Signs Vital signs: Vital Signs Temp 98.6 F 05/23/23 14:00 Pulse 83 05/23/23 14:00 Resp 19 05/23/23 14:00 BP 99/54 05/23/23 14:00 Pulse Ox 96 05/23/23 14:00 FiO2 Intake & Output 05/22/23 05/23/23 05/23/23 18:59 06:59 18:59 Other: Voiding Method Toilet Toilet # Voids 4 1 # Bowel Movements 1 - Labs CBC & Chem 7: 05/23/23 07:43 05/21/23 05:45 Labs: Abnormal Lab Results - Last 24 Hours (Table) 05/23/23 Range/Units 07:43 WBC 13.72 H (4.50-10.00) X 10*3/uL RBC 3.85 L (4.10-5.20) X 10*6/uL Hgb 11.7 L (12.0-15.0) g/dL Hct 35.1 L (37.2-46.3) % Immature Gran # 0.05 H (0.00-0.04) X 10*3/uL Neutrophils # 10.56 H (1.80-7.70) X 10*3/uL Eosinophils # 0.53 H (0.04-0.35) X 10*3/uL
--- NOTE | 2023-05-23 18:57 | P.PN ---
Progress Note - Text Progress Note Date: 05/23/23 - Chief Complaint Reversal of colostomy - History of Present Illness 77-year-old l patient follows with Dr. Ricardo. Chronic stable medical conditions include hypertension, history of pulmonary embolism, history of hysterectomy secondary to tumor January 2023 patient underwent sigmoid colectomy with end colostomy. Patient now presents for reversal of colostomy. Patient on liquid diet. Has some pain at the surgical site. Had some nausea yesterday but this better this morning. No chest pain or shortness of breath. May 19: Patient on clear liquid diet. Did pass some flatus. Some abdominal pain. No nausea vomiting. Did sit up in a chair. May 20: Up in a recliner. Did pass some flatus. Very small BM. Very slight abdominal pain. On clear liquids. Diet has been advanced for tomorrow by surgery. May 21: In a recliner. Passing flatus. No BM. Abdominal pain is controlled. Patient was advised by surgery to regular diet. Wound VAC in place. Looking for rehab placement. PT OT. May 22: Up in the hallway with PT OT. With a walker. Passing flatus. Heart regular diet. Wound VAC in place. Pain well-controlled. Patient had a morbilliform rash on the torso. Has been getting Benadryl. Exact cause unknown. Told to get gone from home. May 23: Ambulating. Did have a bowel movement. Plan is for wound VAC to be removed tomorrow. On regular diet. Active Medications Acetaminophen (Acetaminophen Tab 500 Mg Tab) 500 mg PO Q6HR PRN PRN Reason: Fever and/ or Pain Last Admin: 05/20/23 03:20 Dose: 500 mg Hydrocodone Bitart/Acetaminophen (Hydrocodone/Apap 5-325mg 1 Each Tab) 1 each PO Q4HR PRN PRN Reason: Pain Last Admin: 05/23/23 17:48 Dose: 1 each Amlodipine Besylate (Amlodipine 10 Mg Tab) 10 mg PO HS [facility] Last Admin: 05/22/23 20:41 Dose: 10 mg Ascorbic Acid (Ascorbic Acid 500 Mg Tab) 1,000 mg PO DAILY [facility] Last Admin: 05/23/23 09:26 Dose: 1,000 mg Calamine (Calamine/Zinc Oxide Lotion 177 Ml Btl) 1 applic TOPICAL BID PRN; Protocol PRN Reason: Skin Irritation Last Admin: 05/23/23 00:50 Dose: 1 applic Diphenhydramine HCl (Diphenhydramine 25 Mg Cap) 25 mg PO Q6HR [facility] Last Admin: 05/23/23 17:45 Dose: 25 mg Enoxaparin Sodium (Enoxaparin 40 Mg/0.4 Ml Syringe) 40 mg SQ DAILY [facility] Last Admin: 05/23/23 09:26 Dose: 40 mg Famotidine (Famotidine 20 Mg Tab) 20 mg PO BID [facility] Last Admin: 05/23/23 09:26 Dose: 20 mg Levofloxacin 500 mg/ IV (Solution) 100 mls @ 100 mls/hr IVPB Q24HR@1600 [facility]; Protocol Last Admin: 05/23/23 15:22 Dose: 100 mls/hr Metoclopramide HCl (Metoclopramide 5 Mg/Ml 2 Ml Vial) 10 mg IVP Q6HR PRN PRN Reason: Nausea and Vomiting Last Admin: 05/17/23 17:26 Dose: 10 mg Morphine Sulfate (Morphine Sulfate 4 Mg/Ml Syringe) 4 mg IVP Q4HR PRN PRN Reason: Pain Multivitamins (Multivitamins, Thera 1 Each Tab) 1 each PO DAILY [facility] Last Admin: 05/23/23 09:26 Dose: 1 each Ondansetron HCl (Ondansetron 4 Mg/2 Ml Vial) 4 mg IVP Q8HR PRN PRN Reason: Nausea And Vomiting Last Admin: 05/20/23 21:10 Dose: 4 mg Petrolatum (Zinc Oxide Paste (Z-Guard) 1 Applic) 1 applic TOPICAL DAILY PRN; Protocol PRN Reason: Wound Healing Last Admin: 05/20/23 04:47 Dose: 1 applic Physical examination: VITAL SIGNS: 98.6, 83, 19, 99 x 54, 96% room air GENERAL:, comfortable. Scattered morbilliform rash primarily in the torso. Itchy EYES: Pupils equal. Conjunctiva normal. HEENT: External appearance of nose and ears normal, oral cavity grossly normal. NG tube to suction NECK: JVD unable to assess; masses not palpable. HEART: Heart sounds muffled, edema. LUNGS: Respiratory rate increased decreased breath sound. EXTREMITY: Area. of Redness above the ankle both lower legs. Edema. ABDOMEN: Soft, minimal tender, wound VAC over the colostomy reversal site. l , liver spleen not palpable. PSYCH: Alert and oriented x3; mood and affect normal. INVESTIGATIONS, reviewed in the clinical context: May 23: White count 13.7 hemoglobin 11.7 platelets 373 May 22: White count 12.3 hemoglobin 11.6 May 21: White count 12 hemoglobin 11.5 potassium 4.6 creatinine 0.59 May 19: White count 11.7 hemoglobin 10.7 potassium 4.2 creatinine 0.58 May 17, 2023: White count 24.5 hemoglobin 12.7 sodium 139 potassium 3.9 creatinine 0.56 Assessment and plan: -Reversal of colostomy by Dr. Santos on May 17, 2023. Patient has a wound VAC in place. Had a bowel movement regular diet. -Sigmoid diverticulosis -GERD PPI -Acute postprocedure blood loss anemia expected from surgery -Essential hypertension, amlodipine. Hold Zestril. -Chronic pulmonary embolism Eliquis -Primary osteoarthritis Pain medication as needed -Leukocytosis. Possibly reactive. Follow clinically. -Full code Regular diet. Patient walking well. Plan for DC home tomorrow. Wound VAC will come off tomorrow. Discussed. Past Medical History Past Medical History: Cancer, GERD/Reflux, Hypertension, Osteoarthritis (OA), Pulmonary Embolus (PE), Thyroid Disorder Additional Past Medical History / Comment(s): thyroid nodule 2014, .skin cancer - removed, diverticulosis, arthirits feet/lt ankle, rt knee.gout, past migaraines-RARE, hx UTI History of Any Multi-Drug Resistant Organisms: None Reported Past Surgical History: Bowel Resection, Breast Surgery, Hysterectomy Additional Past Surgical History / Comment(s): Thyroid biopsy,exploratory abdominal surgery to remove ovarian pre-cancerous mass. "mohs procedure", colo nsocpy, breast bx 1987, colostomy Past Anesthesia/Blood Transfusion Reactions: Motion Sickness Additional Past Anesthesia/Blood Transfusion Reaction / Comm: claustrophobia Smoking Status: Never smoker
[2023-05-23] MEDS: methylPREDNISolone SOD SUCCI 125 MG/2 ML VIAL IV STA (22:54)
[2023-05-24] MEDS: predniSONE 20 MG TAB PO SCH (07:43)
[2023-05-24 11:29] VITALS: BMI 27.6
[2023-05-24 11:39] LABS: Basophils # (A) 0.04 X 10*3/uL (0.00-0.10); Basophils % (A) 0.3 %; Eosinophils # (A) 1.04 X 10*3/uL (0.04-0.35); HCT 36.8 % (37.2-46.3); Lymphocytes # (A) 0.78 X 10*3/uL (0.90-5.00); Lymphocytes % (A) 6.7 %; MCH 29.9 pg (27.0-32.0); MCHC 32.6 g/dL (32.0-37.0); MCV 91.8 FL (80.0-97.0); Mean Platelet Volume 10.5 FL (9.5-12.2); Monocytes # (A) 0.04 X 10*3/uL (0.20-1.00); Monocytes % (A) 0.3 %; NRBC Per 100 WBC 0 X 10*3/uL (0.00-0.01); Neutrophils # (A) 9.66 X 10*3/uL (1.80-7.70); Neutrophils % (A) 83.2 %; Platelet Count 416 X 10*3/uL (140-440); RBC 4.01 X 10*6/uL (4.10-5.20); RDW 13.7 % (11.5-14.5); WBC 11.62 X 10*3/uL (4.50-10.00)
--- NOTE | 2023-05-24 12:36 | P.PN ---
Subjective Progress Note Date: 05/24/23 CHIEF COMPLAINT: Diverticulitis HISTORY OF PRESENT ILLNESS: Postop day #7 status post reversal of colostomy, takedown splenic flexure, repair of parastomal hernia and lysis of extensive fusions. Patient's pain is controlled. She did have a bowel movement. Denies any nausea or vomiting. She did tolerate diet. She feels she can be discharged tomorrow. Afebrile. WBC is down from 13-11.6 Patient seen and examined with Dr. Santos PHYSICAL EXAM: VITAL SIGNS: Reviewed. GENERAL: Well-developed in no acute distress. ABDOMEN: Soft. Nondistended. Mild tenderness at incision site. rash noted on both sides of the prevana. Prevana wound VAC dressing intact NEUROLOGIC: Alert and oriented. Cranial nerves II through XII grossly intact. ASSESSMENT: 1. Diverticulitis PLAN: -Anticipate discharge tomorrow -Remove Prevana wound vac -Continue regular diet -Continue antibiotics -Continue pain management -Encourage patient to increase activity level -DVT prophylaxis Lovenox Physician Director Of [employer] note has been reviewed by physician. Signing provider agrees with the documented findings, assessment, and plan of care. Objective - Vital Signs Vital signs: Vital Signs Temp 98.3 F 05/24/23 07:36 Pulse 87 05/24/23 07:36 Resp 16 05/24/23 07:36 BP 117/59 05/24/23 07:36 Pulse Ox 92 L 05/24/23 07:36 FiO2 Intake & Output 05/23/23 05/24/23 05/24/23 18:59 06:59 18:59 Weight 64.2 kg Other: Voiding Method Toilet Toilet Toilet # Voids 3 1 - Labs CBC & Chem 7: 05/24/23 07:02 05/21/23 05:45 Labs: Abnormal Lab Results - Last 24 Hours (Table) 05/24/23 Range/Units 07:02 WBC 11.62 H (4.50-10.00) X 10*3/uL RBC 4.01 L (4.10-5.20) X 10*6/uL Hct 36.8 L (37.2-46.3) % Immature Gran # 0.06 H (0.00-0.04) X 10*3/uL Neutrophils # 9.66 H (1.80-7.70) X 10*3/uL Lymphocytes # 0.78 L (0.90-5.00) X 10*3/uL Monocytes # 0.04 L (0.20-1.00) X 10*3/uL Eosinophils # 1.04 H (0.04-0.35) X 10*3/uL
--- NOTE | 2023-05-24 15:47 | P.PN ---
Progress Note - Text Progress Note Date: 05/24/23 - Chief Complaint Reversal of colostomy - History of Present Illness 77-year-old l patient follows with Dr. Ricardo. Chronic stable medical conditions include hypertension, history of pulmonary embolism, history of hysterectomy secondary to tumor January 2023 patient underwent sigmoid colectomy with end colostomy. Patient now presents for reversal of colostomy. Patient on liquid diet. Has some pain at the surgical site. Had some nausea yesterday but this better this morning. No chest pain or shortness of breath. May 19: Patient on clear liquid diet. Did pass some flatus. Some abdominal pain. No nausea vomiting. Did sit up in a chair. May 20: Up in a recliner. Did pass some flatus. Very small BM. Very slight abdominal pain. On clear liquids. Diet has been advanced for tomorrow by surgery. May 21: In a recliner. Passing flatus. No BM. Abdominal pain is controlled. Patient was advised by surgery to regular diet. Wound VAC in place. Looking for rehab placement. PT OT. May 22: Up in the hallway with PT OT. With a walker. Passing flatus. Heart regular diet. Wound VAC in place. Pain well-controlled. Patient had a morbilliform rash on the torso. Has been getting Benadryl. Exact cause unknown. Told to get gone from home. May 23: Ambulating. Did have a bowel movement. Plan is for wound VAC to be removed tomorrow. On regular diet. May 24: Doing much better. Having bowel movements. Wound VAC was removed today. No abdominal pain. Rash is much better after she received IV steroid last night. Now on oral prednisone. Will be discharged on tapering dose steroids. Benadryl as needed. Active Medications Acetaminophen (Acetaminophen Tab 500 Mg Tab) 500 mg PO Q6HR PRN PRN Reason: Fever and/ or Pain Last Admin: 05/20/23 03:20 Dose: 500 mg Hydrocodone Bitart/Acetaminophen (Hydrocodone/Apap 5-325mg 1 Each Tab) 1 each PO Q4HR PRN PRN Reason: Pain Last Admin: 05/24/23 12:05 Dose: 1 each Amlodipine Besylate (Amlodipine 10 Mg Tab) 10 mg PO HS BASILIO Last Admin: 05/23/23 21:13 Dose: 10 mg Ascorbic Acid (Ascorbic Acid 500 Mg Tab) 1,000 mg PO DAILY [facility] Last Admin: 05/24/23 07:42 Dose: 1,000 mg Calamine (Calamine/Zinc Oxide Lotion 177 Ml Btl) 1 applic TOPICAL BID PRN; Protocol PRN Reason: Skin Irritation Last Admin: 05/23/23 00:50 Dose: 1 applic Diphenhydramine HCl (Diphenhydramine 25 Mg Cap) 25 mg PO Q6HR [facility] Last Admin: 05/24/23 12:05 Dose: 25 mg Enoxaparin Sodium (Enoxaparin 40 Mg/0.4 Ml Syringe) 40 mg SQ DAILY [facility] Last Admin: 05/24/23 07:42 Dose: 40 mg Famotidine (Famotidine 20 Mg Tab) 20 mg PO BID [facility] Last Admin: 05/24/23 07:43 Dose: 20 mg Levofloxacin 500 mg/ IV (Solution) 100 mls @ 100 mls/hr IVPB Q24HR@1600 BASILIO; Protocol Last Admin: 05/23/23 15:22 Dose: 100 mls/hr Metoclopramide HCl (Metoclopramide 5 Mg/Ml 2 Ml Vial) 10 mg IVP Q6HR PRN PRN Reason: Nausea and Vomiting Last Admin: 05/17/23 17:26 Dose: 10 mg Morphine Sulfate (Morphine Sulfate 4 Mg/Ml Syringe) 4 mg IVP Q4HR PRN PRN Reason: Pain Multivitamins (Multivitamins, Thera 1 Each Tab) 1 each PO DAILY [facility] Last Admin: 05/24/23 07:42 Dose: 1 each Ondansetron HCl (Ondansetron 4 Mg/2 Ml Vial) 4 mg IVP Q8HR PRN PRN Reason: Nausea And Vomiting Last Admin: 05/20/23 21:10 Dose: 4 mg Petrolatum (Zinc Oxide Paste (Z-Guard) 1 Applic) 1 applic TOPICAL DAILY PRN; Protocol PRN Reason: Wound Healing Last Admin: 05/20/23 04:47 Dose: 1 applic Prednisone (Prednisone 20 Mg Tab) 40 mg PO DAILY [facility] Last Admin: 05/24/23 07:43 Dose: 40 mg Physical examination: VITAL SIGNS: 98.3, 87, 16, 1 one 7 x 59, 92% room air GENERAL:, comfortable. Scattered morbilliform rash primarily in the torso. Itchy-better EYES: Pupils equal. Conjunctiva normal. HEENT: External appearance of nose and ears normal, oral cavity grossly normal. NG tube to suction NECK: JVD unable to assess; masses not palpable. HEART: Heart sounds muffled, edema. LUNGS: Respiratory rate increased decreased breath sound. EXTREMITY: Area. of Redness above the ankle both lower legs. Edema. ABDOMEN: Soft, minimal tender, wound VAC removed. l , liver spleen not palpable. PSYCH: Alert and oriented x3; mood and affect normal. INVESTIGATIONS, reviewed in the clinical context: May 24: White count 9.6 hemoglobin 12 May 23: White count 13.7 hemoglobin 11.7 platelets 373 May 22: White count 12.3 hemoglobin 11.6 May 21: White count 12 hemoglobin 11.5 potassium 4.6 creatinine 0.59 May 19: White count 11.7 hemoglobin 10.7 potassium 4.2 creatinine 0.58 May 17, 2023: White count 24.5 hemoglobin 12.7 sodium 139 potassium 3.9 creatinine 0.56 Assessment and plan: -Reversal of colostomy by Dr. Santos on May 17, 2023. Wound VAC removed today on May 24. Having bowel movements regular diet. -Sigmoid diverticulosis -GERD PPI -Acute postprocedure blood loss anemia expected from surgery -Essential hypertension, amlodipine. Zestril discontinued -Chronic pulmonary embolism Eliquis -Primary osteoarthritis Pain medication as needed -Leukocytosis. Possibly reactive. Follow clinically. -Full code Regular diet. Wound VAC removed. Looking to be discharged tomorrow. Discussed. Past Medical History Past Medical History: Cancer, GERD/Reflux, Hypertension, Osteoarthritis (OA), Pulmonary Embolus (PE), Thyroid Disorder Additional Past Medical History / Comment(s): thyroid nodule 2014, .skin cancer - removed, diverticulosis, arthirits feet/lt ankle, rt knee.gout, past migara monse-RARE, hx UTI History of Any Multi-Drug Resistant Organisms: None Reported Past Surgical History: Bowel Resection, Breast Surgery, Hysterectomy Additional Past Surgical History / Comment(s): Thyroid biopsy,exploratory abdominal surgery to remove ovarian pre-cancerous mass. "mohs procedure", colonsocpy, breast bx 1987, colostomy Past Anesthesia/Blood Transfusion Reactions: Motion Sickness Additional Past Anesthesia/Blood Transfusion Reaction / Comm: claustrophobia Smoking Status: Never smoker
[2023-05-25 08:32] VITALS: RESP 19
--- NOTE | 2023-05-25 13:52 | P.PN ---
Progress Note - Text Progress Note Date: 05/25/23 This is a discharge summary The patient was admitted for reversal of colostomy, takedown splenic flexure, repair of parastomal hernia. The post operative course was unremarkable. The meds and follow up appointments are on a separate sheet. Johnnie Palacios MD
[2023-05-25 16:31] VITALS: BP 139/71; PULSE 91; TEMP 98.1
--- NOTE | 2023-05-26 16:49 | P.PN ---
Subjective Progress Note Date: 05/25/23 This is a pleasant 77-year-old female who presents to the hospital for colostomy reversal. Patient is now postoperative day #8. She is having stool in the ostomy. She is having minimal abdominal discomfort. She has been up ambulating. She is tolerating diet. Her most recent blood work is showing a [facility] white count of 11.62, hemoglobin 12.0. Electrolytes have been within normal limits. Hemodynamically she is stable. She did develop a morbilliform rash during this hospital stay and she is unclear why however this did improve with a treatment of Benadryl and IV steroids and she will continue a small prednisone taper on discharge. Her rash has also improved. Patient will be discharged home today by surgical and medically she is stable. Review of Systems Constitutional: Denied any fatigue denied any fever. Cardio vascular: denied any chest pain, palpitations Gastrointestinal: denied any nausea, vomiting, diarrhea Pulmonary: Denied any shortness of breath cough Neurologic denied any new focal deficits All inpatient medications were reviewed and appropriate changes in these medications as dictated in the interval history and assessment and plan. PHYSICAL EXAMINATION: GENERAL: The patient is alert and oriented x3, not in any acute distress. Well developed, well nourished. HEENT: Pupils are round and equally reacting to light. EOMI. No scleral icterus. No conjunctival pallor. Normocephalic, atraumatic. No pharyngeal erythema. No thyromegaly. CARDIOVASCULAR: S1 and S2 present. No murmurs, rubs, or gallops. PULMONARY: Chest is clear to auscultation, no wheezing or crackles. ABDOMEN: Soft, nontender, nondistended, normoactive bowel sounds. No palpable organomegaly. MUSCULOSKELETAL: No joint swelling or deformity. EXTREMITIES: No cyanosis, clubbing, or pedal edema. NEUROLOGICAL: Gross neurological examination did not reveal any focal deficits. SKIN: No rashes. Assessment and plan -Reversal of colostomy by Dr. Santos on May 17, 2023, wound VAC has since been discontinued and patient is on a regular diet. She is having stool in the ostomy. -Sigmoid diverticulosis -History of diverticulitis with sigmoid colectomy and ostomy formation. -GERD -Acute postprocedure blood loss anemia expected from surgery -Essential hypertension, patient is currently low normal amlodipine as well as lisinopril have been held to avoid any postoperative hypotension -Chronic pulmonary embolism patient is maintained on Eliquis which has been resumed postprocedure -Primary osteoarthritis -Leukocytosis. Possibly reactive. Improving -Full code Regular diet. Wound VAC removed. Patient is scheduled for discharge home. Recommended to follow-up with her PCP in 1 to 2 days. Repeat labs in 2 to 3 days. Continue on bowel regimen and diet as tolerated. Activity limited until follow-up. The impression and plan of care has been dictated by Nurse Akilah Tejada as directed. Dr. Santa MD I have performed a history and physical examination and medical decision making of this patient, discussed the same with the dictator, and agree with the dict ators assessment and plan as written, documented as a scribe. Based on total visit time, I have performed more than 50% of this visit. Objective - Vital Signs Vital signs: Vital Signs Temp 98.4 F 05/25/23 07:19 Pulse 74 05/25/23 07:19 Resp 19 05/25/23 07:19 BP 103/53 05/25/23 07:19 Pulse Ox 96 05/25/23 07:19 FiO2 Intake & Output 05/24/23 05/25/23 05/25/23 18:59 06:59 18:59 Intake Total 480 Output Total 1300 800 Balance -1300 -320 Weight 64.2 kg Intake: Oral 480 Output: Urine 1300 800 Other: Voiding Method Toilet # Voids 1 1 # Bowel Movements 1 - Labs CBC & Chem 7: 05/24/23 07:02 05/21/23 05:45 Assessment and Plan Time with Patient: Less than 30
== END 2023-05-25 16:03 | disposition home or self-care (01) | DRG 330 ==
LOC: 2ORMAIN 05:33 → 4SSUR 12:30
PROVIDERS: ADMIT Surgery; ATTEND Surgery
PROC: 0DNW0ZZ Release Peritoneum, Open Approach (ICD-10-PCS; 2023-05-17)
PROC: 0WQF0ZZ Repair Abdominal Wall, Open Approach (ICD-10-PCS; 2023-05-17)
PROC: 0D9670Z Drainage of Stomach with Drainage Device, Via Natural or Artificial Opening (ICD-10-PCS; 2023-05-17)
PROC: 0DBN0ZZ Excision of Sigmoid Colon, Open Approach (ICD-10-PCS; principal; 2023-05-17 07:00)
DX: Z43.3 Encounter for attention to colostomy (principal); D62 Acute posthemorrhagic anemia; I27.82 Chronic pulmonary embolism; K66.0 Peritoneal adhesions (postprocedural) (postinfection); K43.5 Parastomal hernia without obstruction or gangrene; I10 Essential (primary) hypertension; K57.30 Diverticulosis of large intestine without perforation or abscess without bleeding; K21.9 Gastro-esophageal reflux disease without esophagitis; M19.91 Primary osteoarthritis, unspecified site; M10.9 Gout, unspecified; R03.1 Nonspecific low blood-pressure reading; L29.9 Pruritus, unspecified; R21 Rash and other nonspecific skin eruption; D72.828 Other elevated white blood cell count; Z85.828 Personal history of other malignant neoplasm of skin; Z79.01 Long term (current) use of anticoagulants; Z79.899 Other long term (current) drug therapy; Z88.0 Allergy status to penicillin; Z91.048 Other nonmedicinal substance allergy status; Z88.8 Allergy status to other drugs, medicaments and biological substances; Z86.018 Personal history of other benign neoplasm
CPT/HCPCS: 80048; 85025; 85027; 88307

== ENCOUNTER → 2023-07-18 | Outpatient (CLI) | payer MEDICARE ==
--- NOTE | 2023-07-19 09:54 | CA ---
Transthoracic Echo Report Name: Nuvia Ridley Age: 77 Gender: F : 1945 Exam Date: 07/18/2023 13:16 Exam Location: [facility] Ht (in): 61 Wt (lb): 144 Ordering Physician: Davi Ricardo DO Attending/Referring Phys: Viscosity Inspector Charlene Savage RDCS Procedure CPT: Indications: R60.0 EDEMA I51.7 CARDIOMEGALY Cardiac Hx: Technical Quality: Fair Contrast 1: Total Dose (mL): Contrast 2: Total Dose (mL): MEASUREMENTS (Male / Female) Normal Values 2D ECHO LV Diastolic Diameter PLAX 4.2 cm 4.2 - 5.9 / 3.9 - 5.3 cm LV Systolic Diameter PLAX 2.8 cm IVS Diastolic Thickness 1.2 cm 0.6 - 1.0 / 0.6 - 0.9 cm LVPW Diastolic Thickness 1.2 cm 0.6 - 1.0 / 0.6 - 0.9 cm LV Relative Wall Thickness 0.6 RV Internal Dim ED PLAX 3.3 cm LA Systolic Diameter LX 3.6 cm 3.0 - 4.0 / 2.7 - 3.8 cm LV Diastolic Volume MOD 4C 48.1 cm??? LV Systolic Volume MOD 4C 24.7 cm??? LV Ejection Fraction MOD 4C 48.6 % LV Cardiac Index MOD 4C 1172.8 cm???/min???m??? LV Diastolic Length 4C 6.8 cm LV Systolic Length 4C 5.5 cm LV Diastolic Volume MOD 2C 55.7 cm??? LV Systolic Volume MOD 2C 20.0 cm??? LV Ejection Fraction MOD 2C 64.1 % LV Cardiac Index MOD 2C 1789.5 cm???/min???m??? LV Diastolic Length 2C 7.5 cm LV Systolic Length 2C 5.8 cm LA Volume 49.9 cm??? 18 - 58 / 22 - 52 cm??? LA Volume Index 29.4 cm???/m??? 16 - 28 cm???/m??? M-MODE Aortic Root Diameter MM 3.1 cm MV E Point Septal Separation 0.6 cm DOPPLER AV Peak Velocity 163.8 cm/s AV Peak Gradient 10.7 mmHg MV Area PHT 3.4 cm??? Mitral E Point Velocity 79.3 cm/s Mitral A Point Velocity 103.1 cm/s Mitral E to A Ratio 0.8 MV Deceleration Time 226.4 ms TR Peak Velocity 278.5 cm/s TR Peak Gradient 31.0 mmHg Right Ventricular Systolic Press 36.0 mmHg FINDINGS Left Ventricle Left ventricular ejection fraction is estimated at 55-60 %. Left ventricular cavity size normal. Mildly increased septal wall thickness. Mildly increased posterior wall thickness. No obvious regional wall motion abnormalities. Right Ventricle Mild right ventricular dilatation. Mild pulmonary hypertension. Right Atrium Right atrium not well visualized. Left Atrium Mildly increased left atrial volume. Mildly increased left atrial area. Mitral Valve Structurally normal mitral valve. No mitral stenosis. No evidence for mitral valve prolapse. Trace mitral regurgitation. Aortic Valve Trileaflet aortic valve. No aortic valve stenosis or regurgitation. Tricuspid Valve Structurally normal tricuspid valve. Mild tricuspid regurgitation. Pulmonic Valve Structurally normal pulmonic valve. No pulmonic regurgitation. Pericardium No pericardial effusion. Aorta Normal size aortic root and proximal ascending aorta. CONCLUSIONS Normal LV size and systolic function. Mild right ventricular enlargement. Minimal mitral and tricuspid regurgitation. No significant pulmonary hypertension. No pericardial effusion Previewed by: Dr. Trevor Salinas MD (Electronically Signed) Final Date: 19 July 2023 09:53
== END | disposition home or self-care (01) ==
LOC: RADECHMAIN 12:59
PROVIDERS: ATTEND Family Medicine
DX: R60.0 Localized edema (principal); I51.7 Cardiomegaly
CPT/HCPCS: 93306

== ENCOUNTER → 2023-07-19 | Outpatient (CLI) | payer MEDICARE ==
--- NOTE | 2023-07-19 16:42 | US ---
EXAMINATION TYPE: US venous doppler duplex LE DATE OF EXAM: 07/19/2023 4:20 PM COMPARISON: NONE CLINICAL INDICATION: Female, 77 years old with history of R60.0 LOCALIZED EDEMA,I51.7; bilat edema x several years, Hx PE 2018 SIDE PERFORMED: Bilateral TECHNIQUE: The lower extremity deep venous system is examined utilizing real time linear array sonog joss with graded compression, doppler sonography and color-flow sonography. VESSELS IMAGED: Common Femoral Vein Deep Femoral Vein Greater Saphenous Vein * Femoral Vein Popliteal Vein Small Saphenous Vein * Proximal Calf Veins (* superficial vessels) Right Leg: Negative for DVT Left Leg: Negative for DVT IMPRESSION: Grayscale, color doppler, spectral doppler imaging performed of the deep veins of the lo wer extremities. There is normal flow, compressibility, vascular waveforms.
== END | disposition home or self-care (01) ==
LOC: RADUSWWP 15:46
PROVIDERS: ATTEND Family Medicine
DX: R10.2 Pelvic and perineal pain (principal); R60.0 Localized edema
CPT/HCPCS: 93970